=== PATIENT | male | born 1955 | race Caucasian/White ===

== ENCOUNTER 2016-10-23 22:55 | Inpatient (IN) ==
[~2016-10-23 22:55] MED LIST: *HR* Propofol 200 MG/20 ML VIAL IVP ONE; Lidocaine -MPF 2% 5 ML VIAL INFILT ONE
--- NOTE | 2016-10-23 23:55 | Emergency Department Note ---
Disposition Clinical Impression: Vomiting and diarrhea, Dehydration, Anticoagulation adequate with anticoagulant therapy, Hemiplegia, Anasarca Catheter-associated urinary tract infection Qualifiers: Indwelling urinary catheter type: indwelling urethral catheter Encounter type: initial encounter Qualified Code(s): T83.511A - Infection and inflammatory reaction due to indwelling urethral catheter, initial encounter Abdominal pain Qualifiers: Abdominal location: generalized Qualified Code(s): R10.84 - Generalized abdominal pain Hip fracture Qualifiers: Encounter type: subsequent encounter Fracture type: closed Laterality: unspecified laterality Fracture healing: with nonunion Qualified Code(s): S72.009K - Fracture of unspecified part of neck of unspecified femur, subsequent encounter for closed fracture with nonunion Disposition: Admitted As Inpatient Condition: Undetermined General Adult HPI - General Chief complaint: ED Nausea/Vomiting/Diarrhea Stated complaint: nausea/vomiting Source: patient, EMS - History of Present Illness HPI Narrative: Patient presents with his complaining of dark emesis concerning for blood. He has also had diarrhea but the says is "squirting out of him like water." They are concerned for the possibility of Clostridium difficile. He is frequently on antibiotics for bladder infections, last course was a couple of weeks ago. He has had no lightheadedness or dizziness. No chest pain or shortness of breath. He has been complaining of abdominal pain which started before the vomiting and diarrhea. No fever. He is on full dose Lovenox for anticoagulation due to recurrent DVTs and PEs, 150 mg twice daily. No melena, hematochezia or bright red blood per rectum. No alexa hematemesis, they describe the emesis as dark brown. Pain Scale: 8 - Related Data Home Medications Medication Instructions Recorded Confirmed Aspirin Enteric Coated [Aspirin EC] 81 mg PO QAM #0 03/28/15 03/12/16 Carvedilol [Coreg] 6.25 mg PO BIDWM 03/28/15 03/12/16 Ezetimibe [Zetia] 10 mg PO QAM 03/28/15 03/12/16 Insulin Regular U-500 [HumuLIN R 0 unit SQ TID #0 03/28/15 03/12/16 U-500] Latanoprost [Xalatan] 1 drop BOTH EYES HS 03/28/15 03/12/16 Tamsulosin [Flomax] 0.4 mg PO QPM 03/28/15 03/12/16 Albuterol Neb [Proventil Neb] 2.5 mg IH Q4HR PRN 12/31/15 03/12/16 Digoxin [Lanoxin] 0.25 mg PO DAILY 12/31/15 03/12/16 Albuterol Sulfate [Albuterol 2 puff IH TID PRN 03/12/16 03/12/16 Inhaler] Collagenase Oint [Santyl] 1 appl TP DAILY 03/12/16 03/12/16 Docusate [Colace] 100 mg PO BID PRN 03/12/16 03/12/16 Furosemide [Lasix] 40 mg PO BID 03/12/16 03/12/16 Gentamicin Sulfate 1 appl TP DAILY 03/12/16 03/12/16 Insulin Glargine [Lantus] 0 unit SQ BID 03/12/16 03/12/16 Ketoconazole 2% CRM [Nizoral Cream] 1 appl TP BID 03/12/16 03/12/16 Lactose-Reduced Food [Ensure 1 bottle PO TID 03/12/16 03/12/16 Liquid] Mupirocin [Bactroban Oint] 1 appl TP TID 03/12/16 03/12/16 Oxycodone HCl/Acetaminophen 1 each PO Q5H PRN 03/12/16 03/12/16 [Percocet 10-325 mg Tablet] Promethazine [Phenergan] 25 mg PO BID PRN 03/12/16 03/12/16 Ranitidine HCl [Acid Rating Clerk] 150 mg PO BID 03/12/16 03/12/16 Previous Rx's Medication Instructions Recorded Simethicone [Gas-X] 80 mg PO TID PRN #0 tab.chew 04/03/15 Ondansetron HCl [Zofran] 4 mg PO Q8H PRN #20 tablet 09/12/15 Pregabalin [Lyrica] 50 mg PO TID 30 Days 09/12/15 Enoxaparin [Lovenox] 150 mg SQ DAILY #30 syr 10/29/15 Allergies Allergy/AdvReac Type Severity Reaction Status Date / Time celecoxib [From Celebrex] Allergy Swelling Verified 03/12/16 04:44 of Lip/Tongue/Throat gabapentin [From Neurontin] Allergy Swelling Verified 03/12/16 04:44 of Lip/Tongue/Throat nifedipine [From Procardia] Allergy Swelling Verified 03/12/16 04:44 of Lip/Tongue/Throat Penicillins Allergy Swelling Verified 03/12/16 04:44 of Lip/Tongue/Throat rofecoxib [From Vioxx] Allergy Swelling Verified 03/12/16 04:44 of Lip/Tongue/Throat iodine AdvReac See Verified 03/12/16 04:44 Comments povidone-iodine AdvReac See Verified 03/12/16 04:44 [From Betadine] Comments soap [From Betadine] AdvReac See Verified 03/12/16 04:44 Comments All systems ED: reviewed and negative except as stated. Past Medical History - Past Medical History Medical history: Reports: arthritis, atrial fibrillation, cardiomyopathy, cirrhosis, CHF, COPD, coronary artery disease, CVA, DVT, dementia, diabetes, GERD, GI bleed, hepatitis, hyperlipidemia, hypertension, kidney stones, liver disease, migraine, myocardial infarction, osteoporosis, peripheral artery disease, pulmonary embolus, renal disease, TIA, venous stasis Surgical history: Reports: cholecystectomy, pacemaker/AICD Psychiatric history: Reports: anxiety, bipolar, depression - Social History Smoking Status: Former smoker Smokeless Tobacco Status: No Alcohol use: Reports: none Drug use: Reports: none Physical Exam - General General appearance: alert, in no apparent distress - Head Head exam: atraumatic, normocephalic - Eye Eye exam: Present: other (Conjunctivae pink, no pallor.). Absent: scleral icterus - ENT ENT exam: mucous membranes dry - Chest Chest inspection: Present: normal inspection, symmetric chest wall rise - Respiratory Respiratory exam: Present: wheezes (Scattered). Absent: respiratory distress, accessory muscle use, prolonged expiratory phase - Cardiovascular Cardiovascular exam: Present: normal rhythm (Rate normal), normal heart sounds. Absent: tachycardia, irregular rhythm - Abdominal Exam Abdominal exam: Present: soft. Absent: distention, guarding Abdominal tenderness: Present: diffuse, mild - Rectal Exam Health Physicist present during exam: Yes Rectal exam: Present: normal inspection, other (Liquid green stool present on exam). Absent: black stool, bloody stool, mass, tenderness - Male exam: Present: scrotal swelling, other (Cano catheter in place.) - Extremities Exam Extremities exam: Present: pedal edema (Pitting edema to the level of the groin) - Neurological Exam Neurological exam: Present: alert, oriented X3, CN II-XII intact (Grossly), motor sensory deficit (Left-sided weakness status post prior stroke), other ( Speech and mental status normal) - Psychiatric Psychiatric exam: Present: normal affect, normal mood Course Course Narrative: Reviewed records - hip fractures are chronic and have been managed non- operatively since at least February. Stool is heme negative, no vomiting since arrival. VS remain normal, hemoglobin stable compared to previous. C.diff pending. No other acute abnormality on CT. Urine looks to be infected again - will give antibiotics, change catheter. Vital Signs Temperature 97.7 F 10/23/16 22:57 Pulse Rate 73 10/23/16 22:57 Respiratory Rate 20 10/23/16 22:57 Blood Pressure 121/64 10/23/16 22:57 O2 Sat by Pulse Oximetry 92 10/23/16 22:57 Temperature 97.7 F 10/23/16 22:57 Pulse Rate 73 10/23/16 22:57 Respiratory Rate 20 10/23/16 22:57 Blood Pressure 121/64 10/23/16 22:57 O2 Sat by Pulse Oximetry 94 10/23/16 23:04 Oxygen Delivery Oxygen Delivery Nasal Cannula Medical Decision Making - Lab Data Result diagrams: 10/24/16 00:00 10/24/16 00:00 Lab Results 10/24/16 10/24/16 10/24/16 Range/Units 00:00 00:00 00:00 WBC 9.2 (4.3-11.1) K/mcL RBC 4.46 (4.19-5.50) M/mcL Hgb 11.8 L (12.9-16.9) g/dL Hct 39.1 (37.5-50.1) % MCV 87.7 (83.0-100.0) fL MCH 26.5 L (28.0-33.3) pg MCHC 30.2 L (31.6-35.5) g/dL RDW 16.3 H (11.5-14.5) % Plt Count 159 (140-400) K/mcL MPV 9.8 (9.4-12.4) fL PT 16.2 H (9.4-12.1) Seconds INR 1.5 Sodium 135 L (136-145) mEq/L Potassium 4.3 (3.5-4.5) mEq/L Chloride 98 (98-109) mEq/L Carbon Dioxide 28 (19-29) mEq/L BUN 39 H (8-26) mg/dL Creatinine 1.10 (0.72-1.25) mg/dL Est GFR ( Amer) > 60 (> 60) Est GFR (Non-Af Amer) > 60 (> 60) BUN/Creatinine Ratio 35 H (6-26) Glucose 172 H (70-99) mg/dL Calculated Osmolality 293 (280-300) Calcium 8.2 L (8.6-10.8) mg/dL Lipase < 4 L (8-78) Units/L Urine Color (Yellow) Urine Clarity (Clear) Urine pH (5.0-8.0) pH Units Ur Specific [place] (1.010-1.025) Urine Protein (Neg-Trace) mg/dL Urine Glucose (UA) (Normal) mg/dL Urine Ketones (Negative) mg/dL Urine Blood (Negative) Urine Nitrite (Negative) Urine Bilirubin (Negative) Urine Urobilinogen (Normal) mg/dL Ur Leukocyte Esterase (Negative) Urine Microscopic RBC (0-3) per hpf Urine Microscopic WBC (0-3) per hpf Ur Squamous Epith Cells (None-Few) per lpf Urine Bacteria (None-Few) per hpf Hyaline Casts (None-Few) per lpf Urine Yeast Ur Culture Indicated? (NO) Stool Occult Blood (Negative) Stl C. diff Tox B Gene (Negative) 10/24/16 10/24/16 10/24/16 Range/Units 00:38 00:38 01:05 WBC (4.3-11.1) K/mcL RBC (4.19-5.50) M/mcL Hgb (12.9-16.9) g/dL Hct (37.5-50.1) % MCV (83.0-100.0) fL MCH (28.0-33.3) pg MCHC (31.6-35.5) g/dL RDW (11.5-14.5) % Plt Count (140-400) K/mcL MPV (9.4-12.4) fL PT (9.4-12.1) Seconds INR Sodium (136-145) mEq/L Potassium (3.5-4.5) mEq/L Chloride (98-109) mEq/L Carbon Dioxide (19-29) mEq/L BUN (8-26) mg/dL Creatinine (0.72-1.25) mg/dL Est GFR ( Amer) (> 60) Est GFR (Non-Af Amer) (> 60) BUN/Creatinine Ratio (6-26) Glucose (70-99) mg/dL Calculated Osmolality (280-300) Calcium (8.6-10.8) mg/dL Lipase (8-78) Units/L Urine Color Yellow (Yellow) Urine Clarity Turbid A (Clear) Urine pH 6.0 (5.0-8.0) pH Units Ur Specific [place] 1.015 (1.010-1.025) Urine Protein Negative (Neg-Trace) mg/dL Urine Glucose (UA) Normal (Normal) mg/dL Urine Ketones 15 H (Negative) mg/dL Urine Blood Large H (Negative) Urine Nitrite Positive A (Negative) Urine Bilirubin Negative (Negative) Urine Urobilinogen Normal (Normal) mg/dL Ur Leukocyte Esterase Large H (Negative) Urine Microscopic RBC 15-30 H (0-3) per hpf Urine Microscopic WBC TNTC H (0-3) per hpf Ur Squamous Epith Cells Few (None-Few) per lpf Urine Bacteria Many H (None-Few) per hpf Hyaline Casts Few (None-Few) per lpf Urine Yeast Test Not Performed Ur Culture Indicated? YES A (NO) Stool Occult Blood Negative (Negative) Stl C. diff Tox B Gene Negative (Negative)
[2016-10-23] MEDS ORDERED: 0.9 % Sodium Chloride 1,000 ML IVC ONE (23:59)
[2016-10-24 00:07] LABS: Hematocrit 39.1 % (37.5-50.1); Hemoglobin 11.8 g/dL (12.9-16.9); Mean Corpuscular HGB Conc 30.2 g/dL (31.6-35.5); Mean Corpuscular Hemoglobin 26.5 pg (28.0-33.3); Mean Corpuscular Volume 87.7 fL (83.0-100.0); Mean Platelet Volume 9.8 fL (9.4-12.4); Platelet Count 159 K/mcL (140-400); Red Blood Count 4.46 M/mcL (4.19-5.50); Red Cell Distribution Width 16.3 % (11.5-14.5)
[2016-10-24 00:13] LABS: INR 1.5; Prothrombin Time 16.2 Seconds (9.4-12.1)
[2016-10-24 00:21] LABS: BUN/Creatinine Ratio 35 (6-26); Blood Urea Nitrogen 39 mg/dL (8-26); Calcium 8.2 mg/dL (8.6-10.8); Carbon Dioxide 28 mEq/L (19-29); Chloride 98 mEq/L (98-109); Glucose 172 mg/dL (70-99); Osmolality,Calculated 293 (280-300); Potassium 4.3 mEq/L (3.5-4.5); Sodium 135 mEq/L (136-145); eGFR For African Americans > 60 (> 60); eGFR For Non-African Americans > 60 (> 60)
[2016-10-24 00:22] LABS: Lipase < 4 Units/L (8-78)
[2016-10-24 01:16] LABS: Bilirubin,Urine Negative (Negative); Blood,Urine Large (Negative); Clarity,Urine Turbid (Clear); Color,Urine Yellow (Yellow); Glucose,Urine (UA) Normal (Normal); Ketones,Urine 15 mg/dL (Negative); Leukocyte Esterase,Urine Large (Negative); Nitrite,Urine Positive (Negative); Protein,Urine Negative (Neg-Trace); Specific Gravity,Urine 1.015 (1.010-1.025); Urobilinogen,Urine Normal (Normal)
[2016-10-24 01:19] LABS: Bacteria,Urine Many per hpf (None-Few); Hyaline Casts,Urine Few per lpf (None-Few); RBC,Urine 15-30 per hpf (0-3); Squamous Epithelial Cell,Urine Few per lpf (None-Few); WBC,Urine TNTC per hpf (0-3)
[2016-10-24] MEDS ORDERED: *HR* HYDROmorphone (PF) 1 MG/ML SYRINGE IVP PRN (02:01)
[2016-10-24] MEDS ORDERED: Pantoprazole 40 MG VIAL IVP ONE (03:07)
[2016-10-24] MEDS ORDERED: *HR* Promethazine 25 MG/ML VIAL IVP ONE (03:07)
[2016-10-24] MEDS ORDERED: Naloxone 0.4 MG/ML INJ IVP PRN (03:33)
--- NOTE | 2016-10-24 03:39 | Internal Med History&Physical ---
Date of Encounter: 10/24/16 Time of Encounter: 03:39 Assessment and Plan (1) Nausea & vomiting Current visit: Yes Status: Acute Pt's family reports coffee colored vomit. Treat with anti-emetics, PPI. Consider GI consult Qualifiers: Vomiting type: unspecified Vomiting Intractability: intractable Qualified Code(s): R11.2 - Nausea with vomiting, unspecified (2) Upper GI bleed Current visit: Yes Status: Suspected Pt is on aspirin and lovenox - suspect gastritis / PUD. Pt is started on pantoprazole infusion. Hold aspirin and lovenox. GI consult, for possible EGD (3) Catheter-associated urinary tract infection Current visit: Yes Status: Acute Pt has chronic in-dwelling corey. Patient had the prior UTIs with ESBL organism. Pt was given ceftriaxone in the ER. He is listed to be allergic to Penicillin. Consider ID consult for further advice on antibiotics Qualifiers: Indwelling urinary catheter type: indwelling urethral catheter Encounter type: initial encounter Qualified Code(s): T83.511A - Infection and inflammatory reaction due to indwelling urethral catheter, initial encounter; N39.0 - Urinary tract infection, site not specified (4) Chronic respiratory failure Current visit: Yes Status: Chronic Continue BiPAP Qualifiers: Respiratory failure complication: hypercapnia Qualified Code(s): J96.12 - Chronic respiratory failure with hypercapnia (5) Chronic pain Current visit: Yes Status: Chronic Pt is not able to tolerate oral meds at this time - switch to IV pain medicaitons Qualifiers: Chronic pain type: other chronic pain Qualified Code(s): G89.29 - Other chronic pain (6) Normocytic anemia Current visit: Yes Status: Chronic Monitor H&H (7) VTE (venous thromboembolism) Current visit: Yes Status: Chronic Pt is s/p IVC filter and is on lovenox. Hold lovenox for suspected Upper GI bleed. Resume lovenox, if EGD is negative. (8) Chronic anticoagulation Current visit: Yes Status: Chronic Pt on lovenox, which is held due to suspected upper GI bleed (9) Paraplegia Current visit: Yes Status: Chronic Supportive care Internal Medicine - H&P: HPI Chief complaint: Nausea and vomiting Admitted From: Emergency Dept Plans for Post Hospital Care: Home History of present illness: Mr. Holobaugh is a 61 year old male with past mental history significant for paraplegia, fall leading to bilateral femoral neck fractures , DM, chronic indwelling Corey catheter, chronic respiratory failure with hypercapnia, DVT/PE s/p IVC filter placement and chronic anticoagulation with lovenox, CHF, decubitus ulcers, chronic anemia. He is brought to the emergency department with history of recurrent vomiting, started yesterday. Multiple episodes - the family describes dark /Coffee colored. No bright red blood. No melena. Family describes watery/greenish bowel movement, with a frequency of 1-3 times /day and no BMs some days. He reports abdominal pain in the upper abdomen, which is sharp and moderate in severity, non radiating. He denies chest pain, significant shortness of breath, cough or expectoration. Denies fever or chills. He was evaluated in the ER and was noted to have abnormal UA and was given ceftriaxone and is admitted to the hospitalist service for further w/u and management. Past Med Surg Social Fam HX - Past Medical History Medical history: arthritis, atrial fibrillation, cardiomyopathy, cirrhosis, CHF , COPD, coronary artery disease, CVA, DVT, dementia, diabetes, GERD, GI bleed, hepatitis, hyperlipidemia, hypertension, kidney stones, liver disease, migraine , myocardial infarction, osteoporosis, peripheral artery disease, pulmonary embolus, renal disease, TIA, venous stasis Psychiatric history: anxiety, bipolar, depression - Past Surgical History Surgical History: cholecystectomy, pacemaker/AICD - Social History Smoking Status: Former smoker Smokeless Tobacco Status: No Alcohol use: none Drug use: none - Family History Mother Adopted: No Living Status: Hx Family Cardiac Disorders: Yes Hx Family Respiratory Disorders: Yes Hx Family Cancer: Yes Hx Family GI Disorders: No Hx Family Endocrine Disorder: Yes Hx Family Neuromuscular Disorders: No Hx Family Neurologic Disorders: No Hx Family HEENT Disorders: No Hx Family Autoimmune Disorders: No Internal Medicine - H&P: Meds Aspirin Enteric Coated [Aspirin EC] 81 mg PO QAM #0 03/28/15 [History] Carvedilol [Coreg] 6.25 mg PO BIDWM 03/28/15 [History] Ezetimibe [Zetia] 10 mg PO QAM 03/28/15 [History] Latanoprost [Xalatan] 1 drop BOTH EYES HS 03/28/15 [History] Tamsulosin [Flomax] 0.4 mg PO QPM 03/28/15 [History] Simethicone [Gas-X] 80 mg PO TID PRN #0 tab.chew 04/03/15 [Rx] Ondansetron HCl [Zofran] 4 mg PO Q8H PRN #20 tablet 09/12/15 [Rx] Pregabalin [Lyrica] 50 mg PO TID 30 Days 09/12/15 [Rx] Enoxaparin [Lovenox] 150 mg SQ DAILY #30 syr 10/29/15 [Rx] Albuterol Neb [Proventil Neb] 2.5 mg IH Q4HR PRN 12/31/15 [History] Digoxin [Lanoxin] 0.25 mg PO DAILY 12/31/15 [History] Albuterol Sulfate [Albuterol Inhaler] 2 puff IH TID PRN 03/12/16 [History] Docusate [Colace] 100 mg PO BID PRN 03/12/16 [History] Furosemide [Lasix] 40 mg PO BID 03/12/16 [History] Insulin Glargine [Lantus] 0 unit SQ BID 03/12/16 [History] Ketoconazole 2% CRM [Nizoral Cream] 1 appl TP BID 03/12/16 [History] Lactose-Reduced Food [Ensure Liquid] 1 bottle PO TID 03/12/16 [History] Oxycodone HCl/Acetaminophen [Percocet 10-325 mg Tablet] 1 each PO Q5H PRN [History] Promethazine [Phenergan] 25 mg PO BID PRN 03/12/16 [History] Iron 18 mg PO DAILY 10/24/16 [History] Allergies celecoxib [From Celebrex] Allergy (Verified 03/12/16 04:44) Swelling of Lip/Tongue/Throat gabapentin [From Neurontin] Allergy (Verified 03/12/16 04:44) Swelling of Lip/Tongue/Throat nifedipine [From Procardia] Allergy (Verified 03/12/16 04:44) Swelling of Lip/Tongue/Throat Penicillins Allergy (Verified 03/12/16 04:44) Swelling of Lip/Tongue/Throat rofecoxib [From Vioxx] Allergy (Verified 03/12/16 04:44) Swelling of Lip/Tongue/Throat iodine Adverse Reaction (Verified 03/12/16 04:44) See Comments Son states that pt has "swelling" wherever it touches his skin. povidone-iodine [From Betadine] Adverse Reaction (Verified 03/12/16 04:44) See Comments Son states that pt has "swelling" when it touches the skin. soap [From Betadine] Adverse Reaction (Verified 03/12/16 04:44) See Comments All Systems PM: A 10-system review of systems was performed and is negative for pertinent findings except as documented above in the HPI. - Constitutional Vitals: Temp Pulse Resp BP Pulse Ox 98.1 F 70 18 128/60 96 10/24/16 02:42 10/24/16 02:42 10/24/16 02:42 10/24/16 02:42 10/24/16 02:42 Exam: General: In mild distress at the time of my evaluation HEENT: Oral mucosa is moist. No conjunctival palor or scleral icterus Neck: No obvious neck swellings Lungs: Right basal crackles present Cardiac: Irregular rhyth. No significant murmurs Abdomen: Epigastric tenderness present. Bowel sounds present Genitourinary: Corey catheter present Neurological: Known paraplegia Psych: Not aggressive or agitated Extremities: There is dressing over both legs, for chronic ulcers Skin: No generalized rash Internal Med - H&P Results - Labs CBC & Chem 7: 10/24/16 04:31 10/24/16 04:31 - Impressions ITS Impressions Abdomen/Pelvis CT 10/24/16 23:44 IMPRESSION: No definite imaging evidence of enteritis or colitis. Thickening of the lower esophagus may reflect esophagitis. Diverticulosis coli without evidence of diverticulitis. Third-spacing with bilateral pleural effusions, loculated on the left, ascites, and anasarca. Nodularity to the liver surface may reflect the early changes of hepatic cirrhosis. Clinically correlate. Chronic appearing intertrochanteric fracture of the right hip with nonunion of fracture fragments. Healing intertrochanteric fracture of the left hip with impaction of fracture fragments. Soft tissue ulcers seen over the sacrum and left hip without CT evidence of osteomyelitis at this time. D/ / Isidro Barry MD / Isidro Barry MD Interpreting Provider: Isidro Barry MD Impressions Chest X-Ray 10/24/16 03:45 IMPRESSION: 1. Cardiomegaly and pulmonary edema. 2. Left lower lobe atelectasis and/or pneumonia. D/ / Arnoldo Frank MD / Arnoldo Frank MD Interpreting Provider: Arnoldo Frank MD Abdomen/Pelvis CT 10/24/16 23:44 IMPRESSION: No definite imaging evidence of enteritis or colitis. Thickening of the lower esophagus may reflect esophagitis. Diverticulosis coli without evidence of diverticulitis. Third-spacing with bilateral pleural effusions, loculated on the left, ascites, and anasarca. Nodularity to the liver surface may reflect the early changes of hepatic cirrhosis. Clinically correlate. Chronic appearing intertrochanteric fracture of the right hip with nonunion of fracture fragments. Healing intertrochanteric fracture of the left hip with impaction of fracture fragments. Soft tissue ulcers seen over the sacrum and left hip without CT evidence of osteomyelitis at this time. D/ / Isidro Barry MD / Isidro Barry MD Interpreting Provider: Isidro Barry MD - VTE Reasons for not Prescribing Prophylaxis: Not indicated-Anticoagulated or INR therapeutic
[2016-10-24 04:41] LABS: Basophils % 0.5 %; Eosinophils % 0.1 %; Hematocrit 37.3 % (37.5-50.1); Hemoglobin 11.2 g/dL (12.9-16.9); Immature Granulocytes % 0.5 % (0-4); Lymphocytes # 0.5 K/mcL (0.6-4.6); Lymphocytes % 5.7 %; Mean Corpuscular Hemoglobin 26.2 pg (28.0-33.3); Mean Corpuscular Volume 87.4 fL (83.0-100.0); Mean Platelet Volume 9.8 fL (9.4-12.4); Monocytes # 0.5 K/mcL (0.0-1.3); Monocytes % 5.5 %; Neutrophils # 7.7 K/mcL (1.6-8.9); Platelet Count 171 K/mcL (140-400); Red Blood Count 4.27 M/mcL (4.19-5.50); Red Cell Distribution Width 16.2 % (11.5-14.5); Segmented Neutrophils % 87.7 %
[2016-10-24] MEDS: Pantoprazole 40 MG in 0.9 % Sodium Chloride Mini Bag 100 ML IVC SCH ×4 (04:53→22:14)
[2016-10-24 04:55] LABS: Albumin 2.6 g/dL (3.5-5.0); Albumin/Globulin Ratio 0.6 (1.1-2.2); Alkaline Phosphatase 70 Units/L (38-126); Aspartate Amino Transferase 9 Units/L (5-34); BUN/Creatinine Ratio 37 (6-26); Bilirubin,Total 0.8 mg/dL (0.2-1.2); Blood Urea Nitrogen 38 mg/dL (8-26); Calcium 8.2 mg/dL (8.6-10.8); Carbon Dioxide 29 mEq/L (19-29); Chloride 98 mEq/L (98-109); Globulin 4.7 g/dL (2.4-3.5); Glucose 146 mg/dL (70-99); Magnesium 1.8 mg/dL (1.6-2.6); Osmolality,Calculated 296 (280-300); Potassium 4.2 mEq/L (3.5-4.5); Sodium 137 mEq/L (136-145); Total Protein 7.3 g/dL (6.0-8.3); eGFR For African Americans > 60 (> 60); eGFR For Non-African Americans > 60 (> 60)
[2016-10-24 04:56] LABS: Alanine Aminotransferase < 6 Units/L (0-55)
[2016-10-24] MEDS ORDERED: *HR* HYDROmorphone (PF) 1 MG/ML SYRINGE IVP ONE (05:36)
[2016-10-24] MEDS ORDERED: Albuterol 2.5 MG/3 ML NEBULIZER IH PRN (09:14)
[2016-10-24] MEDS ORDERED: *HR* OxyCODONE/APAP 10/325 TABLET PO PRN (09:14)
[2016-10-24] MEDS: *HR* Digoxin 0.25 MG TABLET PO SCH (09:38)
[2016-10-24 09:39] LABS: Digoxin < 0.3 ng/mL (0.8-2.0)
[2016-10-24] MEDS: *HR* Morphine 2 MG/ML SYRINGE IVP PRN (09:49)
[2016-10-24] MEDS: *HR* Promethazine 25 MG/ML VIAL IVP PRN ×2 (09:53→22:24)
[2016-10-24 11:03] LABS: Hematocrit 36.5 % (37.5-50.1); Hemoglobin 11.3 g/dL (12.9-16.9)
--- NOTE | 2016-10-24 11:54 | Gastroenterology Consult Note ---
<JoHolden Raza - Last Filed: 10/24/16 11:52> Date of Encounter: 10/24/16 Time of Encounter: 10:40 - Assessment and plan (1) Nausea & vomiting Current Visit: Yes Status: Acute Assessment and plan: Pt reports coffee-ground emesis, no hematemesis. Continue PPI drip. Plan for EGD today to r/o esophagitis, gastritis, duodenitis, PUD, MW tear, or AVM. Qualifiers: Vomiting type: unspecified Vomiting Intractability: intractable Qualified Code(s): R11.2 - Nausea with vomiting, unspecified (2) Upper GI bleed Current Visit: Yes Status: Suspected Assessment and plan: Patient reported coffee-ground emesis and denied any hematemesis. Plan for EGD today to r/o esophagitis, gastritis, duodenitis, PUD, MW tear, or AVM. Continue PPI infusion. Continue to hold ASA and Lovenox. (3) Paraplegia Current Visit: Yes Status: Chronic (4) Diarrhea Current Visit: Yes Status: Acute Assessment and plan: C. difficile was negative. Fecal occult blood test negative. We will complete stool testing. Recommend daily fiber supplement. Qualifiers: Diarrhea type: unspecified type Qualified Code(s): R19.7 - Diarrhea, unspecified - Time Spent With Patient Total time spent is greater than 50% in coordination of care (as documented) at patient's floor/unit and/or counseling patient: GI History of Present Illness - Data of Consult Patient: new to practice Consult date: 10/24/16 Requesting Physician: Negrita Plasencia - Consult Narrative Reason for consult: UGI bleed History of present illness: Mr. Echavarria is a 61 year old male with PMHx of arthritis, Afib, cardiomyopathy , cirrhosis, CHF, COPD, CAD, CVA, DVT, DM, GERD, HTN, SC, PE who presented to the ED with recurrent vomiting. The family describes dark, coffee colored vomit. No hematemesis, melena, or hematochezia. He has also had diarrhea but the says is "squirting out of him like water." They are concerned for the possibility of C. difficile. He is frequently on antibiotics for bladder infections, last course was a couple of weeks ago. He reports upper abdominal pain. He denies fever, chills, chest pain, SOB. CT A/P was no definite imaging evidence of enteritis or colitis. Thickening of the lower esophagus may reflect esophagitis. Nodularity to the liver surface may reflect early changes of hepatic cirrhosis. Procedures: EGD 11/04/2013 Dr. Simmons: Gastritis NSAIDs: ASA Anticoagulation: Lovenox Past Med Surg Social Fam HX - Past Medical History Medical history: arthritis, atrial fibrillation, cardiomyopathy, cirrhosis, CHF , COPD, coronary artery disease, CVA, DVT, dementia, diabetes, GERD, GI bleed, hepatitis, hyperlipidemia, hypertension, kidney stones, liver disease, migraine , myocardial infarction, osteoporosis, peripheral artery disease, pulmonary embolus, renal disease, TIA, venous stasis Psychiatric history: anxiety, bipolar, depression - Past Surgical History Surgical History: cholecystectomy, pacemaker/AICD - Social History Smoking Status: Former smoker Smokeless Tobacco Status: No Alcohol use: none Drug use: none - Family History Mother Adopted: No Living Status: Hx Family Cardiac Disorders: Yes Hx Family Respiratory Disorders: Yes Hx Family Cancer: Yes Hx Family GI Disorders: No Hx Family Endocrine Disorder: Yes Hx Family Neuromuscular Disorders: No Hx Family Neurologic Disorders: No Hx Family HEENT Disorders: No Hx Family Autoimmune Disorders: No - Gastrointestinal Gastrointestinal: Present: as per HPI - Constitutional Constitutional: as per HPI - EENT Eyes: as per HPI Ears: Present: as per HPI Nose, mouth and throat: Present: as per HPI - Cardiovascular Cardiovascular ROS: Present: as per HPI - Respiratory Respiratory IM: Present: as per HPI - Genitourinary Genitourinary: Absent: change in color, Urinary frequency - Neurological ROS Neurological GI: Present: as per HPI - Hematologic/Lymphatic Hematologic/Lymphatic pediatric: Present: as per HPI - Musculoskeletal Musculoskeletal ROS GI: Present: as per HPI - Integumentary Integumentary GI: Present: as per HPI - Psychiatric ROS Psychiatric GI: Present: as per HPI - Endocrine Endocrine IM: Present: as per HPI - Constitutional Vitals: Temp Pulse Resp BP Pulse Ox 97.7 F 81 18 123/71 97 10/24/16 08:24 10/24/16 08:24 10/24/16 08:24 10/24/16 08:24 10/24/16 08:24 General appearance: Present: cooperative, A&O X 3, no acute distress, answers questions appropriately - Head Head exam: Present: atraumatic, normocephalic - Eye Eye exam: Present: normal appearance, sclera anicteric - ENT ENT exam: Present: mucous membranes dry - Neck Neck exam general surgery: Present: normal inspection, trachea midline - Respiratory Respiratory exam: Present: CTAB - Cardiovascular Cardiovascular exam: Present: RRR, +S1, +S2 - GI/Abdominal GI/Abdominal exam: Present: soft, tenderness (epigastric), no peritoneal signs. Absent: distended, firm, guarding - Rectal Rectal exam: Present: deferred - Extremities Exam Extremities exam: Present: warm - Neurological Exam Neurological exam: Present: no focal deficits - Psychiatric Psychiatric exam: Present: normal affect, normal mood - Skin Skin exam: Present: dry, intact, normal color, warm Results - Labs CBC & Chem 7: 10/24/16 10:56 10/24/16 04:31 Labs: Last Result Calcium 8.2 mg/dL (8.6-10.8) L 10/24/16 04:31 Stool Occult Blood Negative (Negative) 10/24/16 00:38 Entire Visit Hgb 11.3 g/dL (12.9-16.9) L 10/24/16 10:56 Hct 36.5 % (37.5-50.1) L 10/24/16 10:56 PT 16.2 Seconds (9.4-12.1) H 10/24/16 00:00 Total Bilirubin 0.8 mg/dL (0.2-1.2) 10/24/16 04:31 AST 9 Units/L (5-34) 10/24/16 04:31 ALT < 6 Units/L (0-55) 10/24/16 04:31 Lipase < 4 Units/L (8-78) L 10/24/16 00:00 - ABG ABG results: PT/INR, D-dimer PT 16.2 Seconds (9.4-12.1) H 10/24/16 00:00 - Impressions Impressions Abdomen/Pelvis CT 10/24/16 23:44 IMPRESSION: No definite imaging evidence of enteritis or colitis. Thickening of the lower esophagus may reflect esophagitis. Diverticulosis coli without evidence of diverticulitis. Third-spacing with bilateral pleural effusions, loculated on the left, ascites, and anasarca. Nodularity to the liver surface may reflect the early changes of hepatic cirrhosis. Clinically correlate. Chronic appearing intertrochanteric fracture of the right hip with nonunion of fracture fragments. Healing intertrochanteric fracture of the left hip with impaction of fracture fragments. Soft tissue ulcers seen over the sacrum and left hip without CT evidence of osteomyelitis at this time. D/ / Isidro Barry MD / Isidro Barry MD Interpreting Provider: Isidro Barry MD Consult Discharge Plan - Plan Referrals: Dylon Winston MD [Primary Care Provider] - <ShiloRedd - Last Filed: 10/24/16 16:03> Date of Encounter: 10/24/16 Time of Encounter: 12:10 - Time Spent With Patient Total time spent is greater than 50% in coordination of care (as documented) at patient's floor/unit and/or counseling patient: GI History of Present Illness - Data of Consult Requesting Physician: Negrita Plasencia - Consult Narrative History of present illness: Mr. Echavarria is a 61 year old male - Constitutional Vitals: Temp Pulse Resp BP Pulse Ox 97.3 F L 69 16 127/64 96 10/24/16 15:11 10/24/16 15:11 10/24/16 15:11 10/24/16 15:11 10/24/16 15:11 Results - Labs CBC & Chem 7: 10/24/16 10:56 10/24/16 04:31 Labs: Last Result Calcium 8.2 mg/dL (8.6-10.8) L 10/24/16 04:31 Stool Occult Blood Negative (Negative) 10/24/16 00:38 Entire Visit Hgb 11.3 g/dL (12.9-16.9) L 10/24/16 10:56 Hct 36.5 % (37.5-50.1) L 10/24/16 10:56 PT 16.2 Seconds (9.4-12.1) H 10/24/16 00:00 Total Bilirubin 0.8 mg/dL (0.2-1.2) 10/24/16 04:31 AST 9 Units/L (5-34) 10/24/16 04:31 ALT < 6 Units/L (0-55) 10/24/16 04:31 Lipase < 4 Units/L (8-78) L 10/24/16 00:00 - ABG ABG results: PT/INR, D-dimer PT 16.2 Seconds (9.4-12.1) H 10/24/16 00:00 - Impressions Impressions Abdomen/Pelvis CT 10/24/16 23:44 IMPRESSION: No definite imaging evidence of enteritis or colitis. Thickening of the lower esophagus may reflect esophagitis. Diverticulosis coli without evidence of diverticulitis. Third-spacing with bilateral pleural effusions, loculated on the left, ascites, and anasarca. Nodularity to the liver surface may reflect the early changes of hepatic cirrhosis. Clinically correlate. Chronic appearing intertrochanteric fracture of the right hip with nonunion of fracture fragments. Healing intertrochanteric fracture of the left hip with impaction of fracture fragments. Soft tissue ulcers seen over the sacrum and left hip without CT evidence of osteomyelitis at this time. D/ / Isidro Barry MD / Isidro Barry MD Interpreting Provider: Isidro Barry MD - Attending Attestation I examined this patient and my medical decision-making was reviewed with the PAINT DIPPER/PA/Advanced Practice Nurse/Resident Physician. I agree with the documented findings, disposition and treatment plan as described except to the extent set forth below.
--- NOTE | 2016-10-24 12:04 | Anesthesia Evaluation PreOp ---
Date of Encounter: 10/24/16 Time of Encounter: 12:01 - Past History Planned Operation: EGD Cardiac History: CHF, HTN (maintained on Carvedilol), Hyperlipidemia, Arrhythmia (AFib maintained on Digoxin, Lovenox), Pacemaker/ICD (originally placed "Many years ago - this is 2nd or 3rd one"), Other (ECHO 08/30/2015 - LVEF not reported ("difficult to assess"), Diffuse Hypokinesis with regional variations. Atypical septal motion c/w V-Pacing. Indeterminate diastolic dysfx. POOR Exercise tolerance/Pt Non-ambulatory.) Pulmonary History: Former smoker, DELORES Dx (Pt is BiPap Dependent, Previous hospitalizations for Acute on Chronic respiratory failure), Other (Mild PulmHtn RVSP = 39mmHg (per Echo 08/2015)) CLINICAL PROGRAMMER History: TIA, Paresis (Paraplegia), Other (Chronic pain maintained on Lyrica ) Other Medical History: Hepatic (Cirrhosis/Hepatitis), Renal, Bleeding (Hx of PE/ DVTs s/p IVC filter & Lovenox anticoagulation), Diabetes Type II (maintained on Lantus, Zetia), Other (Admitted this hospitalization re: suspected UGI Bleed & Catheter associated UTI. Glaucoma maintained on Xalatan) Anesthesia History: Past Anesthesia (Bronchoscopy 08/2015, IVC filter r) Alcohol Use: none Drug use: none Medications and Allergies Aspirin Enteric Coated [Aspirin EC] 81 mg PO QAM #0 03/28/15 [History] Carvedilol [Coreg] 6.25 mg PO BIDWM 03/28/15 [History] Ezetimibe [Zetia] 10 mg PO QAM 03/28/15 [History] Latanoprost [Xalatan] 1 drop BOTH EYES HS 03/28/15 [History] Tamsulosin [Flomax] 0.4 mg PO QPM 03/28/15 [History] Simethicone [Gas-X] 80 mg PO TID PRN #0 tab.chew 04/03/15 [Rx] Ondansetron HCl [Zofran] 4 mg PO Q8H PRN #20 tablet 09/12/15 [Rx] Pregabalin [Lyrica] 50 mg PO TID 30 Days 09/12/15 [Rx] Digoxin [Lanoxin] 0.25 mg PO DAILY 12/31/15 [History] Albuterol Sulfate [Albuterol Inhaler] 2 puff IH TID PRN 03/12/16 [History] Docusate [Colace] 100 mg PO BID PRN 03/12/16 [History] Furosemide [Lasix] 40 mg PO BID 03/12/16 [History] Insulin Glargine [Lantus] 60 unit SQ BID 03/12/16 [History] Ketoconazole 2% CRM [Nizoral Cream] 1 appl TP BID 03/12/16 [History] Lactose-Reduced Food [Ensure Liquid] 1 bottle PO TID 03/12/16 [History] Oxycodone HCl/Acetaminophen [Percocet 10-325 mg Tablet] 1 tab PO 5XD 03/12/16 [ History] Promethazine [Phenergan] 25 mg PO BID PRN 03/12/16 [History] Collagenase Oint [Santyl] 151 appl TP AD 10/24/16 [History] Enoxaparin [Lovenox] 150 mg SQ Q12HR 10/24/16 [History] Ferrous Sulfate [Iron] 325 mg PO DAILY 10/24/16 [History] Gentamicin Oint [Garamycin] 1 appl TP TID 10/24/16 [History] Ipratropium/Albuterol Neb [Duoneb] 3 ml IH Q6HR 10/24/16 [History] Mupirocin [Bactroban Oint] 1 appl TP BID 10/24/16 [History] Allergies celecoxib [From Celebrex] Allergy (Verified 03/12/16 04:44) Swelling of Lip/Tongue/Throat gabapentin [From Neurontin] Allergy (Verified 03/12/16 04:44) Swelling of Lip/Tongue/Throat nifedipine [From Procardia] Allergy (Verified 03/12/16 04:44) Swelling of Lip/Tongue/Throat Penicillins Allergy (Verified 03/12/16 04:44) Swelling of Lip/Tongue/Throat rofecoxib [From Vioxx] Allergy (Verified 03/12/16 04:44) Swelling of Lip/Tongue/Throat iodine Adverse Reaction (Verified 03/12/16 04:44) See Comments Son states that pt has "swelling" wherever it touches his skin. povidone-iodine [From Betadine] Adverse Reaction (Verified 03/12/16 04:44) See Comments Son states that pt has "swelling" when it touches the skin. soap [From Betadine] Adverse Reaction (Verified 03/12/16 04:44) See Comments - Meds/Allergy Pre-op Review Medications Reviewed: Yes Allergies Reviewed: Yes Beta Blockers on Current Med List: Yes (Carvedilol) Anesthesia Results - Labs 10/24/16 10:56 10/24/16 04:31 Laboratory Results Impressions Chest X-Ray 10/24/16 03:45 IMPRESSION: 1. Cardiomegaly and pulmonary edema. 2. Left lower lobe atelectasis and/or pneumonia. D/ / Aronldo Frank MD / Arnoldo Frank MD Interpreting Provider: Arnoldo Frank MD Abdomen/Pelvis CT 10/24/16 23:44 IMPRESSION: No definite imaging evidence of enteritis or colitis. Thickening of the lower esophagus may reflect esophagitis. Diverticulosis coli without evidence of diverticulitis. Third-spacing with bilateral pleural effusions, loculated on the left, ascites, and anasarca. Nodularity to the liver surface may reflect the early changes of hepatic cirrhosis. Clinically correlate. Chronic appearing intertrochanteric fracture of the right hip with nonunion of fracture fragments. Healing intertrochanteric fracture of the left hip with impaction of fracture fragments. Soft tissue ulcers seen over the sacrum and left hip without CT evidence of osteomyelitis at this time. D/ / Isidro Barry MD / Isidro Barry MD Interpreting Provider: Isidro Barry MD Laboratory Tests 03/13/16 09/19/16 10/24/16 04:25 14:15 00:00 PT 16.2 H INR 1.5 Est GFR (Non-Af Amer) POC Glucose Est Mean Plasma Glucose 154 Hemoglobin A1c 7.0 H Iron 48 L B-Natriuretic Peptide 10/24/16 10/24/16 10/24/16 02:52 04:31 04:31 PT INR Est GFR (Non-Af Amer) > 60 POC Glucose 142 H Est Mean Plasma Glucose Hemoglobin A1c Iron B-Natriuretic Peptide 345 H - Imaging EKG: image reviewed Anesthesia Exam Vital Signs Temp Pulse Resp BP Pulse Ox 10/24/16 12:02 97.7 F 72 18 119/62 98 10/24/16 08:24 97.7 F 81 18 123/71 97 10/24/16 02:42 98.1 F 70 18 128/60 96 10/24/16 02:26 18 128/60 10/24/16 01:30 70 20 124/63 98 10/24/16 00:30 69 20 127/69 98 10/23/16 23:04 94 10/23/16 22:57 97.7 F 73 20 121/64 92 Intake and Output 10/23/16 10/24/16 10/24/16 23:59 07:59 15:59 Intake Total 1100 / 1100 100 / 100 Balance 1100 / 1100 100 / 100 Intake: IV Fluids 1100 / 1100 100 / 100 0.9 % Sodium Chloride 1, 1000 / 1000 000 ML @ 3750 mls/hr IVC .Q16M ONE Rx#:[id number] Protonix 40 MG In 0.9 % 100 / 100 Sodium Chloride (Mini-Bag +) 100 ML @ 20 mls/hr IVC .Q5H JAMAL Rx#: [id number] Rocephin 1,000 MG In 100 / 100 Dextrose 5% (Minibag+) 100 ML 100 ML @ 200 mls/ hr IVPB ONCE ONE Rx#: [id number] Other: Stool Characteristics Pasty Stool Color Brown Weight 106.594 kg 148.325 kg Blood Glucose* 142 127 Patient Weight 10/24/16 23:59 Weight 148.325 kg Height: 6'4" Weight: 327# BMI = 40 NPO (# of Hours): MNoc - HEENT Pupil (Motor): Pupils equal, EOMI Mallampati: III Teeth: Edentulous Oral Opening: Greater than 3 - CLINICAL PROGRAMMER LOC: Oriented CLINICAL PROGRAMMER Motor: Normal RUE, Normal LUE, Normal Face, Deficit RLE, Deficit LLE CLINICAL PROGRAMMER Sensory: Normal: RUE, LUE, Face, Deficit: RLE, LLE - Cardiac Rhythm: Regular Murmur: None (difficult to auscultate) JVD: No - Pulmonary Breath Sounds: bilateral Rales (Distant lung sounds), bilateral Rhonchi Respiratory Effort: Symmetrical Anesthesia Assess/Plan ASA Score: 4 (MO, CHF, Cardiomyopathy, [id number] Respiratory Failure, DM , DELORES, HTN, Chol, Cirrhosis/Hepatitis) Modified [place] Scale for Level of Consciousness: Cooperative, oriented, and tranquil Anesthetic Plan: MAC Monitoring Plan: Standard Monitors Recovery Plan: Other Anes Supervising Prov Stmt: Pt seen/evaluated, R&B Discussed, questions answered and consent obtained. Yovana Posada MD
[2016-10-24] MEDS ORDERED: Tetracaine/Benzocaine/Butamben 200MG/SPRAY (100SPY/BOT) ONE (12:40)
--- NOTE | 2016-10-24 13:06 | Anesthesia Evaluation Post Op ---
Date of Encounter: 10/24/16 Time of Encounter: 13:05 - Vital Signs Vital Signs: vss - Lungs Lungs: Clear Ascult./Percussion - Airway Airway: Non-obstructed - Cardiovascular Baseline Rhythm - Mental Status Mental Status: Asleep with brisk response to light stimulation - Pain Pain Scale used: Jaron (Faces) - Discharge PostOp Status: Transfer Patient to floor
[2016-10-24] MEDS: Ertapenem 1,000 MG in 0.9 % Sodium Chloride Mini Bag 100 ML IVPB SCH (13:46)
[2016-10-24] MEDS: Furosemide 40 MG TABLET PO SCH ×2 (13:47→22:14)
[2016-10-24] MEDS: *HR* HYDROmorphone (PF) 1 MG/ML SYRINGE IVP PRN ×3 (13:47→22:15)
[2016-10-24] MEDS: Pregabalin 50 MG CAPSULE PO SCH ×2 (13:47→22:13)
--- NOTE | 2016-10-24 16:35 | Internal Med Progress Note ---
Date of Encounter: 10/24/16 Time of Encounter: 14:30 - Assessment and plan (1) Pneumonia Current Visit: Yes Status: Acute Assessment and plan: Imaging consistent with possible left lower lobe pneumonia. No recent admissions. Unknown etiology. Does not appear to have been on antibiotics recently. Good coverage with ertapenem that he is being treated with his urinary tract infection. We will add macrolide (2) Upper GI bleed Current Visit: Yes Status: Suspected Assessment and plan: Status post EGD today. EGD revealed esophagitis, gastritis with coffee ground like material noted in the gastric body and multiple nonbleeding duodenal ulcers with no stigmata of bleeding. Recommendation is for elevating his head of the bed 45 degrees, twice a day PPI, Reglan 10 mg before meals and at bedtime. We will continue protonic strip at this time and add Reglan. He is hemodynamically stable. We will continue with anti-emetics and advance his diet as tolerated. (3) Catheter-associated urinary tract infection Current Visit: Yes Status: Acute Assessment and plan: Patient with lengthy history of resistant organisms contributing to his urinary tract infections. Most recently ESBL-he is on contact precautions. Most recent urine culture report reviewed and the patient was started on ertapenem. Sensitivities pending. A pelvic line was also placed as he is likely to necessitate IV antibiotics. No leukocytosis. Vital signs are stable. No indication of SIRS or sepsis. Qualifiers: Indwelling urinary catheter type: indwelling urethral catheter Encounter type: initial encounter Qualified Code(s): T83.511A - Infection and inflammatory reaction due to indwelling urethral catheter, initial encounter; N39.0 - Urinary tract infection, site not specified (4) Lymphedema of both lower extremities Current Visit: No Status: Chronic (5) Anasarca Current Visit: Yes Status: Chronic (6) Nausea & vomiting Current Visit: Yes Status: Acute Assessment and plan: Continue with anti-emetics Qualifiers: Vomiting type: unspecified Vomiting Intractability: intractable Qualified Code(s): R11.2 - Nausea with vomiting, unspecified (7) Chronic respiratory failure Current Visit: Yes Status: Chronic Assessment and plan: No increased need for oxygen. Patient denies shortness of breath above his norm. On 3 L per nasal cannula continuously with BiPAP at bedtime. Qualifiers: Respiratory failure complication: unspecified whether with hypoxia or hypercapnia Qualified Code(s): J96.10 - Chronic respiratory failure, unspecified whether with hypoxia or hypercapnia (8) Chronic pain Current Visit: Yes Status: Chronic Assessment and plan: Home pain medication continued, we will continue to address his pain. Qualifiers: Chronic pain type: other chronic pain Qualified Code(s): G89.29 - Other chronic pain (9) Normocytic anemia Current Visit: Yes Status: Chronic Assessment and plan: Mild, stable, currently at the high end of his normal. We will continue to trend. (10) Chronic anticoagulation Current Visit: Yes Status: Chronic Assessment and plan: Lovenox being out at this time secondary to coffee-ground emesis. (11) Paraplegia Current Visit: Yes Status: Chronic (12) Obesity Current Visit: No Status: Chronic (13) History of inferior vena caval filter placement Current Visit: No Status: Chronic (14) DM (diabetes mellitus), type 2 Current Visit: No Status: Chronic Assessment and plan: Controlled at home with an A1c of 7.0%. We will continue sliding scale while admitted. Qualifiers: Diabetes mellitus complication status: with skin complications Diabetes mellitus complication detail: with other skin ulcer Diabetes mellitus hospice consultant insulin use: with senior living use Qualified Code(s): E11.622 - Type 2 diabetes mellitus with other skin ulcer; Z79.4 - skilled nursing (current) use of insulin (15) Bilateral femoral fractures Current Visit: No Status: Chronic Qualifiers: Encounter type: subsequent encounter Fracture type: closed Fracture healing: with routine healing Qualified Code(s): S72.91XD - Unspecified fracture of right femur, subsequent encounter for closed fracture with routine healing; S72.92XD - Unspecified fracture of left femur, subsequent encounter for closed fracture with routine healing (16) History of pulmonary embolism Current Visit: No Status: Chronic (17) Presence of IVC filter Current Visit: No Status: Chronic (18) Chronic anticoagulation Current Visit: No Status: Chronic Assessment and plan: On subcutaneous Lovenox twice a day at home, holding at this time secondary to GI bleed (19) DVT prophylaxis Current Visit: No Status: Acute Assessment and plan: His home dosing of Lovenox has been held secondary to upper GI bleed. We will add IPC's. (20) Chronic indwelling Cano catheter Current Visit: No Status: Chronic (21) CAD (coronary artery disease) Current Visit: No Status: Chronic Assessment and plan: Patient denies chest pain or shortness of breath. Qualifiers: Coronary Disease-Associated Artery/Lesion type: [place] artery [place] vs. transplanted heart: [place] heart Associated angina: without angina Qualified Code(s): I25.10 - Atherosclerotic heart disease of [place] coronary artery without angina pectoris (22) COPD (chronic obstructive pulmonary disease) Current Visit: No Status: Chronic Assessment and plan: No acute exacerbation. Patient denies shortness of breath above his norm. No increased need for supplemental oxygenation. Qualifiers: COPD type: unspecified COPD Qualified Code(s): J44.9 - Chronic obstructive pulmonary disease, unspecified (23) CHF (congestive heart failure) Current Visit: No Status: Chronic Assessment and plan: Most recent echocardiogram was from 08/30/15 with indeterminate ejection fraction thought to be with mild to moderate dysfunction. Indeterminate diastolic function as well. Patient is not on any diuretics at home. Suspect chronic systolic heart failure. Does not appear to be in acute exacerbation, we will trend Qualifiers: Congestive heart failure type: systolic Congestive heart failure chronicity : chronic Qualified Code(s): I50.22 - Chronic systolic (congestive) heart failure (24) Presence of combination internal cardiac defibrillator (ICD) and pacemaker Current Visit: No Status: Chronic (25) Pressure ulcer of left hip, stage 3 Current Visit: Yes Status: Chronic Assessment and plan: Present on admission. Wound on board. Continue position changes (26) Decubitus ulcer of coccygeal region, stage 3 Current Visit: Yes Status: Chronic Assessment and plan: Present on [employer] - Time Spent With Patient Greater than 35 minutes (Multiple comorbidities) - Subjective Interval history: Patient seen and examined upon his return from EGD. Patient was complaining of her throat. Patient also endorsing nausea. Patient requesting to be turned onto his side. - Constitutional Vitals: Temp Pulse Resp BP Pulse Ox 97.3 F L 69 16 127/64 96 10/24/16 15:11 10/24/16 15:11 10/24/16 15:11 10/24/16 15:11 10/24/16 15:11 General appearance: Present: mild distress, A&O X 3, pleasant, obese, answers questions appropriately - Head Head exam: Present: atraumatic, normocephalic - Eye Eye exam: Present: PERRL, conjuntiva pink, sclera anicteric Pupils: Present: PERRL - Neck Neck exam general surgery: Present: supple, trachea midline. Absent: lymphadenopathy - Respiratory Respiratory exam: Present: decreased breath sounds. Absent: accessory muscle use, rales, respiratory distress, rhonchi, wheezes - Cardiovascular Cardiovascular exam: Present: RRR, +S1, +S2. Absent: diastolic murmur, gallop, rubs, systolic murmur - GI/Abdominal GI/Abdominal exam: Present: distended, normal bowel sounds, soft, tenderness, no peritoneal signs - Extremities Exam Extremities exam: Present: pedal edema, warm, radial pulses palpable and symetrical. Absent: calf tenderness, cyanotic - Expanded Lower Extremities Exam Lower Leg exam: Present: swelling Ankle exam: Present: swelling Foot/Toe exam: Present: swelling Neuro vascular tendon exam: Absent: decreased fine/light touch - Neurological Exam Neurological exam: Present: alert, CN II-XII intact, oriented X3, no focal deficits. Absent: normal gait, pronater drift, facial droop, speech deficit - Skin Skin exam: Present: dry, intact, pallor, warm Internal Medicine: Result - Labs CBC & Chem 7: 10/24/16 10:56 10/24/16 04:31 Labs: Short CBC 10/24/16 10/24/16 Range/Units 04:31 10:56 WBC 8.8 (4.3-11.1) K/mcL Hgb 11.2 L 11.3 L (12.9-16.9) g/dL Hct 37.3 L 36.5 L (37.5-50.1) % Plt Count 171 (140-400) K/mcL Neutrophils # 7.7 (1.6-8.9) K/mcL BMP 10/24/16 04:31 Sodium 137 Potassium 4.2 Chloride 98 Carbon Dioxide 29 BUN 38 H Creatinine 1.03 Glucose 146 H Calcium 8.2 L Liver Function 10/24/16 Range/Units 04:31 Total Bilirubin 0.8 (0.2-1.2) mg/dL AST 9 (5-34) Units/L ALT < 6 (0-55) Units/L Alkaline Phosphatase 70 (38-126) Units/L Albumin 2.6 L (3.5-5.0) g/dL - ABG Interpretation ABG results: PT/INR, D-dimer PT 16.2 Seconds (9.4-12.1) H 10/24/16 00:00 - Impressions Impressions Abdomen/Pelvis CT 10/24/16 23:44 IMPRESSION: No definite imaging evidence of enteritis or colitis. Thickening of the lower esophagus may reflect esophagitis. Diverticulosis coli without evidence of diverticulitis. Third-spacing with bilateral pleural effusions, loculated on the left, ascites, and anasarca. Nodularity to the liver surface may reflect the early changes of hepatic cirrhosis. Clinically correlate. Chronic appearing intertrochanteric fracture of the right hip with nonunion of fracture fragments. Healing intertrochanteric fracture of the left hip with impaction of fracture fragments. Soft tissue ulcers seen over the sacrum and left hip without CT evidence of osteomyelitis at this time. D/ / Isidro Barry MD / Isidro Barry MD Interpreting Provider: Isidro Barry MD - VTE Reasons for not Prescribing Prophylaxis: Not indicated-Anticoagulated or INR therapeutic Consult Discharge Plan - Plan Referrals: Dylon Winston MD [Primary Care Provider] -
[2016-10-24 16:45] LABS: Hematocrit 36.6 % (37.5-50.1); Hemoglobin 11.2 g/dL (12.9-16.9)
[2016-10-24] MEDS: Azithromycin 500 MG in D5% in Water 250 ML IVPB SCH (17:44)
[2016-10-24] MEDS: Metoclopramide 10 MG/2 ML VIAL IVP SCH ×2 (17:47→22:13)
[2016-10-24 23:00] LABS: Hematocrit 37.7 % (37.5-50.1); Hemoglobin 11.4 g/dL (12.9-16.9)
[2016-10-25] MEDS: Latanoprost 2.5 ML BOTTLE BOTH EYES SCH ×2 (01:54→19:29)
[2016-10-25] MEDS: *HR* HYDROmorphone (PF) 1 MG/ML SYRINGE IVP PRN ×5 (02:01→17:43)
[2016-10-25] MEDS: Pantoprazole 40 MG in 0.9 % Sodium Chloride Mini Bag 100 ML IVC SCH ×4 (05:20→23:31)
[2016-10-25 06:12] LABS: Basophils # 0.1 K/mcL (0.0-0.2); Basophils % 0.6 %; Eosinophils # 0.1 K/mcL (0.0-0.6); Eosinophils % 0.9 %; Hematocrit 34.3 % (37.5-50.1); Hemoglobin 10.5 g/dL (12.9-16.9); Immature Granulocytes % 0.6 % (0-4); Lymphocytes # 0.6 K/mcL (0.6-4.6); Lymphocytes % 7.3 %; Mean Corpuscular HGB Conc 30.6 g/dL (31.6-35.5); Mean Corpuscular Hemoglobin 26.8 pg (28.0-33.3); Mean Corpuscular Volume 87.5 fL (83.0-100.0); Mean Platelet Volume 9.9 fL (9.4-12.4); Monocytes # 0.6 K/mcL (0.0-1.3); Monocytes % 6.4 %; Neutrophils # 7.4 K/mcL (1.6-8.9); Platelet Count 148 K/mcL (140-400); Red Blood Count 3.92 M/mcL (4.19-5.50); Red Cell Distribution Width 16.6 % (11.5-14.5); Segmented Neutrophils % 84.2 %
[2016-10-25 06:21] LABS: BUN/Creatinine Ratio 35 (6-26); Blood Urea Nitrogen 35 mg/dL (8-26); Calcium 8.2 mg/dL (8.6-10.8); Carbon Dioxide 30 mEq/L (19-29); Chloride 100 mEq/L (98-109); Glucose 131 mg/dL (70-99); Osmolality,Calculated 296 (280-300); Sodium 138 mEq/L (136-145); eGFR For African Americans > 60 (> 60); eGFR For Non-African Americans > 60 (> 60)
[2016-10-25] MEDS: Ertapenem 1,000 MG in 0.9 % Sodium Chloride Mini Bag 100 ML IVPB SCH (09:20)
[2016-10-25] MEDS: Metoclopramide 10 MG/2 ML VIAL IVP SCH ×4 (09:20→19:20)
[2016-10-25] MEDS: *HR* Digoxin 0.25 MG TABLET PO SCH (09:29)
[2016-10-25] MEDS: Furosemide 40 MG TABLET PO SCH ×2 (09:29→19:20)
[2016-10-25] MEDS: Pregabalin 50 MG CAPSULE PO SCH ×3 (09:29→19:20)
--- NOTE | 2016-10-25 12:44 | Electrocardiograph Report ---
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
--- NOTE | 2016-10-25 15:33 | Internal Med Progress Note ---
Date of Encounter: 10/27/16 Time of Encounter: 15:30 - Assessment and plan (1) Catheter-associated urinary tract infection Current Visit: Yes Status: Acute Assessment and plan: Patient with lengthy history of resistant organisms contributing to his urinary tract infections. Most recently ESBL-he is on contact precautions. Most recent urine culture report reviewed and the patient was started on ertapenem. Sensitivities pending. A pelvic line was also placed as he is likely to necessitate IV antibiotics. No leukocytosis. Vital signs are stable. No indication of SIRS or sepsis. 10/25/2016. Patient has a chronic Cano catheter. Urine culture grew gram-negative rods. Patient is on appropriate antibiotics. We will continue this management at this point. Qualifiers: Indwelling urinary catheter type: indwelling urethral catheter Encounter type: subsequent encounter Qualified Code(s): T83.511D - Infection and inflammatory reaction due to indwelling urethral catheter, subsequent encounter ; N39.0 - Urinary tract infection, site not specified (2) Anasarca Current Visit: Yes Status: Chronic Assessment and plan: Patient has generalized edema. (3) Pneumonia Current Visit: Yes Status: Acute Assessment and plan: Imaging consistent with possible left lower lobe pneumonia. No recent admissions. Unknown etiology. Does not appear to have been on antibiotics recently. Good coverage with ertapenem that he is being treated with his urinary tract infection. We will add macrolide 10/25/2016. Patient is on ertapenem/macrolide. Antibiotics: Day 2 We will continue present treatment. Qualifiers: Pneumonia type: due to unspecified organism Laterality: left Lung location: lower lobe of lung Qualified Code(s): J18.1 - Lobar pneumonia, unspecified organism (4) Nausea and vomiting Current Visit: No Status: Acute Assessment and plan: Nausea and vomiting has significantly improved. Qualifiers: Vomiting type: bilious vomiting Qualified Code(s): R11.14 - Bilious vomiting (5) Anemia Current Visit: No Status: Acute Assessment and plan: Long-standing anemia. Qualifiers: Anemia type: other cause Other causes of anemia: chronic disease, kidney Qualified Code(s): N18.9 - Chronic kidney disease, unspecified; D63.1 - Anemia in chronic kidney disease - Subjective Interval history: Seen and examined. Chart reviewed. Patient is comfortably lying in bed. At this point patient does not have any complaints. - Constitutional Vitals: Temp Pulse Resp BP Pulse Ox 97.8 F 67 14 113/64 97 10/25/16 05:06 10/25/16 05:06 10/25/16 05:06 10/25/16 05:06 10/25/16 05:06 General appearance: Present: mild distress, A&O X 3, pleasant, obese, answers questions appropriately - Head Head exam: Present: atraumatic, normocephalic - Eye Eye exam: Present: PERRL, conjuntiva pink, sclera anicteric Pupils: Present: PERRL - Neck Neck exam general surgery: Present: supple, trachea midline. Absent: lymphadenopathy - Respiratory Respiratory exam: Present: CTAB. Absent: accessory muscle use, rales, rhonchi, wheezes - Cardiovascular Cardiovascular exam: Present: RRR, +S1, +S2. Absent: diastolic murmur, gallop, rubs, systolic murmur - GI/Abdominal GI/Abdominal exam: Present: normal bowel sounds, soft, no peritoneal signs. Absent: distended, tenderness - Extremities Exam Extremities exam: Present: warm, radial pulses palpable and symetrical. Absent : calf tenderness, cyanotic, pedal edema - Neurological Exam Neurological exam: Present: CN II-XII intact, oriented X3, no focal deficits. Absent: pronater drift, facial droop, speech deficit - Skin Skin exam: Present: dry, intact Internal Medicine: Result - Labs CBC & Chem 7: 10/27/16 05:37 10/26/16 04:19 Labs: Short CBC 10/24/16 10/24/16 10/25/16 Range/Units 16:35 22:46 06:00 WBC 8.8 (4.3-11.1) K/mcL Hgb 11.2 L 11.4 L 10.5 L (12.9-16.9) g/dL Hct 36.6 L 37.7 34.3 L (37.5-50.1) % Plt Count 148 (140-400) K/mcL Neutrophils # 7.4 (1.6-8.9) K/mcL BMP 10/25/16 06:00 Sodium 138 Potassium 4.0 Chloride 100 Carbon Dioxide 30 H BUN 35 H Creatinine 0.99 Glucose 131 H Calcium 8.2 L - ABG Interpretation ABG results: PT/INR, D-dimer PT 16.2 Seconds (9.4-12.1) H 10/24/16 00:00 - VTE Reasons for not Prescribing Prophylaxis: Not indicated-Anticoagulated or INR therapeutic Consult Discharge Plan - Plan Referrals: Dylon Winston MD [Primary Care Provider] - 11/05/16 2:15 pm
[2016-10-25] MEDS: *HR* Morphine 2 MG/ML SYRINGE IVP PRN ×3 (16:05→23:38)
[2016-10-25] MEDS: Azithromycin 500 MG in D5% in Water 250 ML IVPB SCH (16:06)
[2016-10-25] MEDS ORDERED: *HR* Dextrose 50 % in Water (Syg) 50 ML SYRINGE IVP PRN (23:01)
[2016-10-25] MEDS ORDERED: Dextrose Gel 15 GM PO PRN ×2 (23:01)
[2016-10-25] MEDS ORDERED: D5% in Water 1,000 ML IVC PRN (23:01)
[2016-10-25] MEDS: Insulin LISPRO 300 UNITS/3 ML VIAL SQ SCH (23:25)
[2016-10-26] MEDS: Pantoprazole 40 MG in 0.9 % Sodium Chloride Mini Bag 100 ML IVC SCH ×4 (03:32→19:44)
[2016-10-26] MEDS: *HR* Morphine 2 MG/ML SYRINGE IVP PRN ×6 (03:33→23:26)
[2016-10-26 04:28] LABS: Basophils % 0.6 %; Eosinophils # 0.1 K/mcL (0.0-0.6); Eosinophils % 1.9 %; Hematocrit 34.1 % (37.5-50.1); Hemoglobin 10.5 g/dL (12.9-16.9); Immature Granulocytes % 0.4 % (0-4); Lymphocytes # 0.8 K/mcL (0.6-4.6); Lymphocytes % 11.5 %; Mean Corpuscular HGB Conc 30.8 g/dL (31.6-35.5); Mean Corpuscular Hemoglobin 26.9 pg (28.0-33.3); Mean Corpuscular Volume 87.4 fL (83.0-100.0); Monocytes # 0.5 K/mcL (0.0-1.3); Monocytes % 7.5 %; Neutrophils # 5.3 K/mcL (1.6-8.9); Platelet Count 140 K/mcL (140-400); Red Cell Distribution Width 16.7 % (11.5-14.5); Segmented Neutrophils % 78.1 %
[2016-10-26 04:58] LABS: Albumin 2.6 g/dL (3.5-5.0); Albumin/Globulin Ratio 0.6 (1.1-2.2); Alkaline Phosphatase 59 Units/L (38-126); Aspartate Amino Transferase 9 Units/L (5-34); BUN/Creatinine Ratio 28 (6-26); Bilirubin,Total 0.7 mg/dL (0.2-1.2); Blood Urea Nitrogen 30 mg/dL (8-26); Calcium 8.2 mg/dL (8.6-10.8); Carbon Dioxide 32 mEq/L (19-29); Chloride 100 mEq/L (98-109); Globulin 4.5 g/dL (2.4-3.5); Glucose 134 mg/dL (70-99); Osmolality,Calculated 294 (280-300); Potassium 3.7 mEq/L (3.5-4.5); Sodium 138 mEq/L (136-145); Total Protein 7.1 g/dL (6.0-8.3); eGFR For African Americans > 60 (> 60); eGFR For Non-African Americans > 60 (> 60)
[2016-10-26 05:03] LABS: Alanine Aminotransferase < 6 Units/L (0-55)
[2016-10-26] MEDS: Insulin LISPRO 300 UNITS/3 ML VIAL SQ SCH ×4 (09:19→20:03)
[2016-10-26] MEDS: Furosemide 40 MG TABLET PO SCH ×2 (09:28→19:45)
[2016-10-26] MEDS: *HR* Digoxin 0.25 MG TABLET PO SCH (09:28)
[2016-10-26] MEDS: Pregabalin 50 MG CAPSULE PO SCH ×3 (09:28→19:45)
[2016-10-26] MEDS: Metoclopramide 10 MG/2 ML VIAL IVP SCH ×4 (09:28→19:44)
[2016-10-26] MEDS: Ertapenem 1,000 MG in 0.9 % Sodium Chloride Mini Bag 100 ML IVPB SCH (09:32)
--- NOTE | 2016-10-26 11:30 | Internal Med Progress Note ---
Date of Encounter: 10/27/16 Time of Encounter: 11:30 - Assessment and plan (1) Catheter-associated urinary tract infection Current Visit: Yes Status: Acute Assessment and plan: Patient with lengthy history of resistant organisms contributing to his urinary tract infections. Most recently ESBL-he is on contact precautions. Most recent urine culture report reviewed and the patient was started on ertapenem. Sensitivities pending. A pelvic line was also placed as he is likely to necessitate IV antibiotics. No leukocytosis. Vital signs are stable. No indication of SIRS or sepsis. 10/25/2016. Patient has a chronic Cano catheter. Urine culture grew gram-negative rods. Patient is on appropriate antibiotics. We will continue this management at this point. 10/26/2016 awaiting Identification and sensitivity will continue same medications for now Qualifiers: Indwelling urinary catheter type: indwelling urethral catheter Encounter type: subsequent encounter Qualified Code(s): T83.511D - Infection and inflammatory reaction due to indwelling urethral catheter, subsequent encounter ; N39.0 - Urinary tract infection, site not specified (2) Anasarca Current Visit: Yes Status: Chronic Assessment and plan: Patient has generalized edema. (3) Pneumonia Current Visit: Yes Status: Acute Assessment and plan: Imaging consistent with possible left lower lobe pneumonia. No recent admissions. Unknown etiology. Does not appear to have been on antibiotics recently. Good coverage with ertapenem that he is being treated with his urinary tract infection. We will add macrolide 10/25/2016. Patient is on ertapenem/macrolide. Antibiotics: Day 2 We will continue present treatment. Qualifiers: Pneumonia type: due to unspecified organism Laterality: left Lung location: lower lobe of lung Qualified Code(s): J18.1 - Lobar pneumonia, unspecified organism (4) Nausea and vomiting Current Visit: No Status: Acute Assessment and plan: Nausea and vomiting has significantly improved. Qualifiers: Vomiting type: bilious vomiting Qualified Code(s): R11.14 - Bilious vomiting (5) Anemia Current Visit: No Status: Acute Assessment and plan: Long-standing anemia. Qualifiers: Anemia type: other cause Other causes of anemia: chronic disease, kidney Qualified Code(s): N18.9 - Chronic kidney disease, unspecified; D63.1 - Anemia in chronic kidney disease - Subjective Interval history: Seen and examined. Chart reviewed. Patient is comfortably lying in bed. At this point patient does not have any complaints. - Constitutional Vitals: Temp Pulse Resp BP Pulse Ox 98.0 F 70 18 106/60 98 10/25/16 20:36 10/26/16 07:00 10/26/16 07:00 10/26/16 07:00 10/26/16 07:00 General appearance: Present: mild distress, A&O X 3, pleasant, obese, answers questions appropriately - Head Head exam: Present: atraumatic, normocephalic - Eye Eye exam: Present: PERRL, conjuntiva pink, sclera anicteric Pupils: Present: PERRL - Neck Neck exam general surgery: Present: supple, trachea midline. Absent: lymphadenopathy - Respiratory Respiratory exam: Present: CTAB. Absent: accessory muscle use, rales, rhonchi, wheezes - Cardiovascular Cardiovascular exam: Present: RRR, +S1, +S2. Absent: diastolic murmur, gallop, rubs, systolic murmur - GI/Abdominal GI/Abdominal exam: Present: normal bowel sounds, soft, no peritoneal signs. Absent: distended, tenderness - Extremities Exam Extremities exam: Present: warm, radial pulses palpable and symetrical. Absent : calf tenderness, cyanotic, pedal edema - Neurological Exam Neurological exam: Present: CN II-XII intact, oriented X3, no focal deficits. Absent: pronater drift, facial droop, speech deficit - Skin Skin exam: Present: dry, intact Internal Medicine: Result - Labs CBC & Chem 7: 10/27/16 05:37 10/26/16 04:19 Labs: Short CBC 10/26/16 Range/Units 04:19 WBC 6.8 (4.3-11.1) K/mcL Hgb 10.5 L (12.9-16.9) g/dL Hct 34.1 L (37.5-50.1) % Plt Count 140 (140-400) K/mcL Neutrophils # 5.3 (1.6-8.9) K/mcL BMP 10/26/16 04:19 Sodium 138 Potassium 3.7 Chloride 100 Carbon Dioxide 32 H BUN 30 H Creatinine 1.06 Glucose 134 H Calcium 8.2 L Liver Function 10/26/16 Range/Units 04:19 Total Bilirubin 0.7 (0.2-1.2) mg/dL AST 9 (5-34) Units/L ALT < 6 (0-55) Units/L Alkaline Phosphatase 59 (38-126) Units/L Albumin 2.6 L (3.5-5.0) g/dL - ABG Interpretation ABG results: PT/INR, D-dimer PT 16.2 Seconds (9.4-12.1) H 10/24/16 00:00 - VTE Reasons for not Prescribing Prophylaxis: Not indicated-Anticoagulated or INR therapeutic Consult Discharge Plan - Plan Referrals: Dylon Winston MD [Primary Care Provider] - 11/05/16 2:15 pm
[2016-10-26] MEDS: Azithromycin 500 MG in D5% in Water 250 ML IVPB SCH (17:07)
[2016-10-26] MEDS: Latanoprost 2.5 ML BOTTLE BOTH EYES SCH (20:04)
[2016-10-27] MEDS: Pantoprazole 40 MG in 0.9 % Sodium Chloride Mini Bag 100 ML IVC SCH ×2 (00:24→04:57)
[2016-10-27] MEDS: *HR* Morphine 2 MG/ML SYRINGE IVP PRN ×5 (02:46→21:45)
[2016-10-27 06:22] LABS: Basophils # 0.1 K/mcL (0.0-0.2); Basophils % 0.7 %; Eosinophils # 0.2 K/mcL (0.0-0.6); Eosinophils % 2.9 %; Hematocrit 35.8 % (37.5-50.1); Hemoglobin 10.9 g/dL (12.9-16.9); Immature Granulocytes % 0.4 % (0-4); Lymphocytes # 0.8 K/mcL (0.6-4.6); Lymphocytes % 10.4 %; Mean Corpuscular HGB Conc 30.4 g/dL (31.6-35.5); Mean Corpuscular Hemoglobin 26.9 pg (28.0-33.3); Mean Corpuscular Volume 88.4 fL (83.0-100.0); Mean Platelet Volume 9.9 fL (9.4-12.4); Monocytes # 0.6 K/mcL (0.0-1.3); Monocytes % 8.3 %; Neutrophils # 5.7 K/mcL (1.6-8.9); Platelet Count 146 K/mcL (140-400); Red Blood Count 4.05 M/mcL (4.19-5.50); Red Cell Distribution Width 16.5 % (11.5-14.5); Segmented Neutrophils % 77.3 %
[2016-10-27] MEDS: Insulin LISPRO 300 UNITS/3 ML VIAL SQ SCH ×4 (08:54→22:16)
[2016-10-27] MEDS: *HR* Digoxin 0.25 MG TABLET PO SCH (09:36)
[2016-10-27] MEDS: Ertapenem 1,000 MG in 0.9 % Sodium Chloride Mini Bag 100 ML IVPB SCH (09:36)
[2016-10-27] MEDS: Metoclopramide 10 MG/2 ML VIAL IVP SCH ×4 (09:36→21:46)
[2016-10-27] MEDS: Furosemide 40 MG TABLET PO SCH ×2 (09:36→21:46)
[2016-10-27] MEDS: Pregabalin 50 MG CAPSULE PO SCH ×3 (09:36→21:46)
[2016-10-27] MEDS: Nystatin Cream 15 GM TUBE TP SCH ×3 (10:11→21:48)
--- NOTE | 2016-10-27 10:15 | Internal Med Progress Note ---
<SaloniHolden Duncan - Last Filed: 10/27/16 13:25> Date of Encounter: 10/27/16 Time of Encounter: 10:13 - Assessment and plan (1) Catheter-associated urinary tract infection Current Visit: Yes Status: Acute Assessment and plan: Urine culture shows E. coli sensivitve to bactrim. Previous cultures have shown ESBL but not present on this culture. continue ertapenem for now, consult infectious disease for antibiotic recommendations Qualifiers: Indwelling urinary catheter type: indwelling urethral catheter Encounter type: initial encounter Qualified Code(s): T83.511A - Infection and inflammatory reaction due to indwelling urethral catheter, initial encounter; N39.0 - Urinary tract infection, site not specified (2) Esophagitis Current Visit: Yes Status: Acute Assessment and plan: Confirmed on endoscopy. Change from protonix drip to protonix BID. Continue carafate (3) Pneumonia Current Visit: Yes Status: Acute Assessment and plan: Improving. Continue azithromycin for 7 days total Qualifiers: Pneumonia type: due to unspecified organism Laterality: left Lung location: lower lobe of lung Qualified Code(s): J18.1 - Lobar pneumonia, unspecified organism (4) Anemia Current Visit: No Status: Chronic Assessment and plan: Stable. No evidence of active bleed. Continue to monitor CBC Qualifiers: Anemia type: unspecified type Qualified Code(s): D64.9 - Anemia, unspecified - Subjective Interval history: Patient seen and examined at bedside. He states he feels pretty good today, denies n/v/dyspnea/cough - Constitutional Vitals: Temp Pulse Resp BP Pulse Ox 98.3 F 71 16 105/62 98 10/27/16 07:40 10/27/16 07:40 10/27/16 07:40 10/27/16 07:40 10/27/16 07:40 General appearance: Present: A&O X 3, pleasant, obese, answers questions appropriately - Respiratory Respiratory exam: Present: decreased breath sounds (L>R). Absent: rales, rhonchi, wheezes - Cardiovascular Cardiovascular exam: Present: RRR, systolic murmur (2/6, best heard at apex). Absent: gallop, rubs - GI/Abdominal GI/Abdominal exam: Present: normal bowel sounds, soft, tenderness (diffuse, worse in epigastric area), no peritoneal signs. Absent: distended - Extremities Exam Extremities exam: Present: pedal edema, warm. Absent: tenderness - Neurological Exam Neurological exam: Present: alert, CN II-XII intact, oriented X3, no focal deficits Internal Medicine: Result - Labs CBC & Chem 7: 10/27/16 05:37 10/26/16 04:19 Labs: Short CBC 10/27/16 Range/Units 05:37 WBC 7.3 (4.3-11.1) K/mcL Hgb 10.9 L (12.9-16.9) g/dL Hct 35.8 L (37.5-50.1) % Plt Count 146 (140-400) K/mcL Neutrophils # 5.7 (1.6-8.9) K/mcL - ABG Interpretation ABG results: PT/INR, D-dimer PT 16.2 Seconds (9.4-12.1) H 10/24/16 00:00 - VTE Reasons for not Prescribing Prophylaxis: Not indicated-Anticoagulated or INR therapeutic Consult Discharge Plan - Plan Referrals: Dylon Winston MD [Primary Care Provider] - 11/05/16 2:15 pm <Joel Bellamy P - Last Filed: 10/27/16 17:32> Date of Encounter: 10/27/16 - Assessment and plan (1) Catheter-associated urinary tract infection Current Visit: Yes Status: Acute Qualifiers: Indwelling urinary catheter type: indwelling urethral catheter Encounter type: initial encounter Qualified Code(s): T83.511A - Infection and inflammatory reaction due to indwelling urethral catheter, initial encounter; N39.0 - Urinary tract infection, site not specified (2) Anasarca Current Visit: Yes Status: Chronic (3) Pneumonia Current Visit: Yes Status: Acute Qualifiers: Pneumonia type: due to unspecified organism Laterality: left Lung location: lower lobe of lung Qualified Code(s): J18.1 - Lobar pneumonia, unspecified organism (4) Nausea and vomiting Current Visit: No Status: Acute Qualifiers: Vomiting type: bilious vomiting Qualified Code(s): R11.14 - Bilious vomiting (5) Anemia Current Visit: No Status: Acute Qualifiers: Anemia type: other cause Other causes of anemia: chronic disease, kidney Qualified Code(s): N18.9 - Chronic kidney disease, unspecified; D63.1 - Anemia in chronic kidney disease - Constitutional Vitals: Temp Pulse Resp BP Pulse Ox 97.6 F 64 16 111/55 90 10/27/16 11:44 10/27/16 16:25 10/27/16 07:40 10/27/16 16:25 10/27/16 16:25 Internal Medicine: Result - Labs CBC & Chem 7: 10/27/16 05:37 10/26/16 04:19 Labs: Short CBC 10/27/16 Range/Units 05:37 WBC 7.3 (4.3-11.1) K/mcL Hgb 10.9 L (12.9-16.9) g/dL Hct 35.8 L (37.5-50.1) % Plt Count 146 (140-400) K/mcL Neutrophils # 5.7 (1.6-8.9) K/mcL - ABG Interpretation ABG results: PT/INR, D-dimer PT 16.2 Seconds (9.4-12.1) H 10/24/16 00:00 - Attending Attestation I examined this patient and my medical decision-making was reviewed with the ASSOCIATION EXECUTIVE/PA/Advanced Practice Nurse/Resident Physician. I agree with the documented findings, disposition and treatment plan as described except to the extent set forth below.
--- NOTE | 2016-10-27 14:36 | Infectious Disease Consult ---
Date of Encounter: 10/27/16 Time of Encounter: 14:35 Assessment and Plan (1) Catheter-associated urinary tract infection Status: Acute Assessment and plan: Causative organism is Escherichia coli Multidrug resistant Susceptible to Bactrim DC ertapenem start Bactrim by mouth finish a ten-day course. Discussed with Dr. Bellamy the hospitalist on the case Qualifiers: Indwelling urinary catheter type: indwelling urethral catheter Encounter type: subsequent encounter Qualified Code(s): T83.511D - Infection and inflammatory reaction due to indwelling urethral catheter, subsequent encounter ; N39.0 - Urinary tract infection, site not specified (2) Dehydration Status: Acute (3) Esophagitis Status: Acute Assessment and plan: Status post EGD showing esophagitis Protonix increased to 40 twice a day Per GI recommendations (4) Hemiplegia Status: Acute Qualifiers: Hemiplegia type: unspecified type Hemiplegia etiology: unspecified etiology Hemiplegia laterality: unspecified laterality Qualified Code(s): G81.90 - Hemiplegia, unspecified affecting unspecified side (5) Nausea & vomiting Status: Acute Assessment and plan: This is likely due to the esophagitis and not to UTI Symptoms have improved no more vomiting but he did have an episode of nausea Qualifiers: Vomiting type: unspecified Vomiting Intractability: intractable Qualified Code(s): R11.2 - Nausea with vomiting, unspecified (6) Neurogenic bladder Status: Acute (7) Pneumonia Status: Acute Assessment and plan: Questionable pneumonia versus the atelectasis Patient is on azithromycin finish a 5 day course. Qualifiers: Pneumonia type: due to unspecified organism Laterality: left Lung location: lower lobe of lung Qualified Code(s): J18.1 - Lobar pneumonia, unspecified organism (8) Chronic respiratory failure Status: Chronic Qualifiers: Respiratory failure complication: unspecified whether with hypoxia or hypercapnia Qualified Code(s): J96.10 - Chronic respiratory failure, unspecified whether with hypoxia or hypercapnia (9) Decubitus ulcer of coccygeal region, stage 3 Status: Chronic (10) Pressure ulcer of left hip, stage 3 Status: Chronic Infectious Disease HPI - Data of Consult Patient: new to practice Consult date: 10/27/16 Requesting Physician: Negrita Plasencia Primary Care Provider: Dylon Winston MD - Consult Narrative Reason for consult: pneumonia and uti History of present illness: Mr. Echavarria is a 61 year old male Patient is a 61-year-old gentleman admitted to [place] on 10/24/2016 with nausea and vomiting, we are consulted on 10/27/2016 with recurrent UTI requiring antibiotic. Patient is a 7-year-old gentleman who has extensive past medical history including paraplegia, diabetes mellitus and neurogenic bladder with chronic indwelling Cano catheter chronic respiratory failure with hypercapnia, history of DVT/PE with IVC filter placement in the past decubitus ulcers came into the MRSA department with recurrent vomiting. Apparently patient had multiple episodes and was described as dark coffee colored. Since admission patient has been afebrile, hemodynamically stable with a heart rate in the 70s. Initial labs revealed a WBC of 8.8 with 88% neutrophils. Patient also appeared dehydrated with a BUN of 38 creatinine of 1.03. A UA was obtained on 11-08 which revealed positive nitrites, large leukocyte esterase, pyuria. The urine culture revealed multidrug resistant Escherichia coli that is susceptible to Zosyn, Bactrim, aminoglycosides, and carb ertapenems. Its resistant to fluoroquinolones, cephalosporins and penicillins. Patient did have an endoscopy done which showed esophagitis that was pretty severe. Patient was placed on Protonix twice a day. She also had a chest x-ray done on 11-08 which was read as left lower lobe atelectasis and/or pneumonia. Patient has been started on ertapenem and azithromycin. We were asked to evaluate the patients make further recommendations. On further questioning, patient laying in bed appears comfortable at baseline. Indwelling Cano intact urine appears yellow and clear. Patient is warm states that the seasonal working in the room. Son is at bedside. Son tells me that the patient had diarrhea that was going on for about 3 weeks prior to admission but has been resolved. C. difficile apparently was checked and it came back negative. Patient does not have any urinary symptoms and he doesn't feel his bladder extension and when he needs to urinate. CC: Negrita Plasencia Past Med Surg Social Fam HX - Past Medical History Medical history: arthritis, atrial fibrillation, cardiomyopathy, cirrhosis, CHF , COPD, coronary artery disease, CVA, DVT, dementia, diabetes, GERD, GI bleed, hepatitis, hyperlipidemia, hypertension, kidney stones, liver disease, migraine , myocardial infarction, osteoporosis, peripheral artery disease, pulmonary embolus, renal disease, TIA, venous stasis Psychiatric history: anxiety, bipolar, depression - Past Surgical History Surgical History: cholecystectomy, pacemaker/AICD - Social History Smoking Status: Former smoker Smokeless Tobacco Status: No Alcohol use: none Drug use: none - Family History Mother Adopted: No Living Status: Hx Family Cardiac Disorders: Yes Hx Family Respiratory Disorders: Yes Hx Family Cancer: Yes Hx Family GI Disorders: No Hx Family Endocrine Disorder: Yes Hx Family Neuromuscular Disorders: No Hx Family Neurologic Disorders: No Hx Family HEENT Disorders: No Hx Family Autoimmune Disorders: No Infectious Disease-CN:Meds Aspirin Enteric Coated [Aspirin EC] 81 mg PO QAM #0 03/28/15 [History] Carvedilol [Coreg] 6.25 mg PO BIDWM 03/28/15 [History] Ezetimibe [Zetia] 10 mg PO QAM 03/28/15 [History] Latanoprost [Xalatan] 1 drop BOTH EYES HS 03/28/15 [History] Tamsulosin [Flomax] 0.4 mg PO QPM 03/28/15 [History] Simethicone [Gas-X] 80 mg PO TID PRN #0 tab.chew 04/03/15 [Rx] Ondansetron HCl [Zofran] 4 mg PO Q8H PRN #20 tablet 09/12/15 [Rx] Pregabalin [Lyrica] 50 mg PO TID 30 Days 09/12/15 [Rx] Digoxin [Lanoxin] 0.25 mg PO DAILY 12/31/15 [History] Albuterol Sulfate [Albuterol Inhaler] 2 puff IH TID PRN 03/12/16 [History] Docusate [Colace] 100 mg PO BID PRN 03/12/16 [History] Furosemide [Lasix] 40 mg PO BID 03/12/16 [History] Insulin Glargine [Lantus] 60 unit SQ BID 03/12/16 [History] Ketoconazole 2% CRM [Nizoral Cream] 1 appl TP BID 03/12/16 [History] Lactose-Reduced Food [Ensure Liquid] 1 bottle PO TID 03/12/16 [History] Oxycodone HCl/Acetaminophen [Percocet 10-325 mg Tablet] 1 tab PO 5XD 03/12/16 [ History] Promethazine [Phenergan] 25 mg PO BID PRN 03/12/16 [History] Collagenase Oint [Santyl] 151 appl TP AD 10/24/16 [History] Enoxaparin [Lovenox] 150 mg SQ Q12HR 10/24/16 [History] Ferrous Sulfate [Iron] 325 mg PO DAILY 10/24/16 [History] Gentamicin Oint [Garamycin] 1 appl TP TID 10/24/16 [History] Ipratropium/Albuterol Neb [Duoneb] 3 ml IH Q6HR 10/24/16 [History] Mupirocin [Bactroban Oint] 1 appl TP BID 10/24/16 [History] Allergies celecoxib [From Celebrex] Allergy (Verified 03/12/16 04:44) Swelling of Lip/Tongue/Throat gabapentin [From Neurontin] Allergy (Verified 03/12/16 04:44) Swelling of Lip/Tongue/Throat nifedipine [From Procardia] Allergy (Verified 03/12/16 04:44) Swelling of Lip/Tongue/Throat Penicillins Allergy (Verified 03/12/16 04:44) Swelling of Lip/Tongue/Throat rofecoxib [From Vioxx] Allergy (Verified 03/12/16 04:44) Swelling of Lip/Tongue/Throat iodine Adverse Reaction (Verified 03/12/16 04:44) See Comments Son states that pt has "swelling" wherever it touches his skin. povidone-iodine [From Betadine] Adverse Reaction (Verified 03/12/16 04:44) See Comments Son states that pt has "swelling" when it touches the skin. soap [From Betadine] Adverse Reaction (Verified 03/12/16 04:44) See Comments Review of systems: 10 point review of systems done, negative other for what mentioned in history of present illness. Exam - Constitutional Vitals: Temp Pulse Resp BP Pulse Ox 97.6 F 69 16 114/55 95 10/27/16 11:44 10/27/16 11:44 10/27/16 07:40 10/27/16 11:44 10/27/16 11:44 General appearance: cooperative, no acute distress, no febrile - Head Head exam: Present: atraumatic, normocephalic - Eye Eye exam: Present: EOMI, PERRL - ENT ENT exam: Present: mucous membranes dry - Neck Neck exam: Present: normal inspection - Respiratory Additional comments: Air sounds audible both lung strange. Anterior auscultation. No wheezing rhonchi or crackles noted. - Cardiovascular Cardiovascular exam: Present: RRR, +S1, +S2 - GI/Abdominal GI/Abdominal exam: Present: normal bowel sounds, soft. Absent: tenderness - Extremities Exam Additional comments: Bilateral lower extremity venous stasis and erythema wrapped. Patient also has decubitus ulcers. - Neurological Exam Additional comments: Patient paraplegic but he is alert and oriented Infectious Disease CN: Results - Labs CBC & Chem 7: 10/28/16 05:16 10/28/16 05:16 - VTE Reasons for not Prescribing Prophylaxis: Not indicated-Anticoagulated or INR therapeutic Consult Discharge Plan - Plan Referrals: Dylon Winston MD [Primary Care Provider] - 11/05/16 2:15 pm
[2016-10-27] MEDS: Pantoprazole 40 MG VIAL IVP SCH (16:54)
[2016-10-27] MEDS: Azithromycin 250 MG in D5% in Water 250 ML IVPB SCH (18:34)
[2016-10-27] MEDS: Latanoprost 2.5 ML BOTTLE BOTH EYES SCH (21:47)
[2016-10-28] MEDS: *HR* HYDROmorphone (PF) 1 MG/ML SYRINGE IVP PRN (01:41)
[2016-10-28] MEDS: *HR* Morphine 2 MG/ML SYRINGE IVP PRN ×2 (04:46→11:03)
[2016-10-28] MEDS: Pantoprazole 40 MG VIAL IVP SCH (04:47)
[2016-10-28 06:00] LABS: Basophils # 0.1 K/mcL (0.0-0.2); Basophils % 0.7 %; Eosinophils # 0.2 K/mcL (0.0-0.6); Eosinophils % 2.8 %; Hematocrit 36.7 % (37.5-50.1); Hemoglobin 10.9 g/dL (12.9-16.9); Immature Granulocytes % 0.4 % (0-4); Lymphocytes # 0.7 K/mcL (0.6-4.6); Mean Corpuscular HGB Conc 29.7 g/dL (31.6-35.5); Mean Corpuscular Hemoglobin 26.1 pg (28.0-33.3); Mean Platelet Volume 9.9 fL (9.4-12.4); Monocytes # 0.6 K/mcL (0.0-1.3); Monocytes % 7.4 %; Neutrophils # 5.8 K/mcL (1.6-8.9); Platelet Count 143 K/mcL (140-400); Red Blood Count 4.17 M/mcL (4.19-5.50); Red Cell Distribution Width 16.5 % (11.5-14.5); Segmented Neutrophils % 78.7 %
[2016-10-28 06:12] LABS: BUN/Creatinine Ratio 25 (6-26); Blood Urea Nitrogen 20 mg/dL (8-26); Carbon Dioxide 33 mEq/L (19-29); Chloride 100 mEq/L (98-109); Potassium 3.8 mEq/L (3.5-4.5); Sodium 139 mEq/L (136-145)
[2016-10-28 06:13] LABS: Calcium 8.1 mg/dL (8.6-10.8); Glucose 127 mg/dL (70-99); Osmolality,Calculated 292 (280-300); eGFR For African Americans > 60 (> 60); eGFR For Non-African Americans > 60 (> 60)
--- NOTE | 2016-10-28 08:42 | Internal Med Progress Note ---
<AureliaHolden rust - Last Filed: 10/28/16 08:40> Date of Encounter: 10/28/16 Time of Encounter: 08:40 - Assessment and plan (1) Catheter-associated urinary tract infection Current Visit: Yes Status: Acute Assessment and plan: E. coli senstive to bactrim. Has a history of ESBL e. coli. ID consulted and recommended bactrim for 7 days. Patient stable for d/c but would like a day to get his home together. Qualifiers: Indwelling urinary catheter type: indwelling urethral catheter Encounter type: subsequent encounter Qualified Code(s): T83.511D - Infection and inflammatory reaction due to indwelling urethral catheter, subsequent encounter ; N39.0 - Urinary tract infection, site not specified (2) Esophagitis Current Visit: Yes Status: Acute Assessment and plan: Confirmed on endoscopy. Change from protonix drip to protonix BID. Continue carafate (3) Pneumonia Current Visit: Yes Status: Acute Assessment and plan: Improving. Continue azithromycin for 7 days total Qualifiers: Pneumonia type: due to unspecified organism Laterality: left Lung location: lower lobe of lung Qualified Code(s): J18.1 - Lobar pneumonia, unspecified organism (4) Anemia Current Visit: No Status: Chronic Assessment and plan: Stable. No evidence of active bleed. Continue to monitor CBC Qualifiers: Anemia type: unspecified type Qualified Code(s): D64.9 - Anemia, unspecified - Subjective Interval history: Patient seen and examined at bedside. He states he feels pretty good today, continues to improve. denies n/v/dyspnea/cough - Constitutional Vitals: Temp Pulse Resp BP Pulse Ox 98.2 F 69 16 117/56 97 10/28/16 07:57 10/28/16 07:57 10/28/16 07:57 10/28/16 07:57 10/28/16 07:57 General appearance: Present: A&O X 3, pleasant, obese, answers questions appropriately - Respiratory Respiratory exam: Present: decreased breath sounds. Absent: rales, rhonchi, wheezes - Cardiovascular Cardiovascular exam: Present: RRR. Absent: gallop, rubs, systolic murmur - GI/Abdominal GI/Abdominal exam: Present: normal bowel sounds, soft, tenderness (diffuse, mildly, improved from yesterday), no peritoneal signs. Absent: distended, firm - Extremities Exam Extremities exam: Present: warm. Absent: tenderness - Neurological Exam Neurological exam: Present: alert, CN II-XII intact, oriented X3, no focal deficits Internal Medicine: Result - Labs CBC & Chem 7: 10/28/16 05:16 10/28/16 05:16 Labs: Short CBC 10/28/16 Range/Units 05:16 WBC 7.4 (4.3-11.1) K/mcL Hgb 10.9 L (12.9-16.9) g/dL Hct 36.7 L (37.5-50.1) % Plt Count 143 (140-400) K/mcL Neutrophils # 5.8 (1.6-8.9) K/mcL BMP 10/28/16 05:16 Sodium 139 Potassium 3.8 Chloride 100 Carbon Dioxide 33 H BUN 20 D Creatinine 0.80 Glucose 127 H Calcium 8.1 L - ABG Interpretation ABG results: PT/INR, D-dimer PT 16.2 Seconds (9.4-12.1) H 10/24/16 00:00 - VTE Reasons for not Prescribing Prophylaxis: Not indicated-Anticoagulated or INR therapeutic Documentation of Mechanical Device: Venous foot pump, device Consult Discharge Plan - Plan Referrals: Dylon Winston MD [Primary Care Provider] - 11/05/16 2:15 pm <Desmond Hart - Last Filed: 10/28/16 18:31> Date of Encounter: 10/28/16 - Assessment and plan (1) Catheter-associated urinary tract infection Current Visit: Yes Status: Acute Qualifiers: Indwelling urinary catheter type: indwelling urethral catheter Encounter type: subsequent encounter Qualified Code(s): T83.511D - Infection and inflammatory reaction due to indwelling urethral catheter, subsequent encounter ; N39.0 - Urinary tract infection, site not specified (2) E. coli infection Current Visit: Yes Status: Acute (3) Esophagitis Current Visit: Yes Status: Acute (4) Hemiplegia Current Visit: Yes Status: Acute Qualifiers: Hemiplegia type: unspecified type Hemiplegia etiology: unspecified etiology Hemiplegia laterality: unspecified laterality Qualified Code(s): G81.90 - Hemiplegia, unspecified affecting unspecified side (5) Chronic pain Current Visit: Yes Status: Chronic Qualifiers: Chronic pain type: other chronic pain Qualified Code(s): G89.29 - Other chronic pain (6) Obesity hypoventilation syndrome Current Visit: No Status: Chronic (7) Chronic respiratory failure Current Visit: Yes Status: Chronic Qualifiers: Respiratory failure complication: hypoxia and hypercapnia Qualified Code(s) : J96.11 - Chronic respiratory failure with hypoxia; J96.12 - Chronic respiratory failure with hypercapnia (8) Diabetes Current Visit: No Status: Chronic Qualifiers: Diabetes mellitus type: type 2 Diabetes mellitus complication status: with kidney complications Diabetes mellitus complication detail: with chronic kidney disease Diabetes mellitus usp insulin use: with lobsterman use Chronic kidney disease stage: stage 3 (moderate) Qualified Code(s): E11.22 - Type 2 diabetes mellitus with diabetic chronic kidney disease; N18.3 - Chronic kidney disease, stage 3 (moderate); Z79.4 - alf (current) use of insulin - Constitutional Vitals: Temp Pulse Resp BP Pulse Ox 97.9 F 69 16 114/68 95 10/28/16 16:55 10/28/16 16:55 10/28/16 16:55 10/28/16 16:55 10/28/16 16:55 Internal Medicine: Result - Labs CBC & Chem 7: 10/28/16 05:16 10/28/16 05:16 Labs: Short CBC 10/28/16 Range/Units 05:16 WBC 7.4 (4.3-11.1) K/mcL Hgb 10.9 L (12.9-16.9) g/dL Hct 36.7 L (37.5-50.1) % Plt Count 143 (140-400) K/mcL Neutrophils # 5.8 (1.6-8.9) K/mcL BMP 10/28/16 05:16 Sodium 139 Potassium 3.8 Chloride 100 Carbon Dioxide 33 H BUN 20 D Creatinine 0.80 Glucose 127 H Calcium 8.1 L - ABG Interpretation ABG results: PT/INR, D-dimer PT 16.2 Seconds (9.4-12.1) H 10/24/16 00:00 - Attending Attestation I examined this patient and my medical decision-making was reviewed with the Resident Physician on 10/28/16. I agree with the documented findings, disposition and treatment plan as described except to the extent set forth below. Mr. Echavarria is currently admitted for acute CAUTI due to E coli. He is moderate risk due to potential for worsening infectious issues. Mr. Echavarria is complaining of pain (chronic). No fever or chills. Needs to have bed set up at home. No GI symptoms. Exam Alert. Comfortable Heart reg No wheeze Abd soft I/P 1. CAUTI - E coli. Present on admission 2. Quadriplegia Further diagnoses and plan as above Plan for d/c tomorrow.
[2016-10-28] MEDS: Insulin LISPRO 300 UNITS/3 ML VIAL SQ SCH ×4 (10:38→20:49)
[2016-10-28] MEDS: Furosemide 40 MG TABLET PO SCH ×2 (10:40→20:48)
[2016-10-28] MEDS: Pregabalin 50 MG CAPSULE PO SCH ×3 (10:41→20:48)
[2016-10-28] MEDS: Metoclopramide 10 MG/2 ML VIAL IVP SCH ×4 (10:41→20:48)
[2016-10-28] MEDS: *HR* Digoxin 0.25 MG TABLET PO SCH (10:41)
[2016-10-28] MEDS: Sulfamethoxazole/Trimeth DS 1 EACH TABLET PO SCH ×2 (10:41→20:48)
[2016-10-28] MEDS: Nystatin Cream 15 GM TUBE TP SCH ×2 (11:07→20:48)
--- NOTE | 2016-10-28 11:15 | Infectious Disease Progress No ---
Date of Encounter: 10/28/16 Time of Encounter: 11:13 - Assessment and Plan (1) Catheter-associated urinary tract infection Current Visit: Yes Status: Acute Causative organism E. coli, sensitive to Bactrim. Likely secondary to chronic indwelling corey catheter. Per documentation, the patient's corey catheter was changed 10/24/16. Patient treated with IV Ertapenem 10/24 - 10/27. Switched to Bactrim today. Continue Bactrim DS 1 tab PO BID to complete a 10 day course. Monitor renal function and dose-adjust antibiotics. No further recommendations from the ID team. We will sign off. Please re- consult if needed. Qualifiers: Indwelling urinary catheter type: indwelling urethral catheter Encounter type: subsequent encounter Qualified Code(s): T83.511D - Infection and inflammatory reaction due to indwelling urethral catheter, subsequent encounter ; N39.0 - Urinary tract infection, site not specified (2) Pneumonia Current Visit: Yes Status: Acute Causative organism unclear. CXR completed 10/24/16 showed LLL atelectasis or pneumonia. Zithromax started per the primary team. Qualifiers: Pneumonia type: due to unspecified organism Laterality: left Lung location: lower lobe of lung Qualified Code(s): J18.1 - Lobar pneumonia, unspecified organism (3) Esophagitis Current Visit: Yes Status: Acute Status post EGD 10/24/16 that showed LA grade D esophagitis with no bleeding in the lower and middle esophagus. Management per the primary and GI teams. (4) Nausea & vomiting Current Visit: Yes Status: Acute Likely secondary to esophagitis. Resolved. Qualifiers: Vomiting type: unspecified Vomiting Intractability: intractable Qualified Code(s): R11.2 - Nausea with vomiting, unspecified (5) Neurogenic bladder Current Visit: Yes Status: Acute Secondary to paraplegia. Continue chronic indwelling corey catheter. Last changed 10/24/16. (6) Anemia Current Visit: No Status: Chronic Qualifiers: Anemia type: unspecified type Qualified Code(s): D64.9 - Anemia, unspecified (7) Chronic respiratory failure Current Visit: Yes Status: Chronic Qualifiers: Respiratory failure complication: unspecified whether with hypoxia or hypercapnia Qualified Code(s): J96.10 - Chronic respiratory failure, unspecified whether with hypoxia or hypercapnia (8) Chronic ulcer of lower extremity Current Visit: No Status: Acute Qualifiers: Laterality: unspecified laterality Non-pressure ulcer stage: limited to breakdown of skin Qualified Code(s): L97.901 - Non-pressure chronic ulcer of unspecified part of unspecified lower leg limited to breakdown of skin (9) DM (diabetes mellitus), type 2 Current Visit: No Status: Chronic Qualifiers: Diabetes mellitus complication status: with skin complications Diabetes mellitus complication detail: with other skin ulcer Diabetes mellitus prison insulin use: with prison use Qualified Code(s): E11.622 - Type 2 diabetes mellitus with other skin ulcer; Z79.4 - continuous churn buttermaker (current) use of insulin - Subjective Interval history: Patient seen and examined. No acute events noted overnight. Patient resting comfortably in bed on CPAP. He denies any fevers or chills or rigors. He denies any chest pain or shortness of breath. He reports chronic, nonproductive cough. He denies any nausea, vomiting, diarrhea, or constipation. He reports his last bowel movement was a couple of days ago. He has a chronic indwelling Corey catheter. He reports chronic, generalized abdominal pain. He denies any oral thrush or any skin lesions. Infect Dis PN-Objective Data - Labs CBC & Chem 7: 10/28/16 05:16 10/28/16 05:16 Labs: Laboratory Results - last 24 hr 10/26/16 10/26/16 10/26/16 11:40 16:53 19:51 WBC RBC Hgb Hct MCV MCH MCHC RDW Plt Count MPV Immature Gran % Seg Neutrophils % Lymphocytes % Monocytes % Eosinophils % Basophils % Neutrophils # Lymphocytes # Monocytes # Eosinophils # Basophils # Sodium Potassium Chloride Carbon Dioxide BUN Creatinine Est GFR ( Amer) Est GFR (Non-Af Amer) BUN/Creatinine Ratio Glucose POC Glucose 156 H 175 H 163 H Calculated Osmolality Calcium 10/27/16 10/27/16 10/27/16 07:37 11:35 16:23 WBC RBC Hgb Hct MCV MCH MCHC RDW Plt Count MPV Immature Gran % Seg Neutrophils % Lymphocytes % Monocytes % Eosinophils % Basophils % Neutrophils # Lymphocytes # Monocytes # Eosinophils # Basophils # Sodium Potassium Chloride Carbon Dioxide BUN Creatinine Est GFR ( Amer) Est GFR (Non-Af Amer) BUN/Creatinine Ratio Glucose POC Glucose 119 H 148 H 170 H Calculated Osmolality Calcium 10/28/16 10/28/16 05:16 05:16 WBC 7.4 RBC 4.17 L Hgb 10.9 L Hct 36.7 L MCV 88.0 MCH 26.1 L MCHC 29.7 L RDW 16.5 H Plt Count 143 MPV 9.9 Immature Gran % 0.4 Seg Neutrophils % 78.7 Lymphocytes % 10.0 Monocytes % 7.4 Eosinophils % 2.8 Basophils % 0.7 Neutrophils # 5.8 Lymphocytes # 0.7 Monocytes # 0.6 Eosinophils # 0.2 Basophils # 0.1 Sodium 139 Potassium 3.8 Chloride 100 Carbon Dioxide 33 H BUN 20 D Creatinine 0.80 Est GFR ( Amer) > 60 Est GFR (Non-Af Amer) > 60 BUN/Creatinine Ratio 25 Glucose 127 H POC Glucose Calculated Osmolality 292 Calcium 8.1 L Exam - Constitutional Vitals: Temp Pulse Resp BP Pulse Ox 98.2 F 69 16 117/56 97 10/28/16 07:57 10/28/16 07:57 10/28/16 07:57 10/28/16 07:57 10/28/16 07:57 General appearance: cooperative, no acute distress, obese - Head Head exam: Present: atraumatic, normal inspection, normocephalic - Eye Eye exam: Present: EOMI, normal appearance, PERRL Pupils: Present: normal accommodation - ENT ENT exam: Present: mucous membranes moist - Neck Neck exam: Present: normal inspection - Respiratory Respiratory exam: Present: decreased breath sounds (Throughout). Absent: rales , respiratory distress, rhonchi, wheezes - Cardiovascular Cardiovascular exam: Present: RRR, +S1, +S2 - GI/Abdominal GI/Abdominal exam: Present: distended (obese), normal bowel sounds, soft, tenderness (generalized) Additional comments: Corey catheter noted to be draining clear, dark yellow urine. - Extremities Exam Extremities exam: Present: tenderness (BLE) Additional comments: BLE dressings with small amount of serous drainage noted. - Neurological Exam Neurological exam: Present: alert, oriented X3. Absent: no focal deficits ( Paralysis noted to the BLE with weakness noted to the BUE.), facial droop, speech deficit - Psychiatric Psychiatric exam: Present: normal affect, normal mood - Skin Skin exam: Present: dry, intact, normal color, warm - Additional findings Additional findings: EPIV noted to the RUE with transparent dressing C/D/I. - VTE Reasons for not Prescribing Prophylaxis: Not indicated-Anticoagulated or INR therapeutic Documentation of Mechanical Device: Venous foot pump, device Consult Discharge Plan - Plan Referrals: Dylon Winston MD [Primary Care Provider] - 11/05/16 2:15 pm - Attending Attestation I examined this patient and my medical decision-making was reviewed with the SOIL SCIENCE TEACHER/PA/Advanced Practice Nurse/Resident Physician. I agree with the documented findings, disposition and treatment plan as described except to the extent set forth below.
[2016-10-28] MEDS ORDERED: *HR* OxyCODONE Immed Rel 5 MG TABLET PO PRN (13:23)
[2016-10-28] MEDS ORDERED: Alteplase (Activase) 100 MG in EMPTY BAG 1 EACH IVPB ONE (14:02)
[2016-10-28] MEDS ORDERED: *HR* OxyCODONE/APAP 10/325 TABLET PO PRN (15:18)
[2016-10-28] MEDS ORDERED: *HR* OxyCODONE/APAP 5/325 TABLET PO ONE (16:45)
[2016-10-28] MEDS: Azithromycin 250 MG in D5% in Water 250 ML IVPB SCH (20:47)
[2016-10-28] MEDS: *HR* OxyCODONE/APAP 10/325 TABLET PO PRN (20:47)
[2016-10-28] MEDS: Latanoprost 2.5 ML BOTTLE BOTH EYES SCH (20:48)
[2016-10-29] MEDS: *HR* OxyCODONE/APAP 10/325 TABLET PO PRN ×2 (00:19→12:48)
[2016-10-29 06:13] LABS: Basophils # 0.1 K/mcL (0.0-0.2); Basophils % 1.1 %; Eosinophils # 0.2 K/mcL (0.0-0.6); Eosinophils % 3.6 %; Hemoglobin 11.2 g/dL (12.9-16.9); Immature Granulocytes % 0.5 % (0-4); Lymphocytes # 0.8 K/mcL (0.6-4.6); Lymphocytes % 12.8 %; Mean Corpuscular HGB Conc 30.3 g/dL (31.6-35.5); Mean Corpuscular Hemoglobin 27.1 pg (28.0-33.3); Mean Corpuscular Volume 89.4 fL (83.0-100.0); Mean Platelet Volume 10.5 fL (9.4-12.4); Monocytes # 0.5 K/mcL (0.0-1.3); Monocytes % 7.4 %; Neutrophils # 4.6 K/mcL (1.6-8.9); Platelet Count 150 K/mcL (140-400); Red Blood Count 4.14 M/mcL (4.19-5.50); Red Cell Distribution Width 16.3 % (11.5-14.5); Segmented Neutrophils % 74.6 %
[2016-10-29 06:24] LABS: BUN/Creatinine Ratio 23 (6-26); Blood Urea Nitrogen 18 mg/dL (8-26); Calcium 8.1 mg/dL (8.6-10.8); Carbon Dioxide 33 mEq/L (19-29); Chloride 99 mEq/L (98-109); Glucose 120 mg/dL (70-99); Osmolality,Calculated 291 (280-300); Potassium 3.9 mEq/L (3.5-4.5); Sodium 139 mEq/L (136-145); eGFR For African Americans > 60 (> 60); eGFR For Non-African Americans > 60 (> 60)
[2016-10-29 08:00] VITALS: BP 121/65
--- NOTE | 2016-10-29 08:03 | Discharge Summary ---
<Holden Guallpa - Last Filed: 10/29/16 09:06> Date of Encounter: 10/29/16 Time of Encounter: 07:57 - Discharge Diagnosis (1) Catheter-associated urinary tract infection Priority: Primary Status: Acute Qualifiers: Indwelling urinary catheter type: indwelling urethral catheter Encounter type: subsequent encounter Qualified Code(s): T83.511D - Infection and inflammatory reaction due to indwelling urethral catheter, subsequent encounter ; N39.0 - Urinary tract infection, site not specified (2) Esophagitis Priority: Primary Status: Acute (3) Pneumonia Priority: Primary Status: Acute Qualifiers: Pneumonia type: due to unspecified organism Laterality: left Lung location: lower lobe of lung Qualified Code(s): J18.1 - Lobar pneumonia, unspecified organism (4) Anemia Priority: Secondary Status: Chronic Qualifiers: Anemia type: unspecified type Qualified Code(s): D64.9 - Anemia, unspecified - Discharge Medications Prescriptions: Azithromycin [Zithromax] 250 mg PO DAILY #2 tablet Omeprazole [PriLOSEC] 20 mg PO BIDAC #60 capsule. Sulfamethoxazole/Trimeth DS [Bactrim Ds] 1 each PO BID #8 tablet Home Medications: Aspirin Enteric Coated [Aspirin EC] 81 mg PO QAM #0 03/28/15 [History] Carvedilol [Coreg] 6.25 mg PO BIDWM 03/28/15 [History] Ezetimibe [Zetia] 10 mg PO QAM 03/28/15 [History] Latanoprost [Xalatan] 1 drop BOTH EYES HS 03/28/15 [History] Tamsulosin [Flomax] 0.4 mg PO QPM 03/28/15 [History] Simethicone [Gas-X] 80 mg PO TID PRN #0 tab.chew 04/03/15 [Rx] Ondansetron HCl [Zofran] 4 mg PO Q8H PRN #20 tablet 09/12/15 [Rx] Pregabalin [Lyrica] 50 mg PO TID 30 Days 09/12/15 [Rx] Digoxin [Lanoxin] 0.25 mg PO DAILY 12/31/15 [History] Albuterol Sulfate [Albuterol Inhaler] 2 puff IH TID PRN 03/12/16 [History] Docusate [Colace] 100 mg PO BID PRN 03/12/16 [History] Furosemide [Lasix] 40 mg PO BID 03/12/16 [History] Insulin Glargine [Lantus] 60 unit SQ BID 03/12/16 [History] Ketoconazole 2% CRM [Nizoral Cream] 1 appl TP BID 03/12/16 [History] Lactose-Reduced Food [Ensure Liquid] 1 bottle PO TID 03/12/16 [History] Oxycodone HCl/Acetaminophen [Percocet 10-325 mg Tablet] 1 tab PO 5XD 03/12/16 [ History] Promethazine [Phenergan] 25 mg PO BID PRN 03/12/16 [History] Collagenase Oint [Santyl] 151 appl TP AD 10/24/16 [History] Ferrous Sulfate [Iron] 325 mg PO DAILY 10/24/16 [History] Gentamicin Oint [Garamycin] 1 appl TP TID 10/24/16 [History] Ipratropium/Albuterol Neb [Duoneb] 3 ml IH Q6HR 10/24/16 [History] Mupirocin [Bactroban Oint] 1 appl TP BID 10/24/16 [History] Azithromycin [Zithromax] 250 mg PO DAILY #2 tablet 10/29/16 [Rx] Enoxaparin [Lovenox] 150 mg SQ Q12HR #0 10/29/16 [Rx] Omeprazole [PriLOSEC] 20 mg PO BIDAC #60 capsule. 10/29/16 [Rx] Sulfamethoxazole/Trimeth DS [Bactrim Ds] 1 each PO BID #8 tablet 10/29/16 [Rx] Allergies/Adverse Reactions: Allergies celecoxib [From Celebrex] Allergy (Verified 03/12/16 04:44) Swelling of Lip/Tongue/Throat gabapentin [From Neurontin] Allergy (Verified 03/12/16 04:44) Swelling of Lip/Tongue/Throat nifedipine [From Procardia] Allergy (Verified 03/12/16 04:44) Swelling of Lip/Tongue/Throat Penicillins Allergy (Verified 03/12/16 04:44) Swelling of Lip/Tongue/Throat rofecoxib [From Vioxx] Allergy (Verified 03/12/16 04:44) Swelling of Lip/Tongue/Throat iodine Adverse Reaction (Verified 03/12/16 04:44) See Comments Son states that pt has "swelling" wherever it touches his skin. povidone-iodine [From Betadine] Adverse Reaction (Verified 03/12/16 04:44) See Comments Son states that pt has "swelling" when it touches the skin. soap [From Betadine] Adverse Reaction (Verified 03/12/16 04:44) See Comments Date of admission: 10/24/16 04:10 Primary care physician: Dylon Winston MD Consults: 10/24/16 07:07 Consult to Gastroenterology [CONS] Routine Consulting Provider: Gastroenterology [place] Reason for Consult: Possible upper GI bleed Call Completed: No Consult to Wound Care [CONS] Routine Reason for Consult: pressure ulcers and leg wounds Call Completed: No 10/24/16 10:44 Consult to Invasive Line Access Team [CONS] Routine Reason for Consult: hx esbl- will likely need IV antibiotics. UCx pending. suspect at least 14D course. currently on ertapenem Line Type: Midline 10/27/16 13:23 Consult to Infectious Diseases [CONS] Routine Consulting Provider: Infectious Disease [facility] Reason for Consult: Recurrent UTI/abx recommendations Call Completed: Yes Discharging clinician: Holden Guallpa Anticipated date of discharge: 10/29/16 - Patient Status Disposition: Home Health Service Condition: Undetermined Functional capacity at discharge: bed bound Overall status at discharge: patient is progressing back to baseline - Discharge Instructions Instructions: Sulfamethoxazole/Trimethoprim (By mouth), Omeprazole (By mouth), Azithromycin (By mouth), Acute Respiratory Distress Syndrome (DC), Urinary Tract Infection in Men (DC), Pneumonia (DC) Follow Up With: Dylon Winston MD [Primary Care Provider] - 11/05/16 2:15 pm Additional Instructions: Please follow up with your primary care physician as scheduled. Please take your antibiotics until gone. Restart your lovenox on Thursday. Please advance your diet as tolerated. Please return for any new or worsening symptoms. - Diet and Activity Activity: increase activity as tolerated Diet: advance to your usual diet Interval History: Patient seen and examined bedside. Patient states that he feels better today. He is still on a full liquid diet and is not radiating his FOOD yet. We will advance diet. Denies fever, chills, cough, congestion. Hospital course: Mr. Echavarria is a 61 year old male with history of paraplegia and chronic Cano presented with recurrent vomiting with coffee-ground emesis. Patient underwent upper endoscopy that revealed esophagitis. Patient also had urine studies with urine culture that revealed UTI sensitive to Escherichia coli. Patient was initially treated with ertapenem based on previous culture results that showed ESBL Escherichia coli however this culture revealed Escherichia coli that was sensitive to Bactrim the patient has been transitioned to by mouth Bactrim. Patient had a CT scan that showed a possible left lower lobe pneumonia so the patient is also completing a course of Zithromax. Patient is progressing back to baseline, patient will be discharged in stable condition. - Time Spent with Patient Total time spent providing and/or coordinating discharge services: Greater than 30 minutes - Constitutional Vitals: Temp Pulse Resp BP Pulse Ox 97.9 F 68 14 101/59 96 10/29/16 04:12 10/29/16 04:12 10/29/16 04:12 10/29/16 04:12 10/29/16 04:12 General appearance: Present: A&O X 3, pleasant, obese, answers questions appropriately - Respiratory Respiratory exam: Present: CTAB. Absent: rales, rhonchi, wheezes - Cardiovascular Cardiovascular exam: Present: RRR. Absent: gallop, rubs, systolic murmur - GI/Abdominal GI/Abdominal exam: Present: normal bowel sounds, soft, tenderness (mild,diffuse , improved). Absent: distended - Extremities Exam Extremities exam: Present: pedal edema (trace) - Neurological Exam Neurological exam: Present: alert, CN II-XII intact, oriented X3, no focal deficits - VTE Reasons for not Prescribing Prophylaxis: Not indicated-Anticoagulated or INR therapeutic Documentation of Mechanical Device: Venous foot pump, device <Desmond Hart - Last Filed: 10/29/16 18:13> Date of Encounter: 10/29/16 - Discharge Diagnosis (1) Catheter-associated urinary tract infection Status: Acute Qualifiers: Indwelling urinary catheter type: indwelling urethral catheter Encounter type: subsequent encounter Qualified Code(s): T83.511D - Infection and inflammatory reaction due to indwelling urethral catheter, subsequent encounter ; N39.0 - Urinary tract infection, site not specified (2) E. coli infection Priority: Secondary Status: Acute (3) Esophagitis Status: Acute (4) Hemiplegia Priority: Secondary Status: Acute Qualifiers: Hemiplegia type: unspecified type Hemiplegia etiology: unspecified etiology Hemiplegia laterality: unspecified laterality Qualified Code(s): G81.90 - Hemiplegia, unspecified affecting unspecified side (5) Chronic pain Priority: Secondary Status: Chronic Qualifiers: Chronic pain type: other chronic pain Qualified Code(s): G89.29 - Other chronic pain (6) Obesity hypoventilation syndrome Priority: Secondary Status: Chronic (7) Chronic respiratory failure Status: Chronic Qualifiers: Respiratory failure complication: hypoxia and hypercapnia Qualified Code(s) : J96.11 - Chronic respiratory failure with hypoxia; J96.12 - Chronic respiratory failure with hypercapnia (8) Diabetes Priority: Secondary Status: Chronic Qualifiers: Diabetes mellitus type: type 2 Diabetes mellitus complication status: with kidney complications Diabetes mellitus complication detail: with chronic kidney disease Diabetes mellitus mcc insulin use: with mcc use Chronic kidney disease stage: stage 3 (moderate) Qualified Code(s): E11.22 - Type 2 diabetes mellitus with diabetic chronic kidney disease; N18.3 - Chronic kidney disease, stage 3 (moderate); Z79.4 - half-way (current) use of insulin Date of admission: 10/24/16 04:10 Primary care physician: Dylon Winston MD Consults: 10/24/16 07:07 Consult to Gastroenterology [CONS] Routine Consulting Provider: Gastroenterology [facility] Reason for Consult: Possible upper GI bleed Call Completed: No Consult to Wound Care [CONS] Routine Reason for Consult: pressure ulcers and leg wounds Call Completed: No 10/24/16 10:44 Consult to Invasive Line Access Team [CONS] Routine Reason for Consult: hx esbl- will likely need IV antibiotics. UCx pending. suspect at least 14D course. currently on ertapenem Line Type: Midline 10/27/16 13:23 Consult to Infectious Diseases [CONS] Routine Consulting Provider: Infectious Disease [facility] Reason for Consult: Recurrent UTI/abx recommendations Call Completed: Yes Hospital course: Mr. Echavarria is a 61 year old male - Time Spent with Patient Total time spent providing and/or coordinating discharge services: 37min - Constitutional Vitals: Temp Pulse Resp BP Pulse Ox 97.9 F 62 19 121/65 99 10/29/16 04:12 10/29/16 07:00 06/07/17 07:00 10/29/16 07:00 10/29/16 09:00 - Attending Attestation I examined this patient and my medical decision-making was reviewed with the Resident Physician on 10/29/16. I agree with the documented findings, disposition and treatment plan as described except to the extent set forth below. Mr. Echavarria is nearly at baseline. He denies new issues. He is afebrile and vitals are stable. Exam Alert. Comfortable Heart reg No wheeze Plan D/C today.
--- NOTE | 2016-10-29 08:06 | Physician Discharge Referral ---
<Holden Guallpa - Last Filed: 10/29/16 08:05> Home Health/Hosp Referral Info Transfer to: Home Health Attending Provider: Desmond Hart Provider in Charge Post Discharge: PCP - Diagnosis (1) Catheter-associated urinary tract infection Priority: Primary Status: Acute (2) Esophagitis Priority: Primary Status: Acute (3) Pneumonia Priority: Primary Status: Acute (4) Anemia Priority: Secondary Status: Chronic - Respiratory Orders Oxygen / L per min (2) Smoking Cessation: Smoking cessation has been advised. For more information, call the [place] Tobacco Quit Line at 7-328-UFIU-NOW. - Diet/Nutrition Diet/Nutrition Orders: Cardiac - Activity Activity Orders: Up ad caroline - Services Needed Following services are medically necessary services: Nursing, Home Health Aide, Physical Therapy, Occupational Therapy - Transfer Medications Prescriptions: Azithromycin [Zithromax] 250 mg PO DAILY #2 tablet Omeprazole [PriLOSEC] 20 mg PO BIDAC #60 capsule. Sulfamethoxazole/Trimeth DS [Bactrim Ds] 1 each PO BID #8 tablet Home Medications: Aspirin Enteric Coated [Aspirin EC] 81 mg PO QAM #0 03/28/15 [History] Carvedilol [Coreg] 6.25 mg PO BIDWM 03/28/15 [History] Ezetimibe [Zetia] 10 mg PO QAM 03/28/15 [History] Latanoprost [Xalatan] 1 drop BOTH EYES HS 03/28/15 [History] Tamsulosin [Flomax] 0.4 mg PO QPM 03/28/15 [History] Simethicone [Gas-X] 80 mg PO TID PRN #0 tab.chew 04/03/15 [Rx] Ondansetron HCl [Zofran] 4 mg PO Q8H PRN #20 tablet 09/12/15 [Rx] Pregabalin [Lyrica] 50 mg PO TID 30 Days 09/12/15 [Rx] Digoxin [Lanoxin] 0.25 mg PO DAILY 12/31/15 [History] Albuterol Sulfate [Albuterol Inhaler] 2 puff IH TID PRN 03/12/16 [History] Docusate [Colace] 100 mg PO BID PRN 03/12/16 [History] Furosemide [Lasix] 40 mg PO BID 03/12/16 [History] Insulin Glargine [Lantus] 60 unit SQ BID 03/12/16 [History] Ketoconazole 2% CRM [Nizoral Cream] 1 appl TP BID 03/12/16 [History] Lactose-Reduced Food [Ensure Liquid] 1 bottle PO TID 03/12/16 [History] Oxycodone HCl/Acetaminophen [Percocet 10-325 mg Tablet] 1 tab PO 5XD 03/12/16 [ History] Promethazine [Phenergan] 25 mg PO BID PRN 03/12/16 [History] Collagenase Oint [Santyl] 151 appl TP AD 10/24/16 [History] Ferrous Sulfate [Iron] 325 mg PO DAILY 10/24/16 [History] Gentamicin Oint [Garamycin] 1 appl TP TID 10/24/16 [History] Ipratropium/Albuterol Neb [Duoneb] 3 ml IH Q6HR 10/24/16 [History] Mupirocin [Bactroban Oint] 1 appl TP BID 10/24/16 [History] Azithromycin [Zithromax] 250 mg PO DAILY #2 tablet 10/29/16 [Rx] Enoxaparin [Lovenox] 150 mg SQ Q12HR #0 10/29/16 [Rx] Omeprazole [PriLOSEC] 20 mg PO BIDAC #60 capsule. 10/29/16 [Rx] Sulfamethoxazole/Trimeth DS [Bactrim Ds] 1 each PO BID #8 tablet 10/29/16 [Rx] Allergies/Adverse Reactions: Allergies celecoxib [From Celebrex] Allergy (Verified 03/12/16 04:44) Swelling of Lip/Tongue/Throat gabapentin [From Neurontin] Allergy (Verified 03/12/16 04:44) Swelling of Lip/Tongue/Throat nifedipine [From Procardia] Allergy (Verified 03/12/16 04:44) Swelling of Lip/Tongue/Throat Penicillins Allergy (Verified 03/12/16 04:44) Swelling of Lip/Tongue/Throat rofecoxib [From Vioxx] Allergy (Verified 03/12/16 04:44) Swelling of Lip/Tongue/Throat iodine Adverse Reaction (Verified 03/12/16 04:44) See Comments Son states that pt has "swelling" wherever it touches his skin. povidone-iodine [From Betadine] Adverse Reaction (Verified 03/12/16 04:44) See Comments Son states that pt has "swelling" when it touches the skin. soap [From Betadine] Adverse Reaction (Verified 03/12/16 04:44) See Comments Certification: Further, I certify that my clinical findings support that this patient is homebound (i.e. absences from home require considerable and taxing effort and are for medical reasons or advent services or infrequently or short duration when for other reasons) because: Homebound Reason: Patient requires assistance of a person or device to safely leave home, Leaving home requires considerable and taxing effort due to condition Attestation: My signature below is to certify that this patient is under my care and that I, or nurse practitioner, or a physician's assistant community director working with me, has a face-to -face encounter with this patient. <Desmond Hart - Last Filed: 10/29/16 09:04> - Diagnosis (1) Catheter-associated urinary tract infection Status: Acute (2) E. coli infection Status: Acute (3) Esophagitis Status: Acute (4) Hemiplegia Status: Acute (5) Chronic pain Status: Chronic (6) Obesity hypoventilation syndrome Status: Chronic (7) Chronic respiratory failure Status: Chronic (8) Diabetes Status: Chronic - Respiratory Orders Smoking Cessation: Smoking cessation has been advised. For more information, call the [place] Tobacco Quit Line at 9-190-JXHE-NOW. Certification: Further, I certify that my clinical findings support that this patient is homebound (i.e. absences from home require considerable and taxing effort and are for medical reasons or advent services or infrequently or short duration when for other reasons) because: Attestation: My signature below is to certify that this patient is under my care and that I, or nurse practitioner, or a physician's assistant community director working with me, has a face-to -face encounter with this patient.
[2016-10-29] MEDS: Furosemide 40 MG TABLET PO SCH (10:32)
[2016-10-29] MEDS: Sulfamethoxazole/Trimeth DS 1 EACH TABLET PO SCH (10:32)
[2016-10-29] MEDS: *HR* Digoxin 0.25 MG TABLET PO SCH (10:32)
[2016-10-29] MEDS: Pregabalin 50 MG CAPSULE PO SCH (10:32)
[2016-10-29] MEDS: Insulin LISPRO 300 UNITS/3 ML VIAL SQ SCH ×2 (10:32→12:48)
[2016-10-29] MEDS: Nystatin Cream 15 GM TUBE TP SCH (10:33)
[2016-10-29] MEDS: Metoclopramide 10 MG/2 ML VIAL IVP SCH ×2 (10:34→12:47)
== END 2016-10-29 17:30 | disposition home health service (06) | DRG 466 ==
LOC: 3BNU 22:55 → EMEROO 22:55 → 3BNU 10-24 02:26 → SUATTDRO 10-24 04:10 → 2NENU 10-24 19:47
PROVIDERS: ADMIT Nurse Practitioner Family; ATTEND Internal Medicine
PROC: ENDOEBX (2016-10-24 11:00)

== ENCOUNTER 2016-12-23 23:29 | Inpatient (IN) ==
[2016-12-24 00:11] LABS: Basophils # 0.1 K/mcL (0.0-0.2); Basophils % 0.3 %; Eosinophils # 0.1 K/mcL (0.0-0.6); Eosinophils % 0.7 %; Hematocrit 39.4 % (37.5-50.1); Hemoglobin 11.8 g/dL (12.9-16.9); Immature Granulocytes % 0.9 % (0-4); Lymphocytes # 0.5 K/mcL (0.6-4.6); Mean Corpuscular HGB Conc 29.9 g/dL (31.6-35.5); Mean Corpuscular Hemoglobin 27.1 pg (28.0-33.3); Mean Corpuscular Volume 90.6 fL (83.0-100.0); Mean Platelet Volume 10.3 fL (9.4-12.4); Monocytes # 1.2 K/mcL (0.0-1.3); Monocytes % 6.7 %; Neutrophils # 15.1 K/mcL (1.6-8.9); Platelet Count 198 K/mcL (140-400); Red Blood Count 4.35 M/mcL (4.19-5.50); Red Cell Distribution Width 16.2 % (11.5-14.5); Segmented Neutrophils % 88.4 %
[2016-12-24 00:13] LABS: Bilirubin,Urine Moderate (Negative); Blood,Urine Large (Negative); Glucose,Urine (UA) Normal (Normal); Ketones,Urine Trace mg/dL (Negative); Leukocyte Esterase,Urine Large (Negative); Nitrite,Urine Negative (Negative); Protein,Urine >=300 mg/dL (Neg-Trace)
[2016-12-24 00:14] LABS: Clarity,Urine Cloudy (Clear); Color,Urine Dark Yellow (Yellow)
[2016-12-24] MEDS ORDERED: 0.9 % Sodium Chloride 1,000 ML IVC ONE ×5 (00:15→07:46)
--- NOTE | 2016-12-24 00:17 | Emergency Department Note ---
Disposition Clinical Impression: UTI (urinary tract infection) Qualifiers: Urinary tract infection type: site unspecified Hematuria presence: with hematuria Qualified Code(s): N39.0 - Urinary tract infection, site not specified ; R31.9 - Hematuria, unspecified Pneumonia Qualifiers: Pneumonia type: due to unspecified organism Laterality: right Lung location: lower lobe of lung Qualified Code(s): J18.1 - Lobar pneumonia, unspecified organism Hypotension Qualifiers: Hypotension type: unspecified hypotension type Qualified Code(s): I95.9 - Hypotension, unspecified Disposition: Admitted As Inpatient Condition: Fair General Adult HPI - General Chief complaint: ED Allergic Reaction Stated complaint: rash Time Seen by Provider: 12/23/16 23:34 Source: patient, family, EMS Mode of arrival: EMS Limitations: no limitations Nursing Notes Reviewed: Yes Vital Signs Reviewed: Yes - History of Present Illness HPI Narrative: 61-year-old male history of COPD, hypertension, CAD, renal failure with past dialysis who presents to the ER via EMS due to rash and decreased urine output. Patient reports that he broke out in a rash roughly 3 days ago. He states he did use a body powder at that time. Noticed mostly over the chest and abdomen. Family reports he has also had fevers at home up to 102 and decreased urine output. He does have a chronic indwelling Cano and they report 200 mL's of urine out daily for the last 2 days. Reports that he has had UTIs in the past. They are also concerned about his kidneys and state that he was on dialysis previously. No chest pain or shortness of breath. No other complaints. Pt Subjective Complaint: Rash, urine output decreased Onset (ago): day(s) (2) Location: chest, abdomen (rash) Radiation: non-radiation Pain Severity: moderate Pain Scale: 5 Improves with: nothing Worsens with: nothing Associated symptoms: Reports: fever/chills, rash. Denies: chest pain, cough, nausea/vomiting Treatments Prior to Arrival: none - Related Data Home Medications Medication Instructions Recorded Confirmed Aspirin Enteric Coated [Aspirin EC] 81 mg PO QAM #0 03/28/15 12/01/16 Carvedilol [Coreg] 6.25 mg PO BIDWM 03/28/15 12/01/16 Ezetimibe [Zetia] 10 mg PO QAM 03/28/15 12/01/16 Latanoprost [Xalatan] 1 drop BOTH EYES HS 03/28/15 12/01/16 Tamsulosin [Flomax] 0.4 mg PO QPM 03/28/15 12/01/16 Albuterol Sulfate [Albuterol 2 puff IH TID PRN 03/12/16 12/01/16 Inhaler] Docusate [Colace] 100 mg PO BID PRN 03/12/16 12/01/16 Furosemide [Lasix] 40 mg PO BID 03/12/16 12/01/16 Insulin Glargine [Lantus] 60 unit SQ BID 03/12/16 12/01/16 Ketoconazole 2% CRM [Nizoral Cream] 1 appl TP BID 03/12/16 12/01/16 Lactose-Reduced Food [Ensure 1 bottle PO TID 03/12/16 12/01/16 Liquid] Oxycodone HCl/Acetaminophen 1 tab PO 5XD 03/12/16 12/01/16 [Percocet 10-325 mg Tablet] Promethazine [Phenergan] 25 mg PO BID PRN 03/12/16 12/01/16 Ferrous Sulfate [Iron] 325 mg PO DAILY 10/24/16 12/01/16 Gentamicin Oint [Garamycin] 1 appl TP TID 10/24/16 12/01/16 Ipratropium/Albuterol Neb [Duoneb] 3 ml IH Q6HR 10/24/16 12/01/16 Mupirocin [Bactroban Oint] 1 appl TP BID 10/24/16 12/01/16 Previous Rx's Medication Instructions Recorded Simethicone [Gas-X] 80 mg PO TID PRN #0 tab.chew 04/03/15 Ondansetron HCl [Zofran] 4 mg PO Q8H PRN #20 tablet 09/12/15 Pregabalin [Lyrica] 50 mg PO TID 30 Days 09/12/15 Enoxaparin [Lovenox] 150 mg SQ Q12HR #0 10/29/16 Omeprazole [PriLOSEC] 20 mg PO BIDAC #60 capsule. 10/29/16 Allergies Allergy/AdvReac Type Severity Reaction Status Date / Time celecoxib [From Celebrex] Allergy Swelling Verified 03/12/16 04:44 of Lip/Tongue/Throat gabapentin [From Neurontin] Allergy Swelling Verified 03/12/16 04:44 of Lip/Tongue/Throat nifedipine [From Procardia] Allergy Swelling Verified 03/12/16 04:44 of Lip/Tongue/Throat Penicillins Allergy Swelling Verified 03/12/16 04:44 of Lip/Tongue/Throat rofecoxib [From Vioxx] Allergy Swelling Verified 03/12/16 04:44 of Lip/Tongue/Throat iodine AdvReac See Verified 03/12/16 04:44 Comments povidone-iodine AdvReac See Verified 03/12/16 04:44 [From Betadine] Comments soap [From Betadine] AdvReac See Verified 03/12/16 04:44 Comments All systems ED: reviewed and negative except as stated. Constitutional: Reports: fever Cardiovascular: Denies: chest pain Respiratory: Denies: cough, dyspnea Gastrointestinal: Denies: abdominal pain, nausea, vomiting Integumentary: Reports: rash Past Medical History - Past Medical History Attestation: Yes The following information was validated with the patient. Source: patient Medical history: Reports: arthritis, atrial fibrillation, cardiomyopathy, cirrhosis, CHF, COPD, coronary artery disease, CVA, DVT, dementia, diabetes, GERD, GI bleed, hepatitis, hyperlipidemia, hypertension, kidney stones, liver disease, migraine, myocardial infarction, osteoporosis, peripheral artery disease, pulmonary embolus, renal disease, TIA, venous stasis Surgical history: Reports: cholecystectomy, pacemaker/AICD Psychiatric history: Reports: anxiety, bipolar, depression - Social History Smoking Status: Former smoker Smokeless Tobacco Status: No Alcohol use: Reports: none Drug use: Reports: none Physical Exam - General Limitations: no limitations General appearance: alert, in no apparent distress - Head Head exam: atraumatic, normocephalic, normal inspection - Eye Eye exam: Present: normal appearance, EOMI - ENT ENT exam: normal exam - Neck Neck exam: Present: normal inspection - Chest Chest inspection: Present: normal inspection, symmetric chest wall rise - Respiratory Respiratory exam: Present: normal lung sounds bilaterally - Cardiovascular Cardiovascular exam: Present: regular rate, normal rhythm, normal heart sounds - Abdominal Exam Abdominal exam: Present: soft, Non-Tender. Absent: tenderness - Extremities Exam Extremities exam: Present: normal inspection, full ROM - Expanded Upper Extremity Exam Shoulder exam: Present: normal inspection, full ROM Arm exam: Present: normal inspection, full ROM Elbow exam: Present: normal inspection, full ROM Forearm/Wrist exam: Present: normal inspection, full ROM Hand exam: Present: normal inspection, full ROM - Expanded Lower Extremity Exam Hip/Pelvis exam: Present: normal inspection, full ROM Upper leg exam: Present: normal inspection, full ROM Knee exam: Present: normal inspection, full ROM Lower leg exam: Present: normal inspection, full ROM Ankle exam: Present: normal inspection, full ROM Foot/toe exam: Present: normal inspection, full ROM - Neurological Exam Neurological exam: Present: alert - Psychiatric Psychiatric exam: Present: normal affect, normal mood - Skin Skin exam: Present: warm, dry, intact, rash (There are raised macular lesions over the anterior chest and abdomen and erythematous.), other (There are venous stasis changes to the lower extremities with excoriation of the superficial skin.) Course Course Narrative: Patient seen and examined. Vital signs reviewed. We will check an EKG chest x- ray and blood work urinalysis blood cultures and lactate. Patient will likely require admission to the hospital. - Reevaluation(s) Reevaluation #1: Discussed results of imaging and lab work with the patient and family. The patient does request something for pain. Reevaluation #2: Patient's antibiotics were ordered however the patient's family requested to speak with me. They are concerned because they believe vancomycin and Levaquin cause him to have renal failure last time and do not want him to have these medications. Family refused to have medications given. Vital Signs Temperature 98.1 F 12/23/16 23:29 Pulse Rate 70 12/23/16 23:29 Respiratory Rate 18 12/23/16 23:29 Blood Pressure 84/53 12/23/16 23:29 O2 Sat by Pulse Oximetry 93 12/23/16 23:29 Temperature 97.8 F 12/24/16 04:28 Pulse Rate 85 12/24/16 04:28 Respiratory Rate 18 12/24/16 05:15 Blood Pressure 78/54 12/24/16 04:28 O2 Sat by Pulse Oximetry 99 12/24/16 05:15 Oxygen Delivery Oxygen Delivery Nasal Cannula Medical Decision Making - [facility] Narrative Medical decision making narrative: 61-year-old male presents to the ER due to rash and decreased urine output. He does report that he used of body powder several days ago and then broke out in this rash. They also report decreased urine output at home for which she has it chronic indwelling Cano. Here his urine shows a UTI. His white count of 17. His chest x-ray shows concern for developing right lower lobe pneumonia. He does have a productive cough and shortness of breath. Patient given 2 L normal saline in the ER. Also provided with vancomycin and Levaquin given his allergies. Patient admitted to the hospitalist service. - Lab Data Lab results reviewed: Yes I reviewed the patient's lab results. Result diagrams: 12/24/16 00:03 12/24/16 00:03 Lab Results 12/23/16 12/24/16 12/24/16 Range/Units 23:50 00:03 00:03 WBC 17.1 H (4.3-11.1) K/mcL RBC 4.35 (4.19-5.50) M/mcL Hgb 11.8 L (12.9-16.9) g/dL Hct 39.4 (37.5-50.1) % MCV 90.6 (83.0-100.0) fL MCH 27.1 L (28.0-33.3) pg MCHC 29.9 L (31.6-35.5) g/dL RDW 16.2 H (11.5-14.5) % Plt Count 198 (140-400) K/mcL MPV 10.3 (9.4-12.4) fL Immature Gran % 0.9 (0-4) % Seg Neutrophils % 88.4 % Lymphocytes % 3.0 % Monocytes % 6.7 % Eosinophils % 0.7 % Basophils % 0.3 % Neutrophils # 15.1 H (1.6-8.9) K/mcL Lymphocytes # 0.5 L (0.6-4.6) K/mcL Monocytes # 1.2 (0.0-1.3) K/mcL Eosinophils # 0.1 (0.0-0.6) K/mcL Basophils # 0.1 (0.0-0.2) K/mcL Sodium 130 L (136-145) mEq/L Potassium 4.2 (3.5-4.5) mEq/L Chloride 96 L (98-109) mEq/L Carbon Dioxide 23 (19-29) mEq/L BUN 38 H (8-26) mg/dL Creatinine 1.45 H (0.72-1.25) mg/dL Est GFR ( Amer) > 60 (> 60) Est GFR (Non-Af Amer) 50 L (> 60) BUN/Creatinine Ratio 26 (6-26) Glucose 175 H (70-99) mg/dL Calculated Osmolality 283 (280-300) Lactic Acid (0.5-2.2) mmol/L Calcium 8.0 L (8.6-10.8) mg/dL Total Bilirubin 1.4 H (0.2-1.2) mg/dL AST 13 (5-34) Units/L ALT < 6 (0-55) Units/L Alkaline Phosphatase 106 (38-126) Units/L Serum Total Protein 7.0 (6.0-8.3) g/dL Albumin 2.4 L (3.5-5.0) g/dL Globulin 4.6 H (2.4-3.5) g/dL Albumin/Globulin Ratio 0.5 L (1.1-2.2) Urine Color Dark Yellow (Yellow) Urine Clarity Cloudy A (Clear) Urine pH 5.0 (5.0-8.0) pH Units Ur Specific [place] 1.020 (1.010-1.025) Urine Protein >=300 H (Neg-Trace) mg/dL Urine Glucose (UA) Normal (Normal) mg/dL Urine Ketones Trace H (Negative) mg/dL Urine Blood Large H (Negative) Urine Nitrite Negative (Negative) Urine Bilirubin Moderate H (Negative) Urine Urobilinogen 2.0 H (Normal) mg/dL Ur Leukocyte Esterase Large H (Negative) Urine Microscopic RBC 0-3 (0-3) per hpf Urine Microscopic WBC TNTC H (0-3) per hpf Ur Squamous Epith Cells Few (None-Few) per lpf Calcium Oxalate Crystal Present Urine Bacteria Few (None-Few) per hpf Hyaline Casts None Seen (None-Few) per lpf Ur Culture Indicated? YES A (NO) 12/24/16 Range/Units 00:03 WBC (4.3-11.1) K/mcL RBC (4.19-5.50) M/mcL Hgb (12.9-16.9) g/dL Hct (37.5-50.1) % MCV (83.0-100.0) fL MCH (28.0-33.3) pg MCHC (31.6-35.5) g/dL RDW (11.5-14.5) % Plt Count (140-400) K/mcL MPV (9.4-12.4) fL Immature Gran % (0-4) % Seg Neutrophils % % Lymphocytes % % Monocytes % % Eosinophils % % Basophils % % Neutrophils # (1.6-8.9) K/mcL Lymphocytes # (0.6-4.6) K/mcL Monocytes # (0.0-1.3) K/mcL Eosinophils # (0.0-0.6) K/mcL Basophils # (0.0-0.2) K/mcL Sodium (136-145) mEq/L Potassium (3.5-4.5) mEq/L Chloride (98-109) mEq/L Carbon Dioxide (19-29) mEq/L BUN (8-26) mg/dL Creatinine (0.72-1.25) mg/dL Est GFR ( Amer) (> 60) Est GFR (Non-Af Amer) (> 60) BUN/Creatinine Ratio (6-26) Glucose (70-99) mg/dL Calculated Osmolality (280-300) Lactic Acid 1.6 (0.5-2.2) mmol/L Calcium (8.6-10.8) mg/dL Total Bilirubin (0.2-1.2) mg/dL AST (5-34) Units/L ALT (0-55) Units/L Alkaline Phosphatase (38-126) Units/L Serum Total Protein (6.0-8.3) g/dL Albumin (3.5-5.0) g/dL Globulin (2.4-3.5) g/dL Albumin/Globulin Ratio (1.1-2.2) Urine Color (Yellow) Urine Clarity (Clear) Urine pH (5.0-8.0) pH Units Ur Specific [place] (1.010-1.025) Urine Protein (Neg-Trace) mg/dL Urine Glucose (UA) (Normal) mg/dL Urine Ketones (Negative) mg/dL Urine Blood (Negative) Urine Nitrite (Negative) Urine Bilirubin (Negative) Urine Urobilinogen (Normal) mg/dL Ur Leukocyte Esterase (Negative) Urine Microscopic RBC (0-3) per hpf Urine Microscopic WBC (0-3) per hpf Ur Squamous Epith Cells (None-Few) per lpf Calcium Oxalate Crystal Urine Bacteria (None-Few) per hpf Hyaline Casts (None-Few) per lpf Ur Culture Indicated? (NO) - Radiology Data Radiology results reviewed: Yes I reviewed the patient's radiology results. Chest X-Ray 12/24/16 23:36 IMPRESSION: Interval development of right basilar airspace disease, atelectasis and/or pneumonia. Follow-up is recommended, preferably with a PA and lateral study. D/ / Carolee Todd Cha, MD / Carolee Todd Cha, MD Interpreting Provider: Carolee Todd Cha, MD Critical Care Time Critical Care Time: Yes Total Critical Care Time: 40 Attestation: Critical care performed: Time is exclusive of separately billable procedures. Time includes: direct patient care, patient reassessment, coordination of patient care, interpretation of data (laboratory data, radiology data, and respiratory data), review of patient's medical records, medical consultation and documentation of patient care. Procedures included in critical care time: Procedures excluded from critical care time: S.Angeles.Rigo. - Albino.Denise Situation: Demographics, MOA Background: Presenting Complaint, Relevant PMH, Meds, & Allergies Assessment: Vital Signs, Course and respsone to treatment, Exam Concerns, Patient/Family Expectation, Pertinant Lab Results, Outstanding Labs Recommendation: Barrier(s) to disposition, Recommendation based on pending studies, treatments, or consults S.B.AElkin Report Given to: Dr. Carlos Mendez Repor Time: 02:05 Attestation Statement - Attestation Attestation: I, Migel Mathew MD, personally evaluated this patient and discussed their management with the resident physician. I reviewed the resident's note and agree with the documented findings, medical decision making, and plan of care. Patient is a 61-year-old dilatated bedfast male who presents to the emergency department complaining of a generalized rash which started 3 days prior to arrival. Family reports that over the past 2 days his blood pressure is been running lower than usual and he has had decreased urine output. Patient complains of pain in his back and buttocks secondary to decubiti which is chronic. On examination patient is a well-developed obese male in no acute distress. He is alert and oriented. There is no cyanosis or diaphoresis. Breath sounds are equal bilaterally. Heart regular with a 3/6 murmur. Abdomen soft with normal bowel sounds. Labs reviewed. Significant UTI noted. Elevated WBC. Lactic acid normal. Chest x-ray shows new right basilar airspace disease, atelectasis versus pneumonia. The hospitalist, Dr. Gonzalez, was consulted and accepted admission of the patient.
[2016-12-24 00:27] LABS: Albumin 2.4 g/dL (3.5-5.0); Albumin/Globulin Ratio 0.5 (1.1-2.2); Alkaline Phosphatase 106 Units/L (38-126); Aspartate Amino Transferase 13 Units/L (5-34); BUN/Creatinine Ratio 26 (6-26); Bilirubin,Total 1.4 mg/dL (0.2-1.2); Blood Urea Nitrogen 38 mg/dL (8-26); Carbon Dioxide 23 mEq/L (19-29); Chloride 96 mEq/L (98-109); Globulin 4.6 g/dL (2.4-3.5); Glucose 175 mg/dL (70-99); Osmolality,Calculated 283 (280-300); Potassium 4.2 mEq/L (3.5-4.5); Sodium 130 mEq/L (136-145); eGFR For African Americans > 60 (> 60); eGFR For Non-African Americans 50 (> 60)
[2016-12-24 00:29] LABS: Alanine Aminotransferase < 6 Units/L (0-55)
[2016-12-24 00:35] LABS: Bacteria,Urine Few per hpf (None-Few); Calcium Oxalate Crystals,Urine Present; Hyaline Casts,Urine None Seen per lpf (None-Few); RBC,Urine 0-3 per hpf (0-3); Squamous Epithelial Cell,Urine Few per lpf (None-Few); WBC,Urine TNTC per hpf (0-3)
[2016-12-24] MEDS ORDERED: *HR* OxyCODONE/APAP 5/325 TABLET PO ONE (01:30)
[2016-12-24] MEDS ORDERED: Vancomycin 1,750 MG in D5% in Water 500 ML IVPB ONE (01:31)
[2016-12-24] MEDS: Levofloxacin 750 MG/150 ML 750 MG/150 ML BAG IVPB ONE ×2 (01:39→09:02)
--- NOTE | 2016-12-24 01:52 | Internal Med History&Physical ---
Date of Encounter: 12/24/16 Time of Encounter: 01:48 Assessment and Plan (1) Sepsis Current visit: Yes Status: Acute 61M presents with cc of rash and decreased urinary frequency has chornic indewelling corey due to hx of neurogenic bladder with frequent UTI (ESBL E. Coli) rash 2nd to use of gold maldonado powder with improvement seen after using lotion and benadryl lactic acid WNL hypotensive, leukocytosis, Source of infection: UTI, pneumonia, decubitus ulcer CXR shows new right lower lobe infiltrate plan: blood cultures urine culture Zyvox (due to DESEAN), and meropenam (allergic to penicillins and hx of ESBL ecoli ) Received 2L NS in ER will give additional 1L BP stable around 90s systolic wound consult due to multiple decubitus ulcer and b/l venous stasis ulcer diabetic diet Qualifiers: Sepsis type: sepsis due to unspecified organism Qualified Code(s): A41.9 - Sepsis, unspecified organism (2) Rash Current visit: Yes Status: Acute maculopapular rash 2nd to use of gold maldonado powder d/c use of gold maldonado powder improved after use of benadryl at home will continue to monitor prednisone 40mg (3) Catheter-associated urinary tract infection Current visit: Yes Status: Acute hx of neurogenic baldder decreased urine output since thursday after corey catheter was changed dark murky urine large amounts of WBC, with leukocyte esterase hx of ESBL e coli plan: Meropenam IVF await cultures to descalate antibiotics Qualifiers: Indwelling urinary catheter type: indwelling urethral catheter Encounter type: subsequent encounter Qualified Code(s): T83.511D - Infection and inflammatory reaction due to indwelling urethral catheter, subsequent encounter ; N39.0 - Urinary tract infection, site not specified (4) Hyponatremia Current visit: Yes Status: Acute sodium 130 baseline 139 likely hypovolemic hyponatremia on diuretics at home dry mucous membranes on exam in setting of DESEAN plan: IVF repeat BMP urine sodium (5) Sacral decubitus ulcer, stage IV Current visit: Yes Status: Chronic coccyx and left hip chronic may be source of sepsis wound care consult (6) DESEAN (acute kidney injury) Current visit: Yes Status: Acute 2nd to sepsis, hypotension, UTI baseline scr is 1 presented with scr of 1.45 darl murky urine decrease urine production plan IVF antibiotics strict I/O avoid nephrotoxins badder scan (7) Pneumonia Current visit: Yes Status: Acute Patient states he has been having green sputum production, increase use of nebulizer lung exam shows diminished sounds CXR shows new right lower lobe infiltrate Plan: Will continue duonebs, prednisone 40mg daily x 5 days zyvox and meropenam blood cultures sputum cultures continue home oxygen Qualifiers: Pneumonia type: due to unspecified organism Laterality: right Lung location: lower lobe of lung Qualified Code(s): J18.1 - Lobar pneumonia, unspecified organism (8) Venous stasis ulcer Current visit: Yes Status: Acute wound care consult currently b/l LE dressed follows [facility] [facility] outpatient (9) Chronic anticoagulation Current visit: Yes Status: Chronic hx of hypercoaguability hx of PE, DVT failed xarelto and coumadin followed by hematology outpatient however extensive work up was done which was negative is on lovenox 150 SQ BID hx of afib, currently rate controlled continue lovenox. (10) Diabetes Current visit: Yes Status: Acute ACHS Start levamir and preprandial insulin wiht low dose sliding scale diabetic diet. 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 ) use of insulin (11) A-fib Current visit: Yes Status: Chronic rate and rhythm controlled (s/p dual chamber pacemaker) conitnue lovenox Qualifiers: Atrial fibrillation type: chronic Qualified Code(s): I48.2 - Chronic atrial fibrillation (12) DVT prophylaxis Current visit: Yes Status: Acute lovenox (13) COPD exacerbation Current visit: Yes Status: Acute worsening cough, prouctive sputum and sob plan antibiotics, duoneb, and steroids Internal Medicine - H&P: HPI Chief complaint: allergic reaction and decreased urine production Admitted From: Home Plans for Post Hospital Care: Home History of present illness: Mr. Echavarria is a 61 year old male presents with cc of decreased urinary frequency and rash. States rash started after new use of gold maldonado powder which was applied to all body surfaces. He has a raised maculopapular rash on chest, shoulders, thigh. At home patient's family treated him with benadryl and lotion which helped his itching. Furthermore, states he has chronic corey catheter which is changed every two weeks. It was last changed on Thursday and thereafter he has had decreased urine output, and change in urine color from light yellow to murky brown. States whenever he gets UTI this happens. He has hx of multiple admissions due to UTI. Furthermore, complians of fever of 102 starting last week , decreased appetite, and productive cough with greenish sputum, and increased use of nebulizer treatments. Fever was controlled with tynenol. He is on 3L of O2 at home but has not had to increase this. Patient also complains of diffuse abdominal pain that is described as aching, worsens with palpation. He had N/V 3 -4 days ago but denies hematemesis. Last BM was yesterday morning and was formed , w/o brb. Patient is also followed by [place] [facility] and has b/l venous stasis ulcers, left ischial stage III ulcer and coccygeal stage IV ulcer. Past Med Surg Social Fam HX - Past Medical History Medical history: arthritis, atrial fibrillation, cardiomyopathy, cirrhosis, CHF , COPD, coronary artery disease, CVA, DVT, dementia, diabetes, GERD, GI bleed, hepatitis, hyperlipidemia, hypertension, kidney stones, liver disease, migraine , myocardial infarction, osteoporosis, peripheral artery disease, pulmonary embolus, renal disease, TIA, venous stasis Psychiatric history: anxiety, bipolar, depression - Past Surgical History Surgical History: cholecystectomy, pacemaker/AICD - Social History Smoking Status: Former smoker Smokeless Tobacco Status: No Alcohol use: none Drug use: none - Family History Mother Adopted: No Living Status: Hx Family Cardiac Disorders: Yes Hx Family Respiratory Disorders: Yes Hx Family Cancer: Yes Hx Family GI Disorders: No Hx Family Endocrine Disorder: Yes Hx Family Neuromuscular Disorders: No Hx Family Neurologic Disorders: No Hx Family HEENT Disorders: No Hx Family Autoimmune Disorders: No Internal Medicine - H&P: Meds Aspirin Enteric Coated [Aspirin EC] 81 mg PO QAM #0 03/28/15 [History] Carvedilol [Coreg] 6.25 mg PO BIDWM 03/28/15 [History] Ezetimibe [Zetia] 10 mg PO QAM 03/28/15 [History] Latanoprost [Xalatan] 1 drop BOTH EYES HS 03/28/15 [History] Tamsulosin [Flomax] 0.4 mg PO QPM 03/28/15 [History] Simethicone [Gas-X] 80 mg PO TID PRN #0 tab.chew 04/03/15 [Rx] Ondansetron HCl [Zofran] 4 mg PO Q8H PRN #20 tablet 09/12/15 [Rx] Pregabalin [Lyrica] 50 mg PO TID 30 Days 09/12/15 [Rx] Albuterol Sulfate [Albuterol Inhaler] 2 puff IH TID PRN 03/12/16 [History] Docusate [Colace] 100 mg PO BID PRN 03/12/16 [History] Furosemide [Lasix] 40 mg PO BID 03/12/16 [History] Insulin Glargine [Lantus] 60 unit SQ BID 03/12/16 [History] Ketoconazole 2% CRM [Nizoral Cream] 1 appl TP BID 03/12/16 [History] Lactose-Reduced Food [Ensure Liquid] 1 bottle PO TID 03/12/16 [History] Oxycodone HCl/Acetaminophen [Percocet 10-325 mg Tablet] 1 tab PO 5XD 03/12/16 [ History] Promethazine [Phenergan] 25 mg PO BID PRN 03/12/16 [History] Ferrous Sulfate [Iron] 325 mg PO DAILY 10/24/16 [History] Gentamicin Oint [Garamycin] 1 appl TP TID 10/24/16 [History] Ipratropium/Albuterol Neb [Duoneb] 3 ml IH Q6HR 10/24/16 [History] Mupirocin [Bactroban Oint] 1 appl TP BID 10/24/16 [History] Enoxaparin [Lovenox] 150 mg SQ Q12HR #0 10/29/16 [Rx] Omeprazole [PriLOSEC] 20 mg PO BIDAC #60 capsule. 10/29/16 [Rx] Allergies celecoxib [From Celebrex] Allergy (Verified 03/12/16 04:44) Swelling of Lip/Tongue/Throat gabapentin [From Neurontin] Allergy (Verified 03/12/16 04:44) Swelling of Lip/Tongue/Throat nifedipine [From Procardia] Allergy (Verified 03/12/16 04:44) Swelling of Lip/Tongue/Throat Penicillins Allergy (Verified 03/12/16 04:44) Swelling of Lip/Tongue/Throat rofecoxib [From Vioxx] Allergy (Verified 03/12/16 04:44) Swelling of Lip/Tongue/Throat iodine Adverse Reaction (Verified 03/12/16 04:44) See Comments Son states that pt has "swelling" wherever it touches his skin. povidone-iodine [From Betadine] Adverse Reaction (Verified 03/12/16 04:44) See Comments Son states that pt has "swelling" when it touches the skin. soap [From Betadine] Adverse Reaction (Verified 03/12/16 04:44) See Comments All Systems PM: A 10-system review of systems was performed and is negative for pertinent findings except as documented above in the HPI. Review of systems: Constitutional: Reports fevers, lethargy. Denies confusion chills HEENT: Denies headache, vision changes, neck pain, sore throat, rhinorrhea Heart: Denies chest pain palpitations Lungs: Reports shortness of breath, coughing, productive green sputum. Denies hemoptysis Abdomen: Reports abdominal pain, nausea, vomiting. Denies diarrhea, hematochezia, melena, hematemesis Kidney: Reports decreased urinary frequency, chronic indwelling Corey, change in urine color to dark brown Back: Reports coccygeal ulcer and left hip ulcer Extremities: Reports lower extremity venous stasis ulcers Neuro: Reports lower extremity numbness which is chronic Skin: Reports diffuse rash, itching - Constitutional Vitals: Temp Pulse Resp BP Pulse Ox 98.1 F 71 18 83/58 100 12/23/16 23:29 12/24/16 01:45 12/24/16 01:45 12/24/16 01:45 12/24/16 01:45 - Other Additional findings: General: Alert and oriented to place time and situation. Without distress HEENT: Head atraumatic, normocephalic, EOMI, PERRLA, neck nontender to palpation , absent Lymphadenopathy, dry mucous membranes Heart: Regular rate, paced rhythm, without murmur Lungs: Diminished breath sounds anteriorly. Abdomen: Soft, distended abdomen, tenderness diffusely with palpation, positive bowel sounds Extremities: Lower extremity venous stasis ulcers wrapped with gauze, bilateral scaly, cracked skin and feet Neuro: Cranial nerves II through XII intact, alert oriented 3 Vascular: radial pulses 2 out of 4, difficult to identify pedal pulses. Capillary refill 2 seconds Skin: maculopapular rash on chest, upper abdomen, bilateral shoulders, bilateral thighs, bilateral venous stasis ulcers, left ischial stage III decubitus ulcer and coccygeal stage IV decubitus ulcer Internal Med - H&P Results - Labs CBC & Chem 7: 12/24/16 00:03 12/24/16 00:03 Labs: Short CBC 12/24/16 Range/Units 00:03 WBC 17.1 H (4.3-11.1) K/mcL Hgb 11.8 L (12.9-16.9) g/dL Hct 39.4 (37.5-50.1) % Plt Count 198 (140-400) K/mcL Neutrophils # 15.1 H (1.6-8.9) K/mcL BMP 12/24/16 00:03 Sodium 130 L Potassium 4.2 Chloride 96 L Carbon Dioxide 23 BUN 38 H Creatinine 1.45 H Glucose 175 H Calcium 8.0 L Liver Function 12/24/16 Range/Units 00:03 Total Bilirubin 1.4 H (0.2-1.2) mg/dL AST 13 (5-34) Units/L ALT < 6 (0-55) Units/L Alkaline Phosphatase 106 (38-126) Units/L Albumin 2.4 L (3.5-5.0) g/dL Urine 12/23/16 Range/Units 23:50 Urine Color Dark Yellow (Yellow) Urine Clarity Cloudy A (Clear) Urine pH 5.0 (5.0-8.0) pH Units Ur Specific [place] 1.020 (1.010-1.025) Urine Protein >=300 H (Neg-Trace) mg/dL Urine Glucose (UA) Normal (Normal) mg/dL - Impressions ITS Impressions Chest X-Ray 12/24/16 23:36 IMPRESSION: Interval development of right basilar airspace disease, atelectasis and/or pneumonia. Follow-up is recommended, preferably with a PA and lateral study. D/ / Carolee Todd Cha, MD / Carolee Todd Cha, MD Interpreting Provider: Carolee Todd Cha, MD
[2016-12-24] MEDS ORDERED: Naloxone 0.4 MG/ML INJ IVP PRN (02:20)
[2016-12-24] MEDS ORDERED: Dextrose Gel 15 GM PO PRN ×2 (02:55)
[2016-12-24] MEDS ORDERED: D5% in Water 1,000 ML IVC PRN (02:55)
[2016-12-24] MEDS ORDERED: *HR* Dextrose 50 % in Water (Syg) 50 ML SYRINGE IVP PRN (02:55)
--- NOTE | 2016-12-24 03:25 | Event Note ---
Date of Encounter: 12/24/16 Time of Encounter: 03:23 Patient seen and examined with medical research associate. Severe sepsis from UTI, HCAP. So far he is fluid responsive. He was only making 200 ml of urine daily the past 2 days. Will bladder scan. Give 3 L fluid. Pancultures. Continue lovenox for prior DVT/PE. Full code
[2016-12-24] MEDS: Ipratropium/Albuterol Neb 3 ML IH SCH ×4 (05:14→23:05)
[2016-12-24] MEDS ORDERED: ENOXAPARIN 150 MG SQ SCH (06:00)
[2016-12-24] MEDS ORDERED: *HR* Enoxaparin 120 MG/0.8 ML SYRINGE SQ SCH (06:00)
[2016-12-24] MEDS ORDERED: Meropenem 500 MG in 0.9 % Sodium Chloride Mini Bag 100 ML IVPB SCH (08:00)
[2016-12-24] MEDS: Aspirin Enteric Coated 81 MG Tablet PO SCH (09:16)
[2016-12-24] MEDS: predniSONE 20 MG TABLET PO SCH (09:16)
[2016-12-24] MEDS: Pregabalin 50 MG CAPSULE PO SCH ×3 (09:16→21:21)
[2016-12-24] MEDS: ZETIA 10MG PO SCH (09:17)
--- NOTE | 2016-12-24 09:17 | Event Note ---
<Antonio Hdez - Last Filed: 12/24/16 09:17> Date of Encounter: 12/24/16 Time of Encounter: 09:11 Pt seen and examined. He states he is in his usual pain in his back and legs from the ulcers but denies any chest pain or difficulty breathing while on his home BIPAP. He denies any nausea, vomiting, fevers, chills, or diarrhea. Given his borderline blood pressures despite aggressive fluid repletion including albumin, I have consented him for central line placement. If his blood pressures remain low, we will perform procedure later today. Continue antibiotic regimen with Zyvox and Meropenem as patient has history of ESBL and MRSA but had kidney damage from Vancomycin during a previous admission. He is septic but the source may be from multiple sites including UTI , PNA, and ulcers. <Pascual Fish - Last Filed: 12/24/16 17:06> Date of Encounter: 12/24/16 I examined this patient and my medical decision-making was reviewed with the Resident Physician on12/24/16. I agree with the documented findings, disposition and treatment plan as described except to the extent set forth below. Patient with septic shock: Multiple sources, bilateral cellulitis, HCAP, UTI. Critically ill, obtain another peripheral line, continue IVF, his MAP >70. Consult ID.
[2016-12-24] MEDS: Insulin LISPRO 300 UNITS/3 ML VIAL SQ SCH ×9 (09:20→21:21)
[2016-12-24] MEDS: 0.9 % Sodium Chloride 1,000 ML IVC SCH ×2 (10:42→17:55)
[2016-12-24] MEDS: Gentamicin Oint 15 GM TUBE TP SCH ×3 (13:20→21:13)
[2016-12-24] MEDS: Ketoconazole 2% CRM 15 GM TUBE TP SCH ×2 (13:21→21:13)
[2016-12-24 13:51] LABS: INR 1.6; Prothrombin Time 17.9 Seconds (9.4-12.1)
[2016-12-24 13:54] LABS: Activated Partial Thrombo Time 39.4 Seconds (26.0-36.0)
[2016-12-24] MEDS: Meropenem 500 MG in 0.9 % Sodium Chloride Mini Bag 100 ML IVPB SCH (17:55)
[2016-12-24] MEDS ORDERED: Insulin DETEMIR 100 UNIT/ML X5UNITS SQ SCH (21:00)
[2016-12-24] MEDS: Latanoprost 2.5 ML BOTTLE BOTH EYES SCH (21:22)
[2016-12-25] MEDS ORDERED: *HR* Morphine 2 MG/ML SYRINGE IVP ONE (00:15)
[2016-12-25] MEDS: 0.9 % Sodium Chloride 1,000 ML IVC SCH ×2 (01:37→16:36)
[2016-12-25] MEDS: Meropenem 500 MG in 0.9 % Sodium Chloride Mini Bag 100 ML IVPB SCH ×2 (02:55→12:11)
[2016-12-25] MEDS ORDERED: Vancomycin 1,750 MG in D5% in Water 250 ML IVPB SCH (03:00)
[2016-12-25] MEDS: Ipratropium/Albuterol Neb 3 ML IH SCH ×4 (05:06→22:24)
[2016-12-25 06:10] LABS: Basophils % 0.1 %; Hematocrit 34.5 % (37.5-50.1); Hemoglobin 10.6 g/dL (12.9-16.9); Immature Granulocytes % 0.8 % (0-4); Lymphocytes # 0.3 K/mcL (0.6-4.6); Lymphocytes % 3.1 %; Mean Corpuscular HGB Conc 30.7 g/dL (31.6-35.5); Mean Corpuscular Hemoglobin 26.8 pg (28.0-33.3); Mean Corpuscular Volume 87.1 fL (83.0-100.0); Mean Platelet Volume 10.6 fL (9.4-12.4); Monocytes # 0.4 K/mcL (0.0-1.3); Monocytes % 4.3 %; Neutrophils # 9.1 K/mcL (1.6-8.9); Platelet Count 187 K/mcL (140-400); Red Blood Count 3.96 M/mcL (4.19-5.50); Red Cell Distribution Width 15.8 % (11.5-14.5); Segmented Neutrophils % 91.7 %
[2016-12-25 06:30] LABS: BUN/Creatinine Ratio 34 (6-26); Blood Urea Nitrogen 42 mg/dL (8-26); Calcium 7.8 mg/dL (8.6-10.8); Carbon Dioxide 28 mEq/L (19-29); Chloride 97 mEq/L (98-109); Glucose 238 mg/dL (70-99); Osmolality,Calculated 290 (280-300); Potassium 3.7 mEq/L (3.5-4.5); Sodium 131 mEq/L (136-145); eGFR For African Americans > 60 (> 60); eGFR For Non-African Americans 59 (> 60)
[2016-12-25] MEDS: Pregabalin 50 MG CAPSULE PO SCH ×3 (08:23→22:47)
[2016-12-25] MEDS: Aspirin Enteric Coated 81 MG Tablet PO SCH (08:23)
[2016-12-25] MEDS: predniSONE 20 MG TABLET PO SCH (08:23)
[2016-12-25] MEDS: Insulin LISPRO 300 UNITS/3 ML VIAL SQ SCH ×7 (08:24→22:50)
[2016-12-25] MEDS: ZETIA 10MG PO SCH (08:26)
--- NOTE | 2016-12-25 08:39 | Internal Med Progress Note ---
<Antonio Hdez - Last Filed: 12/25/16 08:49> Date of Encounter: 12/25/16 Time of Encounter: 08:37 - Assessment and plan (1) Severe sepsis Current Visit: Yes Status: Acute Assessment and plan: Blood pressures slightly improved since yesterday so fluids will be decreased to 75 ml/hr Continue with Linezolid and Meropenem given history of MRSA and ESBL; he has allergy to PCN Blood cultures so far negative, UA shows pseudomonas with MDR Will consult infectious diseases for assistance in antibiotic regimen and duration (2) Community acquired pneumonia Current Visit: Yes Status: Acute Assessment and plan: CXR shows interval development of right basilar infiltrate He is already on Zyvox and Meropenem and blood cultures are negative thus far (3) Catheter-associated urinary tract infection Current Visit: Yes Status: Acute Assessment and plan: Urine did grow out Pseudomonas with multiple drug resistance He is currently on Zyvox/Meropenem; will consult ID as above Will need exchange of catheter Qualifiers: Indwelling urinary catheter type: indwelling urethral catheter Encounter type: subsequent encounter Qualified Code(s): T83.511D - Infection and inflammatory reaction due to indwelling urethral catheter, subsequent encounter ; N39.0 - Urinary tract infection, site not specified (4) DESEAN (acute kidney injury) Current Visit: Yes Status: Acute Assessment and plan: Cr improved from yesterday after adequate hydration Will decrease fluids as patient is edematous, may stop and restart home lasix if pressures allow Continue to monitor Cr and electrolytes; avoid nephrotoxic agents (5) Rash Current Visit: Yes Status: Acute Assessment and plan: Rash after [place] application at home Did improve slightly with Benadryl, which we will re-start now Continue with Prednisone 40 mg daily (6) A-fib Current Visit: Yes Status: Chronic Assessment and plan: Currently rate controlled without home Coreg; AICD in place Chronic anti-coagulation with Lovenox Consider restarting Coreg once blood pressures stabilize Qualifiers: Atrial fibrillation type: chronic Qualified Code(s): I48.2 - Chronic atrial fibrillation (7) Sacral decubitus ulcer, stage IV Current Visit: No Status: Chronic Assessment and plan: Currently a patient of wound care, who has been consulted; appreciate management of multiple wounds (8) COPD (chronic obstructive pulmonary disease) Current Visit: No Status: Chronic Assessment and plan: Not currently in exacerbation Will continue home breathing treatments, BiPAP at night, steroids Qualifiers: COPD type: emphysema Emphysema type: unspecified Qualified Code(s): J43.9 - Emphysema, unspecified (9) DM (diabetes mellitus), type 2 Current Visit: No Status: Chronic Assessment and plan: Continue low dose SSI and increase long acting insulin from 32 to 40 units daily as sugars have been above 200 Qualifiers: Diabetes mellitus complication status: with skin complications Diabetes mellitus complication detail: with other skin ulcer Diabetes mellitus [facility] insulin use: with [facility] use Qualified Code(s): E11.622 - Type 2 diabetes mellitus with other skin ulcer; Z79.4 - [facility] (current) use of insulin (10) History of DVT (deep vein thrombosis) Current Visit: No Status: Chronic Assessment and plan: Continue home Lovenox (11) DVT prophylaxis Current Visit: Yes Status: Acute Assessment and plan: Taking therapeutic lovenox - Subjective Interval history: Pt seen and examined. He states that his pain is all over but worse where his wounds are still. He denies any chest discomfort or issues breathing and has eaten all his meals without any nausea, vomiting, or diarrhea. - Constitutional Vitals: Temp Pulse Resp BP Pulse Ox 97.6 F 78 17 100/79 100 12/25/16 07:19 12/25/16 07:19 12/25/16 07:19 12/25/16 07:19 12/25/16 07:19 General appearance: Present: cooperative, pleasant, no acute distress, answers questions appropriately - Head Head exam: Present: atraumatic, normocephalic - Eye Eye exam: Present: PERRL, conjuntiva pink, sclera anicteric - Neck Neck exam general surgery: Present: supple, trachea midline. Absent: lymphadenopathy - Respiratory Respiratory exam: Present: decreased breath sounds. Absent: accessory muscle use, rales, rhonchi, wheezes - Cardiovascular Cardiovascular exam: Present: RRR, +S1, +S2. Absent: diastolic murmur, gallop, rubs, systolic murmur - GI/Abdominal GI/Abdominal exam: Present: normal bowel sounds, soft, no peritoneal signs. Absent: distended, tenderness - Extremities Exam Extremities exam: Present: pedal edema (3+), warm, radial pulses palpable and symetrical. Absent: calf tenderness, cyanotic - Neurological Exam Neurological exam: Present: alert. Absent: facial droop, speech deficit - Skin Additional comments: stage 4 decubitus ulcer, stage 3 left ischial, and multiple ulcers of feet draining yellow-juan m fluid rash noted in upper extremities and across chest and abdomen Internal Medicine: Result - Labs CBC & Chem 7: 12/25/16 05:48 12/25/16 05:48 Labs: Short CBC 12/25/16 Range/Units 05:48 WBC 9.9 (4.3-11.1) K/mcL Hgb 10.6 L (12.9-16.9) g/dL Hct 34.5 L (37.5-50.1) % Plt Count 187 (140-400) K/mcL Neutrophils # 9.1 H (1.6-8.9) K/mcL BMP 12/25/16 05:48 Sodium 131 L Potassium 3.7 Chloride 97 L Carbon Dioxide 28 BUN 42 H Creatinine 1.24 Glucose 238 H Calcium 7.8 L - ABG Interpretation ABG results: PT/INR, D-dimer PT 17.9 Seconds (9.4-12.1) H 12/24/16 12:35 Consult Discharge Plan - Plan Referrals: Dylon Winston MD [Primary Care Provider] - <Pascual Fish T - Last Filed: 12/25/16 16:01> Date of Encounter: 12/25/16 - Assessment and plan (1) Catheter-associated urinary tract infection Current Visit: Yes Status: Acute Qualifiers: Indwelling urinary catheter type: indwelling urethral catheter Encounter type: subsequent encounter Qualified Code(s): T83.511D - Infection and inflammatory reaction due to indwelling urethral catheter, subsequent encounter ; N39.0 - Urinary tract infection, site not specified (2) Hospital acquired PNA Current Visit: Yes Status: Suspected (3) Sacral decubitus ulcer, stage IV Current Visit: Yes Status: Chronic (4) Lymphedema of both lower extremities Current Visit: No Status: Chronic (5) Contact dermatitis Current Visit: Yes Status: Acute (6) DM (diabetes mellitus), type 2 Current Visit: No Status: Chronic Qualifiers: Diabetes mellitus complication status: with unspecified complications Diabetes mellitus predatory animal exterminator insulin use: with predatory animal exterminator use Qualified Code(s) : E11.8 - Type 2 diabetes mellitus with unspecified complications - Constitutional Vitals: Temp Pulse Resp BP Pulse Ox 97.6 F 83 16 100/79 100 12/25/16 11:33 12/25/16 11:33 12/25/16 11:33 12/25/16 07:19 12/25/16 11:33 Internal Medicine: Result - Labs CBC & Chem 7: 12/25/16 05:48 12/25/16 05:48 Labs: Short CBC 12/25/16 Range/Units 05:48 WBC 9.9 (4.3-11.1) K/mcL Hgb 10.6 L (12.9-16.9) g/dL Hct 34.5 L (37.5-50.1) % Plt Count 187 (140-400) K/mcL Neutrophils # 9.1 H (1.6-8.9) K/mcL BMP 12/25/16 05:48 Sodium 131 L Potassium 3.7 Chloride 97 L Carbon Dioxide 28 BUN 42 H Creatinine 1.24 Glucose 238 H Calcium 7.8 L - ABG Interpretation ABG results: PT/INR, D-dimer PT 17.9 Seconds (9.4-12.1) H 12/24/16 12:35 - Attending Attestation I examined this patient and my medical decision-making was reviewed with the Resident Physician on 12/25/16. I agree with the documented findings, disposition and treatment plan as described except to the extent set forth below. 61 M, bed bound, multiple medical co-morbidities including decubitus ulcer, Afib , HTN, COPD, Indwelling Cano, Multiple DVTs/PE on therapeutic lovenox patient is admitted and being managed for sever sepsis with hypotension, DESEAN, CAUTI, HCAP, Cellulitis, Sacral decubitus ulcers His blood pressure has improved with iVF hydration and albumin He denies new complains and is worried about his skin rash Physical exam: VSS, laying flat, morbidly obese, not in distress, speaks full sentences, Extremities:stage 4 decubitus ulcer, stage 3 left ischial, and multiple ulcers of feet draining yellow-juan m fluid, papulomacular rash on the trunk and extremities labs and Imaging reviewed: Leukocytosis resolved, HB stable, DESEAN improved, Urine culture with MDRO Pseudomonas Assessment/Plan: Severe sepsis -multifactorial in origin-CAUTI HCAP, Cellulitis. Decubitus ulcer looks clean, continue IVF hydration, continue Meropenem and Linezolid, agree with ID eval. Wound care eval Rest of details as in resident's documentation
[2016-12-25] MEDS: Gentamicin Oint 15 GM TUBE TP SCH ×3 (08:46→22:49)
[2016-12-25] MEDS: Ketoconazole 2% CRM 15 GM TUBE TP SCH ×2 (08:47→22:49)
--- NOTE | 2016-12-25 09:53 | Infectious Disease Consult ---
Date of Encounter: 12/25/16 Time of Encounter: 09:47 Assessment and Plan (1) Severe sepsis Status: Acute Assessment and plan: Labs on admission revealed white blood count 17.1, urinalysis reveals UTI. Decreased urine output for the past 3 days. Family reports he had a fever at home up to 103 F and has a chronic indwelling Cano catheter due to neurogenic bladder. He reports dark urine and his urine output was only 200 mL's daily for the last 2 days prior to arrival. Patient reports taking penicillin causes anaphylaxis and swelling in his throat. Since admission he has met two SIRS criteria of leukocytosis, creatinine increase > 0.5 above baseline, and hypotensive with blood pressure 78/54, now 100/79 after IV fluids. Family reports patient has chronic hypotension. Urine culture from 12/23/16 shows Pseudomonas aeruginosa sensitive to Zosyn, Merrem, and cefepime. Antibiotics: Patient was started on Merrem and Zyvox on 12/24/16 Recommendations: Place new Cano catheter. Stop Merrem and start Cefepime 2g IV q8h. Repeat CXR PA and lateral tomorrow morning and discontinue Zyvox if negative for pneumonia. Duration of antibiotic therapy depends on clinical course. Please continue to monitor labs for drug toxicities and adjust antibiotic dose as needed. Well continue to follow. (2) Catheter-associated urinary tract infection Status: Acute Assessment and plan: Labs on admission revealed white blood count 17.1, urinalysis reveals UTI. Decreased urine output for the past 3 days. Family reports he had a fever at home up to 103 F and has a chronic indwelling Cano catheter due to neurogenic bladder. He reports dark urine and his urine output was only 200 mL's daily for the last 2 days prior to arrival. Patient reports taking penicillin causes anaphylaxis and swelling in his throat. Urine culture from 12/23/16 shows Pseudomonas aeruginosa sensitive to Zosyn, Merrem, and cefepime. Antibiotics: Patient was started on Merrem and Zyvox on 12/24/16 Recommendations: Place new Cano catheter. Stop Merrem and start Cefepime 2g IV q8h. Duration of antibiotic therapy depends on clinical course. Qualifiers: Indwelling urinary catheter type: indwelling urethral catheter Encounter type: subsequent encounter Qualified Code(s): T83.511D - Infection and inflammatory reaction due to indwelling urethral catheter, subsequent encounter ; N39.0 - Urinary tract infection, site not specified (3) Hospital acquired PNA Status: Suspected Assessment and plan: Afebrile. no new clinical symptoms 12/24/16 CXR reveals right basilar airspace disease, atelectasis and/or pneumonia. Blood cultures collected 12/24/16 pending Sputum cultures pending Repeat CXR PA and lateral tomorrow morning and discontinue Zyvox if negative for pneumonia. Duration of antibiotic therapy depends on clinical course. (4) Sacral decubitus ulcer, stage IV Status: Chronic Assessment and plan: Stage IV sacral/coccygeal decubitus ulcer with surrounding erythema, stage III left ischial decubitus ulcer Patient follows up outpatient with Dr. King. (5) Lymphedema of both lower extremities Status: Chronic Assessment and plan: Severe venous stasis changes bilateral anterior lower extremities below the knees with moderate drainage, bandages saturated Wound care was also consulted for bilateral anterior lower extremity venous stasis ulcers. (6) Contact dermatitis Status: Acute Assessment and plan: Generalized urticarial non-raised rash over torso, bilateral axilla, and under arms sparing the palms and soles after using a new baby wipes and [place] one week ago consider dermatology consult Qualifiers: Contact dermatitis type: unspecified Contact dermatitis trigger: unspecified trigger Qualified Code(s): L25.9 - Unspecified contact dermatitis , unspecified cause (7) DM (diabetes mellitus), type 2 Status: Chronic Assessment and plan: Management per primary team. 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 Echavarria is a 61 year old male who was admitted on 12/24/16 for sepsis secondary to pneumonia and urinary tract infection Infectious disease is consulted on 12/25/16 for severe sepsis - UTI, PNA, ulcers; assist with antibiotic choice/duration Mr. Echavarria is a 61 year old male with a PMH significant for COPD, hypertension, atrial fibrillation, CAD, diabetes, CKD with past dialysis and recurrent UTIs who presents to the ER via EMS complaining of a rash over his chest and abdomen after using a new baby wipes and [place] one week ago and decreased urine output for the past 3 days. Family reports he had a fever at home up to 103 F and has a chronic indwelling Cano catheter due to neurogenic bladder. He reports dark urine and his urine output was only 200 mL's daily for the last 2 days prior to arrival. He also reported a cough productive of green sputum and shortness of breath that have now resolved. Patient reports taking penicillin causes anaphylaxis and swelling in his throat. Son is at bedside. Since admission he has met two SIRS criteria of leukocytosis, creatinine increase > 0.5 above baseline, and hypotensive with blood pressure 78/54, now 100/79 after IV fluids. Family reports patient has chronic hypotension. Labs on admission revealed white blood count 17.1, urinalysis reveals UTI. Imaging: chest x-ray shows developing right lower lobe pneumonia. Urine culture from 12/23/16 shows Pseudomonas aeruginosa sensitive to Zosyn, Merrem, and cefepime. Blood cultures 2 from 12/24/16 show no growth to date. Antibiotics: Patient was started on Merrem and Zyvox on 12/24/16 Wound care was also consulted for bilateral anterior lower extremity venous stasis ulcers, left ischial decubitus ulcer, and coccygeal decubitus ulcer. Patient follows up outpatient with Dr. King. His current IV access in a [facility] and bilateral peripheral IVs. He no longer has a dialysis catheter at this time. CC: Pascual Fish MD Past Med Surg Social Fam HX - Past Medical History Medical history: arthritis, atrial fibrillation, cardiomyopathy, cirrhosis, CHF , COPD, coronary artery disease, CVA, DVT, dementia, diabetes, GERD, GI bleed, hepatitis, hyperlipidemia, hypertension, kidney stones, liver disease, migraine , myocardial infarction, osteoporosis, peripheral artery disease, pulmonary embolus, renal disease, TIA, venous stasis Psychiatric history: anxiety, bipolar, depression - Past Surgical History Surgical History: cholecystectomy, pacemaker/AICD - Social History Smoking Status: Former smoker Smokeless Tobacco Status: No Alcohol use: none Drug use: none - Family History Mother Adopted: No Twin of Family Member: Yes Living Status: Cause of : hematoma Hx Family Cardiac Disorders: No Hx Family Respiratory Disorders: No Hx Family Cancer: Yes (brother, small cell carcinoma) Hx Family GI Disorders: No Hx Family Genitourinary Disorders: No Hx Family Endocrine Disorder: No Hx Family Musculoskeletal Disorders: No Hx Family Neuromuscular Disorders: No Hx Family Neurologic Disorders: No Hx Family HEENT Disorders: No Hx Family Autoimmune Disorders: No Hx Family Reproductive Disorders: No Hx Family Psychosocial Disorders: No Hx Family Medical Disorders: No Infectious Disease-CN:Meds Aspirin Enteric Coated [Aspirin EC] 81 mg PO QAM #0 03/28/15 [History] Carvedilol [Coreg] 6.25 mg PO BIDWM 03/28/15 [History] Ezetimibe [Zetia] 10 mg PO QAM 03/28/15 [History] Latanoprost [Xalatan] 1 drop BOTH EYES HS 03/28/15 [History] Tamsulosin [Flomax] 0.4 mg PO QPM 03/28/15 [History] Simethicone [Gas-X] 80 mg PO TID PRN #0 tab.chew 04/03/15 [Rx] Ondansetron HCl [Zofran] 4 mg PO Q8H PRN #20 tablet 09/12/15 [Rx] Pregabalin [Lyrica] 50 mg PO TID 30 Days 09/12/15 [Rx] Albuterol Sulfate [Albuterol Inhaler] 2 puff IH TID PRN 03/12/16 [History] Docusate [Colace] 100 mg PO BID PRN 03/12/16 [History] Furosemide [Lasix] 40 mg PO BID 03/12/16 [History] Insulin Glargine [Lantus] 60 unit SQ BID 03/12/16 [History] Ketoconazole 2% CRM [Nizoral Cream] 1 appl TP BID 03/12/16 [History] Lactose-Reduced Food [Ensure Liquid] 1 bottle PO TID 03/12/16 [History] Oxycodone HCl/Acetaminophen [Percocet 10-325 mg Tablet] 1 tab PO 5XD 03/12/16 [ History] Promethazine [Phenergan] 25 mg PO BID PRN 03/12/16 [History] Ferrous Sulfate [Iron] 325 mg PO DAILY 10/24/16 [History] Gentamicin Oint [Garamycin] 1 appl TP TID 10/24/16 [History] Ipratropium/Albuterol Neb [Duoneb] 3 ml IH Q6HR 10/24/16 [History] Mupirocin [Bactroban Oint] 1 appl TP BID 10/24/16 [History] Enoxaparin [Lovenox] 150 mg SQ Q12HR #0 10/29/16 [Rx] Omeprazole [PriLOSEC] 20 mg PO BIDAC #60 capsule. 10/29/16 [Rx] Collagenase Oint [Santyl] 1 appl TP BID 12/24/16 [History] Allergies celecoxib [From Celebrex] Allergy (Verified 03/12/16 04:44) Swelling of Lip/Tongue/Throat gabapentin [From Neurontin] Allergy (Verified 03/12/16 04:44) Swelling of Lip/Tongue/Throat nifedipine [From Procardia] Allergy (Verified 03/12/16 04:44) Swelling of Lip/Tongue/Throat Penicillins Allergy (Verified 03/12/16 04:44) Swelling of Lip/Tongue/Throat rofecoxib [From Vioxx] Allergy (Verified 03/12/16 04:44) Swelling of Lip/Tongue/Throat iodine Adverse Reaction (Verified 03/12/16 04:44) See Comments Son states that pt has "swelling" wherever it touches his skin. povidone-iodine [From Betadine] Adverse Reaction (Verified 03/12/16 04:44) See Comments Son states that pt has "swelling" when it touches the skin. soap [From Betadine] Adverse Reaction (Verified 03/12/16 04:44) See Comments Review of systems: Travel: denies recent travel Animal exposure: Denies Sick contacts: Denies exposure to small children or sick contacts Diet: denies ingestion of undercooked or raw meats. Dental: denies recent dental procedures - Constitutional Constitutional: Present: fever(s). Absent: chills, headache(s), night sweats, weight gain, weight loss - EENT Eyes: Absent: change in vision Nose, mouth and throat: Absent: change in voice, mouth lesions, sore throat - Cardiovascular Cardiovascular: Present: dyspnea, leg ulcers. Absent: chest pain, palpitations - Respiratory Respiratory: Present: cough. Absent: hemoptysis, change in phlegm color - Gastrointestinal Gastrointestinal: Absent: abdominal pain, change in bowel habits, diarrhea, nausea, vomiting - Genitourinary Genitourinary: hematuria, urinary incontinence - Musculoskeletal Musculoskeletal: Present: limited range of motion, muscle weakness - Integumentary Integumentary: Present: erythema, lesions, non-healing lesions, skin ulcer, sores, swelling, wounds - Neurological Neurological: Present: paresthesias (Chronic), radicular pain (100), weakness. Absent: numbness - Hematologic/Lymphatic Hematologic/Lymphatic: Absent: lymphadenopathy Exam - Constitutional Vitals: Temp Pulse Resp BP Pulse Ox 97.6 F 79 17 100/79 100 12/25/16 07:19 12/25/16 08:54 12/25/16 07:19 12/25/16 07:19 12/25/16 07:19 General appearance: obese - Head Head exam: Present: atraumatic, normal inspection, normocephalic - Eye Eye exam: Present: PERRL - ENT ENT exam: Present: mucous membranes moist, normal oropharynx - Neck Neck exam: Present: full ROM, normal inspection. Absent: lymphadenopathy, meningismus, tenderness, thyromegaly - Respiratory Respiratory exam: Present: decreased breath sounds. Absent: rales, respiratory distress - Cardiovascular Cardiovascular exam: Present: RRR, +S1, +S2. Absent: diastolic murmur, systolic murmur - GI/Abdominal GI/Abdominal exam: Present: normal bowel sounds, soft, tenderness (Tenderness to deep palpation). Absent: guarding - Extremities Exam Extremities exam: Present: pedal edema, tenderness. Absent: normal inspection - Neurological Exam Neurological exam: Present: alert, altered, motor sensory deficit (Chronic debilitation), oriented X3 - Psychiatric Psychiatric exam: Present: normal affect, normal mood - Skin Additional comments: Generalized urticarial nonraised rash over torso, bilateral axilla, and under arms sparing the palms and soles. Stage IV sacral decubitus ulcer with surrounding erythema, stage III left ischial decubitus ulcer Severe venous stasis changes bilateral anterior lower extremities below the knees with moderate drainage, bandages saturated - Expanded Skin Exam Distribution of rash: Present: abdomen, chest, thorax, LUE, RUE. Absent: involves palms/soles Description of rash: Present: erythematous, tenderness, urticarial Infectious Disease CN: Results - Labs CBC & Chem 7: 12/25/16 05:48 12/25/16 05:48 Cultures: Microbiology 12/23/16 23:50 Urine Culture - Final Urine,Clean Catch Pseudomonas aeruginosa 12/24/16 00:03 Blood Culture - Preliminary Peripheral Venipuncture No growth. 12/24/16 00:03 Blood Culture - Preliminary Peripheral Venipuncture No growth. Serology: Serology 12/24/16 Range/Units 12:40 Urine Sodium < 20.0 mEq/L Consult Discharge Plan - Plan Referrals: Dylon Winston MD [Primary Care Provider] - - Attending Attestation I examined this patient and my medical decision-making was reviewed with the Resident Physician. I agree with the documented findings, disposition and treatment plan as described except to the extent set forth below. This is an addendum to original report dictated by Resident physician, please refer to the note for full details. Patient is a 61 year old gentleman well known to my service who was admitted for rash and subjective fevers at home. Patient has an extensive past medical history including history of CVA bedridden with decubitus ulcers and recurrent UTI due to catheter associated UTI and has had pneumonias in the past was recently seen by us in the hospital for ESBL Escherichia coli and was treated by me with oral Bactrim. Patient did well and then a few days prior to admission he started having a rash initially started on his right shoulder then became diffuse maculopapular and on his whole body associated with some subjective fever. Patient has also had chronic abdominal pain and greenish stool as per family. Apparently this is not new and has been going on for quite some time. Patient also has chronic cough with sputum production and that hasn t changed either. Patient really has chronic pain issues but has no specific complaint other than the rash with some pruritus. Patient was admitted for further evaluation. Since admission patient has been worked up extensively started on broad- spectrum antibiotics including meropenem and Zyvox and was noted to have possible early right base pneumonia which is questionable and also UTI with pseudomonas aeruginosa that was only susceptible to Zosyn, meropenem, and cefepime. We were asked to evaluate the patient and make further recommendation. After a very long discussion with the son and the patient patient seems to be third spacing has a lot of chronic venous stasis issues with weeping of the skin and also has a lot of weeping of the skin from his lower back which makes the skin very frail and recurrent decubitus ulcers. Clinically the patient really other than the family had leukocytosis and some elevated creatinine likely due to dehydration there is no obvious infection. Multiple cultures have been obtained chest x-ray has been reviewed UA and urine culture have been noted. The seeing meropenem, start cefepime. Repeat chest x-ray tomorrow if right lung base is not impressive consider stopping Zyvox on observing.
[2016-12-25] MEDS: *HR* OxyCODONE/APAP 10/325 TABLET PO PRN ×3 (11:12→22:47)
[2016-12-25] MEDS: Cefepime HCl 2,000 MG in D5% in Water (Mini-Bag+) 100 ML IVPB SCH ×2 (16:32→22:57)
[2016-12-25] MEDS: *HR* Enoxaparin 150 MG/ML SYRINGE SQ SCH (16:34)
[2016-12-25] MEDS: Latanoprost 2.5 ML BOTTLE BOTH EYES SCH (22:50)
[2016-12-25] MEDS: Insulin DETEMIR 100 UNIT/ML X5UNITS SQ SCH (22:57)
[2016-12-26] MEDS: Ipratropium/Albuterol Neb 3 ML IH SCH ×4 (04:33→22:46)
[2016-12-26] MEDS: *HR* Enoxaparin 150 MG/ML SYRINGE SQ SCH ×2 (06:25→18:06)
[2016-12-26] MEDS: 0.9 % Sodium Chloride 1,000 ML IVC SCH (06:28)
[2016-12-26] MEDS: *HR* OxyCODONE/APAP 10/325 TABLET PO PRN ×3 (06:41→20:54)
--- NOTE | 2016-12-26 07:59 | Infectious Disease Progress No ---
Date of Encounter: 12/26/16 Time of Encounter: 07:59 - Assessment and Plan (1) Severe sepsis Current Visit: Yes Status: Acute Labs on admission revealed white blood count 17.1, urinalysis reveals UTI. Family reports he had a fever at home up to 103 F and has a chronic indwelling Cano catheter due to neurogenic bladder. He reports dark urine and his urine output was only 200 mL's daily for the last 2 days prior to arrival. Patient reports taking penicillin causes anaphylaxis and swelling in his throat. Since admission he has met two SIRS criteria of leukocytosis, creatinine increase > 0.5 above baseline, and hypotensive with blood pressure 78/54. Family reports patient has chronic hypotension. Urine culture from 12/23/16 shows Pseudomonas aeruginosa sensitive to Zosyn, Merrem, and cefepime. 12/24/16 blood cultures show no growth to date Antibiotics: Patient was started on Merrem and Zyvox on 12/24/16 Cano catheter replaced 12/25/16 Recommendations: Continue Cefepime 2g IV q8h until 01/01/17 Duration of antibiotic therapy depends on clinical course. CXR PA and lateral morning negative for PNA, patient remains afebrile, lungs CTAB, denies SOB, or productive cough. Discontinue Zyvox. Please continue to monitor labs for drug toxicities and adjust antibiotic dose as needed. Well continue to follow. (2) Catheter-associated urinary tract infection Current Visit: Yes Status: Acute Patient has an extensive past medical history including recurrent UTI due to catheter associated UTI and was recently seen by us in the hospital for ESBL Escherichia coli and was treated with oral Bactrim. Labs on admission revealed white blood count 17.1, urinalysis reveals UTI. Family reports he had a fever at home up to 103 F and has a chronic indwelling Cano catheter due to neurogenic bladder. He reports dark urine and his urine output was only 200 mL's daily for the last 2 days prior to arrival. Patient reports taking penicillin causes anaphylaxis and swelling in his throat. Urine culture from 12/23/16 shows Pseudomonas aeruginosa sensitive to Zosyn, Merrem, and cefepime. Antibiotics: Patient was started on Merrem and Zyvox on 12/24/16 Cano catheter replaced 12/25/16.. Recommendations: Continue Cefepime 2g IV q8h until 01/01/17 Duration of antibiotic therapy depends on clinical course. Qualifiers: Indwelling urinary catheter type: indwelling urethral catheter Encounter type: subsequent encounter Qualified Code(s): T83.511D - Infection and inflammatory reaction due to indwelling urethral catheter, subsequent encounter ; N39.0 - Urinary tract infection, site not specified (3) Hospital acquired PNA Current Visit: Yes Status: Suspected 12/24/16 CXR reveals right basilar airspace disease, atelectasis and/or pneumonia. Blood cultures collected 12/24/16 show no growth to date Sputum cultures pending 12/26/16 CXR PA and lateral negative for PNA, patient remains afebrile, lungs CTAB , denies SOB, or worsening productive cough. Patient has chronic cough with sputum production and that hasnt changed. Discontinue Zyvox. (4) Sacral decubitus ulcer, stage IV Current Visit: Yes Status: Chronic Patient has an extensive past medical history including history of CVA bedridden with decubitus ulcers Stage IV sacral decubitus ulcer with surrounding erythema, stage III left ischial decubitus ulcer Continue daily dressing changes and turn patient every 2 hours Patient follows up outpatient with Dr. King. (5) Lymphedema of both lower extremities Current Visit: No Status: Chronic Patient seems to be third spacing ad has a lot of chronic venous stasis issues with weeping of the skin and also has a lot of weeping of the skin from his lower back which makes the skin very frail and recurrent decubitus ulcers. Clinically the patient had leukocytosis and some elevated creatinine likely due to dehydration, there is no obvious infection. Severe venous stasis changes bilateral anterior lower extremities below the knees with no drainage today, bandages C/D/I (6) Contact dermatitis Current Visit: Yes Status: Acute Patient was admitted for rash after using a new baby wipes and [place] one week ago and subjective fevers at home. Generalized urticarial nonraised maculopapular rash over torso, bilateral axilla , and under arms unchanged since yesterday Currently on prednisone and Benadryl Qualifiers: Contact dermatitis type: unspecified Contact dermatitis trigger: unspecified trigger Qualified Code(s): L25.9 - Unspecified contact dermatitis , unspecified cause (7) DM (diabetes mellitus), type 2 Current Visit: No Status: Chronic Continue current management per primary team Qualifiers: Diabetes mellitus complication status: with unspecified complications Diabetes mellitus tool crib attendant insulin use: with tool crib attendant use Qualified Code(s) : E11.8 - Type 2 diabetes mellitus with unspecified complications - Subjective Interval history: Patient seen and examined. No acute events overnight. Patient sitting up in bed eating breakfast. Patient reports rash is unchanged. Patient denies fevers , chills, chest pain, difficulty breathing, abdominal pain, or worsening lower extremity edema. Nursing is at bedside and reports Cano catheter was changed last night. Wound dressings on bilateral lower extremities were also changed and are clean and dry this morning. Anticipate transfer to [address] [place] [address]. Family is not present during time of exam. Infect Dis PN-Objective Data - Labs CBC & Chem 7: 12/26/16 09:12 12/26/16 09:12 Labs: Laboratory Results - last 24 hr 12/25/16 12/25/16 12/25/16 07:23 11:37 16:57 POC Glucose 218 H 224 H 189 H 12/25/16 22:07 POC Glucose 202 H Laboratory Results - last 24 hr 12/25/16 12/25/16 12/25/16 07:23 11:37 16:57 WBC RBC Hgb Hct MCV MCH MCHC RDW Plt Count MPV Immature Gran % Seg Neutrophils % Lymphocytes % Monocytes % Eosinophils % Basophils % Neutrophils # Lymphocytes # Monocytes # Eosinophils # Basophils # Sodium Potassium Chloride Carbon Dioxide BUN Creatinine Est GFR ( Amer) Est GFR (Non-Af Amer) BUN/Creatinine Ratio Glucose POC Glucose 218 H 224 H 189 H Calculated Osmolality Calcium 12/25/16 12/26/16 12/26/16 22:07 09:12 09:12 WBC 8.3 RBC 4.12 L Hgb 11.1 L Hct 36.4 L MCV 88.3 MCH 26.9 L MCHC 30.5 L RDW 15.9 H Plt Count 185 MPV 10.3 Immature Gran % 1.0 Seg Neutrophils % 92.5 Lymphocytes % 3.4 Monocytes % 3.0 Eosinophils % 0.0 Basophils % 0.1 Neutrophils # 7.7 Lymphocytes # 0.3 L Monocytes # 0.3 Eosinophils # 0.0 Basophils # 0.0 Sodium 129 L Potassium 3.9 Chloride 96 L Carbon Dioxide 27 BUN 43 H Creatinine 1.29 H Est GFR ( Amer) > 60 Est GFR (Non-Af Amer) 57 L BUN/Creatinine Ratio 33 H Glucose 299 H POC Glucose 202 H Calculated Osmolality 290 Calcium 7.9 L Cultures: Serology 12/24/16 Range/Units 12:40 Urine Sodium < 20.0 mEq/L - Impressions Impressions Chest X-Ray 12/26/16 06:00 IMPRESSION: Persistent near complete opacification of the left hemithorax, likely a combination of consolidation and pleural fluid. Marked cardiac silhouette enlargement. Pacemaker/defibrillator device in place. D/ / 12/26/2016 07:53:32 Bhanu Suazo MD / [facility] Inter[facility]ting Provider: Bhanu Suazo MD Exam - Constitutional Vitals: Temp Pulse Resp BP Pulse Ox 98.2 F 90 100 111/74 99 12/26/16 07:30 12/26/16 07:30 12/26/16 07:30 12/26/16 07:30 12/26/16 04:33 General appearance: cooperative, no acute distress, obese, no febrile - Head Head exam: Present: atraumatic, normal inspection, normocephalic - Eye Eye exam: Present: PERRL - ENT ENT exam: Present: mucous membranes moist, normal oropharynx - Neck Neck exam: Present: full ROM, normal inspection. Absent: lymphadenopathy, meningismus, thyromegaly - Respiratory Respiratory exam: Present: CTAB. Absent: accessory muscle use, rales, respiratory distress, rhonchi, wheezes - Cardiovascular Cardiovascular exam: Present: RRR, +S1, +S2. Absent: diastolic murmur, systolic murmur - GI/Abdominal GI/Abdominal exam: Present: distended (baseline), normal bowel sounds, soft. Absent: guarding, tenderness - Extremities Exam Extremities exam: Present: pedal edema Additional comments: Muscle wasting secondary to chronic debilitation - Neurological Exam Neurological exam: Present: alert, motor sensory deficit, oriented X3. Absent: altered Additional comments: Chronic debilitation - Skin Additional comments: Generalized urticarial nonraised maculopapular rash over torso, bilateral axilla , and under arms unchanged since yesterday Stage IV sacral decubitus ulcer with surrounding erythema, stage III left ischial decubitus ulcer Severe venous stasis changes bilateral anterior lower extremities below the knees with no drainage today, bandages C/D/I Consult Discharge Plan - Plan Referrals: Dylon Winston MD [Primary Care Provider] - - Attending Attestation I examined this patient and my medical decision-making was reviewed with the Resident Physician. I agree with the documented findings, disposition and treatment plan as described except to the extent set forth below.
[2016-12-26] MEDS: Insulin LISPRO 300 UNITS/3 ML VIAL SQ SCH ×7 (08:27→20:55)
[2016-12-26] MEDS: predniSONE 20 MG TABLET PO SCH (08:28)
[2016-12-26] MEDS: Aspirin Enteric Coated 81 MG Tablet PO SCH (08:29)
[2016-12-26] MEDS: Cefepime HCl 2,000 MG in D5% in Water (Mini-Bag+) 100 ML IVPB SCH ×3 (08:29→23:47)
[2016-12-26] MEDS: Pregabalin 50 MG CAPSULE PO SCH ×3 (08:29→20:45)
[2016-12-26] MEDS: ZETIA 10MG PO SCH (08:30)
[2016-12-26] MEDS: Ketoconazole 2% CRM 15 GM TUBE TP SCH ×2 (08:31→22:59)
[2016-12-26] MEDS: Gentamicin Oint 15 GM TUBE TP SCH ×3 (08:31→23:00)
--- NOTE | 2016-12-26 08:47 | Internal Med Progress Note ---
<LemuelAntonio - Last Filed: 12/26/16 11:00> Date of Encounter: 12/26/16 Time of Encounter: 08:45 - Assessment and plan (1) Severe sepsis Current Visit: Yes Status: Acute Assessment and plan: Blood pressures continue to be stable today, and fluids have been stopped Blood cultures so far negative, UA shows pseudomonas with MDR ID consulted, recommend on stopping Zyvox if PNA is clear and changing Meropenem to Cefepime (2) Catheter-associated urinary tract infection Current Visit: Yes Status: Acute Assessment and plan: Urine did grow out Pseudomonas with multiple drug resistance He is currently on Cefepime per ID recommendations Had exchange of catheter of yesterday Qualifiers: Indwelling urinary catheter type: indwelling urethral catheter Encounter type: subsequent encounter Qualified Code(s): T83.511D - Infection and inflammatory reaction due to indwelling urethral catheter, subsequent encounter ; N39.0 - Urinary tract infection, site not specified (3) DESEAN (acute kidney injury) Current Visit: Yes Status: Acute Assessment and plan: Cr improved from yesterday after adequate hydration which has since been stopped Will restart Lasix as patient is edematous Continue to monitor Cr and electrolytes; avoid nephrotoxic agents (4) Rash Current Visit: Yes Status: Acute Assessment and plan: Rash after [place]/ wet wipes application at home Did improve slightly with Benadryl, which we will re-start now Continue with Prednisone 40 mg daily (5) A-fib Current Visit: Yes Status: Chronic Assessment and plan: Currently rate controlled without home Coreg; AICD in place Chronic anti-coagulation with Lovenox Consider restarting Coreg once blood pressures stabilize Qualifiers: Atrial fibrillation type: chronic Qualified Code(s): I48.2 - Chronic atrial fibrillation (6) Sacral decubitus ulcer, stage IV Current Visit: No Status: Chronic Assessment and plan: Currently a patient of wound care, who has been consulted; appreciate management of multiple wounds (7) COPD (chronic obstructive pulmonary disease) Current Visit: No Status: Chronic Assessment and plan: Not currently in exacerbation Will continue home breathing treatments, BiPAP at night, steroids Qualifiers: COPD type: emphysema Emphysema type: unspecified Qualified Code(s): J43.9 - Emphysema, unspecified (8) DM (diabetes mellitus), type 2 Current Visit: No Status: Chronic Assessment and plan: Continue low dose SSI and increase long acting insulin at 40 units daily Qualifiers: Diabetes mellitus complication status: with skin complications Diabetes mellitus complication detail: with other skin ulcer Diabetes mellitus alf insulin use: with alf use Qualified Code(s): E11.622 - Type 2 diabetes mellitus with other skin ulcer; Z79.4 - finish sander (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 He states that his pain remains the same around his ulcers. He denies any chest discomfort or issues breathing and has eaten all his meals without any nausea, vomiting, or diarrhea. He does not want to go to because his bed sores worsened during his stay there. - Constitutional Vitals: Temp Pulse Resp BP Pulse Ox 98.2 F 90 100 111/74 99 12/26/16 07:30 12/26/16 07:30 12/26/16 07:30 12/26/16 07:30 12/26/16 04:33 General appearance: Present: cooperative, pleasant, no acute distress, answers questions appropriately - Head Head exam: Present: atraumatic, normocephalic - Eye Eye exam: Present: PERRL, conjuntiva pink, sclera anicteric - Neck Neck exam general surgery: Present: supple, trachea midline. Absent: lymphadenopathy - Respiratory Respiratory exam: Present: decreased breath sounds (on left). Absent: accessory muscle use, rales, rhonchi, wheezes - Cardiovascular Cardiovascular exam: Present: RRR, +S1, +S2. Absent: diastolic murmur, gallop, rubs, systolic murmur - GI/Abdominal GI/Abdominal exam: Present: normal bowel sounds, soft, no peritoneal signs. Absent: distended, tenderness - Extremities Exam Extremities exam: Present: pedal edema (3+), warm, radial pulses palpable and symetrical. Absent: calf tenderness, cyanotic - Neurological Exam Neurological exam: Present: alert, no focal deficits. Absent: facial droop, speech deficit - Skin Skin exam: Present: dry, intact Internal Medicine: Result - Labs CBC & Chem 7: 12/26/16 09:12 12/26/16 09:12 - ABG Interpretation ABG results: PT/INR, D-dimer PT 17.9 Seconds (9.4-12.1) H 12/24/16 12:35 - Impressions Impressions Chest X-Ray 12/26/16 06:00 IMPRESSION: Persistent near complete opacification of the left hemithorax, likely a combination of consolidation and pleural fluid. Marked cardiac silhouette enlargement. Pacemaker/defibrillator device in place. D/ / 12/26/2016 07:53:32 Bhanu Suazo MD / [facility] Interpreting Provider: Bhanu Suazo MD Consult Discharge Plan - Plan Referrals: Dylon Winston MD [Primary Care Provider] - <Desmond Hart - Last Filed: 12/26/16 17:51> Date of Encounter: 12/26/16 - Assessment and plan (1) Catheter-associated urinary tract infection Current Visit: Yes Status: Acute Qualifiers: Indwelling urinary catheter type: indwelling urethral catheter Encounter type: subsequent encounter Qualified Code(s): T83.511D - Infection and inflammatory reaction due to indwelling urethral catheter, subsequent encounter ; N39.0 - Urinary tract infection, site not specified (2) Severe sepsis Current Visit: Yes Status: Acute (3) Paraplegia Current Visit: No Status: Chronic (4) Contact dermatitis Current Visit: Yes Status: Acute Qualifiers: Contact dermatitis type: unspecified Contact dermatitis trigger: unspecified trigger Qualified Code(s): L25.9 - Unspecified contact dermatitis , unspecified cause (5) Sacral decubitus ulcer, stage IV Current Visit: Yes Status: Chronic (6) Lymphedema of both lower extremities Current Visit: No Status: Chronic (7) DM (diabetes mellitus), type 2 Current Visit: No Status: Chronic Qualifiers: Diabetes mellitus complication status: with hyperglycemia Diabetes mellitus alf insulin use: with alf use Qualified Code(s): E11.65 - Type 2 diabetes mellitus with hyperglycemia; Z79.4 - residential (current) use of insulin (8) Hyponatremia Current Visit: Yes Status: Acute - Constitutional Vitals: Temp Pulse Resp BP Pulse Ox 97.5 F L 102 16 118/86 98 12/26/16 16:00 12/26/16 16:00 12/26/16 16:14 12/26/16 16:00 12/26/16 16:14 Internal Medicine: Result - Labs CBC & Chem 7: 12/26/16 09:12 12/26/16 09:12 Labs: Short CBC 12/26/16 Range/Units 09:12 WBC 8.3 (4.3-11.1) K/mcL Hgb 11.1 L (12.9-16.9) g/dL Hct 36.4 L (37.5-50.1) % Plt Count 185 (140-400) K/mcL Neutrophils # 7.7 (1.6-8.9) K/mcL BMP 12/26/16 09:12 Sodium 129 L Potassium 3.9 Chloride 96 L Carbon Dioxide 27 BUN 43 H Creatinine 1.29 H Glucose 299 H Calcium 7.9 L - ABG Interpretation ABG results: PT/INR, D-dimer PT 17.9 Seconds (9.4-12.1) H 12/24/16 12:35 - Impressions Impressions Chest X-Ray 12/26/16 06:00 IMPRESSION: Persistent near complete opacification of the left hemithorax, likely a combination of consolidation and pleural fluid. Marked cardiac silhouette enlargement. Pacemaker/defibrillator device in place. D/ / 12/26/2016 07:53:32 Bhanu Suazo MD / [facility] Interpreting Provider: Bhanu Suazo MD Chest X-Ray 12/26/16 09:02 IMPRESSION: Slight to mild atelectasis in the base the right lower lobe. Near complete opacification of the left lung. RECOMMENDATION: CT chest with contrast suggested for more thorough evaluation of the left lung consolidation. D/ / Ezio Patel MD / Ezio Patel MD Interpreting Provider: Ezio Patel MD - Attending Attestation I examined this patient and my medical decision-making was reviewed with the Resident Physician on 12/26/16. I agree with the documented findings, disposition and treatment plan as described except to the extent set forth below. Mr Echavarria is currently admitted for severe sepsis related to CAUTI with MDR Pseudomonas that was present on admission. He remains high risk due to potential for worsening hemodynamics and issues related to infection. Mr. Echavarria was transferred to [facility] this morning. He is on bipap currently but will be eating lunch. His son is at bedside and updated. Son has concerns with nausea. Denies pain currently. No fever or chills. Exam Alert. Comfortable on bipap. Mucus membranes dry Heart reg No wheeze Abd soft I/P 1. Severe sepsis/septic shock presumed due to CAUTI which was present on admission 2. Chr a fib. 3. Stage 4 sacral decub Further diagnoses and plan as above.
[2016-12-26 09:19] LABS: Basophils % 0.1 %; Hematocrit 36.4 % (37.5-50.1); Hemoglobin 11.1 g/dL (12.9-16.9); Lymphocytes # 0.3 K/mcL (0.6-4.6); Lymphocytes % 3.4 %; Mean Corpuscular HGB Conc 30.5 g/dL (31.6-35.5); Mean Corpuscular Hemoglobin 26.9 pg (28.0-33.3); Mean Corpuscular Volume 88.3 fL (83.0-100.0); Mean Platelet Volume 10.3 fL (9.4-12.4); Monocytes # 0.3 K/mcL (0.0-1.3); Neutrophils # 7.7 K/mcL (1.6-8.9); Platelet Count 185 K/mcL (140-400); Red Blood Count 4.12 M/mcL (4.19-5.50); Red Cell Distribution Width 15.9 % (11.5-14.5); Segmented Neutrophils % 92.5 %
[2016-12-26 09:32] LABS: BUN/Creatinine Ratio 33 (6-26); Blood Urea Nitrogen 43 mg/dL (8-26); Calcium 7.9 mg/dL (8.6-10.8); Carbon Dioxide 27 mEq/L (19-29); Chloride 96 mEq/L (98-109); Glucose 299 mg/dL (70-99); Osmolality,Calculated 290 (280-300); Potassium 3.9 mEq/L (3.5-4.5); Sodium 129 mEq/L (136-145); eGFR For African Americans > 60 (> 60); eGFR For Non-African Americans 57 (> 60)
[2016-12-26] MEDS: Furosemide 40 MG TABLET PO SCH (18:07)
[2016-12-26] MEDS: Latanoprost 2.5 ML BOTTLE BOTH EYES SCH (22:59)
[2016-12-26] MEDS: Insulin DETEMIR 100 UNIT/ML X5UNITS SQ SCH (23:00)
[2016-12-27] MEDS: Ipratropium/Albuterol Neb 3 ML IH SCH ×4 (03:51→22:31)
[2016-12-27 04:49] LABS: Basophils % 0.2 %; Hematocrit 35.2 % (37.5-50.1); Hemoglobin 11.2 g/dL (12.9-16.9); Immature Granulocytes % 1.3 % (0-4); Lymphocytes # 0.3 K/mcL (0.6-4.6); Mean Corpuscular HGB Conc 31.8 g/dL (31.6-35.5); Mean Corpuscular Hemoglobin 27.7 pg (28.0-33.3); Mean Corpuscular Volume 87.1 fL (83.0-100.0); Mean Platelet Volume 10.3 fL (9.4-12.4); Monocytes # 0.4 K/mcL (0.0-1.3); Monocytes % 4.3 %; Platelet Count 189 K/mcL (140-400); Red Blood Count 4.04 M/mcL (4.19-5.50); Red Cell Distribution Width 15.8 % (11.5-14.5); Segmented Neutrophils % 91.2 %
[2016-12-27 04:50] LABS: BUN/Creatinine Ratio 39 (6-26); Blood Urea Nitrogen 45 mg/dL (8-26); Carbon Dioxide 25 mEq/L (19-29); Chloride 98 mEq/L (98-109); Glucose 210 mg/dL (70-99); Osmolality,Calculated 288 (280-300); Potassium 4.7 mEq/L (3.5-4.5); Sodium 130 mEq/L (136-145); eGFR For African Americans > 60 (> 60); eGFR For Non-African Americans > 60 (> 60)
[2016-12-27] MEDS: *HR* Enoxaparin 150 MG/ML SYRINGE SQ SCH ×2 (04:57→17:58)
[2016-12-27] MEDS: *HR* OxyCODONE/APAP 10/325 TABLET PO PRN ×3 (04:58→20:11)
--- NOTE | 2016-12-27 07:32 | Internal Med Progress Note ---
<HdezAntonio - Last Filed: 12/27/16 10:30> Date of Encounter: 12/27/16 Time of Encounter: 07:31 - Assessment and plan (1) Severe sepsis Current Visit: Yes Status: Acute Assessment and plan: Blood pressures continue to be stable today while he has been off fluids for > 24 hours Blood cultures so far negative, UA shows pseudomonas with MDR ID consulted, recommend on continuing Cefepime until 01/01 (2) Catheter-associated urinary tract infection Current Visit: Yes Status: Acute Assessment and plan: Urine did grow out Pseudomonas with multiple drug resistance He is currently on Cefepime per ID recommendations Had exchange of catheter of 12/25 and urine looks clear Qualifiers: Indwelling urinary catheter type: indwelling urethral catheter Encounter type: subsequent encounter Qualified Code(s): T83.511D - Infection and inflammatory reaction due to indwelling urethral catheter, subsequent encounter ; N39.0 - Urinary tract infection, site not specified (3) DESEAN (acute kidney injury) Current Visit: Yes Status: Resolved Assessment and plan: Cr continues to improve even after stopping maintenance fluids Continue home Lasix as patient is at baseline edematous Continue to monitor Cr and electrolytes; avoid nephrotoxic agents (4) Rash Current Visit: Yes Status: Acute Assessment and plan: Rash after [place]/ wet wipes application at home He does report mild improvement since yesterday Continue with Prednisone 40 mg daily and Benadryl PRN for itching (5) A-fib Current Visit: Yes Status: Chronic Assessment and plan: Currently rate controlled without home Coreg; AICD in place Chronic anti-coagulation with Lovenox Consider restarting Coreg if he becomes tachycardic and blood pressure remains stable Qualifiers: Atrial fibrillation type: chronic Qualified Code(s): I48.2 - Chronic atrial fibrillation (6) Sacral decubitus ulcer, stage IV Current Visit: No Status: Chronic Assessment and plan: Currently a patient of wound care, who has been consulted; appreciate management of multiple wounds (7) COPD (chronic obstructive pulmonary disease) Current Visit: No Status: Chronic Assessment and plan: Not currently in exacerbation Will continue home breathing treatments, BiPAP at night, steroids Qualifiers: COPD type: emphysema Emphysema type: unspecified Qualified Code(s): J43.9 - Emphysema, unspecified (8) DM (diabetes mellitus), type 2 Current Visit: No Status: Chronic Assessment and plan: Continue low dose SSI and increase long acting insulin at 50 units daily Qualifiers: Diabetes mellitus complication status: with skin complications Diabetes mellitus complication detail: with other skin ulcer Diabetes mellitus supervisor long goods insulin use: with supervisor long goods use Qualified Code(s): E11.622 - Type 2 diabetes mellitus with other skin ulcer; Z79.4 - retirement (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 He states he is feeling better this morning and his rash has improved slightly. Still has no issues with breathing and has eaten his entire meal without nausea, vomiting ,diarrhea, fevers. - Constitutional Vitals: Temp Pulse Resp BP Pulse Ox 97.6 F 86 21 110/78 95 12/27/16 04:06 12/27/16 04:06 12/27/16 04:06 12/27/16 04:06 12/27/16 04:06 General appearance: Present: cooperative, pleasant, no acute distress, answers questions appropriately - Head Head exam: Present: atraumatic, normocephalic - Eye Eye exam: Present: PERRL, conjuntiva pink, sclera anicteric - Neck Neck exam general surgery: Present: supple, trachea midline. Absent: lymphadenopathy - Respiratory Respiratory exam: Present: decreased breath sounds (on left). Absent: accessory muscle use, rales, rhonchi, wheezes - Cardiovascular Cardiovascular exam: Present: RRR, +S1, +S2. Absent: diastolic murmur, gallop, rubs, systolic murmur - GI/Abdominal GI/Abdominal exam: Present: normal bowel sounds, soft, no peritoneal signs. Absent: distended, tenderness - Extremities Exam Extremities exam: Present: pedal edema (3+), warm, radial pulses palpable and symetrical. Absent: calf tenderness, cyanotic - Neurological Exam Neurological exam: Present: alert, no focal deficits. Absent: facial droop, speech deficit - Skin Skin exam: Present: rash (in upper extremities, shoulders, chest) Internal Medicine: Result - Labs CBC & Chem 7: 12/27/16 03:32 12/27/16 03:32 Labs: Short CBC 12/26/16 12/27/16 Range/Units 09:12 03:32 WBC 8.3 8.8 (4.3-11.1) K/mcL Hgb 11.1 L 11.2 L (12.9-16.9) g/dL Hct 36.4 L 35.2 L (37.5-50.1) % Plt Count 185 189 (140-400) K/mcL Neutrophils # 7.7 8.0 (1.6-8.9) K/mcL BMP 12/26/16 12/27/16 09:12 03:32 Sodium 129 L 130 L Potassium 3.9 4.7 H Chloride 96 L 98 Carbon Dioxide 27 25 BUN 43 H 45 H Creatinine 1.29 H 1.15 Glucose 299 H 210 H Calcium 7.9 L 8.0 L - ABG Interpretation ABG results: PT/INR, D-dimer PT 17.9 Seconds (9.4-12.1) H 12/24/16 12:35 - Impressions Impressions Chest X-Ray 12/26/16 06:00 IMPRESSION: Persistent near complete opacification of the left hemithorax, likely a combination of consolidation and pleural fluid. Marked cardiac silhouette enlargement. Pacemaker/defibrillator device in place. D/ / 12/26/2016 07:53:32 Bhanu Suazo MD / [email or web address] Interpreting Provider: Bhanu Suazo MD Chest X-Ray 12/26/16 09:02 IMPRESSION: Slight to mild atelectasis in the base the right lower lobe. Near complete opacification of the left lung. RECOMMENDATION: CT chest with contrast suggested for more thorough evaluation of the left lung consolidation. D/ / Ezio Patel MD / Ezio Patel MD Interpreting Provider: Ezio Patel MD - VTE Documentation of Mechanical Device: Intermittent pneumatic compression device Consult Discharge Plan - Plan Referrals: Dylon Winston MD [Primary Care Provider] - <Desmond Hart - Last Filed: 12/27/16 14:48> Date of Encounter: 12/27/16 - Assessment and plan (1) Catheter-associated urinary tract infection Current Visit: Yes Status: Acute Qualifiers: Indwelling urinary catheter type: indwelling urethral catheter Encounter type: subsequent encounter Qualified Code(s): T83.511D - Infection and inflammatory reaction due to indwelling urethral catheter, subsequent encounter ; N39.0 - Urinary tract infection, site not specified (2) Severe sepsis Current Visit: Yes Status: Acute (3) Paraplegia Current Visit: No Status: Chronic (4) Contact dermatitis Current Visit: Yes Status: Acute Qualifiers: Contact dermatitis type: unspecified Contact dermatitis trigger: unspecified trigger Qualified Code(s): L25.9 - Unspecified contact dermatitis , unspecified cause (5) Sacral decubitus ulcer, stage IV Current Visit: Yes Status: Chronic (6) Lymphedema of both lower extremities Current Visit: No Status: Chronic (7) DM (diabetes mellitus), type 2 Current Visit: No Status: Chronic Qualifiers: Diabetes mellitus complication status: with hyperglycemia Diabetes mellitus supervisor long goods insulin use: with jail use Qualified Code(s): E11.65 - Type 2 diabetes mellitus with hyperglycemia; Z79.4 - retirement (current) use of insulin (8) Hyponatremia Current Visit: Yes Status: Acute - Constitutional Vitals: Temp Pulse Resp BP Pulse Ox 97.9 F 69 18 98/71 96 12/27/16 12:00 12/27/16 12:00 12/27/16 12:00 12/27/16 12:00 12/27/16 12:00 Internal Medicine: Result - Labs CBC & Chem 7: 12/27/16 03:32 12/27/16 03:32 Labs: Short CBC 12/27/16 Range/Units 03:32 WBC 8.8 (4.3-11.1) K/mcL Hgb 11.2 L (12.9-16.9) g/dL Hct 35.2 L (37.5-50.1) % Plt Count 189 (140-400) K/mcL Neutrophils # 8.0 (1.6-8.9) K/mcL BMP 12/27/16 03:32 Sodium 130 L Potassium 4.7 H Chloride 98 Carbon Dioxide 25 BUN 45 H Creatinine 1.15 Glucose 210 H Calcium 8.0 L - ABG Interpretation ABG results: PT/INR, D-dimer PT 17.9 Seconds (9.4-12.1) H 12/24/16 12:35 - Impressions Impressions Chest X-Ray 12/26/16 06:00 IMPRESSION: Persistent near complete opacification of the left hemithorax, likely a combination of consolidation and pleural fluid. Marked cardiac silhouette enlargement. Pacemaker/defibrillator device in place. D/ / 12/26/2016 07:53:32 Bhanu Suazo MD / stanislav Interpreting Provider: Bhanu Suazo MD - Attending Attestation I examined this patient and my medical decision-making was reviewed with the Resident Physician on 12/27/16. I agree with the documented findings, disposition and treatment plan as described except to the extent set forth below. Mr. Echavarria is currently admitted for severe sepsis related to CAUTI. He remains moderate to high risk due to potential for worsening clinical status from infection. Mr Echavarria says he is beginning to feel better today. He is eating better and denies nausea now. Rash is beginning to slowly improve. No fever or chills. Exam Alert. Comfortable on bipap. Mucus membranes dry Rash still present on chest. Heart reg Lungs diminished but clear Abd soft. Some discomfort suprapubic area. Edema present. I/P 1. Severe sepsis - slowly improving. Blood cx neg thus far. 2. 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
[2016-12-27] MEDS: Cefepime HCl 2,000 MG in D5% in Water (Mini-Bag+) 100 ML IVPB SCH ×3 (09:42→23:12)
[2016-12-27] MEDS: Insulin LISPRO 300 UNITS/3 ML VIAL SQ SCH ×7 (09:44→20:07)
[2016-12-27] MEDS: Pregabalin 50 MG CAPSULE PO SCH ×3 (09:47→20:07)
[2016-12-27] MEDS: Furosemide 40 MG TABLET PO SCH ×2 (09:47→17:56)
[2016-12-27] MEDS: Aspirin Enteric Coated 81 MG Tablet PO SCH (09:47)
[2016-12-27] MEDS: predniSONE 20 MG TABLET PO SCH (09:48)
[2016-12-27] MEDS: ZETIA 10MG PO SCH (09:48)
[2016-12-27] MEDS: Gentamicin Oint 15 GM TUBE TP SCH ×3 (10:14→20:13)
[2016-12-27] MEDS: Ketoconazole 2% CRM 15 GM TUBE TP SCH ×2 (10:14→20:13)
[2016-12-27] MEDS: Insulin DETEMIR 100 UNIT/ML X5UNITS SQ SCH (20:06)
[2016-12-27] MEDS: Latanoprost 2.5 ML BOTTLE BOTH EYES SCH (20:07)
[2016-12-28] MEDS: *HR* OxyCODONE/APAP 10/325 TABLET PO PRN ×3 (03:53→18:34)
[2016-12-28] MEDS: Ipratropium/Albuterol Neb 3 ML IH SCH ×4 (04:18→22:29)
[2016-12-28] MEDS: *HR* Enoxaparin 150 MG/ML SYRINGE SQ SCH (05:19)
[2016-12-28 05:54] LABS: Basophils % 0.5 %; Hematocrit 37.5 % (37.5-50.1); Hemoglobin 11.5 g/dL (12.9-16.9); Lymphocytes # 0.4 K/mcL (0.6-4.6); Lymphocytes % 5.2 %; Mean Corpuscular HGB Conc 30.7 g/dL (31.6-35.5); Mean Corpuscular Hemoglobin 26.6 pg (28.0-33.3); Mean Corpuscular Volume 86.8 fL (83.0-100.0); Mean Platelet Volume 9.8 fL (9.4-12.4); Monocytes # 0.5 K/mcL (0.0-1.3); Monocytes % 5.8 %; Neutrophils # 6.5 K/mcL (1.6-8.9); Platelet Count 178 K/mcL (140-400); Red Blood Count 4.32 M/mcL (4.19-5.50); Red Cell Distribution Width 15.9 % (11.5-14.5); Segmented Neutrophils % 84.5 %
[2016-12-28 06:09] LABS: BUN/Creatinine Ratio 41 (6-26); Blood Urea Nitrogen 51 mg/dL (8-26); Calcium 8.2 mg/dL (8.6-10.8); Carbon Dioxide 26 mEq/L (19-29); Chloride 98 mEq/L (98-109); Glucose 204 mg/dL (70-99); Osmolality,Calculated 292 (280-300); Potassium 5.3 mEq/L (3.5-4.5); Sodium 131 mEq/L (136-145); eGFR For African Americans > 60 (> 60); eGFR For Non-African Americans > 60 (> 60)
--- NOTE | 2016-12-28 08:24 | Internal Med Progress Note ---
<HdezAntonio - Last Filed: 12/28/16 10:34> Date of Encounter: 12/28/16 Time of Encounter: 08:22 - Assessment and plan (1) Severe sepsis Current Visit: Yes Status: Acute Assessment and plan: Blood pressures continue to be stable today while he has been off fluids for last two days No fever, white count or tachycardia Blood cultures so far negative, UA shows pseudomonas with MDR ID consulted, recommend on continuing Cefepime until 01/01 (2) Catheter-associated urinary tract infection Current Visit: Yes Status: Acute Assessment and plan: Urine did grow out Pseudomonas with multiple drug resistance He is currently on Cefepime per ID recommendations Had exchange of catheter of 12/25 and urine looks clear Qualifiers: Indwelling urinary catheter type: indwelling urethral catheter Encounter type: subsequent encounter Qualified Code(s): T83.511D - Infection and inflammatory reaction due to indwelling urethral catheter, subsequent encounter ; N39.0 - Urinary tract infection, site not specified (3) DESEAN (acute kidney injury) Current Visit: Yes Status: Resolved Assessment and plan: Cr remains stable after stopping maintenance fluids Continue home Lasix as patient is at baseline edematous Monitor Cr and electrolytes; avoid nephrotoxic agents (4) Rash Current Visit: Yes Status: Acute Assessment and plan: Rash after [place]/ wet wipes application at home He does report mild improvement since admission and has less itching Continue with Prednisone 40 mg daily and Benadryl PRN for itching (5) A-fib Current Visit: Yes Status: Chronic Assessment and plan: Currently rate controlled without home Coreg; AICD in place Continue chronic anti-coagulation with Lovenox Consider restarting Coreg if he becomes tachycardic and blood pressure remains stable Qualifiers: Atrial fibrillation type: chronic Qualified Code(s): I48.2 - Chronic atrial fibrillation (6) Sacral decubitus ulcer, stage IV Current Visit: No Status: Chronic Assessment and plan: Currently a patient of wound care, who has been consulted; appreciate management of multiple wounds (7) COPD (chronic obstructive pulmonary disease) Current Visit: No Status: Chronic Assessment and plan: Not currently in exacerbation Will continue home breathing treatments, BiPAP at night, steroids Qualifiers: COPD type: emphysema Emphysema type: unspecified Qualified Code(s): J43.9 - Emphysema, unspecified (8) Hyperkalemia Current Visit: No Status: Acute Assessment and plan: Potassium 5.3 today, up from 4.7 yesterday Will recheck BMP in the afternoon He is having bowel movements, and may need Kayexalate if levels continue to rise (9) DM (diabetes mellitus), type 2 Current Visit: No Status: Chronic Assessment and plan: Continue low dose SSI and increase long acting insulin to 50 daily as sugars remain high throughout the day Qualifiers: Diabetes mellitus complication status: with skin complications Diabetes mellitus complication detail: with other skin ulcer Diabetes mellitus terminal gauger supervisor insulin use: with retirement use Qualified Code(s): E11.622 - Type 2 diabetes mellitus with other skin ulcer; Z79.4 - supervisor intermediates (current) use of insulin (10) History of DVT (deep vein thrombosis) Current Visit: No Status: Chronic Assessment and plan: Continue home Lovenox (11) DVT prophylaxis Current Visit: Yes Status: Acute Assessment and plan: Taking therapeutic lovenox - Subjective Interval history: Pt seen and examined. He states he is about the same today and only complains of a mild itch from his rash and his usual ulcer pains. Has no issues with nausea, vomiting, chest pain, shortness of breath, fevers, diarrhea. He did have a bowel movement during the middle of the night without any blood or loose stool. - Constitutional Vitals: Temp Pulse Resp BP Pulse Ox 97.7 F 82 16 119/87 100 12/28/16 03:34 12/28/16 03:34 12/28/16 04:20 12/28/16 03:34 12/28/16 04:20 General appearance: Present: cooperative, pleasant, no acute distress, answers questions appropriately - Head Head exam: Present: atraumatic, normocephalic - Eye Eye exam: Present: PERRL, conjuntiva pink, sclera anicteric - Neck Neck exam general surgery: Present: supple, trachea midline. Absent: lymphadenopathy - Respiratory Respiratory exam: Present: decreased breath sounds (on left). Absent: accessory muscle use, rales, rhonchi, wheezes - Cardiovascular Cardiovascular exam: Present: RRR, +S1, +S2. Absent: diastolic murmur, gallop, rubs, systolic murmur - GI/Abdominal GI/Abdominal exam: Present: normal bowel sounds, soft, no peritoneal signs. Absent: distended, tenderness - Extremities Exam Extremities exam: Present: pedal edema (3+), warm, radial pulses palpable and symetrical. Absent: calf tenderness, cyanotic - Neurological Exam Neurological exam: Present: alert, no focal deficits. Absent: facial droop, speech deficit - Skin Skin exam: Present: dry, intact Internal Medicine: Result - Labs CBC & Chem 7: 12/28/16 05:10 12/28/16 05:10 Labs: Short CBC 12/28/16 Range/Units 05:10 WBC 7.7 (4.3-11.1) K/mcL Hgb 11.5 L (12.9-16.9) g/dL Hct 37.5 (37.5-50.1) % Plt Count 178 (140-400) K/mcL Neutrophils # 6.5 (1.6-8.9) K/mcL BMP 12/28/16 05:10 Sodium 131 L Potassium 5.3 H Chloride 98 Carbon Dioxide 26 BUN 51 H Creatinine 1.23 Glucose 204 H Calcium 8.2 L - ABG Interpretation ABG results: PT/INR, D-dimer PT 17.9 Seconds (9.4-12.1) H 12/24/16 12:35 - VTE Documentation of Mechanical Device: Intermittent pneumatic compression device Consult Discharge Plan - Plan Referrals: Dylon Winston MD [Primary Care Provider] - <Desmond Hart - Last Filed: 12/28/16 17:56> Date of Encounter: 12/28/16 - Assessment and plan (1) Catheter-associated urinary tract infection Current Visit: Yes Status: Acute Qualifiers: Indwelling urinary catheter type: indwelling urethral catheter Encounter type: subsequent encounter Qualified Code(s): T83.511D - Infection and inflammatory reaction due to indwelling urethral catheter, subsequent encounter ; N39.0 - Urinary tract infection, site not specified (2) Severe sepsis Current Visit: Yes Status: Acute (3) Paraplegia Current Visit: No Status: Chronic (4) Contact dermatitis Current Visit: Yes Status: Acute Qualifiers: Contact dermatitis type: unspecified Contact dermatitis trigger: unspecified trigger Qualified Code(s): L25.9 - Unspecified contact dermatitis , unspecified cause (5) Sacral decubitus ulcer, stage IV Current Visit: Yes Status: Chronic (6) Lymphedema of both lower extremities Current Visit: No Status: Chronic (7) DM (diabetes mellitus), type 2 Current Visit: No Status: Chronic Qualifiers: Diabetes mellitus complication status: with hyperglycemia Diabetes mellitus terminal gauger supervisor insulin use: with retirement use Qualified Code(s): E11.65 - Type 2 diabetes mellitus with hyperglycemia; Z79.4 - [facility] (current) use of insulin (8) Hyponatremia Current Visit: Yes Status: Acute - Constitutional Vitals: Temp Pulse Resp BP Pulse Ox 97.6 F 66 18 120/74 96 12/28/16 17:18 12/28/16 17:18 12/28/16 17:18 12/28/16 17:18 12/28/16 17:18 Internal Medicine: Result - Labs CBC & Chem 7: 12/28/16 05:10 12/28/16 15:11 Labs: Short CBC 12/28/16 Range/Units 05:10 WBC 7.7 (4.3-11.1) K/mcL Hgb 11.5 L (12.9-16.9) g/dL Hct 37.5 (37.5-50.1) % Plt Count 178 (140-400) K/mcL Neutrophils # 6.5 (1.6-8.9) K/mcL BMP 12/28/16 12/28/16 05:10 15:11 Sodium 131 L 129 L Potassium 5.3 H 5.4 H Chloride 98 98 Carbon Dioxide 26 25 BUN 51 H 53 H Creatinine 1.23 1.26 H Glucose 204 H 200 H Calcium 8.2 L 8.2 L - ABG Interpretation ABG results: PT/INR, D-dimer PT 17.9 Seconds (9.4-12.1) H 12/24/16 12:35 - Attending Attestation I examined this patient and my medical decision-making was reviewed with the Resident Physician on 12/28/16. I agree with the documented findings, disposition and treatment plan as described except to the extent set forth below. Mr. Echavarria is currently admitted for severe sepsis related to CAUTI. He remains moderate to high risk due to potential for worsening infectious status. Mr. Echavarria says he is still having some abd pain. Overall he is feeling a little better. No fever or chills. Legs still edematous. Appetite fair. Exam Alert. Comfortable Mucus membranes dry. Heart reg now Lungs diminished Abd soft. Some discomfort suprapubic Edema present. I/P 1. Severe sepsis due to CAUTI 2. Stage 4 decub 3. DELORES Further diagnoses and plan as above.
[2016-12-28] MEDS: Furosemide 40 MG TABLET PO SCH ×2 (09:01→20:14)
[2016-12-28] MEDS: Insulin LISPRO 300 UNITS/3 ML VIAL SQ SCH ×7 (09:01→20:15)
[2016-12-28] MEDS: Cefepime HCl 2,000 MG in D5% in Water (Mini-Bag+) 100 ML IVPB SCH ×3 (09:02→22:52)
[2016-12-28] MEDS: Gentamicin Oint 15 GM TUBE TP SCH ×3 (09:02→20:15)
[2016-12-28] MEDS: ZETIA 10MG PO SCH (09:02)
[2016-12-28] MEDS: Aspirin Enteric Coated 81 MG Tablet PO SCH (09:02)
[2016-12-28] MEDS: Pregabalin 50 MG CAPSULE PO SCH ×3 (09:02→20:14)
[2016-12-28] MEDS: Ketoconazole 2% CRM 15 GM TUBE TP SCH ×2 (09:02→20:15)
[2016-12-28] MEDS: predniSONE 20 MG TABLET PO SCH (09:02)
[2016-12-28 15:38] LABS: BUN/Creatinine Ratio 42 (6-26); Blood Urea Nitrogen 53 mg/dL (8-26); Calcium 8.2 mg/dL (8.6-10.8); Carbon Dioxide 25 mEq/L (19-29); Chloride 98 mEq/L (98-109); Glucose 200 mg/dL (70-99); Osmolality,Calculated 288 (280-300); Potassium 5.4 mEq/L (3.5-4.5); Sodium 129 mEq/L (136-145); eGFR For African Americans > 60 (> 60); eGFR For Non-African Americans 58 (> 60)
[2016-12-28] MEDS ORDERED: Albumin 25% 25gram/100mL 25 GM/100 ML IV.SOLN IVPB ONE (16:53)
[2016-12-28] MEDS: Insulin DETEMIR 100 UNIT/ML X5UNITS SQ SCH (20:14)
[2016-12-28] MEDS: Sennosides/Docusate Sodium TABLET PO SCH (20:15)
[2016-12-28] MEDS: Latanoprost 2.5 ML BOTTLE BOTH EYES SCH (20:15)
[2016-12-28 22:03] LABS: BUN/Creatinine Ratio 44 (6-26); Blood Urea Nitrogen 56 mg/dL (8-26); Calcium 8.3 mg/dL (8.6-10.8); Carbon Dioxide 25 mEq/L (19-29); Chloride 97 mEq/L (98-109); Glucose 255 mg/dL (70-99); Osmolality,Calculated 292 (280-300); Potassium 5.5 mEq/L (3.5-4.5); Sodium 129 mEq/L (136-145); eGFR For African Americans > 60 (> 60); eGFR For Non-African Americans 58 (> 60)
[2016-12-29] MEDS: *HR* OxyCODONE/APAP 10/325 TABLET PO PRN ×3 (01:27→20:13)
[2016-12-29] MEDS: Ipratropium/Albuterol Neb 3 ML IH SCH ×4 (03:19→22:34)
[2016-12-29 06:04] LABS: Basophils % 0.3 %; Hematocrit 34.3 % (37.5-50.1); Hemoglobin 10.5 g/dL (12.9-16.9); Immature Granulocytes % 4.3 % (0-4); Lymphocytes # 0.4 K/mcL (0.6-4.6); Lymphocytes % 5.4 %; Mean Corpuscular HGB Conc 30.6 g/dL (31.6-35.5); Mean Corpuscular Hemoglobin 26.6 pg (28.0-33.3); Mean Corpuscular Volume 86.8 fL (83.0-100.0); Mean Platelet Volume 10.2 fL (9.4-12.4); Monocytes # 0.4 K/mcL (0.0-1.3); Monocytes % 6.1 %; Neutrophils # 5.9 K/mcL (1.6-8.9); Platelet Count 164 K/mcL (140-400); Red Blood Count 3.95 M/mcL (4.19-5.50); Red Cell Distribution Width 15.8 % (11.5-14.5); Segmented Neutrophils % 83.9 %
[2016-12-29 06:07] LABS: BUN/Creatinine Ratio 47 (6-26); Blood Urea Nitrogen 56 mg/dL (8-26); Calcium 8.3 mg/dL (8.6-10.8); Carbon Dioxide 26 mEq/L (19-29); Chloride 98 mEq/L (98-109); Glucose 218 mg/dL (70-99); Osmolality,Calculated 294 (280-300); Potassium 5.4 mEq/L (3.5-4.5); Sodium 131 mEq/L (136-145); eGFR For African Americans > 60 (> 60); eGFR For Non-African Americans > 60 (> 60)
--- NOTE | 2016-12-29 07:52 | Infectious Disease Progress No ---
Date of Encounter: 12/29/16 Time of Encounter: 07:52 - Assessment and Plan (1) Severe sepsis Current Visit: Yes Status: Acute Labs on admission revealed white blood count 17.1, urinalysis reveals UTI. Family reports he had a fever at home up to 103 F and has a chronic indwelling Cano catheter due to neurogenic bladder. Since admission he has met two SIRS criteria of leukocytosis, creatinine increase > 0.5 above baseline, and hypotensive with blood pressure 78/54. Family reports patient has chronic hypotension. Urine culture from 12/23/16 shows Pseudomonas aeruginosa sensitive to Zosyn, Merrem, and cefepime. 12/24/16 blood cultures show no growth to date Antibiotics: Patient was started on Merrem and Zyvox on 12/24/16 Cano catheter replaced 12/25/16 Recommendations: Continue Cefepime 2g IV q8h until 01/01/17 Duration of antibiotic therapy depends on clinical course. Please continue to monitor labs for drug toxicities and adjust antibiotic dose as needed. Well continue to follow. (2) Catheter-associated urinary tract infection Current Visit: Yes Status: Acute Patient has an extensive past medical history including recurrent UTI due to catheter associated UTI and was recently seen by us in the hospital for ESBL Escherichia coli and was treated with oral Bactrim. Labs on admission revealed white blood count 17.1, urinalysis reveals UTI. Family reports he had a fever at home up to 103 F and has a chronic indwelling Cano catheter due to neurogenic bladder. Urine culture from 12/23/16 shows Pseudomonas aeruginosa sensitive to Zosyn, Merrem, and cefepime. Antibiotics: Patient was started on Merrem and Zyvox on 12/24/16 Cano catheter replaced 12/25/16. Recommendations: Continue Cefepime 2g IV q8h until 01/01/17 Duration of antibiotic therapy depends on clinical course. Qualifiers: Indwelling urinary catheter type: indwelling urethral catheter Encounter type: subsequent encounter Qualified Code(s): T83.511D - Infection and inflammatory reaction due to indwelling urethral catheter, subsequent encounter ; N39.0 - Urinary tract infection, site not specified (3) Sacral decubitus ulcer, stage IV Current Visit: Yes Status: Chronic Patient has an extensive past medical history including history of CVA bedridden with decubitus ulcers Stage IV sacral decubitus ulcer with surrounding erythema, stage III left ischial decubitus ulcer Continue daily dressing changes and turn patient every 2 hours Patient follows up outpatient with Dr. King. (4) Lymphedema of both lower extremities Current Visit: No Status: Chronic Patient seems to be third spacing ad has a lot of chronic venous stasis issues with weeping of the skin and also has a lot of weeping of the skin from his lower back which makes the skin very frail and recurrent decubitus ulcers. Clinically, there is no obvious infection. Severe venous stasis changes bilateral anterior lower extremities below the knees (5) Contact dermatitis Current Visit: Yes Status: Acute Improved. Patient was admitted for rash after using a new baby wipes and [place] one week ago and subjective fevers at home. Generalized urticarial nonraised maculopapular rash over torso, bilateral axilla , and under arms Currently on prednisone and Benadryl Qualifiers: Contact dermatitis type: unspecified Contact dermatitis trigger: unspecified trigger Qualified Code(s): L25.9 - Unspecified contact dermatitis , unspecified cause (6) DM (diabetes mellitus), type 2 Current Visit: No Status: Chronic Continue current management per primary team Qualifiers: Diabetes mellitus complication status: with hyperglycemia Diabetes mellitus fpc insulin use: with fpc use Qualified Code(s): E11.65 - Type 2 diabetes mellitus with hyperglycemia; Z79.4 - detention (current) use of insulin - Subjective Interval history: Patient seen and examined. No acute events overnight. Patient resting comfortably in bed on BiPAP. Patient reports rash is much improved. Patient denies fevers, chills, chest pain, difficulty breathing, abdominal pain, N/V/D or worsening lower extremity edema. Cano catheter is in place. Family is not present during time of exam. Infect Dis PN-Objective Data - Labs CBC & Chem 7: 12/29/16 04:41 12/29/16 04:41 Labs: Laboratory Results - last 24 hr 12/26/16 12/28/16 12/28/16 20:12 08:37 11:11 WBC RBC Hgb Hct MCV MCH MCHC RDW Plt Count MPV Immature Gran % Seg Neutrophils % Lymphocytes % Monocytes % Eosinophils % Basophils % Neutrophils # Lymphocytes # Monocytes # Eosinophils # Basophils # Sodium Potassium Chloride Carbon Dioxide BUN Creatinine Est GFR ( Amer) Est GFR (Non-Af Amer) BUN/Creatinine Ratio Glucose POC Glucose 147 H 174 H 194 H Calculated Osmolality Calcium Ionized Calcium 12/28/16 12/28/16 12/29/16 15:11 21:41 04:41 WBC 7.0 RBC 3.95 L Hgb 10.5 L Hct 34.3 L MCV 86.8 MCH 26.6 L MCHC 30.6 L RDW 15.8 H Plt Count 164 MPV 10.2 Immature Gran % 4.3 H Seg Neutrophils % 83.9 Lymphocytes % 5.4 Monocytes % 6.1 Eosinophils % 0.0 Basophils % 0.3 Neutrophils # 5.9 Lymphocytes # 0.4 L Monocytes # 0.4 Eosinophils # 0.0 Basophils # 0.0 Sodium 129 L 129 L Potassium 5.4 H 5.5 H Chloride 98 97 L Carbon Dioxide 25 25 BUN 53 H 56 H Creatinine 1.26 H 1.27 H Est GFR ( Amer) > 60 > 60 Est GFR (Non-Af Amer) 58 L 58 L BUN/Creatinine Ratio 42 H 44 H Glucose 200 H 255 H POC Glucose Calculated Osmolality 288 292 Calcium 8.2 L 8.3 L Ionized Calcium 12/29/16 12/29/16 04:41 04:41 WBC RBC Hgb Hct MCV MCH MCHC RDW Plt Count MPV Immature Gran % Seg Neutrophils % Lymphocytes % Monocytes % Eosinophils % Basophils % Neutrophils # Lymphocytes # Monocytes # Eosinophils # Basophils # Sodium 131 L Potassium 5.4 H Chloride 98 Carbon Dioxide 26 BUN 56 H Creatinine 1.20 Est GFR ( Amer) > 60 Est GFR (Non-Af Amer) > 60 BUN/Creatinine Ratio 47 H Glucose 218 H POC Glucose Calculated Osmolality 294 Calcium 8.3 L Ionized Calcium 1.05 L Cultures: Serology 12/24/16 Range/Units 12:40 Urine Sodium < 20.0 mEq/L Exam - Constitutional Vitals: Temp Pulse Resp BP Pulse Ox 97.0 F L 77 18 108/75 100 12/29/16 05:53 12/29/16 05:53 12/29/16 05:53 12/29/16 05:53 12/29/16 05:53 General appearance: cooperative, morbidly obese, no acute distress, no febrile - Head Head exam: Present: atraumatic, normal inspection, normocephalic - Eye Eye exam: Present: PERRL - ENT Additional comments: Wearing BiPAP mask - Neck Neck exam: Present: normal inspection. Absent: lymphadenopathy, thyromegaly - Respiratory Respiratory exam: Present: CTAB. Absent: decreased breath sounds, rales, rhonchi - Cardiovascular Cardiovascular exam: Present: RRR, +S1, +S2. Absent: diastolic murmur, systolic murmur - GI/Abdominal GI/Abdominal exam: Present: distended, normal bowel sounds, soft. Absent: guarding - Extremities Exam Extremities exam: Present: pedal edema. Absent: full ROM - Neurological Exam Neurological exam: Present: alert. Absent: altered, speech deficit - Skin Additional comments: Generalized urticarial nonraised maculopapular rash over torso, bilateral axilla , and under arms has improved Stage IV sacral decubitus ulcer with surrounding erythema, stage III left ischial decubitus ulcer Severe venous stasis changes bilateral anterior lower extremities below the knees, dressing in place - VTE Documentation of Mechanical Device: Intermittent pneumatic compression device Consult Discharge Plan - Plan Referrals: Dylon Winston MD [Primary Care Provider] - 01/06/17 2:15 pm - Attending Attestation I examined this patient and my medical decision-making was reviewed with the Resident Physician. I agree with the documented findings, disposition and treatment plan as described except to the extent set forth below.
--- NOTE | 2016-12-29 08:05 | Internal Med Progress Note ---
<Anotnio Hdez - Last Filed: 12/29/16 14:07> Date of Encounter: 12/29/16 Time of Encounter: 08:04 - Assessment and plan (1) Severe sepsis Current Visit: Yes Status: Acute Assessment and plan: Blood pressures continue to be stable today while he has been off fluids No fever, white count or tachycardia Blood cultures so far negative, UA shows pseudomonas with MDR ID consulted, recommend on continuing Cefepime until 01/01 (2) Catheter-associated urinary tract infection Current Visit: Yes Status: Acute Assessment and plan: Urine did grow out Pseudomonas with multiple drug resistance He is currently on Cefepime per ID recommendations Had exchange of catheter of 12/25 and urine looks clear Qualifiers: Indwelling urinary catheter type: indwelling urethral catheter Encounter type: subsequent encounter Qualified Code(s): T83.511D - Infection and inflammatory reaction due to indwelling urethral catheter, subsequent encounter ; N39.0 - Urinary tract infection, site not specified (3) DESEAN (acute kidney injury) Current Visit: Yes Status: Resolved Assessment and plan: Cr remains stable after stopping maintenance fluids Continue home Lasix as patient is at baseline edematous Monitor Cr and electrolytes; avoid nephrotoxic agents (4) Rash Current Visit: Yes Status: Acute Assessment and plan: Rash after [place]/ wet wipes application at home He does report mild improvement since admission and has less itching Continue with Prednisone 40 mg daily and Benadryl PRN for itching (5) A-fib Current Visit: Yes Status: Chronic Assessment and plan: Currently rate controlled without home Coreg; AICD in place Continue chronic anti-coagulation with Lovenox Qualifiers: Atrial fibrillation type: chronic Qualified Code(s): I48.2 - Chronic atrial fibrillation (6) Sacral decubitus ulcer, stage IV Current Visit: No Status: Chronic Assessment and plan: Currently a patient of wound care, who has been consulted; appreciate management of multiple wounds (7) COPD (chronic obstructive pulmonary disease) Current Visit: No Status: Chronic Assessment and plan: Not currently in exacerbation Will continue home breathing treatments, BiPAP at night, steroids Qualifiers: COPD type: emphysema Emphysema type: unspecified Qualified Code(s): J43.9 - Emphysema, unspecified (8) Hyperkalemia Current Visit: No Status: Acute Assessment and plan: Potassium has been stable at 5.4 from 5.5 yesterday Will recheck BMP again in the afternoon He has refused Kayexalate yesterday but did receive Senna Plus and had a large bowel movement overnight (9) DM (diabetes mellitus), type 2 Current Visit: No Status: Chronic Assessment and plan: Continue low dose SSI and keep long acting insulin to 50 daily as sugars slightly better Qualifiers: Diabetes mellitus complication status: with skin complications Diabetes mellitus complication detail: with other skin ulcer Diabetes mellitus terminal operator insulin use: with custodial use Qualified Code(s): E11.622 - Type 2 diabetes mellitus with other skin ulcer; 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 He states he is doing the same as yesterday and his rash has mild improvement. He does not have any issues with chest pain or shortness of breath, stating he still has wound sores. He did have a large bowel movement last night but denies nausea, vomiting, fever, chills. - Constitutional Vitals: Temp Pulse Resp BP Pulse Ox 97.3 F L 81 16 107/75 100 12/29/16 07:58 12/29/16 07:58 12/29/16 07:58 12/29/16 07:58 12/29/16 07:58 General appearance: Present: cooperative, pleasant, no acute distress, answers questions appropriately - Head Head exam: Present: atraumatic, normocephalic - Eye Eye exam: Present: PERRL, conjuntiva pink, sclera anicteric - Neck Neck exam general surgery: Present: supple, trachea midline. Absent: lymphadenopathy - Respiratory Respiratory exam: Present: decreased breath sounds (left). Absent: accessory muscle use, rales, rhonchi, wheezes - Cardiovascular Cardiovascular exam: Present: RRR, +S1, +S2. Absent: diastolic murmur, gallop, rubs, systolic murmur - GI/Abdominal GI/Abdominal exam: Present: normal bowel sounds, soft, no peritoneal signs. Absent: distended, tenderness - Extremities Exam Extremities exam: Present: pedal edema, tenderness, warm, radial pulses palpable and symetrical. Absent: calf tenderness, cyanotic - Neurological Exam Neurological exam: Present: alert, no focal deficits. Absent: facial droop, speech deficit - Skin Additional comments: chronic leg, ischial, sacral decubitus ulcers Internal Medicine: Result - Labs CBC & Chem 7: 12/29/16 04:41 12/29/16 04:41 Labs: Short CBC 12/29/16 Range/Units 04:41 WBC 7.0 (4.3-11.1) K/mcL Hgb 10.5 L (12.9-16.9) g/dL Hct 34.3 L (37.5-50.1) % Plt Count 164 (140-400) K/mcL Neutrophils # 5.9 (1.6-8.9) K/mcL BMP 12/28/16 12/28/16 12/29/16 15:11 21:41 04:41 Sodium 129 L 129 L 131 L Potassium 5.4 H 5.5 H 5.4 H Chloride 98 97 L 98 Carbon Dioxide 25 25 26 BUN 53 H 56 H 56 H Creatinine 1.26 H 1.27 H 1.20 Glucose 200 H 255 H 218 H Calcium 8.2 L 8.3 L 8.3 L - ABG Interpretation ABG results: PT/INR, D-dimer PT 17.9 Seconds (9.4-12.1) H 12/24/16 12:35 - VTE Documentation of Mechanical Device: Intermittent pneumatic compression device Consult Discharge Plan - Plan Referrals: Dylon Winston MD [Primary Care Provider] - 01/06/17 2:15 pm <Desmond Hart - Last Filed: 12/29/16 16:17> Date of Encounter: 12/29/16 - Assessment and plan (1) Catheter-associated urinary tract infection Current Visit: Yes Status: Acute Qualifiers: Indwelling urinary catheter type: indwelling urethral catheter Encounter type: subsequent encounter Qualified Code(s): T83.511D - Infection and inflammatory reaction due to indwelling urethral catheter, subsequent encounter ; N39.0 - Urinary tract infection, site not specified (2) Severe sepsis Current Visit: Yes Status: Acute (3) Paraplegia Current Visit: No Status: Chronic (4) Contact dermatitis Current Visit: Yes Status: Acute Qualifiers: Contact dermatitis type: unspecified Contact dermatitis trigger: unspecified trigger Qualified Code(s): L25.9 - Unspecified contact dermatitis , unspecified cause (5) Sacral decubitus ulcer, stage IV Current Visit: Yes Status: Chronic (6) Lymphedema of both lower extremities Current Visit: No Status: Chronic (7) DM (diabetes mellitus), type 2 Current Visit: No Status: Chronic Qualifiers: Diabetes mellitus complication status: with hyperglycemia Diabetes mellitus terminal operator insulin use: with custodial use Qualified Code(s): E11.65 - Type 2 diabetes mellitus with hyperglycemia; Z79.4 - assisted (current) use of insulin (8) Hyponatremia Current Visit: Yes Status: Acute (9) Hyperkalemia Current Visit: Yes Status: Acute - Constitutional Vitals: Temp Pulse Resp BP Pulse Ox 97.6 F 74 16 105/66 97 12/29/16 11:08 12/29/16 11:08 12/29/16 11:08 12/29/16 11:08 12/29/16 11:08 Internal Medicine: Result - Labs CBC & Chem 7: 12/29/16 04:41 12/29/16 13:28 Labs: Short CBC 12/29/16 Range/Units 04:41 WBC 7.0 (4.3-11.1) K/mcL Hgb 10.5 L (12.9-16.9) g/dL Hct 34.3 L (37.5-50.1) % Plt Count 164 (140-400) K/mcL Neutrophils # 5.9 (1.6-8.9) K/mcL BMP 12/28/16 12/29/16 12/29/16 21:41 04:41 13:28 Sodium 129 L 131 L 130 L Potassium 5.5 H 5.4 H 5.5 H Chloride 97 L 98 98 Carbon Dioxide 25 26 23 BUN 56 H 56 H 57 H Creatinine 1.27 H 1.20 1.15 Glucose 255 H 218 H 191 H Calcium 8.3 L 8.3 L 8.5 L - ABG Interpretation ABG results: PT/INR, D-dimer PT 17.9 Seconds (9.4-12.1) H 12/24/16 12:35 - Attending Attestation I examined this patient and my medical decision-making was reviewed with the Resident Physician on 12/29/16. I agree with the documented findings, disposition and treatment plan as described except to the extent set forth below. Mr. Echavarria is currently admitted for severe sepsis related to CAUTI. He is moderate to high risk due to need for IV abx, wound care and electrolyte abnormalities. Mr Echavarria feels a little better today. He is eating breakfast. Pain seems to be improving. No fever or chills. No diarrhea or constipation. Exam: Alert. Comfortable Mucus membranes moist Heart irreg - not tachy Lungs diminished but clear Abd soft. Minimal suprapubic discomfort Edema about the same I/P 1. Severe sepsis 2. CAUTI 3. Stage 4 decubitus Further diagnoses and plan as above.
[2016-12-29] MEDS: Pregabalin 50 MG CAPSULE PO SCH ×3 (09:06→20:13)
[2016-12-29] MEDS: Aspirin Enteric Coated 81 MG Tablet PO SCH (09:07)
[2016-12-29] MEDS: Sennosides/Docusate Sodium TABLET PO SCH ×2 (09:07→20:14)
[2016-12-29] MEDS: Furosemide 40 MG TABLET PO SCH ×2 (09:07→16:37)
[2016-12-29] MEDS: predniSONE 20 MG TABLET PO SCH (09:07)
[2016-12-29] MEDS: ZETIA 10MG PO SCH (09:07)
[2016-12-29] MEDS: *HR* Enoxaparin 150 MG/ML SYRINGE SQ SCH (09:08)
[2016-12-29] MEDS: Cefepime HCl 2,000 MG in D5% in Water (Mini-Bag+) 100 ML IVPB SCH ×3 (09:08→23:50)
[2016-12-29] MEDS: Insulin LISPRO 300 UNITS/3 ML VIAL SQ SCH ×7 (09:09→20:13)
[2016-12-29] MEDS: Gentamicin Oint 15 GM TUBE TP SCH ×3 (12:01→20:14)
[2016-12-29] MEDS: Ketoconazole 2% CRM 15 GM TUBE TP SCH ×2 (12:01→20:14)
[2016-12-29 14:49] LABS: BUN/Creatinine Ratio 50 (6-26); Calcium 8.5 mg/dL (8.6-10.8); Carbon Dioxide 23 mEq/L (19-29); Chloride 98 mEq/L (98-109); Glucose 191 mg/dL (70-99); Osmolality,Calculated 291 (280-300); Potassium 5.5 mEq/L (3.5-4.5); Sodium 130 mEq/L (136-145); eGFR For African Americans > 60 (> 60); eGFR For Non-African Americans > 60 (> 60)
[2016-12-29 14:52] LABS: Blood Urea Nitrogen 57 mg/dL (8-26)
[2016-12-29] MEDS: Insulin DETEMIR 100 UNIT/ML X5UNITS SQ SCH (20:13)
[2016-12-29] MEDS: Latanoprost 2.5 ML BOTTLE BOTH EYES SCH (20:14)
[2016-12-29] MEDS ORDERED: Sennosides/Docusate Sodium TABLET PO SCH (21:00)
[2016-12-30] MEDS: *HR* OxyCODONE/APAP 10/325 TABLET PO PRN ×3 (02:10→21:59)
[2016-12-30] MEDS: Ipratropium/Albuterol Neb 3 ML IH SCH ×4 (03:45→22:12)
[2016-12-30 06:51] LABS: Basophils % 0.4 %; Eosinophils % 0.1 %; Hematocrit 34.7 % (37.5-50.1); Hemoglobin 10.6 g/dL (12.9-16.9); Lymphocytes # 0.3 K/mcL (0.6-4.6); Lymphocytes % 4.3 %; Mean Corpuscular HGB Conc 30.5 g/dL (31.6-35.5); Mean Corpuscular Hemoglobin 26.6 pg (28.0-33.3); Mean Platelet Volume 10.2 fL (9.4-12.4); Monocytes # 0.4 K/mcL (0.0-1.3); Monocytes % 4.5 %; Neutrophils # 6.9 K/mcL (1.6-8.9); Platelet Count 146 K/mcL (140-400); Red Blood Count 3.99 M/mcL (4.19-5.50); Red Cell Distribution Width 15.9 % (11.5-14.5); Segmented Neutrophils % 86.7 %
--- NOTE | 2016-12-30 08:07 | Infectious Disease Progress No ---
Date of Encounter: 12/30/16 Time of Encounter: 08:05 - Assessment and Plan (1) Severe sepsis Current Visit: Yes Status: Acute Labs on admission revealed white blood count 17.1, urinalysis reveals UTI. Family reports he had a fever at home up to 103 F and has a chronic indwelling Cano catheter due to neurogenic bladder. Since admission he has met two SIRS criteria of leukocytosis, creatinine increase > 0.5 above baseline, and hypotensive with blood pressure 78/54. Family reports patient has chronic hypotension. Urine culture from 12/23/16 shows Pseudomonas aeruginosa sensitive to Zosyn, Merrem, and cefepime. 12/24/16 blood cultures show no growth to date Cano catheter replaced 12/25/16 Recommendations: Continue Cefepime 2g IV q8h until 01/01/17. Duration of antibiotic therapy depends on clinical course. Please continue to monitor labs for drug toxicities and adjust antibiotic dose as needed. Well continue to follow. (2) Catheter-associated urinary tract infection Current Visit: Yes Status: Acute Patient has an extensive past medical history including recurrent UTI due to catheter associated UTI and was recently seen by us in the hospital for ESBL Escherichia coli and was treated with oral Bactrim. Labs on admission revealed white blood count 17.1, urinalysis reveals UTI. Family reports he had a fever at home up to 103 F and has a chronic indwelling Cano catheter due to neurogenic bladder. Urine culture from 12/23/16 shows Pseudomonas aeruginosa sensitive to Zosyn, Merrem, and cefepime. Antibiotics: Patient was started on Merrem and Zyvox on 12/24/16 Cano catheter replaced 12/25/16. Recommendations: Continue Cefepime 2g IV q8h until 01/01/17. If patient remains stable, may give Fosfomycin 3g packet upon discharge. Duration of antibiotic therapy depends on clinical course. Qualifiers: Indwelling urinary catheter type: indwelling urethral catheter Encounter type: subsequent encounter Qualified Code(s): T83.511D - Infection and inflammatory reaction due to indwelling urethral catheter, subsequent encounter ; N39.0 - Urinary tract infection, site not specified (3) Sacral decubitus ulcer, stage IV Current Visit: Yes Status: Chronic Patient has an extensive past medical history including history of CVA bedridden with decubitus ulcers Stage IV sacral decubitus ulcer with surrounding erythema, stage III left ischial decubitus ulcer Continue daily dressing changes and turn patient every 2 hours Patient follows up outpatient with Dr. King. (4) Lymphedema of both lower extremities Current Visit: No Status: Chronic Patient seems to be third spacing ad has a lot of chronic venous stasis issues with weeping of the skin and also has a lot of weeping of the skin from his lower back which makes the skin very frail and recurrent decubitus ulcers. Clinically, there is no obvious infection. Severe venous stasis changes bilateral anterior lower extremities below the knees (5) Contact dermatitis Current Visit: Yes Status: Resolved Resolving. Generalized urticarial nonraised maculopapular rash over torso, bilateral axilla, and under arms Patient noticed rash after using a new baby wipes and [place] one week ago and reported subjective fevers at home. 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 No acute events overnight. Patient resting comfortably in bed. Patient reports rash has almost resolved. Patient denies fevers, chills, chest pain, difficulty breathing, abdominal pain, N/V/D, or worsening lower extremity edema. Cano catheter is in place. Family is not present during time of exam. Infect Dis PN-Objective Data - Labs CBC & Chem 7: 12/31/16 08:07 12/31/16 08:07 Labs: Laboratory Results - last 24 hr 12/28/16 12/29/16 12/29/16 17:14 07:55 13:28 WBC RBC Hgb Hct MCV MCH MCHC RDW Plt Count MPV Immature Gran % Seg Neutrophils % Lymphocytes % Monocytes % Eosinophils % Basophils % Neutrophils # Lymphocytes # Monocytes # Eosinophils # Basophils # Sodium 130 L Potassium 5.5 H Chloride 98 Carbon Dioxide 23 BUN 57 H Creatinine 1.15 Est GFR ( Amer) > 60 Est GFR (Non-Af Amer) > 60 BUN/Creatinine Ratio 50 H Glucose 191 H POC Glucose 204 H 202 H Calculated Osmolality 291 Calcium 8.5 L Specimen Rejected 12/30/16 12/30/16 06:24 07:23 WBC 7.9 RBC 3.99 L Hgb 10.6 L Hct 34.7 L MCV 87.0 MCH 26.6 L MCHC 30.5 L RDW 15.9 H Plt Count 146 MPV 10.2 Immature Gran % 4.0 Seg Neutrophils % 86.7 Lymphocytes % 4.3 Monocytes % 4.5 Eosinophils % 0.1 Basophils % 0.4 Neutrophils # 6.9 Lymphocytes # 0.3 L Monocytes # 0.4 Eosinophils # 0.0 Basophils # 0.0 Sodium Potassium Chloride Carbon Dioxide BUN Creatinine Est GFR ( Amer) Est GFR (Non-Af Amer) BUN/Creatinine Ratio Glucose POC Glucose Calculated Osmolality Calcium Specimen Rejected Hemolyzed Cultures: Serology 12/24/16 Range/Units 12:40 Urine Sodium < 20.0 mEq/L Exam - Constitutional Vitals: Temp Pulse Resp BP Pulse Ox 97.6 F 82 22 126/77 100 12/29/16 19:43 12/29/16 19:43 12/30/16 03:45 12/29/16 19:43 12/30/16 03:45 General appearance: cooperative, morbidly obese, no acute distress, no febrile - Head Head exam: Present: atraumatic, normal inspection, normocephalic - Eye Eye exam: Present: PERRL, conjuntiva pink - ENT ENT exam: Present: mucous membranes moist, normal oropharynx - Neck Neck exam: Present: normal inspection. Absent: lymphadenopathy, tenderness, thyromegaly - Respiratory Respiratory exam: Present: CTAB. Absent: respiratory distress, rhonchi, wheezes - Cardiovascular Cardiovascular exam: Present: RRR, +S1, +S2 - GI/Abdominal GI/Abdominal exam: Present: normal bowel sounds, soft. Absent: guarding, tenderness - Extremities Exam Extremities exam: Present: pedal edema, tenderness Additional comments: Severe venous stasis changes bilateral anterior lower extremities below the knees, dressing in place - Neurological Exam Neurological exam: Present: alert, motor sensory deficit (bed bound). Absent: altered - Psychiatric Psychiatric exam: Present: normal affect, normal mood - Skin Skin exam: Present: rash Additional comments: Resolving generalized urticarial nonraised maculopapular rash over torso, bilateral axilla, and under arms Stage IV sacral decubitus ulcer with surrounding erythema, stage III left ischial decubitus ulcer Severe venous stasis changes bilateral anterior lower extremities below the knees, dressing in place - VTE Documentation of Mechanical Device: Intermittent pneumatic compression device Consult Discharge Plan - Plan Referrals: Dylon Winston MD [Primary Care Provider] - 01/06/17 2:15 pm - Attending Attestation I examined this patient and my medical decision-making was reviewed with the Resident Physician. I agree with the documented findings, disposition and treatment plan as described except to the extent set forth below.
[2016-12-30] MEDS: Insulin LISPRO 300 UNITS/3 ML VIAL SQ SCH ×7 (08:30→22:30)
[2016-12-30] MEDS: Furosemide 40 MG TABLET PO SCH ×2 (08:32→17:08)
[2016-12-30] MEDS: Cefepime HCl 2,000 MG in D5% in Water (Mini-Bag+) 100 ML IVPB SCH ×3 (08:32→23:33)
[2016-12-30] MEDS: Aspirin Enteric Coated 81 MG Tablet PO SCH (08:34)
[2016-12-30] MEDS: *HR* Enoxaparin 150 MG/ML SYRINGE SQ SCH ×2 (08:34→21:10)
[2016-12-30] MEDS: Gentamicin Oint 15 GM TUBE TP SCH ×3 (08:34→21:10)
[2016-12-30] MEDS: Pregabalin 50 MG CAPSULE PO SCH ×3 (08:36→21:09)
[2016-12-30] MEDS: Ketoconazole 2% CRM 15 GM TUBE TP SCH ×2 (08:36→21:50)
[2016-12-30] MEDS: ZETIA 10MG PO SCH (08:36)
[2016-12-30 10:44] LABS: BUN/Creatinine Ratio 55 (6-26); Blood Urea Nitrogen 57 mg/dL (8-26); Calcium 8.4 mg/dL (8.6-10.8); Carbon Dioxide 24 mEq/L (19-29); Chloride 99 mEq/L (98-109); Glucose 208 mg/dL (70-99); Osmolality,Calculated 294 (280-300); Potassium 5.2 mEq/L (3.5-4.5); Sodium 131 mEq/L (136-145); eGFR For African Americans > 60 (> 60); eGFR For Non-African Americans > 60 (> 60)
--- NOTE | 2016-12-30 17:11 | Internal Med Progress Note ---
Date of Encounter: 12/30/16 Time of Encounter: 12:15 - Assessment and plan (1) Catheter-associated urinary tract infection Current Visit: Yes Status: Acute Assessment and plan: Noted to have chronic suprapubic catheter due to neurogenic bladder, bedbound status. Patient presented with leukocytosis, fever at home, chronic hypotension , elevated serum creatinine from baseline. Blood cultures remain negative. Urine culture grows resistant Pseudomonas, sensitive to cefepime/meropenem/ Zosyn. Infectious diseases on board. Given his penicillin allergy, patient is currently being continued on IV cefepime, to be continued for 2 more days per ID recommendations. May anticipate discharge in a.m. if remains stable. Qualifiers: Indwelling urinary catheter type: indwelling urethral catheter Encounter type: subsequent encounter Qualified Code(s): T83.511D - Infection and inflammatory reaction due to indwelling urethral catheter, subsequent encounter ; N39.0 - Urinary tract infection, site not specified (2) Hypotension Current Visit: Yes Status: Chronic Assessment and plan: Blood pressure currently stable. Qualifiers: Hypotension type: unspecified hypotension type Qualified Code(s): I95.9 - Hypotension, unspecified (3) Sacral decubitus ulcer, stage IV Current Visit: Yes Status: Chronic Assessment and plan: Patient is noted to have chronic stage IV sacral decubitus ulcer and stage III left ischial ulcer. He follows at the wound care clinic, however noted to be noncompliant with wound care recommendations. Patient's son insists on doing dressing changes himself and does not allow nursing staff to evaluate or change patient's dressings. I have discussed this with patient and his son and they are interested in continuing self dressing changes. (4) Rash Current Visit: Yes Status: Acute Assessment and plan: Rash after [place]/ wet wipes application at home He does report mild improvement since admission and has less itching Continue with Benadryl PRN for itching (5) ICD (implantable cardioverter-defibrillator) in place Current Visit: Yes Status: Chronic (6) History of pulmonary embolism Current Visit: Yes Status: Chronic Assessment and plan: Patient has history of multiple venous thromboembolism episodes in the past along with underlying atrial fibrillation. He reportedly failed several anticoagulants in the past and is currently being maintained on subcutaneous Lovenox. Patient's son insists on giving him only half the dose once daily due to possible internal bleeding and he claims this is the dose recommended by patient's primary care provider. (7) DM (diabetes mellitus), type 2 Current Visit: Yes Status: Chronic Assessment and plan: Continue Accu-Chek blood glucose monitoring with sliding scale insulin. Blood sugars noted to be elevated, increase sliding scale accordingly. Diabetic diet. 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 No fever, nausea, vomiting. Has chronic suprapubic catheter in place. - Constitutional Vitals: Temp Pulse Resp BP Pulse Ox 97.4 F L 94 16 106/79 95 12/30/16 16:34 12/30/16 16:34 12/30/16 16:34 12/30/16 16:34 12/30/16 16:34 General appearance: Present: cooperative, A&O X 3, morbidly obese, answers questions appropriately - Respiratory Respiratory exam: Present: CTAB. Absent: accessory muscle use, rales, rhonchi, wheezes - Cardiovascular Cardiovascular exam: Present: irregular rhythm, +S1, +S2. Absent: diastolic murmur, gallop, rubs, systolic murmur - GI/Abdominal GI/Abdominal exam: Present: distended, firm (Nontender but likely chronic distention with cutaneous edema), normal bowel sounds, no peritoneal signs. Absent: tenderness - Extremities Exam Extremities exam: Present: pedal edema (Bilateral legs with chronic anterior leg wounds, covered in ROYCE bandages. Significant edema in bilateral feet), warm , radial pulses palpable and symmetrical. Absent: calf tenderness, cyanotic Internal Medicine: Result - Labs CBC & Chem 7: 12/30/16 06:24 12/30/16 07:47 Labs: Short CBC 12/30/16 Range/Units 06:24 WBC 7.9 (4.3-11.1) K/mcL Hgb 10.6 L (12.9-16.9) g/dL Hct 34.7 L (37.5-50.1) % Plt Count 146 (140-400) K/mcL Neutrophils # 6.9 (1.6-8.9) K/mcL BMP 12/30/16 07:47 Sodium 131 L Potassium 5.2 H Chloride 99 Carbon Dioxide 24 BUN 57 H Creatinine 1.03 Glucose 208 H Calcium 8.4 L - ABG Interpretation ABG results: PT/INR, D-dimer PT 17.9 Seconds (9.4-12.1) H 12/24/16 12:35 - VTE Documentation of Mechanical Device: Intermittent pneumatic compression device Consult Discharge Plan - Plan Referrals: Dylon Winston MD [Primary Care Provider] - 01/06/17 2:15 pm
[2016-12-30] MEDS: Latanoprost 2.5 ML BOTTLE BOTH EYES SCH (21:10)
[2016-12-30] MEDS: Insulin DETEMIR 100 UNIT/ML X5UNITS SQ SCH (21:10)
[2016-12-31] MEDS: Ipratropium/Albuterol Neb 3 ML IH SCH ×5 (03:44→23:01)
--- NOTE | 2016-12-31 08:14 | Infectious Disease Progress No ---
Date of Encounter: 12/31/16 Time of Encounter: 08:14 - Assessment and Plan (1) Severe sepsis Current Visit: Yes Status: Acute Labs on admission revealed white blood count 17.1, urinalysis reveals UTI. Family reports he had a fever at home up to 103 F and has a chronic indwelling Cano catheter due to neurogenic bladder. Since admission he has met two SIRS criteria of leukocytosis, creatinine increase > 0.5 above baseline, and hypotensive with blood pressure 78/54. Family reports patient has chronic hypotension. Urine culture from 12/23/16 shows Pseudomonas aeruginosa sensitive to Zosyn, Merrem, and cefepime. 12/24/16 blood cultures show no growth to date Antibiotics: Patient was started on Merrem and Zyvox on 12/24/16 Cano catheter replaced 12/25/16 Recommendations: Continue Cefepime 2g IV q8h until 01/01/17. Please continue to monitor labs for drug toxicities and adjust antibiotic dose as needed. will sign off, please call us with further questions or concerns (2) Catheter-associated urinary tract infection Current Visit: Yes Status: Acute Patient has an extensive past medical history including recurrent UTI due to catheter associated UTI and was recently seen by us in the hospital for ESBL Escherichia coli and was treated with oral Bactrim. Labs on admission revealed white blood count 17.1, urinalysis reveals UTI. Family reports he had a fever at home up to 103 F and has a chronic indwelling Cano catheter due to neurogenic bladder. Urine culture from 12/23/16 shows Pseudomonas aeruginosa sensitive to Zosyn, Merrem, and cefepime. Antibiotics: Patient was started on Merrem and Zyvox on 12/24/16 Cano catheter replaced 12/25/16. Recommendations: Continue Cefepime 2g IV q8h Qualifiers: Indwelling urinary catheter type: indwelling urethral catheter Encounter type: subsequent encounter Qualified Code(s): T83.511D - Infection and inflammatory reaction due to indwelling urethral catheter, subsequent encounter ; N39.0 - Urinary tract infection, site not specified (3) Lymphedema of both lower extremities Current Visit: No Status: Chronic Patient seems to be third spacing ad has a lot of chronic venous stasis issues with weeping of the skin and also has a lot of weeping of the skin from his lower back which makes the skin very frail and recurrent decubitus ulcers. Clinically, there is no obvious infection. Severe venous stasis changes bilateral anterior lower extremities below the knees with blood saturating the dressing on his left calf, there is a small blood vessel on the medial aspect of left with mild bleeding after manipulation , pressure dressing was applied at bedside. Hold Lovenox dose this a.m. due to active bleeding (4) Sacral decubitus ulcer, stage IV Current Visit: Yes Status: Chronic Patient has an extensive past medical history including history of CVA bedridden with decubitus ulcers Stage IV sacral decubitus ulcer with surrounding erythema, stage III left ischial decubitus ulcer Continue daily dressing changes and turn patient every 2 hours Patient follows up outpatient with Dr. King. (5) Contact dermatitis Current Visit: Yes Status: Resolved Resolved. Generalized urticarial nonraised maculopapular rash over torso, bilateral axilla, and under arms Patient noticed rash after using a new baby wipes and [place] one week ago and reported subjective fevers at home. Currently on prednisone and Benadryl Qualifiers: Contact dermatitis type: unspecified Contact dermatitis trigger: unspecified trigger Qualified Code(s): L25.9 - Unspecified contact dermatitis , unspecified cause (6) DM (diabetes mellitus), type 2 Current Visit: No Status: Chronic Continue current management per primary team Qualifiers: Diabetes mellitus complication status: with hyperglycemia Diabetes mellitus termite renewal inspector insulin use: with termite renewal inspector use Qualified Code(s): E11.65 - Type 2 diabetes mellitus with hyperglycemia; Z79.4 - detention (current) use of insulin - Subjective Interval history: Patient seen and examined. Patient resting comfortably in bed on BiPAP. His blood glucose was only 58 this morning, heart rate was 114, and white count increased from 7.9 to 12.3 today. He has weeping edema in bilateral lower extremities with blood saturating the dressing on his left calf, there is a small blood vessel on the medial aspect of left wit h mild bleeding after manipulation, pressure dressing was applied at bedside. His upper chest rash has resolved. Patient denies fevers, chills, chest pain, difficulty breathing, abdominal pain, N/V/D, or worsening lower extremity edema. Cano catheter is in place. Family is not present during time of exam. Infect Dis PN-Objective Data - Labs CBC & Chem 7: 12/31/16 08:07 12/31/16 08:07 Labs: Laboratory Results - last 24 hr 12/24/16 12/29/16 12/29/16 08:55 11:14 16:11 Sodium Potassium Chloride Carbon Dioxide BUN Creatinine Est GFR ( Amer) Est GFR (Non-Af Amer) BUN/Creatinine Ratio Glucose POC Glucose 208 H 181 H Calculated Osmolality Calcium Urine Sodium < 20.0 12/29/16 12/30/16 12/30/16 19:46 07:47 08:08 Sodium 131 L Potassium 5.2 H Chloride 99 Carbon Dioxide 24 BUN 57 H Creatinine 1.03 Est GFR ( Amer) > 60 Est GFR (Non-Af Amer) > 60 BUN/Creatinine Ratio 55 H Glucose 208 H POC Glucose 212 H 194 H Calculated Osmolality 294 Calcium 8.4 L Urine Sodium Cultures: Serology 12/24/16 Range/Units 08:55 Urine Sodium < 20.0 mEq/L Exam - Constitutional Vitals: Temp Pulse Resp BP Pulse Ox 97.9 F 91 16 114/67 99 12/31/16 07:13 12/31/16 07:13 12/31/16 07:13 12/31/16 07:13 12/31/16 07:13 General appearance: morbidly obese, no acute distress, no febrile - Head Head exam: Present: atraumatic, normal inspection, normocephalic - Eye Eye exam: Present: PERRL, conjuntiva pink - ENT Additional comments: Wearing BiPAP. - Neck Neck exam: Present: normal inspection. Absent: lymphadenopathy, tenderness, thyromegaly - Respiratory Respiratory exam: Present: decreased breath sounds, wheezes (Mild expiratory). Absent: rales, rhonchi - Cardiovascular Cardiovascular exam: Present: RRR, +S1, +S2 - GI/Abdominal GI/Abdominal exam: Present: normal bowel sounds, soft, tenderness (Mild tenderness to deep palpation). Absent: firm, guarding, rebound - Extremities Exam Extremities exam: Present: pedal edema. Absent: normal inspection, tenderness Additional comments: significant 2+ edema in bilateral lower extremities with blood saturating the dressing on his left calf, there is a small blood vessel on the medial aspect of left with mild bleeding after manipulation, pressure dressing was applied at bedside - Neurological Exam Neurological exam: Present: alert, motor sensory deficit, oriented X3. Absent: altered - Psychiatric Psychiatric exam: Present: anxious, normal affect - Skin Additional comments: Resolving generalized urticarial nonraised maculopapular rash over torso, bilateral axilla, and under arms Stage IV sacral decubitus ulcer with surrounding erythema, stage III left ischial decubitus ulcer Severe venous stasis changes bilateral anterior lower extremities below the knees with blood saturating the dressing on his left calf, there is a small blood vessel on the medial aspect of left with mild bleeding after manipulation , pressure dressing was applied at bedside - VTE Documentation of Mechanical Device: Intermittent pneumatic compression device Consult Discharge Plan - Plan Referrals: Dylon Winston MD [Primary Care Provider] - 01/06/17 2:15 pm - Attending Attestation I examined this patient and my medical decision-making was reviewed with the Resident Physician. I agree with the documented findings, disposition and treatment plan as described except to the extent set forth below. Patient seen and examined, with above findings. Patient is on day 9 of the cefepime, 1 more day and the patient should be done. Patient had a slight leukocytosis, we'll continue to monitor, check WBC tomorrow. If WBC increases we'll do some further workup and evaluation.
[2016-12-31 09:20] LABS: BUN/Creatinine Ratio 69 (6-26); Blood Urea Nitrogen 61 mg/dL (8-26); Calcium 8.3 mg/dL (8.6-10.8); Carbon Dioxide 28 mEq/L (19-29); Chloride 99 mEq/L (98-109); Glucose 58 mg/dL (70-99); Magnesium 1.8 mg/dL (1.6-2.6); Osmolality,Calculated 291 (280-300); Potassium 4.4 mEq/L (3.5-4.5); Sodium 133 mEq/L (136-145); eGFR For African Americans > 60 (> 60); eGFR For Non-African Americans > 60 (> 60)
[2016-12-31 09:44] LABS: Basophils % 0.3 %; Eosinophils # 0.3 K/mcL (0.0-0.6); Eosinophils % 2.2 %; Hemoglobin 10.6 g/dL (12.9-16.9); Immature Granulocytes % 3.9 % (0-4); Lymphocytes # 0.6 K/mcL (0.6-4.6); Lymphocytes % 4.6 %; Mean Corpuscular HGB Conc 31.2 g/dL (31.6-35.5); Mean Corpuscular Hemoglobin 26.9 pg (28.0-33.3); Mean Corpuscular Volume 86.3 fL (83.0-100.0); Mean Platelet Volume 10.5 fL (9.4-12.4); Monocytes # 0.7 K/mcL (0.0-1.3); Monocytes % 5.3 %; Neutrophils # 10.3 K/mcL (1.6-8.9); Platelet Count 154 K/mcL (140-400); Red Blood Count 3.94 M/mcL (4.19-5.50); Segmented Neutrophils % 83.7 %
[2016-12-31] MEDS: Insulin LISPRO 300 UNITS/3 ML VIAL SQ SCH ×7 (10:25→23:08)
[2016-12-31] MEDS: *HR* Enoxaparin 150 MG/ML SYRINGE SQ SCH ×2 (10:26→23:08)
[2016-12-31] MEDS: Cefepime HCl 2,000 MG in D5% in Water (Mini-Bag+) 100 ML IVPB SCH ×2 (10:30→17:12)
[2016-12-31] MEDS: Furosemide 40 MG TABLET PO SCH (10:30)
[2016-12-31] MEDS: Pregabalin 50 MG CAPSULE PO SCH ×3 (10:30→21:18)
[2016-12-31] MEDS: Aspirin Enteric Coated 81 MG Tablet PO SCH (10:30)
[2016-12-31] MEDS: *HR* OxyCODONE/APAP 10/325 TABLET PO PRN (10:34)
[2016-12-31] MEDS: ZETIA 10MG PO SCH (11:14)
[2016-12-31] MEDS: Gentamicin Oint 15 GM TUBE TP SCH ×3 (11:14→23:07)
[2016-12-31] MEDS: Ketoconazole 2% CRM 15 GM TUBE TP SCH ×2 (11:14→23:08)
[2016-12-31 11:38] LABS: INR 1.5
[2016-12-31 11:41] LABS: Activated Partial Thrombo Time 35.2 Seconds (26.0-36.0)
[2016-12-31] MEDS: *HR* OxyCODONE/APAP 10/325 TABLET PO SCH ×2 (15:11→21:19)
[2016-12-31] MEDS: Ondansetron 4 MG/2 ML VIAL IVP PRN (16:58)
[2016-12-31] MEDS: Furosemide 40 MG/4 ML VIAL IVP SCH (17:02)
--- NOTE | 2016-12-31 17:17 | Internal Med Progress Note ---
Date of Encounter: 12/31/16 Time of Encounter: 13:00 - Assessment and plan (1) Catheter-associated urinary tract infection Current Visit: Yes Status: Acute Assessment and plan: Noted to have chronic suprapubic catheter due to neurogenic bladder, bedbound status. Patient presented with leukocytosis, fever at home, chronic hypotension , elevated serum creatinine from baseline. Blood cultures remain negative. Urine culture grows resistant Pseudomonas, sensitive to cefepime/meropenem/ Zosyn. Infectious diseases on board. patient is currently being continued on IV cefepime, to be continued for 1 more day per ID recommendations. Noted to have mild leukocytosis at 12.3-uncertain etiology. No new source of infection identified. Discussed with ID, continue to monitor. Qualifiers: Indwelling urinary catheter type: indwelling urethral catheter Encounter type: subsequent encounter Qualified Code(s): T83.511D - Infection and inflammatory reaction due to indwelling urethral catheter, subsequent encounter ; N39.0 - Urinary tract infection, site not specified (2) Hypotension Current Visit: Yes Status: Chronic Qualifiers: Hypotension type: unspecified hypotension type Qualified Code(s): I95.9 - Hypotension, unspecified (3) Sacral decubitus ulcer, stage IV Current Visit: Yes Status: Chronic Assessment and plan: Patient is noted to have chronic stage IV sacral decubitus ulcer and left ischial ulcer. No evidence of infection. He follows at the wound care clinic, however noted to be noncompliant with wound care recommendations. Patient's son insists on doing dressing changes himself and does not allow nursing staff to evaluate or change patient's dressings. (4) Rash Current Visit: Yes Status: Resolved (5) ICD (implantable cardioverter-defibrillator) in place Current Visit: Yes Status: Chronic (6) History of pulmonary embolism Current Visit: Yes Status: Chronic (7) DM (diabetes mellitus), type 2 Current Visit: Yes Status: Chronic Assessment and plan: Continue Accu-Chek blood glucose monitoring with sliding scale insulin. Noted to have fasting hypoglycemia, decrease bedtime dose of Levemir. Continue nutritional insulin. Diabetic diet. 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 (8) COPD (chronic obstructive pulmonary disease) Current Visit: Yes Status: Chronic Assessment and plan: Not currently in exacerbation Will continue home breathing treatments, BiPAP at night; Qualifiers: COPD type: emphysema Emphysema type: unspecified Qualified Code(s): J43.9 - Emphysema, unspecified (9) A-fib Current Visit: Yes Status: Chronic Assessment and plan: continue Lovenox; currently rate-controlled; Qualifiers: Atrial fibrillation type: chronic Qualified Code(s): I48.2 - Chronic atrial fibrillation (10) Peripheral edema Current Visit: Yes Status: Acute Assessment and plan: Patient noted to have worsening BUN- dehydration, use of Lasix ?GI bleed; no overt bleeding noted, will check stool occult blood. Patient;s son insists on using IV Lasix for refractory edema; will do spot dosing of IV Lasix and hold PO Lasix at this time; - Subjective Interval history: Reports intermittent abdominal pain, has constipation at baseline; has chronic back and leg pains; - Constitutional Vitals: Temp Pulse Resp BP Pulse Ox 97.6 F 88 20 108/65 95 12/31/16 16:02 12/31/16 16:02 12/31/16 16:14 12/31/16 16:02 12/31/16 16:14 General appearance: Present: cooperative, A&O X 3, morbidly obese, answers questions appropriately - Respiratory Respiratory exam: Present: CTAB. Absent: accessory muscle use, rales, rhonchi, wheezes - Cardiovascular Cardiovascular exam: Present: irregular rhythm, +S1, +S2. Absent: diastolic murmur, gallop, rubs, systolic murmur - GI/Abdominal GI/Abdominal exam: Present: distended, firm (significant cutaneous edema and tense edema including B/L lower extremities, scrota and abdomen), normal bowel sounds, soft, no peritoneal signs. Absent: tenderness - Extremities Exam Extremities exam: Present: pedal edema, warm, radial pulses palpable and symmetrical. Absent: calf tenderness, cyanotic - Skin Skin exam: Present: dry, intact Additional comments: anterior leg wounds with scattered areas of bleeding; stage 4 sacral decubitus and left ischial decubitus- no evidence of infection/ foul-smelling discharge; Internal Medicine: Result - Labs CBC & Chem 7: 12/31/16 08:07 12/31/16 08:07 Labs: Short CBC 12/31/16 Range/Units 08:07 WBC 12.3 H D (4.3-11.1) K/mcL Hgb 10.6 L (12.9-16.9) g/dL Hct 34.0 L (37.5-50.1) % Plt Count 154 (140-400) K/mcL Neutrophils # 10.3 H (1.6-8.9) K/mcL BMP 12/31/16 08:07 Sodium 133 L Potassium 4.4 Chloride 99 Carbon Dioxide 28 BUN 61 H Creatinine 0.88 Glucose 58 L Calcium 8.3 L - ABG Interpretation ABG results: PT/INR, D-dimer PT 16.0 Seconds (9.4-12.1) H 12/31/16 11:24 - VTE Documentation of Mechanical Device: Intermittent pneumatic compression device Consult Discharge Plan - Plan Referrals: Dylon Winston MD [Primary Care Provider] - 01/06/17 2:15 pm
[2016-12-31] MEDS: Sennosides/Docusate Sodium TABLET PO SCH (21:19)
[2016-12-31] MEDS: Latanoprost 2.5 ML BOTTLE BOTH EYES SCH (23:35)
[2017-01-01] MEDS: Insulin DETEMIR 100 UNIT/ML X5UNITS SQ SCH ×2 (00:23→22:39)
[2017-01-01] MEDS: Cefepime HCl 2,000 MG in D5% in Water (Mini-Bag+) 100 ML IVPB SCH ×3 (00:27→17:00)
[2017-01-01] MEDS: *HR* OxyCODONE/APAP 10/325 TABLET PO SCH ×7 (01:14→22:52)
[2017-01-01] MEDS: Ipratropium/Albuterol Neb 3 ML IH SCH ×5 (04:25→21:40)
[2017-01-01 05:36] LABS: Basophils % 0.4 %; Eosinophils # 0.2 K/mcL (0.0-0.6); Eosinophils % 1.9 %; Hematocrit 32.9 % (37.5-50.1); Hemoglobin 10.1 g/dL (12.9-16.9); Immature Granulocytes % 2.7 % (0-4); Lymphocytes # 0.5 K/mcL (0.6-4.6); Lymphocytes % 4.6 %; Mean Corpuscular HGB Conc 30.7 g/dL (31.6-35.5); Mean Corpuscular Hemoglobin 26.6 pg (28.0-33.3); Mean Corpuscular Volume 86.8 fL (83.0-100.0); Mean Platelet Volume 10.2 fL (9.4-12.4); Monocytes # 0.6 K/mcL (0.0-1.3); Platelet Count 139 K/mcL (140-400); Red Blood Count 3.79 M/mcL (4.19-5.50); Red Cell Distribution Width 16.3 % (11.5-14.5); Segmented Neutrophils % 84.4 %
[2017-01-01 05:51] LABS: BUN/Creatinine Ratio 64 (6-26); Blood Urea Nitrogen 62 mg/dL (8-26); Calcium 8.2 mg/dL (8.6-10.8); Carbon Dioxide 25 mEq/L (19-29); Chloride 98 mEq/L (98-109); Glucose 159 mg/dL (70-99); Osmolality,Calculated 295 (280-300); Potassium 4.7 mEq/L (3.5-4.5); Sodium 132 mEq/L (136-145); eGFR For African Americans > 60 (> 60); eGFR For Non-African Americans > 60 (> 60)
--- NOTE | 2017-01-01 08:07 | Infectious Disease Progress No ---
Date of Encounter: 01/01/17 Time of Encounter: 08:07 - Assessment and Plan (1) Severe sepsis Current Visit: Yes Status: Acute Labs on admission revealed white blood count 17.1, urinalysis reveals UTI. Family reports he had a fever at home up to 103 F and has a chronic indwelling Cano catheter due to neurogenic bladder. Since admission he has met two SIRS criteria of leukocytosis, creatinine increase > 0.5 above baseline, and hypotensive with blood pressure 78/54. Family reports patient has chronic hypotension. Urine culture from 12/23/16 shows Pseudomonas aeruginosa sensitive to Zosyn, Merrem, and cefepime. 12/24/16 blood cultures show no growth to date Antibiotics: Patient was started on Merrem and Zyvox on 12/24/16 Cano catheter replaced 12/25/16 Recommendations: Leukocytosis resolved. Continue Cefepime 2g IV q8h until 01/01/17. Please continue to monitor labs for drug toxicities and adjust antibiotic dose as needed. will sign off, please call us with further questions or concerns (2) Catheter-associated urinary tract infection Current Visit: Yes Status: Acute Patient has an extensive past medical history including recurrent UTI due to catheter associated UTI and was recently seen by us in the hospital for ESBL Escherichia coli and was treated with oral Bactrim. Labs on admission revealed white blood count 17.1, urinalysis reveals UTI. Family reports he had a fever at home up to 103 F and has a chronic indwelling Cano catheter due to neurogenic bladder. Urine culture from 12/23/16 shows Pseudomonas aeruginosa sensitive to Zosyn, Merrem, and cefepime. Antibiotics: Patient was started on Merrem and Zyvox on 12/24/16 Cano catheter replaced 12/25/16. Recommendations: Cefepime 2g IV q8h until 01/01/17 Qualifiers: Indwelling urinary catheter type: indwelling urethral catheter Encounter type: subsequent encounter Qualified Code(s): T83.511D - Infection and inflammatory reaction due to indwelling urethral catheter, subsequent encounter ; N39.0 - Urinary tract infection, site not specified (3) Lymphedema of both lower extremities Current Visit: No Status: Chronic Patient seems to be third spacing ad has a lot of chronic venous stasis issues with weeping of the skin and also has a lot of weeping of the skin from his lower back which makes the skin very frail and recurrent decubitus ulcers. Clinically, there is no obvious infection. Severe venous stasis changes bilateral anterior lower extremities below the knees (4) Sacral decubitus ulcer, stage IV Current Visit: Yes Status: Chronic Patient has an extensive past medical history including history of CVA bedridden with decubitus ulcers Stage IV sacral decubitus ulcer with surrounding erythema, stage III left ischial decubitus ulcer Continue daily dressing changes and turn patient every 2 hours Patient follows up outpatient with Dr. King. (5) Contact dermatitis Current Visit: Yes Status: Resolved Resolved. Generalized urticarial nonraised maculopapular rash over torso, bilateral axilla, and under arms Patient noticed rash after using a new baby wipes and [place] one week ago and reported subjective fevers at home. 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 Patient resting comfortably in bed after eating breakfast. He is tolerating by mouth intake denies nausea or vomiting. Last bowel movement 2 days ago. He denies bleeding from wound on left lower extremity today. Patient denies fevers, chills, chest pain, difficulty breathing, abdominal pain, N/V/D, or worsening lower extremity edema. Cano catheter is in place. Family is not present during time of exam. Infect Dis PN-Objective Data - Labs CBC & Chem 7: 01/01/17 04:46 01/01/17 04:46 Labs: Laboratory Results - last 24 hr 12/30/16 12/30/16 12/30/16 11:31 16:33 22:19 WBC RBC Hgb Hct MCV MCH MCHC RDW Plt Count MPV Immature Gran % Seg Neutrophils % Lymphocytes % Monocytes % Eosinophils % Basophils % Neutrophils # Lymphocytes # Monocytes # Eosinophils # Basophils # PT INR APTT Sodium Potassium Chloride Carbon Dioxide BUN Creatinine Est GFR ( Amer) Est GFR (Non-Af Amer) BUN/Creatinine Ratio Glucose POC Glucose 220 H 252 H 124 H Calculated Osmolality Calcium Magnesium 12/31/16 12/31/16 12/31/16 07:16 08:07 08:07 WBC 12.3 H D RBC 3.94 L Hgb 10.6 L Hct 34.0 L MCV 86.3 MCH 26.9 L MCHC 31.2 L RDW 16.0 H Plt Count 154 MPV 10.5 Immature Gran % 3.9 Seg Neutrophils % 83.7 Lymphocytes % 4.6 Monocytes % 5.3 Eosinophils % 2.2 Basophils % 0.3 Neutrophils # 10.3 H Lymphocytes # 0.6 Monocytes # 0.7 Eosinophils # 0.3 Basophils # 0.0 PT INR APTT Sodium 133 L Potassium 4.4 Chloride 99 Carbon Dioxide 28 BUN 61 H Creatinine 0.88 Est GFR ( Amer) > 60 Est GFR (Non-Af Amer) > 60 BUN/Creatinine Ratio 69 H Glucose 58 L POC Glucose 64 Calculated Osmolality 291 Calcium 8.3 L Magnesium 1.8 12/31/16 12/31/16 12/31/16 09:19 11:16 11:24 WBC RBC Hgb Hct MCV MCH MCHC RDW Plt Count MPV Immature Gran % Seg Neutrophils % Lymphocytes % Monocytes % Eosinophils % Basophils % Neutrophils # Lymphocytes # Monocytes # Eosinophils # Basophils # PT 16.0 H INR 1.5 APTT 35.2 Sodium Potassium Chloride Carbon Dioxide BUN Creatinine Est GFR ( Amer) Est GFR (Non-Af Amer) BUN/Creatinine Ratio Glucose POC Glucose 82 85 Calculated Osmolality Calcium Magnesium 12/31/16 01/01/17 01/01/17 16:04 04:46 04:46 WBC 10.7 RBC 3.79 L Hgb 10.1 L Hct 32.9 L MCV 86.8 MCH 26.6 L MCHC 30.7 L RDW 16.3 H Plt Count 139 L MPV 10.2 Immature Gran % 2.7 Seg Neutrophils % 84.4 Lymphocytes % 4.6 Monocytes % 6.0 Eosinophils % 1.9 Basophils % 0.4 Neutrophils # 9.0 H Lymphocytes # 0.5 L Monocytes # 0.6 Eosinophils # 0.2 Basophils # 0.0 PT INR APTT Sodium 132 L Potassium 4.7 H Chloride 98 Carbon Dioxide 25 BUN 62 H Creatinine 0.97 Est GFR ( Amer) > 60 Est GFR (Non-Af Amer) > 60 BUN/Creatinine Ratio 64 H Glucose 159 H POC Glucose 128 H Calculated Osmolality 295 Calcium 8.2 L Magnesium Cultures: Serology 12/24/16 Range/Units 08:55 Urine Sodium < 20.0 mEq/L Exam - Constitutional Vitals: Temp Pulse Resp BP Pulse Ox 97.8 F 80 18 100/69 100 01/01/17 07:59 01/01/17 07:59 01/01/17 07:59 01/01/17 07:59 01/01/17 07:59 General appearance: cooperative, morbidly obese, no acute distress, no febrile - Head Head exam: Present: atraumatic, normal inspection, normocephalic - Eye Eye exam: Present: PERRL, conjuntiva pink - ENT ENT exam: Present: mucous membranes moist, normal oropharynx - Neck Neck exam: Present: full ROM, normal inspection. Absent: tenderness - Respiratory Respiratory exam: Present: CTAB. Absent: decreased breath sounds, rhonchi, wheezes - Cardiovascular Cardiovascular exam: Present: RRR, +S1, +S2. Absent: diastolic murmur, systolic murmur - GI/Abdominal GI/Abdominal exam: Present: normal bowel sounds, soft, tenderness (Mild diffuse tenderness to palpation). Absent: guarding, rebound - Extremities Exam Extremities exam: Present: pedal edema Additional comments: Dwight wraps and place. Dressings saturated. - Neurological Exam Neurological exam: Present: alert, oriented X3. Absent: altered, speech deficit Additional comments: Mild resting tremor bilateral upper extremities - Psychiatric Psychiatric exam: Present: anxious, normal affect - Skin Skin exam: Present: normal color Additional comments: Resolvied generalized urticarial nonraised maculopapular rash over torso, bilateral axilla, and under arms Stage IV sacral decubitus ulcer with surrounding erythema, stage III left ischial decubitus ulcer Severe venous stasis changes bilateral anterior lower extremities below the knees - VTE Documentation of Mechanical Device: Intermittent pneumatic compression device Consult Discharge Plan - Plan Referrals: Dylon Winston MD [Primary Care Provider] - 01/06/17 2:15 pm - Attending Attestation I examined this patient and my medical decision-making was reviewed with the Resident Physician. I agree with the documented findings, disposition and treatment plan as described except to the extent set forth below.
[2017-01-01] MEDS: Insulin LISPRO 300 UNITS/3 ML VIAL SQ SCH ×6 (08:58→17:03)
[2017-01-01] MEDS: Sennosides/Docusate Sodium TABLET PO SCH (09:00)
[2017-01-01] MEDS: ZETIA 10MG PO SCH (09:01)
[2017-01-01] MEDS: Aspirin Enteric Coated 81 MG Tablet PO SCH (09:01)
[2017-01-01] MEDS: Ketoconazole 2% CRM 15 GM TUBE TP SCH ×2 (09:01→22:38)
[2017-01-01] MEDS: Pregabalin 50 MG CAPSULE PO SCH ×3 (09:01→21:19)
[2017-01-01] MEDS: Furosemide 40 MG/4 ML VIAL IVP SCH ×2 (09:02→17:00)
[2017-01-01] MEDS: Gentamicin Oint 15 GM TUBE TP SCH ×3 (09:02→22:37)
[2017-01-01] MEDS: *HR* Enoxaparin 150 MG/ML SYRINGE SQ SCH ×2 (09:02→21:23)
[2017-01-01 14:17] LABS: ABG Base Excess -0.1 mEq/L (-2.0 to 3.0); ABG HCO3 26.5 mEQ/L (21-27); ABG Oxygen Saturation 90 % (95-98); ABG PCO2 48 mmHg (35-45); ABG PH 7.35 pH Units (7.32-7.45); ABG PO2 62 mmHg (85-104)
[2017-01-01 14:20] LABS: Blood Gas Liter Flow 3 L/MIN
--- NOTE | 2017-01-01 17:53 | Internal Med Progress Note ---
Date of Encounter: 01/01/17 Time of Encounter: 13:00 - Assessment and plan (1) Elevated BUN Current Visit: Yes Status: Acute Assessment and plan: Use of Lasix/dehydration versus GI bleed. EGD from October 2016 shows erosive gastritis and reflux esophagitis and patient is noted to be on twice daily PPI. We will hold aspirin. Patient does not have regular bowel movements and refuses to take laxatives as he has nausea and emesis with them. He also refuses colonoscopy. Patient's multiple medical conditions are difficult to be controlled and at this time he is stable as he can get. Risks and benefits of anticoagulation needs to be assessed frequently. Patient's son doses Lovenox at his discretion. He is at risk for stroke from atrial fibrillation along with history of venous thromboembolism and at risk from GI bleed with anticoagulation. Hemoglobin is noted to be relatively stable at this time, continue current management. (2) Catheter-associated urinary tract infection Current Visit: Yes Status: Acute Assessment and plan: Noted to have chronic suprapubic catheter due to neurogenic bladder, bedbound status. Patient presented with leukocytosis, fever at home, chronic hypotension , elevated serum creatinine from baseline. Labs are normal today. Blood cultures remain negative. Urine culture grows resistant Pseudomonas, sensitive to cefepime/meropenem/Zosyn. Infectious diseases have been consulted, patient completed 8 day course of IV cefepime, complete with today. ID currently signed off, no further recommendations. Patient is medically stable for discharge. Patient was noted to be alert and oriented upon my assessment this morning. However, patient's son claimed that patient has carbon dioxide narcosis and refuses to take him home today. ABG ordered and reviewed, PCO2 noted to be close to baseline. No further intervention at this time. Continue to monitor. Patient is also noted to have intermittent jerking movements of bilateral upper extremities, likely myoclonic jerks, uncertain etiology. Continue to monitor. Qualifiers: Indwelling urinary catheter type: indwelling urethral catheter Encounter type: subsequent encounter Qualified Code(s): T83.511D - Infection and inflammatory reaction due to indwelling urethral catheter, subsequent encounter ; N39.0 - Urinary tract infection, site not specified (3) Hypotension Current Visit: Yes Status: Chronic Qualifiers: Hypotension type: unspecified hypotension type Qualified Code(s): I95.9 - Hypotension, unspecified (4) Sacral decubitus ulcer, stage IV Current Visit: Yes Status: Chronic (5) Rash Current Visit: Yes Status: Resolved (6) ICD (implantable cardioverter-defibrillator) in place Current Visit: Yes Status: Chronic (7) History of pulmonary embolism Current Visit: Yes Status: Chronic Assessment and plan: Patient has history of multiple venous thromboembolism episodes in the past along with underlying atrial fibrillation. He reportedly failed several anticoagulants in the past and is currently being maintained on subcutaneous Lovenox. Patient's son insists on giving him only half the dose once daily due to possible internal bleeding and he claims this is the dose recommended by patient's primary care provider. (8) DM (diabetes mellitus), type 2 Current Visit: Yes Status: Chronic Assessment and plan: Continue Accu-Chek blood glucose monitoring with sliding scale insulin. Noted to have episodes of low normal to low blood sugars, we will hold basal insulin at this time. Continue nutritional insulin. Diabetic diet. 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2 - Chronic atrial fibrillation (11) Peripheral edema Current Visit: Yes Status: Acute Assessment and plan: Patient noted to have worsening BUN- dehydration, use of Lasix ?GI bleed; no overt bleeding noted, will check stool occult blood. Patient;s son insists on using IV Lasix for refractory edema; will do spot dosing of IV Lasix and hold PO Lasix at this time; - Subjective Interval history: Reports intermittent abdominal pain, has constipation at baseline; has chronic back and leg pains; noted to be watching TV, completed his lunch; - Constitutional Vitals: Temp Pulse Resp BP Pulse Ox 97.8 F 115 96 94/84 18 01/01/17 07:59 01/01/17 12:19 01/01/17 12:19 01/01/17 12:19 01/01/17 12:19 General appearance: Present: cooperative, A&O X 3, morbidly obese, answers questions appropriately - Respiratory Respiratory exam: Present: CTAB. Absent: accessory muscle use, rales, rhonchi, wheezes - Cardiovascular Cardiovascular exam: Present: irregular rhythm, +S1, +S2. Absent: diastolic murmur, gallop, rubs, systolic murmur - GI/Abdominal GI/Abdominal exam: Present: distended, firm (Chronic changes of significant cutaneous edema, former and distended abdomen with good bowel sounds), normal bowel sounds, soft, no peritoneal signs. Absent: tenderness - Extremities Exam Extremities exam: Present: pedal edema (Chronic significant pedal edema, extending up to groin including scrotal and abdominal wall edema), warm, radial pulses palpable and symmetrical. Absent: calf tenderness, cyanotic - Skin Skin exam: Present: dry, intact Additional comments: Stage IV sacral and left ischial decubitus ulcers-stable. Bilateral anterior leg wounds-stable Internal Medicine: Result - Labs CBC & Chem 7: 01/01/17 04:46 01/01/17 04:46 Labs: Short CBC 01/01/17 Range/Units 04:46 WBC 10.7 (4.3-11.1) K/mcL Hgb 10.1 L (12.9-16.9) g/dL Hct 32.9 L (37.5-50.1) % Plt Count 139 L (140-400) K/mcL Neutrophils # 9.0 H (1.6-8.9) K/mcL BMP 01/01/17 04:46 Sodium 132 L Potassium 4.7 H Chloride 98 Carbon Dioxide 25 BUN 62 H Creatinine 0.97 Glucose 159 H Calcium 8.2 L - ABG Interpretation ABG results: ABG ABG pH 7.35 pH Units (7.32-7.45) 01/01/17 13:29 ABG pCO2 48 mmHg (35-45) H 01/01/17 13:29 ABG pO2 62 mmHg (85-104) L 01/01/17 13:29 ABG O2 Saturation 90 % (95-98) L 01/01/17 13:29 PT/INR, D-dimer PT 16.0 Seconds (9.4-12.1) H 12/31/16 11:24 - VTE Documentation of Mechanical Device: Intermittent pneumatic compression device Consult Discharge Plan - Plan Referrals: Dylon Winston MD [Primary Care Provider] - 01/06/17 2:15 pm
[2017-01-01] MEDS: Latanoprost 2.5 ML BOTTLE BOTH EYES SCH (22:54)
[2017-01-02] MEDS: Insulin LISPRO 300 UNITS/3 ML VIAL SQ SCH ×8 (00:08→22:21)
[2017-01-02] MEDS: *HR* OxyCODONE/APAP 10/325 TABLET PO SCH ×6 (02:45→22:51)
[2017-01-02] MEDS: Ipratropium/Albuterol Neb 3 ML IH SCH ×5 (04:22→22:20)
[2017-01-02] MEDS: Pregabalin 50 MG CAPSULE PO SCH ×3 (08:35→22:22)
[2017-01-02] MEDS: *HR* Enoxaparin 150 MG/ML SYRINGE SQ SCH ×2 (08:35→22:23)
[2017-01-02] MEDS: Furosemide 40 MG TABLET PO SCH ×2 (08:35→17:10)
[2017-01-02] MEDS: Ketoconazole 2% CRM 15 GM TUBE TP SCH ×2 (08:38→22:23)
[2017-01-02] MEDS: Gentamicin Oint 15 GM TUBE TP SCH ×3 (08:38→22:21)
[2017-01-02] MEDS: ZETIA 10MG PO SCH (08:38)
[2017-01-02 12:43] LABS: BUN/Creatinine Ratio 50 (6-26); Blood Urea Nitrogen 70 mg/dL (8-26); Calcium 8.1 mg/dL (8.6-10.8); Carbon Dioxide 26 mEq/L (19-29); Chloride 98 mEq/L (98-109); Glucose 160 mg/dL (70-99); Magnesium 1.9 mg/dL (1.6-2.6); Osmolality,Calculated 294 (280-300); Potassium 4.8 mEq/L (3.5-4.5); Sodium 130 mEq/L (136-145); eGFR For African Americans > 60 (> 60); eGFR For Non-African Americans 52 (> 60)
--- NOTE | 2017-01-02 16:22 | Neurology - Consult Note ---
Date of Encounter: 01/02/17 Time of Encounter: 16:15 Assessment and Plan (1) Myoclonic jerking Current Visit: Yes Status: Acute This patient's myoclonic jerking is due to derangement in his metabolic profile. It is not due to a primary central nervous system disorder. Factors which are most readily identified are the fact that the myoclonic jerks seem to coincide with when he is not wearing his CPAP mask and has a poor seal. This was demonstrated today at bedside. Other factors to consider are; his abnormal kidney function, and the hyponatremia. Hypocalcemia is also associated with myoclonic jerks. Lactic acidosis may contribute to this. I also recommend checking hepatic functions. His son seems to feel the Klonopin helped his dad with these myoclonic jerks in the past. I might suggest starting a low dose of Klonopin perhaps 1 mg twice a day and titrating to effect. I also recommend having respiratory therapy evaluate his CPAP unit, mask and tubing for potential problems here. We will evaluate him at your request. History of Present Illness HPI: Mr. Echavarria is a 61 year old male who has multiple chronic illnesses including COPD and is dependent on CPAP is being seen for neurologic evaluation secondary to myoclonic jerks. He is also a diabetic, and functionally is quadriplegic and is been bedridden for many years. He is hospitalized secondary to urosepsis. He has an indwelling Cano catheter and is prone to recurrent urinary tract infections. He has a history of severe cervical spinal stenosis at multiple levels which I presume is why he is quadriparetic. His son informs me that his dad has been bedridden for about 13 years. His son has noticed that whenever he is not on the BiPAP is when the myoclonic jerks tend to occur. He is a known CO2 retainer. He has also been hyponatriemic, with a BUN:creatine of >50. His son has noticed that when he has his BiPAP for extended periods of time the jerks seem to occur. He had the mask on and he was not jerking. His son believes that this mask is not sufficient. After he took the mask off so that he could talk and I could not assess him after about 15 minutes the myoclonic jerks began. Past Med Surg Social Fam HX - Past Medical History Medical history: arthritis, atrial fibrillation, cardiomyopathy, cirrhosis, CHF , COPD, coronary artery disease, CVA, DVT, dementia, diabetes, GERD, GI bleed, hepatitis, hyperlipidemia, hypertension, kidney stones, liver disease, migraine , myocardial infarction, osteoporosis, peripheral artery disease, pulmonary embolus, renal disease, TIA, venous stasis Psychiatric history: anxiety, bipolar, depression - Past Surgical History Surgical History: cholecystectomy, pacemaker/AICD - Social History Smoking Status: Former smoker Smokeless Tobacco Status: No Alcohol use: none Drug use: none - Family History Mother Adopted: No Twin of Family Member: Yes Living Status: Cause of : hematoma Hx Family Cardiac Disorders: No Hx Family Respiratory Disorders: No Hx Family Cancer: Yes (brother, small cell carcinoma) Hx Family GI Disorders: No Hx Family Genitourinary Disorders: No Hx Family Endocrine Disorder: No Hx Family Musculoskeletal Disorders: No Hx Family Neuromuscular Disorders: No Hx Family Neurologic Disorders: No Hx Family HEENT Disorders: No Hx Family Autoimmune Disorders: No Hx Family Reproductive Disorders: No Hx Family Psychosocial Disorders: No Hx Family Medical Disorders: No Medications and Allergies Aspirin Enteric Coated [Aspirin EC] 81 mg PO QAM #0 03/28/15 [History] Carvedilol [Coreg] 6.25 mg PO BIDWM 03/28/15 [History] Ezetimibe [Zetia] 10 mg PO QAM 03/28/15 [History] Latanoprost [Xalatan] 1 drop BOTH EYES HS 03/28/15 [History] Tamsulosin [Flomax] 0.4 mg PO QPM 03/28/15 [History] Simethicone [Gas-X] 80 mg PO TID PRN #0 tab.chew 04/03/15 [Rx] Ondansetron HCl [Zofran] 4 mg PO Q8H PRN #20 tablet 09/12/15 [Rx] Pregabalin [Lyrica] 50 mg PO TID 30 Days 09/12/15 [Rx] Albuterol Sulfate [Albuterol Inhaler] 2 puff IH TID PRN 03/12/16 [History] Docusate [Colace] 100 mg PO BID PRN 03/12/16 [History] Furosemide [Lasix] 40 mg PO BID 03/12/16 [History] Insulin Glargine [Lantus] 60 unit SQ BID 03/12/16 [History] Ketoconazole 2% CRM [Nizoral Cream] 1 appl TP BID 03/12/16 [History] Lactose-Reduced Food [Ensure Liquid] 1 bottle PO TID 03/12/16 [History] Oxycodone HCl/Acetaminophen [Percocet 10-325 mg Tablet] 1 tab PO 5XD 03/12/16 [ History] Promethazine [Phenergan] 25 mg PO BID PRN 03/12/16 [History] Ferrous Sulfate [Iron] 325 mg PO DAILY 10/24/16 [History] Gentamicin Oint [Garamycin] 1 appl TP TID 10/24/16 [History] Ipratropium/Albuterol Neb [Duoneb] 3 ml IH Q6HR 10/24/16 [History] Mupirocin [Bactroban Oint] 1 appl TP BID 10/24/16 [History] Enoxaparin [Lovenox] 150 mg SQ Q12HR #0 10/29/16 [Rx] Omeprazole [PriLOSEC] 20 mg PO BIDAC #60 capsule. 10/29/16 [Rx] Collagenase Oint [Santyl] 1 appl TP BID 12/24/16 [History] Allergies celecoxib [From Celebrex] Allergy (Verified 03/12/16 04:44) Swelling of Lip/Tongue/Throat gabapentin [From Neurontin] Allergy (Verified 03/12/16 04:44) Swelling of Lip/Tongue/Throat nifedipine [From Procardia] Allergy (Verified 03/12/16 04:44) Swelling of Lip/Tongue/Throat Penicillins Allergy (Verified 03/12/16 04:44) Swelling of Lip/Tongue/Throat rofecoxib [From Vioxx] Allergy (Verified 03/12/16 04:44) Swelling of Lip/Tongue/Throat iodine Adverse Reaction (Verified 03/12/16 04:44) See Comments Son states that pt has "swelling" wherever it touches his skin. povidone-iodine [From Betadine] Adverse Reaction (Verified 03/12/16 04:44) See Comments Son states that pt has "swelling" when it touches the skin. soap [From Betadine] Adverse Reaction (Verified 03/12/16 04:44) See Comments All Systems: A 10-system review of systems was performed and is negative for pertinent findings except as documented above in the HPI. Review of Systems: Review of systems is consistent with the history of present illness otherwise negative. Physical Examination - Vital Signs Vital Signs: Initial Vital Signs Temp Pulse Resp BP Pulse Ox 98.1 F 70 18 84/53 93 12/23/16 23:29 12/23/16 23:29 12/23/16 23:29 12/23/16 23:29 12/23/16 23:29 - Exam Exam: Patient is awake and alert is able to follow commands and answer questions appropriately. No agnosia or aphasia identified. He is not currently encephalopathic. Cranial nerves II through XII are intact. Motor exam finds significant atrophy of both hands and legs. He is able to arms up however has significant inability to direct care provider and to move his legs. He is able to move his toes. After removing his BiPAP mask for about 15 minutes or so the myoclonic jerks of his upper extremities began. They remit when he wears the mask and the seal is good. Results - Laboratory Findings CBC and BMP: 01/01/17 04:46 01/02/17 12:08 Abnormal lab findings: Abnormal lab results RBC 3.79 M/mcL (4.19-5.50) L 01/01/17 04:46 Hgb 10.1 g/dL (12.9-16.9) L 01/01/17 04:46 Hct 32.9 % (37.5-50.1) L 01/01/17 04:46 MCH 26.6 pg (28.0-33.3) L 01/01/17 04:46 MCHC 30.7 g/dL (31.6-35.5) L 01/01/17 04:46 RDW 16.3 % (11.5-14.5) H 01/01/17 04:46 Plt Count 139 K/mcL (140-400) L 01/01/17 04:46 Neutrophils # 9.0 K/mcL (1.6-8.9) H 01/01/17 04:46 Lymphocytes # 0.5 K/mcL (0.6-4.6) L 01/01/17 04:46 PT 16.0 Seconds (9.4-12.1) H 12/31/16 11:24 ABG pCO2 48 mmHg (35-45) H 01/01/17 13:29 ABG pO2 62 mmHg (85-104) L 01/01/17 13:29 ABG Total CO2 28.0 mEq/L (20-26) H 01/01/17 13:29 ABG O2 Saturation 90 % (95-98) L 01/01/17 13:29 Sodium 130 mEq/L (136-145) L 01/02/17 12:08 Potassium 4.8 mEq/L (3.5-4.5) H 01/02/17 12:08 BUN 70 mg/dL (8-26) H 01/02/17 12:08 Creatinine 1.39 mg/dL (0.72-1.25) H 01/02/17 12:08 Est GFR (Non-Af Amer) 52 (> 60) L 01/02/17 12:08 BUN/Creatinine Ratio 50 (6-26) H 01/02/17 12:08 Glucose 160 mg/dL (70-99) H 01/02/17 12:08 POC Glucose 186 (58-89) H 01/02/17 11:43 Uric Acid 13.0 mg/dL (3.5-7.2) H 12/24/16 06:22 Calcium 8.1 mg/dL (8.6-10.8) L 01/02/17 12:08 Ionized Calcium 1.05 mmol/L (1.15-1.35) L 12/29/16 04:41 Total Bilirubin 1.4 mg/dL (0.2-1.2) H 12/24/16 00:03 Albumin 2.4 g/dL (3.5-5.0) L 12/24/16 00:03 Globulin 4.6 g/dL (2.4-3.5) H 12/24/16 00:03 Albumin/Globulin Ratio 0.5 (1.1-2.2) L 12/24/16 00:03 Urine Clarity Cloudy (Clear) A 12/23/16 23:50 Urine Protein >=300 mg/dL (Neg-Trace) H 12/23/16 23:50 Urine Ketones Trace mg/dL (Negative) H 12/23/16 23:50 Urine Blood Large (Negative) H 12/23/16 23:50 Urine Bilirubin Moderate (Negative) H 12/23/16 23:50 Urine Urobilinogen 2.0 mg/dL (Normal) H 12/23/16 23:50 Ur Leukocyte Esterase Large (Negative) H 12/23/16 23:50 Urine Microscopic WBC TNTC per hpf (0-3) H 12/23/16 23:50 Ur Culture Indicated? YES (NO) A 12/23/16 23:50 Consult Discharge Plan - Plan Referrals: Dylon Winston MD [Primary Care Provider] - 01/06/17 2:15 pm
[2017-01-02] MEDS: clonazePAM 1 MG TABLET PO SCH (22:22)
[2017-01-02] MEDS: Latanoprost 2.5 ML BOTTLE BOTH EYES SCH (22:34)
[2017-01-03] MEDS: *HR* OxyCODONE/APAP 10/325 TABLET PO SCH ×6 (03:00→23:55)
[2017-01-03 04:34] LABS: Potassium 4.6 mEq/L (3.5-4.5)
[2017-01-03 04:36] LABS: Albumin 2.2 g/dL (3.5-5.0); Albumin/Globulin Ratio 0.5 (1.1-2.2); Bilirubin,Direct 0.3 mg/dL (0.0-0.5); Bilirubin,Indirect 0.3 mg/dL (0.0-1.2); Bilirubin,Total 0.6 mg/dL (0.2-1.2); Globulin 4.6 g/dL (2.4-3.5); Total Protein 6.8 g/dL (6.0-8.3)
[2017-01-03] MEDS: Ipratropium/Albuterol Neb 3 ML IH SCH ×4 (04:39→21:55)
[2017-01-03] MEDS: Insulin LISPRO 300 UNITS/3 ML VIAL SQ SCH ×7 (09:49→21:49)
[2017-01-03] MEDS: Pregabalin 50 MG CAPSULE PO SCH ×3 (09:50→20:40)
[2017-01-03] MEDS: clonazePAM 1 MG TABLET PO SCH ×2 (09:50→20:40)
[2017-01-03] MEDS: Gentamicin Oint 15 GM TUBE TP SCH ×3 (09:51→20:40)
[2017-01-03] MEDS: *HR* Enoxaparin 150 MG/ML SYRINGE SQ SCH ×2 (09:51→20:39)
[2017-01-03] MEDS: ZETIA 10MG PO SCH (09:52)
[2017-01-03] MEDS: Ketoconazole 2% CRM 15 GM TUBE TP SCH ×2 (09:52→20:40)
--- NOTE | 2017-01-03 11:44 | Internal Med Progress Note ---
Date of Encounter: 01/02/17 Time of Encounter: 11:00 - Assessment and plan (1) Myoclonic jerking Current Visit: Yes Status: Acute Assessment and plan: New onset, likely related to metabolic causes. Neurology consult appreciated- we will check lactic acid, BMP, hepatic panel. Start Klonopin 1 mg twice a day. Continue nocturnal BiPAP. Patient's home mask may need to be refitted/ tested for air leak. (2) Elevated BUN Current Visit: Yes Status: Acute Assessment and plan: Use of Lasix/dehydration versus GI bleed. EGD from October 2016 shows erosive gastritis and reflux esophagitis and patient is noted to be on twice daily PPI. We will hold aspirin. Patient does not have regular bowel movements and refuses to take laxatives as he has nausea and emesis with them. He also refuses colonoscopy. Patient's multiple medical conditions are difficult to be controlled and at this time he is stable as he can get. Risks and benefits of anticoagulation needs to be assessed frequently. Patient's son doses Lovenox at his discretion. He is at risk for stroke from atrial fibrillation along with history of venous thromboembolism and at risk from GI bleed with anticoagulation. Hemoglobin is noted to be relatively stable at this time, continue current management. (3) Catheter-associated urinary tract infection Current Visit: Yes Status: Acute Assessment and plan: Noted to have chronic suprapubic catheter due to neurogenic bladder, bedbound status. Patient presented with leukocytosis, fever at home, chronic hypotension , elevated serum creatinine from baseline. Blood cultures remain negative. Urine culture grows resistant Pseudomonas, sensitive to cefepime/meropenem/ Zosyn. Infectious diseases have been consulted, patient completed 8 day course of IV cefepime. ID currently signed off, no further recommendations. Qualifiers: Indwelling urinary catheter type: indwelling urethral catheter Encounter type: subsequent encounter Qualified Code(s): T83.511D - Infection and inflammatory reaction due to indwelling urethral catheter, subsequent encounter ; N39.0 - Urinary tract infection, site not specified (4) Hypotension Current Visit: Yes Status: Chronic Qualifiers: Hypotension type: unspecified hypotension type Qualified Code(s): I95.9 - Hypotension, unspecified (5) Sacral decubitus ulcer, stage IV Current Visit: Yes Status: Chronic Assessment and plan: Patient is noted to have chronic stage IV sacral decubitus ulcer and left ischial ulcer. No evidence of infection. He follows at the wound care clinic, however noted to be noncompliant with wound care recommendations. Patient's son insists on doing dressing changes himself and does not allow nursing staff to evaluate or change patient's dressings. (6) Rash Current Visit: Yes Status: Resolved (7) ICD (implantable cardioverter-defibrillator) in place Current Visit: Yes Status: Chronic (8) History of pulmonary embolism Current Visit: Yes Status: Chronic Assessment and plan: Patient has history of multiple venous thromboembolism episodes in the past along with underlying atrial fibrillation. He reportedly failed several anticoagulants in the past and is currently being maintained on subcutaneous Lovenox. Patient's son insists on giving him only half the dose once daily due to possible internal bleeding and he claims this is the dose recommended by patient's primary care provider. (9) DM (diabetes mellitus), type 2 Current Visit: Yes Status: Chronic Assessment and plan: Continue Accu-Chek blood glucose monitoring with sliding scale insulin. Noted to have episodes of low normal to low blood sugars, we will hold basal insulin at this time. Continue nutritional insulin. Diabetic diet. Qualifiers: Diabetes mellitus complication status: with skin complications Diabetes mellitus complication detail: with other skin ulcer Diabetes mellitus [facility] insulin use: with exterminator helper termite use Qualified Code(s): E11.622 - Type 2 diabetes mellitus with other skin ulcer; Z79.4 - intermediate card tender (current) use of insulin (10) COPD (chronic obstructive pulmonary disease) Current Visit: Yes Status: Chronic Qualifiers: COPD type: emphysema Emphysema type: unspecified Qualified Code(s): J43.9 - Emphysema, unspecified (11) A-fib Current Visit: Yes Status: Chronic Assessment and plan: Status post pacemaker/ICD placement. continue Lovenox; currently rate-controlled ; Qualifiers: Atrial fibrillation type: chronic Qualified Code(s): I48.2 - Chronic atrial fibrillation (12) Peripheral edema Current Visit: Yes Status: Acute Assessment and plan: Patient noted to have worsening BUN- dehydration, use of Lasix ?GI bleed; will hold Lasix at this time due to elevated serum creatinine, BUN; - Subjective Interval history: Reports feeling about the same. Noted to have jerks in both his arms; reports having a bowel movement yesterday; - Constitutional Vitals: Temp Pulse Resp BP Pulse Ox 97.4 F L 122 18 92/71 97 01/03/17 08:29 01/03/17 08:29 01/03/17 08:29 01/03/17 08:29 01/03/17 08:29 General appearance: Present: cooperative, A&O X 3, morbidly obese, answers questions appropriately - Respiratory Respiratory exam: Present: CTAB (anterolaterally B/L). Absent: accessory muscle use, rales, rhonchi, wheezes - Cardiovascular Cardiovascular exam: Present: RRR, +S1, +S2. Absent: diastolic murmur, gallop, rubs, systolic murmur - GI/Abdominal GI/Abdominal exam: Present: normal bowel sounds, soft (cutaneous edema ), no peritoneal signs. Absent: distended, tenderness - Extremities Exam Extremities exam: Present: pedal edema (stable bipedal edema extending into scrota and abdomen), warm, radial pulses palpable and symmetrical. Absent: calf tenderness, cyanotic Internal Medicine: Result - Labs CBC & Chem 7: 01/01/17 04:46 01/03/17 04:07 Labs: BMP 01/02/17 01/03/17 12:08 04:07 Sodium 130 L 132 L Potassium 4.8 H 4.6 H Chloride 98 97 L Carbon Dioxide 26 27 BUN 70 H 73 H Creatinine 1.39 H 1.57 H Glucose 160 H 114 H Calcium 8.1 L 8.0 L Liver Function 01/03/17 Range/Units 04:07 Total Bilirubin 0.6 (0.2-1.2) mg/dL Direct Bilirubin 0.3 (0.0-0.5) mg/dL AST 13 (5-34) Units/L ALT 8 (0-55) Units/L Alkaline Phosphatase 83 (38-126) Units/L Albumin 2.2 L (3.5-5.0) g/dL - ABG Interpretation ABG results: ABG ABG pH 7.35 pH Units (7.32-7.45) 01/01/17 13:29 ABG pCO2 48 mmHg (35-45) H 01/01/17 13:29 ABG pO2 62 mmHg (85-104) L 01/01/17 13:29 ABG O2 Saturation 90 % (95-98) L 01/01/17 13:29 PT/INR, D-dimer PT 16.0 Seconds (9.4-12.1) H 12/31/16 11:24 - VTE Documentation of Mechanical Device: Intermittent pneumatic compression device Consult Discharge Plan - Plan Referrals: Dylon Winston MD [Primary Care Provider] - 01/06/17 2:15 pm
--- NOTE | 2017-01-03 11:49 | Internal Med Progress Note ---
Date of Encounter: 01/03/17 Time of Encounter: 11:47 - Assessment and plan (1) DESEAN (acute kidney injury) Current Visit: Yes Status: Acute Assessment and plan: Likely due to the use of IV Lasix. Continue to hold Lasix at this time and monitor serum creatinine. (2) Myoclonic jerking Current Visit: Yes Status: Acute Assessment and plan: New onset, likely related to metabolic causes and medications. Serum sodium improving, corrected serum calcium within normal limits, lactic acid and hepatic function panel noted to be within normal limits. Neurology follow-up appreciated-hold Reglan, which is likely responsible for myoclonus and continue Klonopin 1 mg twice a day. Continue nocturnal BiPAP. Patient's home mask may need to be refitted/tested for air leak. (3) Elevated BUN Current Visit: Yes Status: Acute Assessment and plan: Use of Lasix/dehydration versus GI bleed. EGD from October 2016 shows erosive gastritis and reflux esophagitis and patient is noted to be on twice daily PPI. We will hold aspirin. Patient does not have regular bowel movements and refuses to take laxatives as he has nausea and emesis with them. He also refuses colonoscopy. Patient's multiple medical conditions are difficult to be controlled and at this time he is stable as he can get. Risks and benefits of anticoagulation needs to be assessed frequently. Patient's son doses Lovenox at his discretion. He is at risk for stroke from atrial fibrillation along with history of venous thromboembolism and at risk from GI bleed with anticoagulation. Hemoglobin is noted to be relatively stable at this time, continue current management. (4) Catheter-associated urinary tract infection Current Visit: Yes Status: Acute Assessment and plan: Noted to have chronic suprapubic catheter due to neurogenic bladder, bedbound status. Patient presented with leukocytosis, fever at home, chronic hypotension , elevated serum creatinine from baseline. Blood cultures remain negative. Urine culture grows resistant Pseudomonas, sensitive to cefepime/meropenem/ Zosyn. Infectious diseases have been consulted, patient completed 8 day course of IV cefepime. ID currently signed off, no further recommendations. Qualifiers: Indwelling urinary catheter type: indwelling urethral catheter Encounter type: subsequent encounter Qualified Code(s): T83.511D - Infection and inflammatory reaction due to indwelling urethral catheter, subsequent encounter ; N39.0 - Urinary tract infection, site not specified (5) Hypotension Current Visit: Yes Status: Chronic Qualifiers: Hypotension type: unspecified hypotension type Qualified Code(s): I95.9 - Hypotension, unspecified (6) Sacral decubitus ulcer, stage IV Current Visit: Yes Status: Chronic (7) Rash Current Visit: Yes Status: Resolved (8) ICD (implantable cardioverter-defibrillator) in place Current Visit: Yes Status: Chronic (9) History of pulmonary embolism Current Visit: Yes Status: Chronic (10) DM (diabetes mellitus), type 2 Current Visit: Yes Status: Chronic Assessment and plan: Continue Accu-Chek blood glucose monitoring with sliding scale insulin. Blood sugars noted to be improving. Continue nutritional insulin. Diabetic diet. Qualifiers: Diabetes mellitus complication status: with skin complications Diabetes mellitus complication detail: with other skin ulcer Diabetes mellitus [facility] insulin use: with fdc use Qualified Code(s): E11.622 - Type 2 diabetes mellitus with other skin ulcer; Z79.4 - terminal carman (current) use of insulin (11) COPD (chronic obstructive pulmonary disease) Current Visit: Yes Status: Chronic Qualifiers: COPD type: emphysema Emphysema type: unspecified Qualified Code(s): J43.9 - Emphysema, unspecified (12) A-fib Current Visit: Yes Status: Chronic Qualifiers: Atrial fibrillation type: chronic Qualified Code(s): I48.2 - Chronic atrial fibrillation (13) Peripheral edema Current Visit: Yes Status: Acute Assessment and plan: Patient noted to have worsening BUN- dehydration, use of Lasix ?GI bleed; will hold Lasix at this time due to elevated serum creatinine, BUN; - Subjective Interval history: Noted to be resting in bed; able to answer questions, no acute changes; jerking in both his arms is improving; - Constitutional Vitals: Temp Pulse Resp BP Pulse Ox 97.4 F L 122 18 92/71 97 01/03/17 08:29 01/03/17 08:29 01/03/17 08:29 01/03/17 08:29 01/03/17 08:29 General appearance: Present: cooperative, A&O X 3, morbidly obese, answers questions appropriately - Respiratory Respiratory exam: Present: CTAB (anterolaterally). Absent: accessory muscle use , rales, rhonchi, wheezes - Cardiovascular Cardiovascular exam: Present: RRR, +S1, +S2. Absent: diastolic murmur, gallop, rubs, systolic murmur - GI/Abdominal GI/Abdominal exam: Present: normal bowel sounds, soft (cutaneous edema stable), no peritoneal signs. Absent: distended, tenderness - Extremities Exam Extremities exam: Present: full ROM (paraplegic), pedal edema, warm, radial pulses palpable and symmetrical. Absent: calf tenderness, cyanotic Internal Medicine: Result - Labs CBC & Chem 7: 01/01/17 04:46 01/03/17 04:07 Labs: BMP 01/02/17 01/03/17 12:08 04:07 Sodium 130 L 132 L Potassium 4.8 H 4.6 H Chloride 98 97 L Carbon Dioxide 26 27 BUN 70 H 73 H Creatinine 1.39 H 1.57 H Glucose 160 H 114 H Calcium 8.1 L 8.0 L Liver Function 01/03/17 Range/Units 04:07 Total Bilirubin 0.6 (0.2-1.2) mg/dL Direct Bilirubin 0.3 (0.0-0.5) mg/dL AST 13 (5-34) Units/L ALT 8 (0-55) Units/L Alkaline Phosphatase 83 (38-126) Units/L Albumin 2.2 L (3.5-5.0) g/dL - ABG Interpretation ABG results: ABG ABG pH 7.35 pH Units (7.32-7.45) 01/01/17 13:29 ABG pCO2 48 mmHg (35-45) H 01/01/17 13:29 ABG pO2 62 mmHg (85-104) L 01/01/17 13:29 ABG O2 Saturation 90 % (95-98) L 01/01/17 13:29 PT/INR, D-dimer PT 16.0 Seconds (9.4-12.1) H 12/31/16 11:24 - VTE Documentation of Mechanical Device: Intermittent pneumatic compression device Consult Discharge Plan - Plan Referrals: Dylon Winston MD [Primary Care Provider] - 01/06/17 2:15 pm
--- NOTE | 2017-01-03 13:20 | Neurology Progress Note ---
Date of Encounter: 01/03/17 Time of Encounter: 13:20 Assessment and Plan (1) Myoclonic jerking Current Visit: Yes Status: Acute 61-year old man, chronically, paraplegic with myoclonus of upper extremities, likely secondary to a combination of factors including medication ( metoclopramide) and other metabolic issues. Agree that hypoxemia would make these myoclonic jerks worse. Discontinue metoclopramide. Continue clonazepam for now. Correct metabolic issues. Streamline BiPAP treatment. Call if questions. Subjective Principal diagnosis: myoclonus Interval history: the patient is seen in follow-up today. He still continues to have myoclonus, worsened when his BiPAP is removed. Medication list contains metoclopramide. Son at bedside gives a long history of illness of his father and that previously metoclopramide had bad side effects with him. No new complaints. Objective - Constitutional Vitals: Temp Pulse Resp BP Pulse Ox 97.4 F L 122 20 92/71 93 01/03/17 08:29 01/03/17 08:29 01/03/17 10:51 01/03/17 08:29 01/03/17 10:51 Vital Signs - 24 hr 01/02/17 16:28 01/02/17 22:01 01/02/17 22:36 Temperature 98.1 F 97.4 F L Pulse Rate 93 73 84 Respiratory Rate 18 16 Blood Pressure 79/57 95/63 100/62 O2 Sat by Pulse Oximetry 96 98 98 01/03/17 02:06 01/03/17 05:14 01/03/17 08:29 Temperature 97.5 F L 97.4 F L Pulse Rate 85 91 122 Respiratory Rate 18 18 Blood Pressure 102/68 103/74 92/71 O2 Sat by Pulse Oximetry 100 97 01/03/17 10:51 Temperature Pulse Rate Respiratory Rate 20 Blood Pressure O2 Sat by Pulse Oximetry 93 General appearance: Present: cooperative, A&O X 3, morbidly obese, answers questions appropriately - Head Head exam: Present: atraumatic - Neurological Exam Sensorimotor examination: Present: other (severe sensory loss distally ini UE and in legs bilaterally; paraplegia) Motor examination - right side: 1/5: hip flexors, tibialis Anterior, quadriceps , toe extension (EHL), plantarflexion, 4/5: deltoids, biceps, triceps, wrist flexion, wrist extension, ore smelter Motor examination - left side: 1/5: hip flexors, quadriceps, tibialis Anterior, toe extension (EHL), plantarflexion, 4/5: deltoids, biceps, triceps, wrist flexion, wrist extension, ore smelter Sensation intact: Present: other (decreased and/or absent see above) Reflex and gait examination: other (paraplegia) Reflexes: Biceps: 0, Triceps: 0, Brachioradialis: 0, Patella: 0, Achilles: 0 Mental Status Examination: Present: awake, alert, oriented to person, oriented to place, oriented to time, follows commands appropriately, answers questions appropriately, no agnosia, no aphasia, no aproxia, lucid, makes eye contact, follows simple commands. Absent: does not follow commands Cranial nerve examination: Present: PERRL, EOMI, visual strange intact, corneal reflexes brisk symmetrically, sensory to face intact, mastication intact, no facial asymmetry is present, no dysarthria, hearing is intact symmetrically, soft palate elevates bilaterally upon phonation, gag reflex intact, flexes SCM and trapezius muscles symmetrically with full power, tongue protrudes midline, no atrophy or facial fasiculations present Cerebellar examination: Absent: no dysmetria (myoclonic jerks (L>R) noted in biltaeral UE) - VTE Documentation of Mechanical Device: Intermittent pneumatic compression device Results - Laboratory Findings CBC and BMP: 01/01/17 04:46 01/03/17 04:07 Abnormal lab findings: Abnormal lab results RBC 3.79 M/mcL (4.19-5.50) L 01/01/17 04:46 Hgb 10.1 g/dL (12.9-16.9) L 01/01/17 04:46 Hct 32.9 % (37.5-50.1) L 01/01/17 04:46 MCH 26.6 pg (28.0-33.3) L 01/01/17 04:46 MCHC 30.7 g/dL (31.6-35.5) L 01/01/17 04:46 RDW 16.3 % (11.5-14.5) H 01/01/17 04:46 Plt Count 139 K/mcL (140-400) L 01/01/17 04:46 Neutrophils # 9.0 K/mcL (1.6-8.9) H 01/01/17 04:46 Lymphocytes # 0.5 K/mcL (0.6-4.6) L 01/01/17 04:46 PT 16.0 Seconds (9.4-12.1) H 12/31/16 11:24 ABG pCO2 48 mmHg (35-45) H 01/01/17 13:29 ABG pO2 62 mmHg (85-104) L 01/01/17 13:29 ABG Total CO2 28.0 mEq/L (20-26) H 01/01/17 13:29 ABG O2 Saturation 90 % (95-98) L 01/01/17 13:29 Sodium 132 mEq/L (136-145) L 01/03/17 04:07 Potassium 4.6 mEq/L (3.5-4.5) H 01/03/17 04:07 Chloride 97 mEq/L (98-109) L 01/03/17 04:07 BUN 73 mg/dL (8-26) H 01/03/17 04:07 Creatinine 1.57 mg/dL (0.72-1.25) H 01/03/17 04:07 Est GFR ( Amer) 55 (> 60) L 01/03/17 04:07 Est GFR (Non-Af Amer) 45 (> 60) L 01/03/17 04:07 BUN/Creatinine Ratio 46 (6-26) H 01/03/17 04:07 Glucose 114 mg/dL (70-99) H 01/03/17 04:07 Uric Acid 13.0 mg/dL (3.5-7.2) H 12/24/16 06:22 Calcium 8.0 mg/dL (8.6-10.8) L 01/03/17 04:07 Ionized Calcium 1.05 mmol/L (1.15-1.35) L 12/29/16 04:41 Albumin 2.2 g/dL (3.5-5.0) L 01/03/17 04:07 Globulin 4.6 g/dL (2.4-3.5) H 01/03/17 04:07 Albumin/Globulin Ratio 0.5 (1.1-2.2) L 01/03/17 04:07 Urine Clarity Cloudy (Clear) A 12/23/16 23:50 Urine Protein >=300 mg/dL (Neg-Trace) H 12/23/16 23:50 Urine Ketones Trace mg/dL (Negative) H 12/23/16 23:50 Urine Blood Large (Negative) H 12/23/16 23:50 Urine Bilirubin Moderate (Negative) H 12/23/16 23:50 Urine Urobilinogen 2.0 mg/dL (Normal) H 12/23/16 23:50 Ur Leukocyte Esterase Large (Negative) H 12/23/16 23:50 Urine Microscopic WBC TNTC per hpf (0-3) H 12/23/16 23:50 Ur Culture Indicated? YES (NO) A 12/23/16 23:50 Consult Discharge Plan - Plan Referrals: Dylon Winston MD [Primary Care Provider] - 01/06/17 2:15 pm
[2017-01-03] MEDS: Latanoprost 2.5 ML BOTTLE BOTH EYES SCH (20:40)
[2017-01-04] MEDS: *HR* OxyCODONE/APAP 10/325 TABLET PO SCH ×6 (03:26→22:30)
[2017-01-04] MEDS: Ipratropium/Albuterol Neb 3 ML IH SCH ×4 (04:25→22:39)
[2017-01-04 06:28] LABS: Basophils % 0.2 %; Eosinophils # 0.1 K/mcL (0.0-0.6); Hematocrit 30.3 % (37.5-50.1); Hemoglobin 9.2 g/dL (12.9-16.9); Immature Granulocytes % 1.4 % (0-4); Lymphocytes # 0.5 K/mcL (0.6-4.6); Lymphocytes % 4.7 %; Mean Corpuscular HGB Conc 30.4 g/dL (31.6-35.5); Mean Corpuscular Hemoglobin 26.7 pg (28.0-33.3); Mean Corpuscular Volume 88.1 fL (83.0-100.0); Mean Platelet Volume 10.6 fL (9.4-12.4); Monocytes # 0.9 K/mcL (0.0-1.3); Monocytes % 9.1 %; Platelet Count 127 K/mcL (140-400); Red Blood Count 3.44 M/mcL (4.19-5.50); Red Cell Distribution Width 16.8 % (11.5-14.5); Segmented Neutrophils % 83.6 %
[2017-01-04 06:40] LABS: Calcium 7.8 mg/dL (8.6-10.8); Potassium 5.1 mEq/L (3.5-4.5)
[2017-01-04] MEDS: clonazePAM 1 MG TABLET PO SCH ×2 (09:12→22:29)
[2017-01-04] MEDS: Pregabalin 50 MG CAPSULE PO SCH ×3 (09:12→22:27)
[2017-01-04] MEDS: *HR* Enoxaparin 150 MG/ML SYRINGE SQ SCH ×2 (09:12→22:29)
[2017-01-04] MEDS: Insulin LISPRO 300 UNITS/3 ML VIAL SQ SCH ×7 (09:13→22:24)
[2017-01-04] MEDS: Gentamicin Oint 15 GM TUBE TP SCH ×3 (09:13→22:23)
[2017-01-04] MEDS: ZETIA 10MG PO SCH (09:14)
[2017-01-04] MEDS: Ketoconazole 2% CRM 15 GM TUBE TP SCH ×2 (09:14→22:24)
--- NOTE | 2017-01-04 10:38 | Internal Med Progress Note ---
Date of Encounter: 01/04/17 Time of Encounter: 10:36 - Assessment and plan (1) DESEAN (acute kidney injury) Current Visit: Yes Status: Acute Assessment and plan: Likely due to the use of IV Lasix. Serum creatinine continues to get worse and h/o- previous AKIs. Continue to hold Lasix at this time and monitor serum creatinine. Lovenox and Lyrica to be adjusted per his GFR; discussed with Pharmacy; Nephrology consult for further recommendations; Noted to have mild hyperkalemia, monitor closely; patient does not want laxatives; (2) Myoclonic jerking Current Visit: Yes Status: Acute Assessment and plan: New onset, likely related to metabolic causes and medications. Improving today. Neurology follow-up appreciated-hold Reglan, which is likely responsible for myoclonus and continue Klonopin 1 mg twice a day. Continue nocturnal BiPAP. Patient's home mask may need to be refitted/tested for air leak. (3) Elevated BUN Current Visit: Yes Status: Acute Assessment and plan: Use of Lasix/dehydration/DESEAN versus GI bleed. EGD from October 2016 shows erosive gastritis and reflux esophagitis and patient is noted to be on twice daily PPI. We will hold aspirin. Patient does not have regular bowel movements and refuses to take laxatives as he has nausea and emesis with them. He also refuses colonoscopy. Patient's multiple medical conditions are difficult to be controlled and at this time he is stable as he can get. Risks and benefits of anticoagulation needs to be assessed frequently. Hemoglobin is noted to be relatively stable at this time, although has >1g drop since admission; continue current management. (4) Catheter-associated urinary tract infection Current Visit: Yes Status: Resolved Assessment and plan: Noted to have chronic suprapubic catheter due to neurogenic bladder, bedbound status. Patient presented with leukocytosis, fever at home, chronic hypotension , elevated serum creatinine from baseline. Blood cultures remain negative. Urine culture grows resistant Pseudomonas, sensitive to cefepime/meropenem/ Zosyn. Infectious diseases have been consulted, patient completed 8 day course of IV cefepime. ID currently signed off, no further recommendations. Qualifiers: Indwelling urinary catheter type: indwelling urethral catheter Encounter type: subsequent encounter Qualified Code(s): T83.511D - Infection and inflammatory reaction due to indwelling urethral catheter, subsequent encounter ; N39.0 - Urinary tract infection, site not specified (5) Hypotension Current Visit: Yes Status: Chronic Qualifiers: Hypotension type: unspecified hypotension type Qualified Code(s): I95.9 - Hypotension, unspecified (6) Sacral decubitus ulcer, stage IV Current Visit: Yes Status: Chronic (7) Rash Current Visit: Yes Status: Resolved (8) ICD (implantable cardioverter-defibrillator) in place Current Visit: Yes Status: Chronic (9) History of pulmonary embolism Current Visit: Yes Status: Chronic (10) DM (diabetes mellitus), type 2 Current Visit: Yes Status: Chronic Assessment and plan: Continue Accu-Chek blood glucose monitoring with sliding scale insulin. Blood sugars noted to be improving. Continue nutritional insulin. Diabetic diet. Qualifiers: Diabetes mellitus complication status: with skin complications Diabetes mellitus complication detail: with other skin ulcer Diabetes mellitus fpc insulin use: with fpc use Qualified Code(s): E11.622 - Type 2 diabetes mellitus with other skin ulcer; Z79.4 - [facility] (current) use of insulin (11) COPD (chronic obstructive pulmonary disease) Current Visit: Yes Status: Chronic Qualifiers: COPD type: emphysema Emphysema type: unspecified Qualified Code(s): J43.9 - Emphysema, unspecified (12) A-fib Current Visit: Yes Status: Chronic Assessment and plan: Status post pacemaker/ICD placement. continue Lovenox; currently rate-controlled ; Qualifiers: Atrial fibrillation type: chronic Qualified Code(s): I48.2 - Chronic atrial fibrillation (13) Peripheral edema Current Visit: Yes Status: Acute Assessment and plan: Patient noted to have worsening BUN- dehydration, use of Lasix ?GI bleed; will hold Lasix at this time due to elevated serum creatinine, BUN; difficult to control peripheral edema due to morbid obesity, paraplegia, sedentary supine posture; - Subjective Interval history: Reports nausea but no vomiting; noted to have eaten most of his breakfast; no fever/chills; had bowel movements last evening per patient; no abdominal pain. - Constitutional Vitals: Temp Pulse Resp BP Pulse Ox 97.6 F 85 16 94/64 100 01/04/17 07:46 01/04/17 07:46 01/04/17 07:46 01/04/17 07:46 01/04/17 07:46 General appearance: Present: A&O X 3, morbidly obese, answers questions appropriately - Respiratory Respiratory exam: Present: CTAB (anterolaterally). Absent: accessory muscle use , rales, rhonchi, wheezes - Cardiovascular Cardiovascular exam: Present: irregular rhythm, +S1, +S2, systolic murmur. Absent: diastolic murmur, gallop, rubs - GI/Abdominal GI/Abdominal exam: Present: normal bowel sounds, soft (cutaneous edema), no peritoneal signs. Absent: distended, tenderness - Extremities Exam Extremities exam: Present: pedal edema, warm, radial pulses palpable and symmetrical. Absent: calf tenderness, cyanotic - Skin Skin exam: Present: dry, excoriation (B/L anterior leg wounds with scattered bleeding and significant skin edema), intact Internal Medicine: Result - Labs CBC & Chem 7: 01/04/17 06:04 01/04/17 06:04 Labs: Short CBC 01/04/17 Range/Units 06:04 WBC 9.6 (4.3-11.1) K/mcL Hgb 9.2 L (12.9-16.9) g/dL Hct 30.3 L (37.5-50.1) % Plt Count 127 L (140-400) K/mcL Neutrophils # 8.0 (1.6-8.9) K/mcL BMP 01/04/17 06:04 Sodium 130 L Potassium 5.1 H Chloride 97 L Carbon Dioxide 28 BUN 78 H Creatinine 1.79 H Glucose 152 H Calcium 7.8 L - ABG Interpretation ABG results: ABG ABG pH 7.35 pH Units (7.32-7.45) 01/01/17 13:29 ABG pCO2 48 mmHg (35-45) H 01/01/17 13:29 ABG pO2 62 mmHg (85-104) L 01/01/17 13:29 ABG O2 Saturation 90 % (95-98) L 01/01/17 13:29 PT/INR, D-dimer PT 16.0 Seconds (9.4-12.1) H 12/31/16 11:24 - VTE Documentation of Mechanical Device: Intermittent pneumatic compression device Consult Discharge Plan - Plan Referrals: Dylon Winston MD [Primary Care Provider] - 01/06/17 2:15 pm
[2017-01-04] MEDS: Latanoprost 2.5 ML BOTTLE BOTH EYES SCH (22:25)
[2017-01-05] MEDS: *HR* OxyCODONE/APAP 10/325 TABLET PO SCH ×6 (02:30→23:31)
[2017-01-05] MEDS: Ipratropium/Albuterol Neb 3 ML IH SCH ×4 (04:56→22:31)
[2017-01-05 05:25] LABS: Calcium 7.8 mg/dL (8.6-10.8); Magnesium 2.1 mg/dL (1.6-2.6); Potassium 5.4 mEq/L (3.5-4.5)
[2017-01-05 06:46] LABS: Basophils % 0.3 %; Eosinophils # 0.1 K/mcL (0.0-0.6); Eosinophils % 1.4 %; Hematocrit 32.1 % (37.5-50.1); Hemoglobin 9.8 g/dL (12.9-16.9); Immature Granulocytes % 1.3 % (0-4); Lymphocytes # 0.5 K/mcL (0.6-4.6); Lymphocytes % 5.2 %; Mean Corpuscular HGB Conc 30.5 g/dL (31.6-35.5); Mean Corpuscular Hemoglobin 27.5 pg (28.0-33.3); Mean Corpuscular Volume 89.9 fL (83.0-100.0); Mean Platelet Volume 11.5 fL (9.4-12.4); Monocytes # 0.8 K/mcL (0.0-1.3); Monocytes % 9.3 %; Neutrophils # 7.3 K/mcL (1.6-8.9); Platelet Count 109 K/mcL (140-400); Red Blood Count 3.57 M/mcL (4.19-5.50); Red Cell Distribution Width 16.7 % (11.5-14.5); Segmented Neutrophils % 82.5 %
[2017-01-05] MEDS: Ketoconazole 2% CRM 15 GM TUBE TP SCH ×2 (08:29→20:40)
[2017-01-05] MEDS: clonazePAM 1 MG TABLET PO SCH ×2 (08:29→20:38)
[2017-01-05] MEDS: ZETIA 10MG PO SCH (08:29)
[2017-01-05] MEDS: Gentamicin Oint 15 GM TUBE TP SCH ×3 (08:29→20:40)
--- NOTE | 2017-01-05 08:35 | Nephrology Consult Note ---
Date of Encounter: 01/05/17 Time of Encounter: 08:33 Assessment and Plan (1) Acute kidney failure, unspecified Current Visit: Yes Status: Acute Patient has a clinical picture of acute kidney injury that has developed since being in the hospital. He did initially present with a rash raising the possibility of acute interstitial nephritis. Urine analysis early on admission showed 300 mg/dL of protein raising the possibility of glomerular disease. Previous urinalyses did not show any significant proteinuria. Renal obstruction also needs to be ruled out despite the fact that the patient has a Cano catheter in place. Patient will need an evaluation for glomerular disease as well as acute interstitial nephritis. Appropriate studies will be ordered. A renal US WILL ALSO BE ORDERED. IF HE FAILS TO IMPROVE HE MAY REQUIRE RENAL BIOPSY AT SOME POINT. Qualifiers: Acute renal failure type: unspecified Qualified Code(s): N17.9 - Acute kidney failure, unspecified (2) Catheter-associated urinary tract infection Current Visit: Yes Status: Resolved Qualifiers: Indwelling urinary catheter type: indwelling urethral catheter Encounter type: initial encounter Qualified Code(s): T83.511A - Infection and inflammatory reaction due to indwelling urethral catheter, initial encounter; N39.0 - Urinary tract infection, site not specified (3) Anasarca Current Visit: No Status: Chronic (4) Chronic respiratory failure Current Visit: No Status: Chronic Qualifiers: Respiratory failure complication: hypoxia and hypercapnia Qualified Code(s) : J96.11 - Chronic respiratory failure with hypoxia; J96.12 - Chronic respiratory failure with hypercapnia History of Present Illness - History of Present Illness This is a 61-year-old male with an extensive past medical history. Patient was admitted several days ago with complaint of decreased urine output new onset skin rash and concern for urinary tract infection. Patient has a history of a neurogenic bladder and chronic indwelling Cano catheter. Urine cultures growing pseudomonas. Blood cultures are negative. Patient has had several hospitalizations with acute kidney injury at least at one point he required dialysis. On admission his creatinine was normal at 0.9. During his hospital stay his creatinine has steadily increased and currently is up to 1.95. Urine output is recorded as 450 mL yesterday. Patient received several doses of vancomycin early on in his hospitalization but for only 1 or 2 doses his naris I can tell. I do not see worries had any other nephrotoxin exposure. He continues to have an erythematous skin rash on his trunk and arms. Patient states that that started when he was using [place] powder at home. Patient is a functional quadriplegic. He is completely bedridden. He has issues with COPD diabetes spinal stenosis neurogenic bladder A. fib. He also has venous stasis ulcers. During his hospital stays been diagnosed with urinary tract infection as well as pneumonia. He is currently on antibiotics. He takes Lasix 40 mg twice daily at home. He was maintained on Lasix during his hospital stay. When his creatinine started to rise to Lasix was discontinued. On physical exam he has extensive anasarca. Past Med Surg Social Fam HX - Past Medical History Medical history: arthritis, atrial fibrillation, cardiomyopathy, cirrhosis, CHF , COPD, coronary artery disease, CVA, DVT, dementia, diabetes, GERD, GI bleed, hepatitis, hyperlipidemia, hypertension, kidney stones, liver disease, migraine , myocardial infarction, osteoporosis, peripheral artery disease, pulmonary embolus, renal disease, TIA, venous stasis Psychiatric history: anxiety, bipolar, depression - Past Surgical History Surgical History: cholecystectomy, pacemaker/AICD - Social History Smoking Status: Former smoker Smokeless Tobacco Status: No Alcohol use: none Drug use: none - Family History Mother Adopted: No Twin of Family Member: Yes Living Status: Cause of : hematoma Hx Family Cardiac Disorders: No Hx Family Respiratory Disorders: No Hx Family Cancer: Yes (brother, small cell carcinoma) Hx Family GI Disorders: No Hx Family Genitourinary Disorders: No Hx Family Endocrine Disorder: No Hx Family Musculoskeletal Disorders: No Hx Family Neuromuscular Disorders: No Hx Family Neurologic Disorders: No Hx Family HEENT Disorders: No Hx Family Autoimmune Disorders: No Hx Family Reproductive Disorders: No Hx Family Psychosocial Disorders: No Hx Family Medical Disorders: No Medications and Allergies Aspirin Enteric Coated [Aspirin EC] 81 mg PO QAM #0 03/28/15 [History] Carvedilol [Coreg] 6.25 mg PO BIDWM 03/28/15 [History] Ezetimibe [Zetia] 10 mg PO QAM 03/28/15 [History] Latanoprost [Xalatan] 1 drop BOTH EYES HS 03/28/15 [History] Tamsulosin [Flomax] 0.4 mg PO QPM 03/28/15 [History] Simethicone [Gas-X] 80 mg PO TID PRN #0 tab.chew 04/03/15 [Rx] Ondansetron HCl [Zofran] 4 mg PO Q8H PRN #20 tablet 09/12/15 [Rx] Pregabalin [Lyrica] 50 mg PO TID 30 Days 09/12/15 [Rx] Albuterol Sulfate [Albuterol Inhaler] 2 puff IH TID PRN 03/12/16 [History] Docusate [Colace] 100 mg PO BID PRN 03/12/16 [History] Furosemide [Lasix] 40 mg PO BID 03/12/16 [History] Insulin Glargine [Lantus] 60 unit SQ BID 03/12/16 [History] Ketoconazole 2% CRM [Nizoral Cream] 1 appl TP BID 03/12/16 [History] Lactose-Reduced Food [Ensure Liquid] 1 bottle PO TID 03/12/16 [History] Oxycodone HCl/Acetaminophen [Percocet 10-325 mg Tablet] 1 tab PO 5XD 03/12/16 [ History] Promethazine [Phenergan] 25 mg PO BID PRN 03/12/16 [History] Ferrous Sulfate [Iron] 325 mg PO DAILY 10/24/16 [History] Gentamicin Oint [Garamycin] 1 appl TP TID 10/24/16 [History] Ipratropium/Albuterol Neb [Duoneb] 3 ml IH Q6HR 10/24/16 [History] Mupirocin [Bactroban Oint] 1 appl TP BID 10/24/16 [History] Enoxaparin [Lovenox] 150 mg SQ Q12HR #0 10/29/16 [Rx] Omeprazole [PriLOSEC] 20 mg PO BIDAC #60 capsule. 10/29/16 [Rx] Collagenase Oint [Santyl] 1 appl TP BID 12/24/16 [History] Allergies celecoxib [From Celebrex] Allergy (Verified 03/12/16 04:44) Swelling of Lip/Tongue/Throat gabapentin [From Neurontin] Allergy (Verified 03/12/16 04:44) Swelling of Lip/Tongue/Throat nifedipine [From Procardia] Allergy (Verified 03/12/16 04:44) Swelling of Lip/Tongue/Throat Penicillins Allergy (Verified 03/12/16 04:44) Swelling of Lip/Tongue/Throat rofecoxib [From Vioxx] Allergy (Verified 03/12/16 04:44) Swelling of Lip/Tongue/Throat iodine Adverse Reaction (Verified 03/12/16 04:44) See Comments Son states that pt has "swelling" wherever it touches his skin. povidone-iodine [From Betadine] Adverse Reaction (Verified 03/12/16 04:44) See Comments Son states that pt has "swelling" when it touches the skin. soap [From Betadine] Adverse Reaction (Verified 03/12/16 04:44) See Comments Review of Systems Constitutional: as per HPI, weakness, weight loss Nose, mouth and throat: no dizziness, no headache(s) Cardiovascular: dyspnea, edema, irregular heart rhythm, no chest pain, no palpitations Respiratory: dyspnea Gastrointestinal: no abdominal pain, no change in bowel habits Genitourinary Male: as per HPI, difficulty urinating Musculoskeletal: no muscle weakness, no numbness Integumentary: as per HPI, pruritus, rash Neurological: as per HPI, weakness Psychiatric: no depression, no difficulty concentrating Endocrine: as per HPI Hematologic/Lymphatic: no easy bruising, no lymphadenopathy Exam - Vital Signs Vital signs: Initial Vital Signs Temp Pulse Resp BP Pulse Ox 98.1 F 70 18 84/53 93 12/23/16 23:29 12/23/16 23:29 12/23/16 23:29 12/23/16 23:29 12/23/16 23:29 Vital Signs - Last 8 Hours Temp Pulse Resp BP Pulse Ox 01/05/17 04:59 96.7 F L 112 20 99/69 100 01/05/17 04:57 22 100 Intake and Output 01/04/17 01/05/17 01/05/17 23:59 07:59 15:59 Intake Total 600 / 600 120 / 120 Output Total 450 / 450 Balance 150 / 150 120 / 120 Intake: Oral 600 / 600 120 / 120 Output: Catheter 450 / 450 Other: Meal Dinner Percent of Meal Consumed 100% Weight 153.4 kg Blood Glucose* 192 188 Patient Weight 01/05/17 23:59 Weight 153.4 kg - General Appearance Exam: Patient is alert and oriented. He is in no acute distress. He is currently eating breakfast. Blood pressure 99/69 typically 96.7. Patient is morbidly obese. Skin demonstrates an erythematous rash over the patient's chest and arms. Lungs diminished breath sounds. Heart irregular rate and rhythm consistent with atrial fibrillation. Abdomen is obese. Abdomen is firm. There is edema of the abdominal wall. There is probable ascites present as well. Lower extremities demonstrate anasarca all the way up to the patient's thighs. A Cano catheter is in place draining dark-colored urine. Results - Lab Results 01/05/17 04:21 01/05/17 04:21 Most recent lab results ABG pH 7.35 pH Units (7.32-7.45) 01/01/17 13:29 ABG pCO2 48 mmHg (35-45) H 01/01/17 13:29 ABG pO2 62 mmHg (85-104) L 01/01/17 13:29 ABG HCO3 26.5 mEQ/L (21-27) 01/01/17 13:29 ABG O2 Saturation 90 % (95-98) L 01/01/17 13:29 Calcium 7.8 mg/dL (8.6-10.8) L 01/05/17 04:21 Magnesium 2.1 mg/dL (1.6-2.6) 01/05/17 04:21 Urine Sodium < 20.0 mEq/L 12/24/16 08:55 Consult Discharge Plan - Plan Referrals: Dylon Winston MD [Primary Care Provider] - 01/06/17 2:15 pm
[2017-01-05] MEDS: *HR* Enoxaparin 150 MG/ML SYRINGE SQ SCH ×2 (08:37→20:38)
[2017-01-05] MEDS: Insulin LISPRO 300 UNITS/3 ML VIAL SQ SCH ×7 (08:38→20:40)
[2017-01-05] MEDS: Pregabalin 50 MG CAPSULE PO SCH ×3 (08:38→20:38)
--- NOTE | 2017-01-05 10:48 | Internal Med Progress Note ---
Date of Encounter: 01/05/17 Time of Encounter: 10:20 - Assessment and plan (1) DESEAN (acute kidney injury) Current Visit: Yes Status: Acute Assessment and plan: Unclear etiology. Serum creatinine continues to get worse with h/o- previous AKIs. Serum creatinine is noted to be 1.95 today. Noted to have oliguria. Nephrology consult appreciated, to rule out obstruction versus glomerular causes. Follow-up renal ultrasound and labs for immunology/serology. Continue to hold Lasix at this time and monitor serum creatinine. Lovenox and Lyrica to be adjusted per his GFR; discussed with Pharmacy; Noted to have mild hyperkalemia, improving, monitor closely; patient does not want laxatives; (2) Myoclonic jerking Current Visit: Yes Status: Acute Assessment and plan: New onset, likely related to metabolic causes and medications. Improving. Neurology has been consulted-hold Reglan, which is likely responsible for myoclonus and continue Klonopin 1 mg at bedtime. Continue nocturnal BiPAP. Patient's home mask may need to be refitted/tested for air leak. (3) Elevated BUN Current Visit: Yes Status: Acute Assessment and plan: Use of Lasix/dehydration/DESEAN versus GI bleed. EGD from October 2016 shows erosive gastritis and reflux esophagitis and patient is noted to be on twice daily PPI. We will hold aspirin. Stool occult blood noted to be positive. He also refuses colonoscopy. Patient's multiple medical conditions are difficult to be controlled and at this time he is stable as he can get. Risks and benefits of anticoagulation needs to be assessed frequently. Hemoglobin is noted to be relatively stable at this time, although has >1g drop since admission; continue current management. (4) Catheter-associated urinary tract infection Current Visit: Yes Status: Resolved Assessment and plan: Noted to have chronic suprapubic catheter due to neurogenic bladder, bedbound status. Patient presented with leukocytosis, fever at home, chronic hypotension , elevated serum creatinine from baseline. Blood cultures remain negative. Urine culture grows resistant Pseudomonas, sensitive to cefepime/meropenem/ Zosyn. Infectious diseases have been consulted, patient completed 8 day course of IV cefepime. ID currently signed off, no further recommendations. Qualifiers: Indwelling urinary catheter type: indwelling urethral catheter Encounter type: initial encounter Qualified Code(s): T83.511A - Infection and inflammatory reaction due to indwelling urethral catheter, initial encounter; N39.0 - Urinary tract infection, site not specified (5) Hypotension Current Visit: Yes Status: Chronic Qualifiers: Hypotension type: unspecified hypotension type Qualified Code(s): I95.9 - Hypotension, unspecified (6) Sacral decubitus ulcer, stage IV Current Visit: Yes Status: Chronic (7) Rash Current Visit: Yes Status: Resolved (8) ICD (implantable cardioverter-defibrillator) in place Current Visit: Yes Status: Chronic (9) History of pulmonary embolism Current Visit: Yes Status: Chronic Assessment and plan: Patient has history of multiple venous thromboembolism episodes in the past along with underlying atrial fibrillation. He reportedly failed several anticoagulants in the past and is currently being maintained on subcutaneous Lovenox. (10) DM (diabetes mellitus), type 2 Current Visit: Yes Status: Chronic Assessment and plan: Continue Accu-Chek blood glucose monitoring with sliding scale insulin. Blood sugars noted to be improving. Continue nutritional insulin. Diabetic diet. Qualifiers: Diabetes mellitus complication status: with skin complications Diabetes mellitus complication detail: with other skin ulcer Diabetes mellitus chcf insulin use: with chcf use Qualified Code(s): E11.622 - Type 2 diabetes mellitus with other skin ulcer; Z79.4 - rn long term care (current) use of insulin (11) COPD (chronic obstructive pulmonary disease) Current Visit: Yes Status: Chronic Assessment and plan: Not currently in exacerbation Will continue home breathing treatments, BiPAP at night; Qualifiers: COPD type: emphysema Emphysema type: unspecified Qualified Code(s): J43.9 - Emphysema, unspecified (12) A-fib Current Visit: Yes Status: Chronic Assessment and plan: Status post pacemaker/ICD placement. continue Lovenox; currently rate-controlled ; Qualifiers: Atrial fibrillation type: chronic Qualified Code(s): I48.2 - Chronic atrial fibrillation (13) Peripheral edema Current Visit: Yes Status: Acute - Subjective Interval history: Reports feeling weak; has bowel movements; no nausea, vomiting, chest pain or dyspnea; improving myoclonic jerks; - Constitutional Vitals: Temp Pulse Resp BP Pulse Ox 97 F L 71 18 100/88 97 01/05/17 08:00 01/05/17 08:00 01/05/17 08:00 01/05/17 08:00 01/05/17 08:00 General appearance: Present: A&O X 3, morbidly obese, answers questions appropriately - Respiratory Respiratory exam: Present: CTAB (coarse breath sounds B/L). Absent: accessory muscle use, rales, rhonchi, wheezes - Cardiovascular Cardiovascular exam: Present: irregular rhythm, +S1, +S2, systolic murmur. Absent: diastolic murmur, gallop, rubs - GI/Abdominal GI/Abdominal exam: Present: normal bowel sounds, soft (obese with cutaneous edema), no peritoneal signs. Absent: distended, tenderness Internal Medicine: Result - Labs CBC & Chem 7: 01/05/17 04:21 01/05/17 04:21 Labs: Short CBC 01/05/17 Range/Units 04:21 WBC 8.8 (4.3-11.1) K/mcL Hgb 9.8 L (12.9-16.9) g/dL Hct 32.1 L (37.5-50.1) % Plt Count 109 L (140-400) K/mcL Neutrophils # 7.3 (1.6-8.9) K/mcL BMP 01/05/17 04:21 Sodium 128 L Potassium 5.4 H Chloride 97 L Carbon Dioxide 22 BUN 80 H Creatinine 1.95 H Glucose 182 H Calcium 7.8 L - ABG Interpretation ABG results: ABG ABG pH 7.35 pH Units (7.32-7.45) 01/01/17 13:29 ABG pCO2 48 mmHg (35-45) H 01/01/17 13:29 ABG pO2 62 mmHg (85-104) L 01/01/17 13:29 ABG O2 Saturation 90 % (95-98) L 01/01/17 13:29 PT/INR, D-dimer PT 16.0 Seconds (9.4-12.1) H 12/31/16 11:24 - VTE Documentation of Mechanical Device: Intermittent pneumatic compression device Consult Discharge Plan - Plan Referrals: Dylon Winston MD [Primary Care Provider] - 01/06/17 2:15 pm
[2017-01-05] MEDS: Latanoprost 2.5 ML BOTTLE BOTH EYES SCH (20:41)
[2017-01-06] MEDS: *HR* OxyCODONE/APAP 10/325 TABLET PO SCH ×6 (02:36→21:52)
[2017-01-06] MEDS: Ipratropium/Albuterol Neb 3 ML IH SCH ×4 (03:40→21:22)
[2017-01-06 05:38] LABS: Nucleated Red Blood Cells 0.4 /100 WBC (0); Red Cell Distribution Width 16.8 % (11.5-14.5)
[2017-01-06 05:40] LABS: Basophils # 0.1 K/mcL (0.0-0.2); Basophils % 0.5 %; Eosinophils # 0.2 K/mcL (0.0-0.6); Eosinophils % 1.2 %; Hematocrit 30.1 % (37.5-50.1); Hemoglobin 9.4 g/dL (12.9-16.9); Immature Granulocytes % 1.6 % (0-4); Lymphocytes # 0.5 K/mcL (0.6-4.6); Lymphocytes % 3.5 %; Mean Corpuscular HGB Conc 31.2 g/dL (31.6-35.5); Mean Corpuscular Hemoglobin 27.3 pg (28.0-33.3); Mean Corpuscular Volume 87.5 fL (83.0-100.0); Mean Platelet Volume 11.7 fL (9.4-12.4); Monocytes # 1.1 K/mcL (0.0-1.3); Monocytes % 8.4 %; Neutrophils # 11.3 K/mcL (1.6-8.9); Platelet Count 101 K/mcL (140-400); Red Blood Count 3.44 M/mcL (4.19-5.50); Segmented Neutrophils % 84.8 %
[2017-01-06 05:52] LABS: Albumin 2.1 g/dL (3.5-5.0); Albumin/Globulin Ratio 0.5 (1.1-2.2); Alkaline Phosphatase 86 Units/L (38-126); Aspartate Amino Transferase 8 Units/L (5-34); BUN/Creatinine Ratio 41 (6-26); Bilirubin,Total 0.5 mg/dL (0.2-1.2); Blood Urea Nitrogen 86 mg/dL (8-26); Calcium 7.8 mg/dL (8.6-10.8); Carbon Dioxide 25 mEq/L (19-29); Chloride 96 mEq/L (98-109); Globulin 4.6 g/dL (2.4-3.5); Glucose 160 mg/dL (70-99); Osmolality,Calculated 294 (280-300); Potassium 5.5 mEq/L (3.5-4.5); Sodium 127 mEq/L (136-145); Total Protein 6.7 g/dL (6.0-8.3); eGFR For African Americans 39 (> 60); eGFR For Non-African Americans 32 (> 60)
[2017-01-06 05:53] LABS: Alanine Aminotransferase < 6 Units/L (0-55)
--- NOTE | 2017-01-06 08:16 | Nephrology Progress Note ---
Date of Encounter: 01/06/17 Time of Encounter: 08:14 - Assessment and Plan (1) Acute kidney failure, unspecified Current Visit: Yes Status: Acute Patient's urine output is decreasing and his azotemia is worsening. I am going to resume him on Lasix since he is so volume overloaded. Additional studies were ordered yesterday. Awaiting those results. Qualifiers: Acute renal failure type: unspecified Qualified Code(s): N17.9 - Acute kidney failure, unspecified (2) Catheter-associated urinary tract infection Current Visit: Yes Status: Resolved Qualifiers: Indwelling urinary catheter type: indwelling urethral catheter Encounter type: initial encounter Qualified Code(s): T83.511A - Infection and inflammatory reaction due to indwelling urethral catheter, initial encounter; N39.0 - Urinary tract infection, site not specified (3) Anasarca Current Visit: No Status: Chronic (4) Chronic respiratory failure Current Visit: No Status: Chronic Qualifiers: Respiratory failure complication: hypoxia and hypercapnia Qualified Code(s) : J96.11 - Chronic respiratory failure with hypoxia; J96.12 - Chronic respiratory failure with hypercapnia Subjective Principal diagnosis: myoclonus Interval history: Patient reports no new complaints. Renal function continues to slowly worsen. Creatinine is gone from 1.95 up to 2.11. Renal ultrasound shows no hydronephrosis on the right. Left kidney is not well visualized. Urine for eosinophils is negative. Urine output is only recorded as 300 mL 4 yesterday. Vital signs are stable. Objective - Vital Signs Vital signs: Vital Signs Temp Pulse Resp BP Pulse Ox 01/06/17 04:33 98.2 F 136 17 104/77 93 01/06/17 03:41 15 110/71 92 01/05/17 22:33 14 110/71 98 01/05/17 20:28 62 18 102/75 95 01/05/17 20:02 98.8 F 135 17 110/71 100 01/05/17 16:22 16 97/60 100 01/05/17 16:00 98.4 F 69 20 87/74 100 01/05/17 10:38 18 99 Intake and Output 01/05/17 01/06/17 01/06/17 23:59 07:59 15:59 Intake Total 200 / 200 Balance 200 / 200 Intake: Oral 200 / 200 Other: Meal Dinner Percent of Meal Consumed 75% Blood Glucose* 104 - General Appearance Exam: Patient is currently on BiPAP. He is in no acute distress. Lungs diminished breath sounds. Heart regular rate and rhythm. Rhythm is a paced rhythm on the monitor. Abdomen is nontender. Patient has anasarca up to the thighs. He continues to have the erythematous rash on his trunk. Cano catheter is in place. - Lab 01/06/17 05:25 01/06/17 05:25 Most recent lab results ABG pH 7.35 pH Units (7.32-7.45) 01/01/17 13:29 ABG pCO2 48 mmHg (35-45) H 01/01/17 13:29 ABG pO2 62 mmHg (85-104) L 01/01/17 13:29 ABG HCO3 26.5 mEQ/L (21-27) 01/01/17 13:29 ABG O2 Saturation 90 % (95-98) L 01/01/17 13:29 Calcium 7.8 mg/dL (8.6-10.8) L 01/06/17 05:25 Magnesium 2.1 mg/dL (1.6-2.6) 01/05/17 04:21 Urine Sodium < 20.0 mEq/L 12/24/16 08:55 - VTE Documentation of Mechanical Device: Intermittent pneumatic compression device Consult Discharge Plan - Plan Referrals: Dylon Winston MD [Primary Care Provider] - 01/06/17 2:15 pm
[2017-01-06] MEDS: Insulin LISPRO 300 UNITS/3 ML VIAL SQ SCH ×7 (09:09→21:33)
[2017-01-06] MEDS: Gentamicin Oint 15 GM TUBE TP SCH ×3 (09:10→21:33)
[2017-01-06] MEDS: Ketoconazole 2% CRM 15 GM TUBE TP SCH ×2 (09:11→21:38)
[2017-01-06] MEDS: *HR* Enoxaparin 150 MG/ML SYRINGE SQ SCH ×2 (09:25→21:32)
[2017-01-06] MEDS: Pregabalin 50 MG CAPSULE PO SCH ×3 (09:26→21:32)
[2017-01-06] MEDS: Furosemide 40 MG/4 ML VIAL IVP SCH ×2 (09:29→17:01)
[2017-01-06 09:50] LABS: Bilirubin,Urine Negative (Negative); Blood,Urine Large (Negative); Clarity,Urine Turbid (Clear); Color,Urine Yellow (Yellow); Glucose,Urine (UA) Normal (Normal); Ketones,Urine Negative (Negative); Leukocyte Esterase,Urine Large (Negative); Nitrite,Urine Negative (Negative); Protein,Urine 100 mg/dL (Neg-Trace); Specific Gravity,Urine 1.019 (1.010-1.025); Urobilinogen,Urine Normal (Normal)
[2017-01-06 09:52] LABS: Hyaline Casts,Urine Few per lpf (None-Few); Squamous Epithelial Cell,Urine Many per lpf (None-Few); WBC,Urine TNTC per hpf (0-3)
[2017-01-06 10:13] LABS: Granular Casts,Urine Many per lpf (None Seen); Mucus,Urine Few (Few)
[2017-01-06 10:14] LABS: Bacteria,Urine Few per hpf (None-Few); Yeast,Urine Many per hpf (None Seen)
[2017-01-06 10:15] LABS: RBC,Urine Present per hpf (0-3)
--- NOTE | 2017-01-06 10:18 | Internal Med Progress Note ---
Date of Encounter: 01/07/17 Time of Encounter: 10:14 - Assessment and plan (1) UTI (urinary tract infection) Current Visit: Yes Status: Acute Qualifiers: Urinary tract infection type: site unspecified Hematuria presence: with hematuria Qualified Code(s): N39.0 - Urinary tract infection, site not specified; R31.9 - Hematuria, unspecified (2) Acute renal failure superimposed on chronic kidney disease Current Visit: Yes Status: Acute Qualifiers: Qualified Code(s): N17.9 - Acute kidney failure, unspecified; N18.9 - Chronic kidney disease, unspecified (3) Hyponatremia Current Visit: No Status: Acute (4) DM (diabetes mellitus), type 2 Current Visit: Yes Status: Chronic Qualifiers: Diabetes mellitus complication status: with skin complications Diabetes mellitus complication detail: with other skin ulcer 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 Qualified Code(s): E11.622 - Type 2 diabetes mellitus with other skin ulcer; Z79.4 - assisted (current) use of insulin (5) Afib Current Visit: No Status: Chronic Qualifiers: Atrial fibrillation type: paroxysmal Qualified Code(s): I48.0 - Paroxysmal atrial fibrillation (6) Stage 4 decubitus ulcer Current Visit: No Status: Acute Qualifiers: Qualified Code(s): L89.94 - Pressure ulcer of unspecified site, stage 4 (7) History of DVT (deep vein thrombosis) Current Visit: No Status: Chronic (8) Paraplegia Current Visit: No Status: Chronic (9) Chronic indwelling Cano catheter Current Visit: No Status: Chronic (10) Pacemaker Current Visit: No Status: Acute (11) DVT prophylaxis Current Visit: No Status: Acute (12) Counseling regarding advanced care planning and goals of care Current Visit: No Status: Acute - Subjective Interval history: Mr. Jem Dutta is a 61-year-old male who is chronically sick. He came in with Pseudomonas UTI at this point I am not sure what antibiotic was used to treat him but to recently he started elevating white count again along with positive UA. Infectious disease is consulted. Another issue is acute on chronic renal failure which had worsened with the attempts of diuresis as he is fluid overload. Nephrology is on the case. Renal ultrasound is negative for obstruction while left kidney could not be visualized completely. I noted his albumin and globulin ratio is completely reversed and it will be worth checking SPEP and UPEP to rule out to myeloma kidney. At the same time he might need some albumin which will facilitate his diuresis. I will discuss this issue with the Dr. Gardner and see what is his opinion. I tried to order SPEP and UPEP myself but the system did not allow. Problem list: #1 Pseudomonas UTI urine culture were positive on December 23 however his white cell count is up again and UA is again positive therefore we have consulted infectious disease as he he had anaphylactic allergic reaction to penicillin and Pseudomonas is really resistant to almost all other antibiotics. I already ordered 2 blood cultures. #2 acute on chronic renal failure rising creatinine while nephrology is trying to diurese patient for fluid overload.Renal ultrasound is negative for obstruction while left kidney could not be visualized completely. I noted his albumin and globulin ratio is completely reversed and it will be worth checking SPEP and UPEP to rule out to myeloma kidney. At the same time he might need some albumin which will facilitate his diuresis. I will discuss this issue with the Dr. Gardner and see what is his opinion. I tried to order SPEP and UPEP myself but the system did not allow. #3 CHF patient is on Lasix and I will try to see the echocardiogram to find out the exact nature of CHF but as noted earlier and aggressive albumin infusion with Bumex and Lasix drip can achieve at least a temporary U all living status. - Constitutional Vitals: Temp Pulse Resp BP Pulse Ox 97.1 F L 80 18 111/59 100 01/06/17 08:15 01/06/17 08:15 01/06/17 08:15 01/06/17 08:15 01/06/17 08:15 General appearance: Present: A&O X 3, morbidly obese, answers questions appropriately - Head Head exam: Present: atraumatic, normocephalic - Eye Eye exam: Present: PERRL, conjuntiva pink, sclera anicteric Pupils: Present: PERRL - Neck Neck exam general surgery: Present: supple, trachea midline. Absent: lymphadenopathy - Respiratory Respiratory exam: Present: CTAB. Absent: accessory muscle use, rales, rhonchi, wheezes - Cardiovascular Cardiovascular exam: Present: RRR, +S1, +S2. Absent: diastolic murmur, gallop, rubs, systolic murmur - GI/Abdominal GI/Abdominal exam: Present: normal bowel sounds, soft, no peritoneal signs. Absent: distended, tenderness - Extremities Exam Extremities exam: Present: warm, radial pulses palpable and symmetrical. Absent : calf tenderness, cyanotic, pedal edema - Neurological Exam Neurological exam: Present: CN II-XII intact, oriented X3, no focal deficits. Absent: pronater drift, facial droop, speech deficit - Skin Skin exam: Present: dry, intact Internal Medicine: Result - Labs CBC & Chem 7: 01/06/17 05:25 01/07/17 07:43 Labs: Short CBC 01/06/17 Range/Units 05:25 WBC 13.3 H D (4.3-11.1) K/mcL Hgb 9.4 L (12.9-16.9) g/dL Hct 30.1 L (37.5-50.1) % Plt Count 101 L (140-400) K/mcL Neutrophils # 11.3 H (1.6-8.9) K/mcL BMP 01/06/17 05:25 Sodium 127 L Potassium 5.5 H Chloride 96 L Carbon Dioxide 25 BUN 86 H Creatinine 2.11 H Glucose 160 H Calcium 7.8 L Liver Function 01/06/17 Range/Units 05:25 Total Bilirubin 0.5 (0.2-1.2) mg/dL AST 8 (5-34) Units/L ALT < 6 (0-55) Units/L Alkaline Phosphatase 86 (38-126) Units/L Albumin 2.1 L (3.5-5.0) g/dL Urine 01/06/17 Range/Units 09:40 Urine Color Yellow (Yellow) Urine Clarity Turbid A (Clear) Urine pH 5.0 (5.0-8.0) pH Units Ur Specific [place] 1.019 (1.010-1.025) Urine Protein 100 H (Neg-Trace) mg/dL Urine Glucose (UA) Normal (Normal) mg/dL - ABG Interpretation ABG results: ABG ABG pH 7.35 pH Units (7.32-7.45) 01/01/17 13:29 ABG pCO2 48 mmHg (35-45) H 01/01/17 13:29 ABG pO2 62 mmHg (85-104) L 01/01/17 13:29 ABG O2 Saturation 90 % (95-98) L 01/01/17 13:29 PT/INR, D-dimer PT 16.0 Seconds (9.4-12.1) H 12/31/16 11:24 - Impressions Impressions Retroperitoneum Ultrasound 01/05/17 15:00 IMPRESSION: Left kidney is not well visualized which may be partly related to edema and bowel gas. Right kidney is unremarkable. Incidental note made of small volume ascites. D/ / Guerita Gilliam MD / Guerita Gilliam MD Interpreting Provider: Guerita Gilliam MD - VTE Documentation of Mechanical Device: Intermittent pneumatic compression device Consult Discharge Plan - Plan Referrals: Dylon Winston MD [Primary Care Provider] - 01/06/17 2:15 pm
[2017-01-06] MEDS ORDERED: Albumin 25% 25gram/100mL 25 GM/100 ML IV.SOLN IVPB SCH (16:00)
[2017-01-06] MEDS: clonazePAM 1 MG TABLET PO SCH (21:32)
[2017-01-06] MEDS: Latanoprost 2.5 ML BOTTLE BOTH EYES SCH (21:38)
[2017-01-07] MEDS: Albumin 25% 25gram/100mL 25 GM/100 ML IV.SOLN IVPB SCH ×4 (00:46→23:52)
[2017-01-07] MEDS: *HR* OxyCODONE/APAP 10/325 TABLET PO SCH ×6 (02:33→21:20)
[2017-01-07 03:39] LABS: Beta Globulin (PEP) 0.74 g/dL (0.48-1.10)
[2017-01-07] MEDS: Ipratropium/Albuterol Neb 3 ML IH SCH ×4 (04:28→23:07)
[2017-01-07] MEDS: Furosemide 40 MG/4 ML VIAL IVP SCH ×2 (08:06→17:07)
[2017-01-07] MEDS: *HR* Enoxaparin 150 MG/ML SYRINGE SQ SCH ×2 (08:06→21:20)
[2017-01-07] MEDS: metOLazone 5 MG TABLET PO SCH (08:06)
--- NOTE | 2017-01-07 08:21 | Nephrology Progress Note ---
Date of Encounter: 01/07/17 Time of Encounter: 08:19 - Assessment and Plan (1) Acute kidney failure, unspecified Current Visit: Yes Status: Acute Patient has acute kidney injury of uncertain etiology. Laboratory studies ordered several days ago are still pending. He was started on Lasix yesterday because of anasarca. Today's lab is pending. It is unclear as to what the status of his renal function is today. Qualifiers: Acute renal failure type: unspecified Qualified Code(s): N17.9 - Acute kidney failure, unspecified (2) Catheter-associated urinary tract infection Current Visit: Yes Status: Resolved Qualifiers: Indwelling urinary catheter type: indwelling urethral catheter Encounter type: initial encounter Qualified Code(s): T83.511A - Infection and inflammatory reaction due to indwelling urethral catheter, initial encounter; N39.0 - Urinary tract infection, site not specified (3) Anasarca Current Visit: No Status: Chronic (4) Chronic respiratory failure Current Visit: No Status: Chronic Qualifiers: Respiratory failure complication: hypoxia and hypercapnia Qualified Code(s) : J96.11 - Chronic respiratory failure with hypoxia; J96.12 - Chronic respiratory failure with hypercapnia Subjective Principal diagnosis: myoclonus Interval history: The patient is resting comfortably on BiPAP. Urine output is recorded is only 200 mL. It is unclear if this is accurate. There is no lab available today. Previous lab studies ordered for further evaluation of the patient's acute kidney injury remain pending. 24-hour urine for protein is also pending. Patient was resumed on Lasix yesterday because of continued fluid retention. Objective - Vital Signs Vital signs: Vital Signs Temp Pulse Resp BP Pulse Ox 01/07/17 08:10 98.4 F 70 14 106/75 100 01/07/17 04:28 12 100 01/07/17 03:33 111 14 97/65 100 01/06/17 23:41 69 01/06/17 21:56 97 01/06/17 21:22 23 100 01/06/17 21:00 150 17 105/65 100 01/06/17 16:47 96.7 F L 63 18 92/52 100 01/06/17 15:52 20 99 01/06/17 12:05 97.3 F L 69 18 112/70 99 01/06/17 11:08 18 100 08/15/17 10:58 18 100 Intake and Output 01/06/17 01/07/17 01/07/17 23:59 07:59 15:59 Intake Total 340 / 340 100 / 100 Output Total 0 / 0 350 / 350 125 / 125 Balance 340 / 340 -250 / -250 -125 / -125 Intake: IV Fluids 100 / 100 100 / 100 Flexbumin 25 gm In 100 ml 100 / 100 100 / 100 @ 60 mls/hr IVPB Q8HR [facility] Rx#:[id number] Oral 240 / 240 0 / 0 Output: Catheter 0 / 0 350 / 350 125 / 125 Other: Meal Dinner Percent of Meal Consumed 100% Weight 155.4 kg Blood Glucose* 166 146 Patient Weight 01/07/17 23:59 Weight 155.4 kg - General Appearance Exam: Patient is resting comfortably on BiPAP. Vital signs are stable. Lungs diminished breath sounds. Heart regular rate and rhythm. Rhythm is paced on the monitor. He continues to have a faint erythematous rash on his trunk. He continues to exhibit signs of anasarca. Cano catheter is in place. - Lab 01/06/17 05:25 01/06/17 05:25 Most recent lab results ABG pH 7.35 pH Units (7.32-7.45) 01/01/17 13:29 ABG pCO2 48 mmHg (35-45) H 01/01/17 13:29 ABG pO2 62 mmHg (85-104) L 01/01/17 13:29 ABG HCO3 26.5 mEQ/L (21-27) 01/01/17 13:29 ABG O2 Saturation 90 % (95-98) L 01/01/17 13:29 Calcium 7.8 mg/dL (8.6-10.8) L 01/06/17 05:25 Magnesium 2.1 mg/dL (1.6-2.6) 01/05/17 04:21 Urine Sodium < 20.0 mEq/L 12/24/16 08:55 - VTE Documentation of Mechanical Device: Intermittent pneumatic compression device Consult Discharge Plan - Plan Referrals: Dylon Winston MD [Primary Care Provider] - 01/06/17 2:15 pm
[2017-01-07 08:23] LABS: Complement Component 3 114 mg/dL (88-201); Complement Component 4 42 mg/dL (10-40)
[2017-01-07] MEDS: Insulin LISPRO 300 UNITS/3 ML VIAL SQ SCH ×7 (08:23→21:21)
[2017-01-07 08:29] LABS: IFE Reflexed NOT DONE
[2017-01-07 08:39] LABS: Albumin 2.3 g/dL (3.5-5.0); Albumin/Globulin Ratio 0.5 (1.1-2.2); Alkaline Phosphatase 83 Units/L (38-126); Aspartate Amino Transferase 9 Units/L (5-34); BUN/Creatinine Ratio 43 (6-26); Bilirubin,Total 0.5 mg/dL (0.2-1.2); Blood Urea Nitrogen 92 mg/dL (8-26); Carbon Dioxide 25 mEq/L (19-29); Chloride 96 mEq/L (98-109); Globulin 4.4 g/dL (2.4-3.5); Glucose 149 mg/dL (70-99); Osmolality,Calculated 297 (280-300); Sodium 128 mEq/L (136-145); Total Protein 6.7 g/dL (6.0-8.3); eGFR For African Americans 38 (> 60); eGFR For Non-African Americans 32 (> 60)
[2017-01-07] MEDS: Pregabalin 50 MG CAPSULE PO SCH ×3 (08:41→21:20)
[2017-01-07 08:42] LABS: Alanine Aminotransferase < 6 Units/L (0-55)
[2017-01-07] MEDS: Gentamicin Oint 15 GM TUBE TP SCH ×3 (11:27→21:21)
[2017-01-07] MEDS: Ketoconazole 2% CRM 15 GM TUBE TP SCH ×2 (11:27→21:21)
[2017-01-07] MEDS: Ondansetron 4 MG/2 ML VIAL IVP PRN (12:41)
[2017-01-07 13:05] LABS: ANA IgG by ELISA NONE DETECTED (None Detected)
[2017-01-07 15:55] LABS: Total Volume 24 Hour,Urine 1.27 Liters (0.80-1.80)
[2017-01-07 16:44] LABS: Creatinine 24 Hour,Urine 0.57 g/day (0.71-1.65)
--- NOTE | 2017-01-07 18:55 | Internal Med Progress Note ---
Date of Encounter: 01/07/17 Time of Encounter: 18:52 - Assessment and plan (1) UTI (urinary tract infection) Current Visit: Yes Status: Acute Qualifiers: Urinary tract infection type: site unspecified Hematuria presence: with hematuria Qualified Code(s): N39.0 - Urinary tract infection, site not specified; R31.9 - Hematuria, unspecified (2) Acute renal failure superimposed on chronic kidney disease Current Visit: Yes Status: Acute Qualifiers: Qualified Code(s): N17.9 - Acute kidney failure, unspecified; N18.9 - Chronic kidney disease, unspecified (3) Hyponatremia Current Visit: No Status: Acute (4) DM (diabetes mellitus), type 2 Current Visit: Yes Status: Chronic Qualifiers: Diabetes mellitus complication status: with skin complications Diabetes mellitus complication detail: with other skin ulcer Diabetes mellitus bilingual office assistant insulin use: with bilingual office assistant use Qualified Code(s): E11.622 - Type 2 diabetes mellitus with other skin ulcer; Z79.4 - jail (current) use of insulin (5) Afib Current Visit: No Status: Chronic Qualifiers: Atrial fibrillation type: paroxysmal Qualified Code(s): I48.0 - Paroxysmal atrial fibrillation (6) Stage 4 decubitus ulcer Current Visit: No Status: Acute Qualifiers: Qualified Code(s): L89.94 - Pressure ulcer of unspecified site, stage 4 (7) History of DVT (deep vein thrombosis) Current Visit: No Status: Chronic (8) Paraplegia Current Visit: No Status: Chronic (9) Chronic indwelling Cano catheter Current Visit: No Status: Chronic (10) Pacemaker Current Visit: No Status: Acute (11) DVT prophylaxis Current Visit: No Status: Acute (12) Counseling regarding advanced care planning and goals of care Current Visit: No Status: Acute - Subjective Interval history: Mr. Jem Dutta is a 61-year-old male who is chronically sick. He came in with Pseudomonas UTI at this point I am not sure what antibiotic was used to treat him but to recently he started elevating white count again along with positive UA. Infectious disease is consulted. Another issue is acute on chronic renal failure which had worsened with the attempts of diuresis as he is fluid overload. Nephrology is on the case. Renal ultrasound is negative for obstruction while left kidney could not be visualized completely. I noted his albumin and globulin ratio is completely reversed and it will be worth checking SPEP and UPEP to rule out to myeloma kidney. At the same time he might need some albumin which will facilitate his diuresis. I will discuss this issue with the Dr. Gardner and see what is his opinion. I tried to order SPEP and UPEP myself but the system did not allow. Problem list: #1 Pseudomonas UTI urine culture were positive on December 23 however his white cell count is up again and UA is again positive therefore we have consulted infectious disease as he he had anaphylactic allergic reaction to penicillin and Pseudomonas is really resistant to almost all other antibiotics. I already ordered 2 blood cultures. #2 acute on chronic renal failure rising creatinine while nephrology is trying to diurese patient for fluid overload.Renal ultrasound is negative for obstruction while left kidney could not be visualized completely. I noted his albumin and globulin ratio is completely reversed and it will be worth checking SPEP and UPEP to rule out to myeloma kidney. At the same time he might need some albumin which will facilitate his diuresis. I will discuss this issue with the Dr. Gardner and see what is his opinion. I tried to order SPEP and UPEP myself but the system did not allow. #3 CHF patient is on Lasix and I will try to see the echocardiogram to find out the exact nature of CHF but as noted earlier and aggressive albumin infusion with Bumex and Lasix drip can achieve at least a temporary U all living status. Today he was able to diurese net 880 mL so far continued diuresis #4 hypokalemia 6 Kayexalate given the peak potassium tonight sodium has also improved - Constitutional Vitals: Temp Pulse Resp BP Pulse Ox 98.1 F 70 14 91/59 100 01/07/17 16:52 01/07/17 16:52 01/07/17 16:52 01/07/17 16:52 01/07/17 16:52 General appearance: Present: A&O X 3, morbidly obese, answers questions appropriately - Head Head exam: Present: atraumatic, normocephalic - Eye Eye exam: Present: PERRL, conjuntiva pink, sclera anicteric Pupils: Present: PERRL - Neck Neck exam general surgery: Present: supple, trachea midline. Absent: lymphadenopathy - Respiratory Respiratory exam: Present: CTAB. Absent: accessory muscle use, rales, rhonchi, wheezes - Cardiovascular Cardiovascular exam: Present: RRR, +S1, +S2. Absent: diastolic murmur, gallop, rubs, systolic murmur - GI/Abdominal GI/Abdominal exam: Present: normal bowel sounds, soft, no peritoneal signs. Absent: distended, tenderness - Extremities Exam Extremities exam: Present: warm, radial pulses palpable and symmetrical. Absent : calf tenderness, cyanotic, pedal edema - Neurological Exam Neurological exam: Present: CN II-XII intact, oriented X3, no focal deficits. Absent: pronater drift, facial droop, speech deficit - Skin Skin exam: Present: dry, intact Internal Medicine: Result - Labs CBC & Chem 7: 01/06/17 05:25 01/07/17 07:43 Labs: BMP 01/07/17 07:43 Sodium 128 L Potassium 6.0 H Chloride 96 L Carbon Dioxide 25 BUN 92 H Creatinine 2.15 H Glucose 149 H Calcium 8.0 L Liver Function 01/07/17 Range/Units 07:43 Total Bilirubin 0.5 (0.2-1.2) mg/dL AST 9 (5-34) Units/L ALT < 6 (0-55) Units/L Alkaline Phosphatase 83 (38-126) Units/L Albumin 2.3 L (3.5-5.0) g/dL - ABG Interpretation ABG results: ABG ABG pH 7.35 pH Units (7.32-7.45) 01/01/17 13:29 ABG pCO2 48 mmHg (35-45) H 01/01/17 13:29 ABG pO2 62 mmHg (85-104) L 01/01/17 13:29 ABG O2 Saturation 90 % (95-98) L 01/01/17 13:29 PT/INR, D-dimer PT 16.0 Seconds (9.4-12.1) H 12/31/16 11:24 - VTE Documentation of Mechanical Device: Intermittent pneumatic compression device Consult Discharge Plan - Plan Referrals: Dylon Winston MD [Primary Care Provider] - 01/06/17 2:15 pm
[2017-01-07 19:02] LABS: Calcium 8.3 mg/dL (8.6-10.8); Potassium 5.7 mEq/L (3.5-4.5)
[2017-01-07] MEDS: clonazePAM 1 MG TABLET PO SCH (21:20)
[2017-01-07] MEDS: Latanoprost 2.5 ML BOTTLE BOTH EYES SCH (21:21)
[2017-01-08] MEDS: *HR* OxyCODONE/APAP 10/325 TABLET PO SCH ×7 (02:51→23:04)
[2017-01-08] MEDS: Ipratropium/Albuterol Neb 3 ML IH SCH ×4 (03:15→22:56)
[2017-01-08 05:00] LABS: Basophils % 0.3 %; Eosinophils # 0.1 K/mcL (0.0-0.6); Eosinophils % 1.1 %; Hematocrit 28.3 % (37.5-50.1); Hemoglobin 8.9 g/dL (12.9-16.9); Immature Granulocytes % 0.5 % (0-4); Lymphocytes # 0.5 K/mcL (0.6-4.6); Lymphocytes % 6.9 %; Mean Corpuscular HGB Conc 31.4 g/dL (31.6-35.5); Mean Corpuscular Hemoglobin 27.8 pg (28.0-33.3); Mean Corpuscular Volume 88.4 fL (83.0-100.0); Mean Platelet Volume 10.8 fL (9.4-12.4); Monocytes # 0.5 K/mcL (0.0-1.3); Neutrophils # 5.4 K/mcL (1.6-8.9); Platelet Count 107 K/mcL (140-400); Red Cell Distribution Width 16.6 % (11.5-14.5); Segmented Neutrophils % 83.2 %
[2017-01-08 05:08] LABS: Albumin/Globulin Ratio 0.7 (1.1-2.2); Alkaline Phosphatase 75 Units/L (38-126); Aspartate Amino Transferase 7 Units/L (5-34); BUN/Creatinine Ratio 43 (6-26); Bilirubin,Total 0.6 mg/dL (0.2-1.2); Blood Urea Nitrogen 95 mg/dL (8-26); Calcium 8.1 mg/dL (8.6-10.8); Carbon Dioxide 25 mEq/L (19-29); Chloride 95 mEq/L (98-109); Globulin 3.9 g/dL (2.4-3.5); Glucose 143 mg/dL (70-99); Osmolality,Calculated 298 (280-300); Potassium 5.7 mEq/L (3.5-4.5); Sodium 128 mEq/L (136-145); Total Protein 6.7 g/dL (6.0-8.3); eGFR For African Americans 37 (> 60); eGFR For Non-African Americans 31 (> 60)
[2017-01-08 05:11] LABS: Alanine Aminotransferase < 6 Units/L (0-55); Albumin 2.8 g/dL (3.5-5.0)
--- NOTE | 2017-01-08 08:07 | Nephrology Progress Note ---
Date of Encounter: 01/08/17 Time of Encounter: 07:50 - Assessment and Plan (1) DESEAN (acute kidney injury) Current Visit: Yes Status: Acute DESEAN, etiology unclear. Creatinine 2.2, may be plateaued. Anasarca, on Lasix, Metolazone. Documented urine output 1200cc. 24 hour urine protein 1.5 gm. Continue to monitor. Subjective Principal diagnosis: myoclonus Interval history: Laying in bed, watching tv. States feeling better. No new complaints. Objective - Vital Signs Vital signs: Vital Signs Temp Pulse Resp BP Pulse Ox 01/08/17 07:56 98.1 F 62 18 95/57 94 01/08/17 05:00 73 17 95/60 100 01/08/17 03:15 18 100 01/07/17 23:07 14 99 01/07/17 21:15 100 01/07/17 21:00 98 F 69 17 99/60 100 01/07/17 16:52 98.1 F 70 14 91/59 100 01/07/17 15:56 16 94 01/07/17 11:34 97.5 F L 70 16 115/67 95 01/07/17 11:09 16 98 01/07/17 08:10 98.4 F 70 14 106/75 100 Intake and Output 01/07/17 01/08/17 01/08/17 23:59 07:59 15:59 Intake Total 220 / 220 0 / 0 Output Total 425 / 425 300 / 300 Balance -205 / -205 -300 / -300 Intake: IV Fluids 100 / 100 Flexbumin 25 gm In 100 ml 100 / 100 @ 60 mls/hr IVPB Q8HR [facility] Rx#:[id number] Oral 120 / 120 0 / 0 Output: Catheter 425 / 425 300 / 300 Other: Meal Dinner Percent of Meal Consumed 100% Weight 157.8 kg Blood Glucose* 137 139 Patient Weight 01/08/17 23:59 Weight 157.8 kg - General Appearance General appearance: Present: well-developed, well-nourished, obese Exam: appears older than stated age. EENT: Present: mucous membranes moist Neck: Present: no JVD Respiratory: Present: clear Cardiology: Present: edema, regular rate, regular rhythm Additional Comments: anasarca Gastrointestinal: Present: normoactive bowel sounds, no tenderness, distended Integumentary: Present: warm and dry Neurologic: Present: alert and oriented x3 Psychiatric: Present: mood/affect appropriate, cooperative - Lab 01/08/17 04:35 01/08/17 04:35 Most recent lab results ABG pH 7.35 pH Units (7.32-7.45) 01/01/17 13:29 ABG pCO2 48 mmHg (35-45) H 01/01/17 13:29 ABG pO2 62 mmHg (85-104) L 01/01/17 13:29 ABG HCO3 26.5 mEQ/L (21-27) 01/01/17 13:29 ABG O2 Saturation 90 % (95-98) L 01/01/17 13:29 Calcium 8.1 mg/dL (8.6-10.8) L 01/08/17 04:35 Magnesium 2.1 mg/dL (1.6-2.6) 01/05/17 04:21 Urine Creatinine 45 mg/dL 01/07/17 09:00 Ur Total Protein 24 Hr 1524 mg/day (0-299) H 01/07/17 09:00 Urine Sodium < 20.0 mEq/L 12/24/16 08:55 Urine Total Protein 120 mg/dL (1-14) H 01/07/17 09:00 - VTE Documentation of Mechanical Device: Intermittent pneumatic compression device Consult Discharge Plan - Plan Referrals: Dylon Winston MD [Primary Care Provider] - 01/06/17 2:15 pm
[2017-01-08] MEDS: Albumin 25% 25gram/100mL 25 GM/100 ML IV.SOLN IVPB SCH ×2 (09:14→19:13)
[2017-01-08] MEDS: Insulin LISPRO 300 UNITS/3 ML VIAL SQ SCH ×7 (09:14→23:04)
[2017-01-08] MEDS: metOLazone 5 MG TABLET PO SCH (09:14)
[2017-01-08] MEDS ORDERED: Furosemide 40 MG/4 ML VIAL IVP SCH (09:15)
[2017-01-08] MEDS: *HR* Enoxaparin 150 MG/ML SYRINGE SQ SCH (09:16)
[2017-01-08] MEDS: Pregabalin 50 MG CAPSULE PO SCH ×3 (09:16→23:03)
[2017-01-08] MEDS: Ketoconazole 2% CRM 15 GM TUBE TP SCH ×2 (09:16→22:45)
[2017-01-08] MEDS: Gentamicin Oint 15 GM TUBE TP SCH ×4 (09:16→23:04)
[2017-01-08] MEDS ORDERED: *HR* Dextrose 50 % in Water (Syg) 50 ML SYRINGE IVP ONE (11:19)
[2017-01-08] MEDS ORDERED: Insulin Human Regular 5 UNIT in 0.9 % Sodium Chloride 10 ML IV ONE (11:20)
[2017-01-08] MEDS ORDERED: Calcium Gluconate 1,000 MG in D5% in Water 100 ML IVPB ONE (11:24)
[2017-01-08] MEDS ORDERED: Perflutren Lipid Microsphere 1.3 ML in 0.9 % Sodium Chloride 8.7 ML IVP ONE (13:40)
[2017-01-08] MEDS: Furosemide 40 MG/4 ML VIAL IVP SCH ×2 (14:48→23:04)
--- NOTE | 2017-01-08 15:58 | Internal Med Progress Note ---
Date of Encounter: 01/08/17 Time of Encounter: 15:41 - Assessment and plan (1) UTI (urinary tract infection) Current Visit: Yes Status: Acute Qualifiers: Urinary tract infection type: site unspecified Hematuria presence: with hematuria Qualified Code(s): N39.0 - Urinary tract infection, site not specified; R31.9 - Hematuria, unspecified (2) Acute renal failure superimposed on chronic kidney disease Current Visit: Yes Status: Acute Qualifiers: Qualified Code(s): N17.9 - Acute kidney failure, unspecified; N18.9 - Chronic kidney disease, unspecified (3) Hyponatremia Current Visit: No Status: Acute (4) DM (diabetes mellitus), type 2 Current Visit: Yes Status: Chronic Qualifiers: Diabetes mellitus complication status: with skin complications Diabetes mellitus complication detail: with other skin ulcer Diabetes mellitus sexual assault response coordinator insulin use: with sexual assault response coordinator use Qualified Code(s): E11.622 - Type 2 diabetes mellitus with other skin ulcer; Z79.4 - hand riveter (current) use of insulin (5) Afib Current Visit: No Status: Chronic Qualifiers: Atrial fibrillation type: paroxysmal Qualified Code(s): I48.0 - Paroxysmal atrial fibrillation (6) Stage 4 decubitus ulcer Current Visit: No Status: Acute Qualifiers: Qualified Code(s): L89.94 - Pressure ulcer of unspecified site, stage 4 (7) History of DVT (deep vein thrombosis) Current Visit: No Status: Chronic (8) Paraplegia Current Visit: No Status: Chronic (9) Chronic indwelling Cano catheter Current Visit: No Status: Chronic (10) Pacemaker Current Visit: No Status: Acute (11) DVT prophylaxis Current Visit: No Status: Acute (12) Counseling regarding advanced care planning and goals of care Current Visit: No Status: Acute - Subjective Interval history: Mr. Jem Dutta is a 61-year-old male who is chronically sick. He came in with Pseudomonas UTI at this point I am not sure what antibiotic was used to treat him but to recently he started elevating white count again along with positive UA. Infectious disease is consulted. Another issue is acute on chronic renal failure which had worsened with the attempts of diuresis as he is fluid overload. Nephrology is on the case. Renal ultrasound is negative for obstruction while left kidney could not be visualized completely. I noted his albumin and globulin ratio is completely reversed and it will be worth checking SPEP and UPEP to rule out to myeloma kidney. At the same time he might need some albumin which will facilitate his diuresis. I will discuss this issue with the Dr. Gardner and see what is his opinion. I tried to order SPEP and UPEP myself but the system did not allow. Problem list: Behavioral agreement: Due to family's repeated interruption during delivery of medical care to the patient by nursing staff and provider and also due to the fact that nursing and medical staff is spent significant amount of time on multiple occasions to inform the family about patient's medical issues and also about importance of treating them and possible risk and complications associated with not following the medical advice hospital administration was involved. Administration has decided to put a mutual behavioral agreement with family so that nursing and medical staff can provide necessary medical care to the patient without being threatened. #1 Pseudomonas UTI urine culture were positive on December 23 and he was treated with cefepime for 10 days. however his white cell count is up again and UA is again positive therefore we have consulted infectious disease. I already ordered 2 blood cultures. #2 acute renal failure with rising creatinine while nephrology is trying to diurese patient for fluid overload.Renal ultrasound is negative for obstruction while left kidney could not be visualized completely. I noted his albumin and globulin ratio is completely reversed and it will be worth checking SPEP and UPEP which is unremarkable however 1500 mg protein noted in 24 hours. #3 CHF /pericardial effusion/anasarca all in patient is on Lasix and diuresed 1200 mL. Patient mentions that he feels better after several days. Unfortunately now his blood pressure is borderline. the echocardiogram done today showed pericardial effusion with possible early temporal DR Umaña inform me. Official report is pending. I have consulted cardiology to help us out with diuresis at this point and I will back off on Lasix and stop metolazone as as his cardiac output may be dependent on preload. Per cardiology recommendation I have also informed Dr. Valverde from cardiothoracic surgery to see the patient to evaluate if he needs pericardial window. #4 hyperkalemia: Potassium 5.7. Kayexalate 30, amp D50 with IV regular insulin 5 units, 1 amp calcium gluconate. Will request nephrology to help us in managing it further #5 history of PE and DVT and chronic atrial fibrillation. Patient per record failed Coumadin and Xarelto. He is chronically on Lovenox 150 twice a day #6 right lower lobe pneumonia/Pseudomonas UTI/chronic bilateral lower extremity cellulitis. Recently treated with cefepime for 10 days. Right foot now showing some redness consistent with cellulitis and IV doxycycline added. - Constitutional Vitals: Temp Pulse Resp BP Pulse Ox 97.8 F 70 18 89/58 96 01/08/17 11:52 01/08/17 11:52 01/08/17 11:52 01/08/17 11:52 01/08/17 13:09 General appearance: Present: A&O X 3, morbidly obese, answers questions appropriately Internal Medicine: Result - Labs CBC & Chem 7: 01/08/17 04:35 01/08/17 04:35 Labs: Short CBC 01/08/17 Range/Units 04:35 WBC 6.5 D (4.3-11.1) K/mcL Hgb 8.9 L (12.9-16.9) g/dL Hct 28.3 L (37.5-50.1) % Plt Count 107 L (140-400) K/mcL Neutrophils # 5.4 (1.6-8.9) K/mcL BMP 01/07/17 01/08/17 18:10 04:35 Sodium 129 L 128 L Potassium 5.7 H 5.7 H Chloride 95 L 95 L Carbon Dioxide 26 25 BUN 93 H 95 H Creatinine 2.15 H 2.21 H Glucose 134 H 143 H Calcium 8.3 L 8.1 L Liver Function 01/08/17 Range/Units 04:35 Total Bilirubin 0.6 (0.2-1.2) mg/dL AST 7 (5-34) Units/L ALT < 6 (0-55) Units/L Alkaline Phosphatase 75 (38-126) Units/L Albumin 2.8 L D (3.5-5.0) g/dL - ABG Interpretation ABG results: ABG ABG pH 7.35 pH Units (7.32-7.45) 01/01/17 13:29 ABG pCO2 48 mmHg (35-45) H 01/01/17 13:29 ABG pO2 62 mmHg (85-104) L 01/01/17 13:29 ABG O2 Saturation 90 % (95-98) L 01/01/17 13:29 PT/INR, D-dimer PT 16.0 Seconds (9.4-12.1) H 12/31/16 11:24 - Impressions Impressions Chest X-Ray 01/08/17 09:18 IMPRESSION: Increased vascular congestion with mild increased prominence of the pulmonary interstitium suggestive of mild pulmonary edema. Similar appearing near complete opacification of the left chest, related to a combination of a chronic pleural fluid collection as well as nonspecific airspace disease which could represent consolidation or atelectasis. Cardiomegaly. D/ / John Paul MD / John Paul MD Interpreting Provider: John Paul MD - VTE Documentation of Mechanical Device: Intermittent pneumatic compression device Consult Discharge Plan - Plan Referrals: Dylon Winston MD [Primary Care Provider] - 01/06/17 2:15 pm
--- NOTE | 2017-01-08 16:59 | Cardiothoracic Consult Note ---
Date of Encounter: 01/08/17 Time of Encounter: 16:55 Assessment and Plan (1) Pericardial effusion Current Visit: Yes Status: Acute The patient is a 61-year-old man with multiple medical conditions who was found to have a moderate to large pericardial effusion on transthoracic echocardiogram performed today. Although there is no overt sign of tamponade, the hospitalist and outside sales engineer asked that the patient be evaluated for possible subxiphoid pericardial window. Given the patient's current medical condition he is NOT an operative candidate. I have discussed the possibility of percutaneous pericardiocentesis performed of the cardiac catheterization lab with the gang leader, Dr. J Carlos Olivo. The patient will receive vitamin K to hopefully reverse the elevated INR to make the procedure somewhat safer. It is possible that the pericardiocentesis will be performed tomorrow after he is evaluated by Dr. Olivo. The assessment and plan as outlined above was discussed with the patient and/or family members who expressed understanding and agreement. All questions were answered. - History of Present Illness Consult date: 01/08/17 Requesting physician: [place] Consult reason: Possible subxiphoid pericardial window. Chief complaint: Sepsis History of present illness: Mr. Echavarria is a 61 year old man with multiple medical problems including congestive heart failure, atrial fibrillation, cardiomyopathy, type 2 diabetes, hypertension, hypercholesterolemia, CKD, Stage IIIB, cirrhosis, COPD, obstructive sleep apnea, peripheral arterial disease, and cerebral vascular disease. He was admitted today to [facility] on December 23, 2016 with a diagnosis of sepsis. He was found to have a Pseudomonas UTI. In the past the patient underwent a transthoracic echocardiogram was found to have a small to moderate pericardial effusion. Today the patient was noted to have lower systolic blood pressures (approximately 90-100 mmHg) and a repeat echocardiogram was ordered. This showed a moderate to large pericardial effusion possible evidence of tamponade. I have been asked to evaluate the patient for possible subxiphoid pericardial window. Past Med Surg Social Fam HX - Past Medical History Medical history: arthritis, atrial fibrillation, cardiomyopathy, cirrhosis, CHF , COPD, coronary artery disease, CVA, DVT, dementia, diabetes, GERD, GI bleed, hepatitis, hyperlipidemia, hypertension, kidney stones, liver disease, migraine , myocardial infarction, osteoporosis, peripheral artery disease, pulmonary embolus, renal disease, TIA, venous stasis Psychiatric history: anxiety, bipolar, depression - Past Surgical History Surgical History: cholecystectomy, pacemaker/AICD - Social History Smoking Status: Former smoker Smokeless Tobacco Status: No Alcohol use: none Drug use: none Occupational status: unemployed Current living situation: Home - Independent Activity Level: Mostly sedentary, Other (Bedbound) Recent Out of Country Travel Within the Last 8 Weeks: No Exposure or Possible Exposure to Illness During Travel: No - Family History Mother Adopted: No Twin of Family Member: Yes Living Status: Cause of : hematoma Hx Family Cardiac Disorders: No Hx Family Respiratory Disorders: No Hx Family Cancer: Yes (brother, small cell carcinoma) Hx Family GI Disorders: No Hx Family Genitourinary Disorders: No Hx Family Endocrine Disorder: No Hx Family Musculoskeletal Disorders: No Hx Family Neuromuscular Disorders: No Hx Family Neurologic Disorders: No Hx Family HEENT Disorders: No Hx Family Autoimmune Disorders: No Hx Family Reproductive Disorders: No Hx Family Psychosocial Disorders: No Hx Family Medical Disorders: No Medications and Allergies Aspirin Enteric Coated [Aspirin EC] 81 mg PO QAM #0 03/28/15 [History] Carvedilol [Coreg] 6.25 mg PO BIDWM 03/28/15 [History] Ezetimibe [Zetia] 10 mg PO QAM 03/28/15 [History] Latanoprost [Xalatan] 1 drop BOTH EYES HS 03/28/15 [History] Tamsulosin [Flomax] 0.4 mg PO QPM 03/28/15 [History] Simethicone [Gas-X] 80 mg PO TID PRN #0 tab.chew 04/03/15 [Rx] Ondansetron HCl [Zofran] 4 mg PO Q8H PRN #20 tablet 09/12/15 [Rx] Pregabalin [Lyrica] 50 mg PO TID 30 Days 09/12/15 [Rx] Albuterol Sulfate [Albuterol Inhaler] 2 puff IH TID PRN 03/12/16 [History] Docusate [Colace] 100 mg PO BID PRN 03/12/16 [History] Furosemide [Lasix] 40 mg PO BID 03/12/16 [History] Insulin Glargine [Lantus] 60 unit SQ BID 03/12/16 [History] Ketoconazole 2% CRM [Nizoral Cream] 1 appl TP BID 03/12/16 [History] Lactose-Reduced Food [Ensure Liquid] 1 bottle PO TID 03/12/16 [History] Oxycodone HCl/Acetaminophen [Percocet 10-325 mg Tablet] 1 tab PO 5XD 03/12/16 [ History] Promethazine [Phenergan] 25 mg PO BID PRN 03/12/16 [History] Ferrous Sulfate [Iron] 325 mg PO DAILY 10/24/16 [History] Gentamicin Oint [Garamycin] 1 appl TP TID 10/24/16 [History] Ipratropium/Albuterol Neb [Duoneb] 3 ml IH Q6HR 10/24/16 [History] Mupirocin [Bactroban Oint] 1 appl TP BID 10/24/16 [History] Enoxaparin [Lovenox] 150 mg SQ Q12HR #0 10/29/16 [Rx] Omeprazole [PriLOSEC] 20 mg PO BIDAC #60 capsule. 10/29/16 [Rx] Collagenase Oint [Santyl] 1 appl TP BID 12/24/16 [History] 3 Allergy/AdvReac Type Severity Reaction Status Date / Time celecoxib [From Celebrex] Allergy Swelling Verified 03/12/16 04:44 of Lip/Tongue/Throat gabapentin [From Neurontin] Allergy Swelling Verified 03/12/16 04:44 of Lip/Tongue/Throat nifedipine [From Procardia] Allergy Swelling Verified 03/12/16 04:44 of Lip/Tongue/Throat Penicillins Allergy Swelling Verified 03/12/16 04:44 of Lip/Tongue/Throat rofecoxib [From Vioxx] Allergy Swelling Verified 03/12/16 04:44 of Lip/Tongue/Throat iodine AdvReac See Verified 03/12/16 04:44 Comments povidone-iodine AdvReac See Verified 03/12/16 04:44 [From Betadine] Comments soap [From Betadine] AdvReac See Verified 03/12/16 04:44 Comments All Systems Review: A 10-system review of systems was performed and is negative for pertinent findings except as documented above in the HPI. Physical Examination Vital Signs, Last 4 Hours Temp Pulse Resp BP Pulse Ox 01/08/17 15:46 98 F 70 20 89/49 95 01/08/17 13:09 96 General: No Apparent Distress, Other (Morbidly obese, not particularly interactive during the examination or conversation with the son) HEENT: Atraumatic, Normocephaly, Trachea midline Neck: No JVD, Normal carotid pulses Cardiac: Reg Rate and Rhythm, Normal S1 and S2, Other (Paced rhythm.) Lungs: Decreased breath sounds Neuro: No focal deficits noted Vascular: Normal capillary refill Abdomen: Non-tender, Other (Obesity) Skin: Other (Decubiti ulcer on the coccyx and left hip) Extremities: No Clubbing, No Cyanosis, Other (4+ pitting edema in the lower extremities) Other: Total body anasarca Results 01/08/17 04:35 01/08/17 04:35 Lab Results, Last 24 hours 01/07/17 01/08/17 01/08/17 18:10 04:35 04:35 WBC 6.5 D Hgb 8.9 L Hct 28.3 L Plt Count 107 L Sodium 129 L 128 L Potassium 5.7 H 5.7 H Chloride 95 L 95 L Carbon Dioxide 26 25 BUN 93 H 95 H Creatinine 2.15 H 2.21 H Glucose 134 H 143 H Calcium 8.3 L 8.1 L Total Bilirubin 0.6 AST 7 ALT < 6 Alkaline Phosphatase 75 - Imaging Chest Xray: image reviewed (Cardiomegaly. Pacemaker/defibrillator present. Left lung field opacification.) Consult Discharge Plan - Plan Referrals: Dylon Winston MD [Primary Care Provider] - 01/06/17 2:15 pm
--- NOTE | 2017-01-08 17:12 | Event Note ---
Date of Encounter: 01/08/17 Time of Encounter: 17:00 - Cardiology Event Note Contacted by Dr. Valverde, CT surgery, regarding patient's pericardial effusion. Patient is morbidly ill with hyperkalemic renal failure (CKD 3), hepatic dysfunction (coagulopathy with INR 1.5), anemic, thrombocytopenic, hyponatremic and poor candidate for invasive therapies. Reviewing his prolonged hospitalization, he has been chronically hypotensive from 80-100s systolic since admission and is current 90s systolic. Patient is not tachycardic (HR 60s ) to indicate he is in tamponade. Recommend vitamin K and vigorous hydration overnight, cardiology will reevaluate in the morning.
[2017-01-08] MEDS: Doxycycline 100 MG in 0.9 % Sodium Chloride Mini Bag 100 ML IVPB SCH (18:07)
[2017-01-08 18:45] LABS: INR 1.4; Prothrombin Time 15.1 Seconds (9.4-12.1)
[2017-01-08 19:07] LABS: Urine Collection Duration RANDOM hr; Urine Collection Volume RANDOM mL
[2017-01-08] MEDS: Latanoprost 2.5 ML BOTTLE BOTH EYES SCH (23:03)
[2017-01-08] MEDS: clonazePAM 1 MG TABLET PO SCH (23:03)
[2017-01-09] MEDS: Ipratropium/Albuterol Neb 3 ML IH SCH ×4 (03:57→21:51)
[2017-01-09] MEDS: *HR* OxyCODONE/APAP 10/325 TABLET PO SCH ×2 (04:37→07:05)
[2017-01-09 04:41] LABS: Basophils % 0.3 %; Eosinophils # 0.1 K/mcL (0.0-0.6); Eosinophils % 0.9 %; Hematocrit 28.5 % (37.5-50.1); Hemoglobin 8.7 g/dL (12.9-16.9); Immature Granulocytes % 0.6 % (0-4); Lymphocytes # 0.4 K/mcL (0.6-4.6); Lymphocytes % 6.5 %; Mean Corpuscular HGB Conc 30.5 g/dL (31.6-35.5); Mean Corpuscular Hemoglobin 26.9 pg (28.0-33.3); Monocytes # 0.5 K/mcL (0.0-1.3); Monocytes % 8.1 %; Neutrophils # 5.4 K/mcL (1.6-8.9); Platelet Count 108 K/mcL (140-400); Red Blood Count 3.24 M/mcL (4.19-5.50); Red Cell Distribution Width 16.6 % (11.5-14.5); Segmented Neutrophils % 83.6 %
[2017-01-09 04:50] LABS: INR 1.3; Prothrombin Time 14.2 Seconds (9.4-12.1)
[2017-01-09 05:01] LABS: Albumin 2.9 g/dL (3.5-5.0); Albumin/Globulin Ratio 0.8 (1.1-2.2); Alkaline Phosphatase 72 Units/L (38-126); Aspartate Amino Transferase 7 Units/L (5-34); BUN/Creatinine Ratio 40 (6-26); Bilirubin,Total 0.7 mg/dL (0.2-1.2); Blood Urea Nitrogen 98 mg/dL (8-26); Calcium 8.1 mg/dL (8.6-10.8); Carbon Dioxide 25 mEq/L (19-29); Chloride 95 mEq/L (98-109); Globulin 3.7 g/dL (2.4-3.5); Glucose 143 mg/dL (70-99); Osmolality,Calculated 301 (280-300); Potassium 5.7 mEq/L (3.5-4.5); Sodium 129 mEq/L (136-145); Total Protein 6.6 g/dL (6.0-8.3); eGFR For African Americans 33 (> 60); eGFR For Non-African Americans 27 (> 60)
[2017-01-09 05:09] LABS: Alanine Aminotransferase < 6 Units/L (0-55)
[2017-01-09] MEDS: Doxycycline 100 MG in 0.9 % Sodium Chloride Mini Bag 100 ML IVPB SCH (06:05)
--- NOTE | 2017-01-09 07:16 | Venous Imaging Report ---
LE Venous Duplex Patient Name:Jem Echavarria Order Number:[id number] Procedure Date:01/08/2017 Date:1955ge:61 yrs Gender:Male Location:[facility] Room #: 2NE24 Claims Adjudicator:Anisa Medeiros RVT Referring MD:Stiven Beach MD edi architect:Dylon Winston M.D. Reading MD:Amari Yan MD Primary Indications:REDNESS OF LLE Secondary Indications: Impressions: Normal bilateral lower extremity deep and superficial venous exam in vessels visualized. Visualization of bilateral distal vessels limited due to bandages. Recommendations: After imaging the patient returned to their room. Results to CAROLINE Frank on 01/08/17 @ 0755. Test completed on 01/08/2017 at 7:55:00 am. Findings Venous Duplex Results: Right: Venous imaging of the lower extremity reveals full patency and normal vessel compressibility of the right distal iliac, right common femoral and right superficial femoral. Doppler signals in the evaluated veins were normal. Left: Venous imaging of the lower extremity reveals full patency and normal vessel compressibility of the left distal iliac, left common femoral, left superficial femoral, left popliteal, left great saphenous and left lesser saphenous. Doppler signals in the evaluated veins were normal. Prior Study: Changes noted compared to prior study dated: 06/22/2015. Lower Extremity Venous Duplex Side Vein Compress Spontaneous Flow Augment Diameter (cm) Depth (cm) Right Distal Iliac Normal Yes Phasic Yes Right Common Femoral Normal Yes Phasic Yes Right Superficial Femoral Normal Yes Phasic Yes Left Distal Iliac Normal Yes Phasic Yes Left Common Femoral Normal Yes Phasic Yes Left Superficial Femoral Normal Yes Phasic Yes Left Popliteal Normal Yes Phasic Yes Left Great Saphenous Normal Yes Phasic Yes Left Lesser Saphenous Normal Yes Phasic Yes Updated by Amari Yan MD on 01/09/2017 7:10:51 AM electronically signed on 01/09/2017 7:11:06 AM with status of Final
[2017-01-09] MEDS: Insulin LISPRO 300 UNITS/3 ML VIAL SQ SCH ×6 (07:44→18:43)
[2017-01-09] MEDS: Furosemide 40 MG/4 ML VIAL IVP SCH (07:46)
[2017-01-09] MEDS: Pregabalin 50 MG CAPSULE PO SCH ×2 (07:55→15:49)
--- NOTE | 2017-01-09 09:37 | Nephrology Progress Note ---
Date of Encounter: 01/09/17 Time of Encounter: 09:35 - Assessment and Plan (1) Acute kidney failure, unspecified Current Visit: Yes Status: Acute Patient's renal function continues to worsen. Based on the echocardiogram findings this is likely due to cardiorenal syndrome. We can try and increase his diuretics. I think his chances for improvement are poor. He manned up requiring dialysis at some point. Qualifiers: Acute renal failure type: unspecified Qualified Code(s): N17.9 - Acute kidney failure, unspecified (2) Catheter-associated urinary tract infection Current Visit: Yes Status: Resolved Qualifiers: Indwelling urinary catheter type: indwelling urethral catheter Encounter type: initial encounter Qualified Code(s): T83.511A - Infection and inflammatory reaction due to indwelling urethral catheter, initial encounter; N39.0 - Urinary tract infection, site not specified (3) Anasarca Current Visit: No Status: Chronic (4) Chronic respiratory failure Current Visit: No Status: Chronic Qualifiers: Respiratory failure complication: hypoxia and hypercapnia Qualified Code(s) : J96.11 - Chronic respiratory failure with hypoxia; J96.12 - Chronic respiratory failure with hypercapnia Subjective Principal diagnosis: myoclonus Interval history: The patient's renal function continues to slowly worsen. Urine output yesterday was 650 mL's. Echocardiogram showed a moderate to large pericardial effusion. There was moderate pulmonary hypertension and moderate to severe tricuspid regurgitation. There was some IVC collapse suggesting possible early tamponade. Objective - Vital Signs Vital signs: Vital Signs Temp Pulse Resp BP Pulse Ox 01/09/17 07:21 97.6 F 69 16 98/55 96 01/09/17 05:13 99.1 F 69 17 93/53 93 01/09/17 03:57 20 97 01/08/17 22:57 15 94 01/08/17 22:45 94 01/08/17 22:40 97.8 F 69 15 104/64 95 01/08/17 16:00 18 95 01/08/17 15:46 98 F 70 20 89/49 95 01/08/17 13:09 96 01/08/17 11:52 97.8 F 70 18 89/58 94 01/08/17 10:50 18 94 Intake and Output 01/08/17 01/09/17 01/09/17 23:59 07:59 15:59 Intake Total 100 / 100 Output Total 350 / 350 Balance -250 / -250 Intake: IV Fluids 100 / 100 Doxycycline 100 MG In 0.9 100 / 100 % Sodium Chloride (Mini- Bag +) 100 ML @ 100 mls/ hr IVPB Q12HR [facility] Rx#: [id number] Output: Straight Cath 350 / 350 Other: Blood Glucose* 120 187 - General Appearance Exam: Patient is alert but appears chronically ill. He is in no acute distress. Lungs diminished breath sounds. Heart regular rate and rhythm. Abdomen is distended. Patient has anasarca up to the thighs. - Lab 01/09/17 04:25 01/09/17 04:25 Most recent lab results ABG pH 7.35 pH Units (7.32-7.45) 01/01/17 13:29 ABG pCO2 48 mmHg (35-45) H 01/01/17 13:29 ABG pO2 62 mmHg (85-104) L 01/01/17 13:29 ABG HCO3 26.5 mEQ/L (21-27) 01/01/17 13:29 ABG O2 Saturation 90 % (95-98) L 01/01/17 13:29 Calcium 8.1 mg/dL (8.6-10.8) L 01/09/17 04:25 Magnesium 2.1 mg/dL (1.6-2.6) 01/05/17 04:21 Urine Creatinine 45 mg/dL 01/07/17 09:00 Ur Total Protein 24 Hr 1524 mg/day (0-299) H 01/07/17 09:00 Urine Sodium < 20.0 mEq/L 12/24/16 08:55 Urine Total Protein 120 mg/dL (1-14) H 01/07/17 09:00 - VTE Documentation of Mechanical Device: Intermittent pneumatic compression device Consult Discharge Plan - Plan Referrals: Dylon Winston MD [Primary Care Provider] - 01/06/17 2:15 pm
[2017-01-09] MEDS ORDERED: Furosemide 40 MG/4 ML VIAL IVP ONE (10:09)
--- NOTE | 2017-01-09 11:57 | Cardiology Consult Note ---
<Servando Medina - Last Filed: 01/09/17 12:56> Date of Encounter: 01/09/17 Time of Encounter: 11:52 Assessment and Plan (1) Pericardial effusion Current Visit: Yes Status: Acute Patient with multiple co-morbidites found to have a moderate to large pericardial effusion. TTE shows LVEF 40-45%. There are regional wall motion abnormalities.Dilated right ventricle with moderate RV hypokinesis. A device lead was visualized in the right atrium and right ventricle.Severely dilated right atrium. There appears to be an echodensity in the right atrium which is not well visualized, but may represent a thrombus. Moderate-severe tricuspid regurgitation. Moderate pulmonary hypertension. Estimated RVSP = 54 mmHg. There is a moderate-large pericardial effusion present. There is no evidence of chamber collapse, however, the IVC is dilated with decreased respiratory variation. Findings are concerning for early cardiac tamponade. Noted to have small to moderate pericardial effusion on last TTE 08/2015. He is currently stable. Hypotension noted since admission. Appears to be chronic. No tachycardia seen. Significant fluid overload on exam. Multiple comorbidities as described in HPI. Poor candidate for invasive procedures. Consider palliative care consult. Will discuss plan further with CT surgery and interventionalist. . (2) A-fib Current Visit: Yes Status: Chronic H/o afib. Currently V paced. Continue to monitor. On Lovenox due to failed coumadin and xarelto. Consider hematology consult if kidney function does not improve. Lovenox may not be appropriate. Qualifiers: Atrial fibrillation type: chronic Qualified Code(s): I48.2 - Chronic atrial fibrillation (3) Acute on chronic systolic CHF (congestive heart failure) Current Visit: Yes Status: Acute Know h/o CMP. ICD in place. TTE shows EF 40-45%. On lasix at home. Family states that he had increased edema during his stay. Acute on chronic systolic CHF on exam. Neurology following kidney function and fluid status d/t DESEAN/CKD. Agree with increasing IV lasix. Low sodium diets and daily weights. Continue carvedilol. No Dwight inhibitor secondary to DESEAN. (4) ICD (implantable cardioverter-defibrillator) in place Current Visit: Yes Status: Chronic Last ICD check was 12/2015. Poor cardiology f/u. Will check device during his stay. Discussion w patient/family: The assessment and plan as outlined above was discussed with the patient and/or family members who expressed understanding and agreement. All questions were answered. Thank you for involving us in the care of your patient. Please call with any questions. History of Present Illness Consult date: 01/09/17 Requesting physician: Stiven Beach Consult reason: pericardial effusion Chief complaint: Rash, low urine out-pt History of present illness: Mr. Echavarria is a 61 year old male with a history parapalegia and being bed bound for the last thirteen years. He also has a history of chronic systolic CHF, ICD, atrial fibrillation, DVT, PE on home lovenox injections, stage IIIB cirrhosis, CKD, HTN, HLD, DM type II, COPD, DELORES, and chronic corey due to neurogenic bladder. He presented from home when his family noticed he had decreased urine output and a new rash. He also c/o abdominal pain. His son states he has chronic abdominal pain. He was found to have mild DESEAN/CKD, possible sepsis, UTI and pneumonia. He is being treated with IV antibiotics. His lasix was held for his DESEAN. His son reports increased swelling since his admission. Kidney function initially improved and then declined. TTE was completed for evaluation. He was found to have EF 40-45%, echodensity in RA that could represent thrombus There was a moderate to large pericardial effusion that could represent thrombus. Cardiology was consulted for further evaluation. He was already seen by CT surgery during his stay and deemed a poor candidate for surgery. He was evaluated briefly last night by the interventionalist for possible paracentesis. Due to the patient being "morbidly ill with hyperkalemic renal failure (CKD 3), hepatic dysfunction (coagulopathy with INR 1.5), anemic, thrombocytopenic, hyponatremic he is a poor candidate for invasive therapies. No evidence that patient was in tampanode on exam. Noted to be hypotensive but appears to be chronic. No tachycardia seen. He was given IV hydration for DESEAN. Unfortunately kidney function continues to decline. Mr. Echavarria Past Med Surg Social Fam HX - Past Medical History Medical history: arthritis, atrial fibrillation, cardiomyopathy, cirrhosis, CHF , COPD, coronary artery disease, CVA, DVT, dementia, diabetes, GERD, GI bleed, hepatitis, hyperlipidemia, hypertension, kidney stones, liver disease, migraine , myocardial infarction, osteoporosis, peripheral artery disease, pulmonary embolus, renal disease, TIA, venous stasis Psychiatric history: anxiety, bipolar, depression - Past Surgical History Surgical History: cholecystectomy, pacemaker/AICD - Social History Smoking Status: Former smoker Smokeless Tobacco Status: No Alcohol use: none Drug use: none - Family History Mother Adopted: No Twin of Family Member: Yes Living Status: Cause of : hematoma Hx Family Cardiac Disorders: No Hx Family Respiratory Disorders: No Hx Family Cancer: Yes (brother, small cell carcinoma) Hx Family GI Disorders: No Hx Family Genitourinary Disorders: No Hx Family Endocrine Disorder: No Hx Family Musculoskeletal Disorders: No Hx Family Neuromuscular Disorders: No Hx Family Neurologic Disorders: No Hx Family HEENT Disorders: No Hx Family Autoimmune Disorders: No Hx Family Reproductive Disorders: No Hx Family Psychosocial Disorders: No Hx Family Medical Disorders: No Medications and Allergies Aspirin Enteric Coated [Aspirin EC] 81 mg PO QAM #0 03/28/15 [History] Carvedilol [Coreg] 6.25 mg PO BIDWM 03/28/15 [History] Ezetimibe [Zetia] 10 mg PO QAM 03/28/15 [History] Latanoprost [Xalatan] 1 drop BOTH EYES HS 03/28/15 [History] Tamsulosin [Flomax] 0.4 mg PO QPM 03/28/15 [History] Simethicone [Gas-X] 80 mg PO TID PRN #0 tab.chew 04/03/15 [Rx] Ondansetron HCl [Zofran] 4 mg PO Q8H PRN #20 tablet 09/12/15 [Rx] Pregabalin [Lyrica] 50 mg PO TID 30 Days 09/12/15 [Rx] Albuterol Sulfate [Albuterol Inhaler] 2 puff IH TID PRN 03/12/16 [History] Docusate [Colace] 100 mg PO BID PRN 03/12/16 [History] Furosemide [Lasix] 40 mg PO BID 03/12/16 [History] Insulin Glargine [Lantus] 60 unit SQ BID 03/12/16 [History] Ketoconazole 2% CRM [Nizoral Cream] 1 appl TP BID 03/12/16 [History] Lactose-Reduced Food [Ensure Liquid] 1 bottle PO TID 03/12/16 [History] Oxycodone HCl/Acetaminophen [Percocet 10-325 mg Tablet] 1 tab PO 5XD 03/12/16 [ History] Promethazine [Phenergan] 25 mg PO BID PRN 03/12/16 [History] Ferrous Sulfate [Iron] 325 mg PO DAILY 10/24/16 [History] Gentamicin Oint [Garamycin] 1 appl TP TID 10/24/16 [History] Ipratropium/Albuterol Neb [Duoneb] 3 ml IH Q6HR 10/24/16 [History] Mupirocin [Bactroban Oint] 1 appl TP BID 10/24/16 [History] Enoxaparin [Lovenox] 150 mg SQ Q12HR #0 10/29/16 [Rx] Omeprazole [PriLOSEC] 20 mg PO BIDAC #60 capsule. 10/29/16 [Rx] Collagenase Oint [Santyl] 1 appl TP BID 12/24/16 [History] 3 Allergy/AdvReac Type Severity Reaction Status Date / Time celecoxib [From Celebrex] Allergy Swelling Verified 03/12/16 04:44 of Lip/Tongue/Throat gabapentin [From Neurontin] Allergy Swelling Verified 03/12/16 04:44 of Lip/Tongue/Throat nifedipine [From Procardia] Allergy Swelling Verified 03/12/16 04:44 of Lip/Tongue/Throat Penicillins Allergy Swelling Verified 03/12/16 04:44 of Lip/Tongue/Throat rofecoxib [From Vioxx] Allergy Swelling Verified 03/12/16 04:44 of Lip/Tongue/Throat iodine AdvReac See Verified 03/12/16 04:44 Comments povidone-iodine AdvReac See Verified 03/12/16 04:44 [From Betadine] Comments soap [From Betadine] AdvReac See Verified 03/12/16 04:44 Comments All Systems Review: A 10-system review of systems was performed and is negative for pertinent findings except as documented above in the HPI. Physical Examination General: Conversant, No Apparent Distress, Other (Morbidly obese male.) HEENT: Atraumatic, Normocephaly, Mucus Membranes Moist Neck: No JVD, Normal carotid pulses Cardiac: Reg Rate and Rhythm, Normal S1 and S2, No Murmur, Other (Difficult to assess d/t body habitus.) Lungs: Normal Breath Sounds, No Wheeze, Rales, Rhonchi, Other (diminished) Neuro: Alert and responsive, No focal deficits noted, Other (genralized weakness. ) Abdomen: Non-Tender, Other (distended) Skin: Other (red macular rash noted on arms.) Musculoskeletal: Other (wall tender to palpation.) Extremities: No Clubbing, No Cyanosis, Other (3+ BLE up to abdomen. ) Results 01/09/17 04:25 01/09/17 04:25 Lab Results 01/08/17 01/09/17 01/09/17 18:25 04:25 04:25 WBC 6.4 Hgb 8.7 L Hct 28.5 L Plt Count 108 L INR 1.4 Sodium 129 L Potassium 5.7 H Chloride 95 L Carbon Dioxide 25 BUN 98 H Creatinine 2.42 H Glucose 143 H Calcium 8.1 L Total Bilirubin 0.7 AST 7 ALT < 6 Alkaline Phosphatase 72 01/09/17 04:25 WBC Hgb Hct Plt Count INR 1.3 Sodium Potassium Chloride Carbon Dioxide BUN Creatinine Glucose Calcium Total Bilirubin AST ALT Alkaline Phosphatase - Imaging and Cardiology Echo: report reviewed (01/08/17Mild LV systolic dysfunction, LVEF 40-45%. There are regional wall motion abnormalities, see diagram below. Dilated right ventricle with moderate RV hypokinesis. A device lead was visualized in the right atrium and right ventricle. Severely dilated right atrium. There appears to be an echodensity in the right atrium which is not well visualized, but may represent a thrombus. Moderate-severe tricuspid regurgitation. Moderate pulmonary hypertension. Estimated RVSP = 54 mmHg. There is a moderate-large pericardial effusion present. There is no evidence of chamber collapse, however , the IVC is dilated with decreased respiratory variation. Findings are concerning for early cardiac tamponade. Abnormal results were discussed with the ordering physician, Dr. Beach. I recommended cardiothoracic surgery consultation for possible pericardial window.) - EKG Interpretation EKG results cardiology: personally reviewed (V paced) Consult Discharge Plan - Plan Referrals: Dylon Winston MD [Primary Care Provider] - 01/06/17 2:15 pm <Fabian Moreno - Last Filed: 01/09/17 17:45> Date of Encounter: 01/09/17 Time of Encounter: 17:25 Assessment and Plan Discussion w patient/family: The assessment and plan as outlined above was discussed with the patient and/or family members who expressed understanding and agreement. All questions were answered. Thank you for involving us in the care of your patient. Please call with any questions. History of Present Illness History of present illness: Mr. Echavarria is a 61 year old male All Systems Review: A 10-system review of systems was performed and is negative for pertinent findings except as documented above in the HPI. Physical Examination Vital Signs, Last 4 Hours Temp Pulse Resp BP Pulse Ox 01/09/17 16:35 97.9 F 70 18 95/57 96 01/09/17 15:11 18 98 Results 01/09/17 04:25 01/09/17 04:25 Lab Results 01/08/17 01/09/17 01/09/17 18:25 04:25 04:25 WBC 6.4 Hgb 8.7 L Hct 28.5 L Plt Count 108 L INR 1.4 Sodium 129 L Potassium 5.7 H Chloride 95 L Carbon Dioxide 25 BUN 98 H Creatinine 2.42 H Glucose 143 H Calcium 8.1 L Total Bilirubin 0.7 AST 7 ALT < 6 Alkaline Phosphatase 72 01/09/17 04:25 WBC Hgb Hct Plt Count INR 1.3 Sodium Potassium Chloride Carbon Dioxide BUN Creatinine Glucose Calcium Total Bilirubin AST ALT Alkaline Phosphatase - Attending Attestation Pts family requested transfer to another facility, declined further evaluation, not evaluated by me today.
[2017-01-09] MEDS: *HR* OxyCODONE/APAP 10/325 TABLET PO PRN ×2 (15:48→21:31)
--- NOTE | 2017-01-09 16:22 | Discharge Summary ---
Date of Encounter: 01/09/17 Time of Encounter: 16:19 - Discharge Diagnosis (1) Acute renal failure superimposed on chronic kidney disease Priority: Primary Status: Acute Qualifiers: Qualified Code(s): N17.9 - Acute kidney failure, unspecified; N18.9 - Chronic kidney disease, unspecified (2) Sepsis Priority: Primary Status: Acute Qualifiers: Sepsis type: sepsis due to unspecified organism Qualified Code(s): A41.9 - Sepsis, unspecified organism (3) Pneumonia Priority: Secondary Status: Acute Qualifiers: Pneumonia type: due to unspecified organism Laterality: right Lung location: lower lobe of lung Qualified Code(s): J18.1 - Lobar pneumonia, unspecified organism (4) UTI (urinary tract infection) Priority: Secondary Status: Acute Qualifiers: Urinary tract infection type: site unspecified Hematuria presence: with hematuria Qualified Code(s): N39.0 - Urinary tract infection, site not specified; R31.9 - Hematuria, unspecified (5) Hyponatremia Priority: Secondary Status: Acute (6) Afib Priority: Secondary Status: Chronic Qualifiers: Atrial fibrillation type: paroxysmal Qualified Code(s): I48.0 - Paroxysmal atrial fibrillation (7) Stage 4 decubitus ulcer Priority: Secondary Status: Acute Qualifiers: Qualified Code(s): L89.94 - Pressure ulcer of unspecified site, stage 4 (8) Paraplegia Priority: Secondary Status: Chronic (9) Chronic indwelling Cano catheter Priority: Secondary Status: Chronic (10) Pacemaker Priority: Secondary Status: Acute (11) Acute on chronic systolic CHF (congestive heart failure) Priority: Secondary Status: Acute (12) COPD exacerbation Priority: Secondary Status: Acute (13) Diabetes Priority: Secondary Status: Acute Qualifiers: Diabetes mellitus type: type 2 Diabetes mellitus complication status: with circulatory complication Diabetes mellitus complication detail: with peripheral angiopathy without gangrene Diabetes mellitus fpc insulin use : with manager intermediate use Qualified Code(s): E11.51 - Type 2 diabetes mellitus with diabetic peripheral angiopathy without gangrene; 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 (14) Hyperkalemia Priority: Secondary Status: Acute (15) Pericardial effusion Priority: Secondary Status: Acute (16) DM (diabetes mellitus), type 2 Priority: Secondary Status: Chronic Qualifiers: Diabetes mellitus complication status: with skin complications Diabetes mellitus complication detail: with other skin ulcer Diabetes mellitus fpc insulin use: with fpc use Qualified Code(s): E11.622 - Type 2 diabetes mellitus with other skin ulcer; 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 (17) ICD (implantable cardioverter-defibrillator) in place Priority: Secondary Status: Chronic (18) History of DVT (deep vein thrombosis) Priority: Secondary Status: Chronic (19) Counseling regarding advanced care planning and goals of care Priority: Secondary Status: Acute (20) DVT prophylaxis Priority: Secondary Status: Acute - Discharge Medications Home Medications: Aspirin Enteric Coated [Aspirin EC] 81 mg PO QAM #0 03/28/15 [History] Carvedilol [Coreg] 6.25 mg PO BIDWM 03/28/15 [History] Ezetimibe [Zetia] 10 mg PO QAM 03/28/15 [History] Latanoprost [Xalatan] 1 drop BOTH EYES HS 03/28/15 [History] Tamsulosin [Flomax] 0.4 mg PO QPM 03/28/15 [History] Simethicone [Gas-X] 80 mg PO TID PRN #0 tab.chew 04/03/15 [Rx] Ondansetron HCl [Zofran] 4 mg PO Q8H PRN #20 tablet 09/12/15 [Rx] Pregabalin [Lyrica] 50 mg PO TID 30 Days 09/12/15 [Rx] Albuterol Sulfate [Albuterol Inhaler] 2 puff IH TID PRN 03/12/16 [History] Docusate [Colace] 100 mg PO BID PRN 03/12/16 [History] Furosemide [Lasix] 40 mg PO BID 03/12/16 [History] Insulin Glargine [Lantus] 60 unit SQ BID 03/12/16 [History] Ketoconazole 2% CRM [Nizoral Cream] 1 appl TP BID 03/12/16 [History] Lactose-Reduced Food [Ensure Liquid] 1 bottle PO TID 03/12/16 [History] Oxycodone HCl/Acetaminophen [Percocet 10-325 mg Tablet] 1 tab PO 5XD 03/12/16 [ History] Promethazine [Phenergan] 25 mg PO BID PRN 03/12/16 [History] Ferrous Sulfate [Iron] 325 mg PO DAILY 10/24/16 [History] Gentamicin Oint [Garamycin] 1 appl TP TID 10/24/16 [History] Ipratropium/Albuterol Neb [Duoneb] 3 ml IH Q6HR 10/24/16 [History] Mupirocin [Bactroban Oint] 1 appl TP BID 10/24/16 [History] Enoxaparin [Lovenox] 150 mg SQ Q12HR #0 10/29/16 [Rx] Omeprazole [PriLOSEC] 20 mg PO BIDAC #60 capsule. 10/29/16 [Rx] Collagenase Oint [Santyl] 1 appl TP BID 12/24/16 [History] Allergies/Adverse Reactions: 3 Allergy/AdvReac Type Severity Reaction Status Date / Time celecoxib [From Celebrex] Allergy Swelling Verified 03/12/16 04:44 of Lip/Tongue/Throat gabapentin [From Neurontin] Allergy Swelling Verified 03/12/16 04:44 of Lip/Tongue/Throat nifedipine [From Procardia] Allergy Swelling Verified 03/12/16 04:44 of Lip/Tongue/Throat Penicillins Allergy Swelling Verified 03/12/16 04:44 of Lip/Tongue/Throat rofecoxib [From Vioxx] Allergy Swelling Verified 03/12/16 04:44 of Lip/Tongue/Throat iodine AdvReac See Verified 03/12/16 04:44 Comments povidone-iodine AdvReac See Verified 03/12/16 04:44 [From Betadine] Comments soap [From Betadine] AdvReac See Verified 03/12/16 04:44 Comments Procedures/tests Complete & Pending: Procedures Performed prior 72 hours Category Date Time Status EV echocardiogram Routine Y 01/08/17 09:16 Completed EV venous imaging LE BI Routine Y 01/08/17 19:44 Completed Date of admission: 12/24/16 03:25 Primary care physician: Dylon Winston MD Consults: 12/24/16 05:12 Consult to Collar Folder Operator [CONS] Routine Reason for SW Consult: [facility] patient. 12/24/16 11:16 Consult to Invasive Line Access Team [CONS] Routine Reason for Consult: difficult stick mutiple meds going Line Type: EPIV 12/25/16 09:37 Consult to Infectious Diseases [CONS] Routine Consulting Provider: Infectious Disease [place] Reason for Consult: severe sepsis - UTI, PNA, ulcers; assist with antibiotic choice/duration Time Notified: 09:38 Call Completed: Yes 01/02/17 10:06 Consult to Neurology [CONS] Routine Consulting Provider: [facility] Reason for Consult: B/L upper extremity myoclonic jerks Call Completed: Yes 01/04/17 10:12 Consult to Nephrology [CONS] Routine Consulting Provider: [facility] Reason for Consult: DESEAN Call Completed: Yes 01/06/17 10:11 Consult to Infectious Diseases [CONS] Routine Consulting Provider: [facility] Reason for Consult: Resistant Pseudomonas UTI Time Notified: 10:12 Call Completed: No 01/08/17 15:35 Consult to Cardiothoracic Surgery [CONS] Routine Consulting Provider: [facility] Reason for Consult: Pericardial effusion Time Notified: 15:36 Call Completed: No 01/08/17 15:37 Consult to Cardiology [CONS] Routine Comment: Consulting Provider: Cardiology [facility] Reason for Consult: Pericardial effusion ? early Tamponade Time Notified: 15:37 Call Completed: No Discharging clinician: [place] Anticipated date of discharge: 01/09/17 - Patient Status Disposition: Transfer Other Condition: Serious Overall status at discharge: patient is not back to baseline - Discharge Instructions Follow Up With: Dylon Winston MD [Primary Care Provider] - 01/06/17 2:15 pm Hospital course: Mr. Jem Dutta is a 61-year-old male who is chronically sick. He came in with Pseudomonas UTI at this point I am not sure what antibiotic was used to treat him but to recently he started elevating white count again along with positive UA. Infectious disease is consulted. Another issue is acute on chronic renal failure which had worsened with the attempts of diuresis as he is fluid overload. Nephrology is on the case. Renal ultrasound is negative for obstruction while left kidney could not be visualized completely. I noted his albumin and globulin ratio is completely reversed and it will be worth checking SPEP and UPEP to rule out to myeloma kidney. At the same time he might need some albumin which will facilitate his diuresis. I will discuss this issue with the Dr. Gardner and see what is his opinion. I tried to order SPEP and UPEP myself but the system did not allow. Problem list: #1 Pseudomonas UTI urine culture were positive on December 23 and he was treated with cefepime for 10 days. however his white cell count is up again and UA is again positive therefore we have consulted infectious disease. I already ordered 2 blood cultures. #2 acute renal failure with rising creatinine while nephrology is trying to diurese patient for fluid overload.Renal ultrasound is negative for obstruction while left kidney could not be visualized completely. I noted his albumin and globulin ratio is completely reversed and it will be worth checking SPEP and UPEP which is unremarkable however 1500 mg protein noted in 24 hours. #3 CHF /pericardial effusion/anasarca all in patient is on Lasix and diuresed 1200 mL. Patient mentions that he feels better after several days. Unfortunately now his blood pressure is borderline. the echocardiogram done today showed pericardial effusion with possible early temporal DR Umaña inform me. Official report is pending. I have consulted cardiology to help us out with diuresis at this point and I will back off on Lasix and stop metolazone as as his cardiac output may be dependent on preload. Per cardiology recommendation I have also informed Dr. Valverde from cardiothoracic surgery to see the patient to evaluate if he needs pericardial window. #4 hyperkalemia: Potassium 5.7. Kayexalate 30, amp D50 with IV regular insulin 5 units, 1 amp calcium gluconate. Will request nephrology to help us in managing it further #5 history of PE and DVT and chronic atrial fibrillation. Patient per record failed Coumadin and Xarelto. He is chronically on Lovenox 150 twice a day #6 right lower lobe pneumonia/Pseudomonas UTI/chronic bilateral lower extremity cellulitis. Recently treated with cefepime for 10 days. Right foot now showing some redness consistent with cellulitis and IV doxycycline added. Nation and renal function have been worsening while his hyperkalemia is refractory to medical treatment. His anasarca CHF and Pleural Effusion are refractory to high-dose Lasix and Zaroxolyn. Cardiology has evaluated him for pericardiocentesis. Overall we have not made much improvement with medical treatment and it seems like that he will need hemodialysis. Family requested transfer to tertiary care and we discussed the case with [facility] transfer center who have assigned Dr. Mili Aguilera as accepting physician. Nursing staff advice for the transfer. - Time Spent with Patient Total time spent providing and/or coordinating discharge services: - Constitutional Vitals: Temp Pulse Resp BP Pulse Ox 98.2 F 72 18 92/51 98 01/09/17 11:54 01/09/17 11:54 01/09/17 15:11 01/09/17 11:54 01/09/17 15:11 General appearance: Present: A&O X 3, morbidly obese, answers questions appropriately - VTE Documentation of Mechanical Device: Intermittent pneumatic compression device
[2017-01-09 16:37] VITALS: BP 95/57
[2017-01-09] MEDS ORDERED: Furosemide 40 MG/4 ML VIAL IVP SCH (17:00)
[2017-01-10] MEDS: Ipratropium/Albuterol Neb 3 ML IH SCH (03:35)
== END 2017-01-09 21:45 | disposition other institution (70) | DRG 466 ==
LOC: EMEROO 23:29 → 2NNU 23:29 → SUATTDRO 12-24 03:25 → 2NNU 12-24 03:53 → 2NENU 12-26 09:45
PROVIDERS: ADMIT Hospitalist; ATTEND Internal Medicine